=== PATIENT | male | born 1975 | race Caucasian/White ===

== ENCOUNTER → 2017-09-05 | Outpatient (CLI) | payer OTHER, SELFPAY | PROVIDERS: Family Provider Physician Assistant; Visit Provider Physician Assistant | DX: R04.2 Hemoptysis (principal) | CPT/HCPCS: 71020 ==

== ENCOUNTER → 2018-09-25 09:14 | Outpatient (CLI) | payer OTHER, SELFPAY ==
--- NOTE | 2018-09-25 09:24 | XR_ITS ---
EXAM: XR lumbar spine min 4V HISTORY: ITS.REASON: ACUTE LOW BACK PAIN WITH RT SCIATICA ORDERING PHYSICIAN: SHAYY Dai PATIENT AGE: 43 years COMPARISON: None FINDINGS: Normal alignment. No fracture or dislocation. No lytic or blastic change. There are small anterior osteophytes in the lower lumbar spine. The disc spaces are well-preserved. No fracture or dislocation. The SI joints have an unremarkable appearance. IMPRESSION: Mild degenerative changes, no acute finding
== END ==
PROVIDERS: PCP Family Medicine; Visit Provider Physician Assistant
DX: M54.41 Lumbago with sciatica, right side (principal)
CPT/HCPCS: 72110

== ENCOUNTER → 2020-07-29 09:56 | Outpatient (CLI) | payer OTHER, SELFPAY ==
--- NOTE | 2020-07-29 | CA_ITS ---
APPROVED REPORT Exam: Exercise Treadmill Technologist: Keisha Snyder, Ht: 6 ft 3 in Wt: 307 lbs BSA: 2.63 m2 HR: 62 bpm BP: 127/81 mmHg Rhythm: NSR,LEFTWARD AXIS Indications: Chest pain Medical History Allergies: No known drug allergies Cardiac Risk Factors: FHX of CAD Stress Test Details Test: Master HR Resting HR: 65 bpm Max Heart Rate (APMHR): 174 bpm Max HR Achieved: 165 bpm Target HR (85% APMHR): 147 bpm % of APMHR: 94 Recovery HR: 133 bpm BP Resting BP: 127.0/81.0 mmHg Max BP: 210.0/86.0 mmHg Recovery BP: 197.0/88.0 mmHg ECG Resting ECG: NSR,LEFTWARD AXIS Clinical Exercise duration: 08:00 min Highest Stage Achieved: Exercise capacity: 10.1 METs Stress ECG Conclusion MYOVIEW INJECTED AT 7:00. STOPPED AT 8:00 ON MASTER PROTOCOL. MAX HEART RATE 165 BPM WHICH IS 95% OF PM FOR AGE. MAX BP 210/86. METS = 10.1. TEST STOPPED DUE TO FATIGUE AND SOA. NO CHEST PAIN. OCCASIONAL PVC. RARE PAC. NS T WAVE CHANGES IN aVL. NORMAL GXT. MYOVIEW IMAGES REPORTED SEPARATELY. Test Summary RECOVERY 05:19 0.0 0.0 89 . 155/ 79 . . REST 05:57 0.0 0.0 65 . 127/ 81 . . Stage 1 01:00 10.0 1.7 96 . . . . Stage 1 02:00 10.0 1.7 109 . . . . Stage 1 03:00 10.0 1.7 114 . 150/ 88 . . Stage 2 01:00 12.0 2.5 125 . . . . Stage 2 02:00 12.0 2.5 132 . . . . Stage 2 03:00 12.0 2.5 138 . 210/ 86 . . Stage 3 . . . . . . . Myoview Injected Stage 3 01:00 14.0 3.4 152 . . . . Stage 3 02:00 14.0 3.4 163 . . . Stop exercise at 08:00 RECOVERY 01:00 0.0 0.0 133 . . . . RECOVERY 02:00 0.0 0.0 104 . . . . RECOVERY 03:00 0.0 0.0 85 . . . . RECOVERY 04:00 0.0 0.0 91 . 178/ 80 . . RECOVERY 05:00 0.0 0.0 79 . 178/ 80 . . RECOVERY 05:19 0.0 0.0 89 . 155/ 79 . . Electronically signed by : Burak Boyce, 07/30/2020 11:08:34
--- NOTE | 2020-07-29 09:58 | CA_ITS ---
APPROVED REPORT EXAM: Comprehensive 2D, Doppler, and color-flow Echocardiogram Assistant Therapy Aide: Yasmeen Messer RVT Ht: 6 ft 3 in Wt: 301lbs BSA: 2.61 BP: 136/89 mmHg Indications: ABN EKG,CDL CLEARANCE,CAD,DOMINIQUE,EX SMOKER,STENT,HTN TDS 2D Dimensions LVOT 2.35 cm (M/F) 1.5-2.5 M-Mode Dimensions RVDd 2.40 cm (0.9-2.6) LA Diam 4.30 cm (1.9-4.0) LVDd 5.01 cm (3.5-5.7) Ao Diam 3.28 cm (2.0-3.7) LVDs 4.18 cm (3.5-5.7) IVSd 1.07 cm (0.6-1.1) PWd 1.18 cm (0.6-1.1) EF (Teich) 57.00% FS 30.40% EDV (Teich) 180.70 mL ESV (Teich) 77.70 mL LV Diastology E Decel Time 210.00 (160-240 msec) E/A Ratio 1.3 MED E' 7.70 (< 7 cm/sec) E'/MED E' Ratio 9.25 (>14) LAT E' 10.20 (<10 cm/sec) E/LAT E' Ratio 6.98 (>14) Mitral Valve MV E Max Geronimo. 71.00 (40-130 cm/s) MV A Velocity 53.00 (40-130 cm/s) E/A Ratio 1.35 MV Decel. Time 210.00 (160-240 ms) MV PHT 62.00 ms Pulmonary Valve PV Peak Velocity 72.00 (50-150 cm/s) Tricuspid Valve TR P. Velocity 214.00 cm/s Left Ventricle Left atrium is normal size, left ventricle is normal size, there is no concentric left ventricular hypertrophy, visually estimated ejection fraction 55% with no regional wall motion abnormality, endocardial surfaces are poorly visualized. Diastolic parameters are normal. Right Ventricle Right atrium and right ventricle are normal size and contractility. Aortic Valve Aortic valve is minimally thickened and fibrosed, there is no aortic stenosis or aortic insufficiency. Mitral Valve Mitral valve is grossly normal. There is trace mitral regurgitation. Tricuspid Valve Tricuspid valve is grossly normal, there is trace tricuspid regurgitation. Pulmonic Valve Pulmonic valve is poorly visualized. Great Vessels Aortic root is normal size. Pericardium No significant pericardial effusion noted. Conclusion 1. Normal left ventricular size, preserved left ventricular systolic function, visually estimated ejection fraction 55% with no regional wall motion abnormality, endocardial surfaces are poorly visualized, diastolic parameters are within normal range. 2. Trace mitral and tricuspid regurgitation. 3. No significant pericardial effusion noted. Electronically signed by : Burak Boyce, 07/29/2020 14:48:06
--- NOTE | 2020-07-29 10:25 | NM_ITS ---
APPROVED REPORT Exam: Nuclear Stress Test Indication: Fatigue, CAD, Hx of [place], HTN, Family history Patient Location: Outpatient Stress Tech: Faridameli Faye [place] Tech:Kaycee TrejoANOOP RT(R)(N) Ht: 6 ft 3 in Wt: 307 lbs HR: 62 bpm BP: 127/81 mmHg BSA: 2.63 m2 BMI: 38.3 History: Fatigue, CAD, Hx of [place], HTN, Family history Procedure: Patient exercised on Liam protocol 8:00 minutes and sec, resting heart rate 62 bpm, resting blood pressure 127/81 mmHg, with exercise maximum heart rate achived was 165 bpm which is 95 % of the maximum predicted heart rate and blood pressure was 210/86 mmHg. Test was stopped due to SOA and fatigue. Patient denied any complaint of chest pain. Patient has GERD exercise capacity, achieved 10.1 METs of workload on treadmill, the blood pressure response to exercise was Hypertensive. Electrocardiogram Resting electrocardiogram showed sinus rhythm, with exercise there is less than 1.[address] segment depression noted from the baseline EKG. The EKG portion of the exercise Myoview is negative for ischemia. Cardiac Stress and Resting SPECT Images: Cardiac Stress and Resting SPECT images were obtained using technetium 99m Myoview 31.3 mCi stress and 10.76 mCi at rest. Gated SPECT for analysis of segmental wall motion and calculation of the ejection fraction also done. Cardiac stress and resting SPECT images show uniform myocardial activity without segmental perfusion abnormality, computer derived ejection fraction is 56% with no regional wall motion abnormality, right ventricle is mildly enlarged with normal contractility. Conclusion: 1. The EKG portion of the exercise Myoview is negative for ischemia, patient has good exercise capacity achieved 10.1 mets of workload on treadmill, the blood pressure response to exercise was hypertensive, there was no exercise-induced chest discomfort. Test was stopped due to shortness of breath. 2. No scintigraphic evidence of reversible ischemia seen, computer derived ejection fraction 56% with no regional wall motion abnormality, right ventricle is mildly enlarged with normal contractility. Electronically signed by : Burak Boyce, 07/30/2020 11:12:21
--- NOTE | 2020-07-29 13:53 | HMH.ITSHM ---
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 [] asa bupropion lasix gabapentin
== END ==
PROVIDERS: PCP Family Medicine; Visit Provider Internal Medicine Cardiovascular Disease
DX: R94.31 Abnormal electrocardiogram [ECG] [EKG] (principal); I25.10 Atherosclerotic heart disease of native coronary artery without angina pectoris; I10 Essential (primary) hypertension; K21.9 Gastro-esophageal reflux disease without esophagitis; R06.83 Snoring; Z02.4 Encounter for examination for driving license; Z87.891 Personal history of nicotine dependence
CPT/HCPCS: 78452; 93017; 93306; 95806; A9502

== ENCOUNTER → 2020-09-13 08:23 | Outpatient (CLI) | payer OTHER, SELFPAY ==
--- NOTE | 2020-09-13 08:27 | CA_ITS ---
APPROVED REPORT Automobile Body Repair Chief: Yasmeen Messer RVT Laterality: Bilateral Study Quality: Good Indications: Carotid stenosis,CAD WITH STENT Risk Factors Hypertension: Smoking Doppler Spectral Velocity Analysis ECA (R) 114.40/24.60 cm/s ECA (L) 118.50/28.90 cm/s dICA (R) 71.60/32.10 cm/s dICA (L) 89.60/35.60 cm/s Moni (R) 68.40/29.90 cm/s Moni (L) 59.70/27.00 cm/s pICA (R) 74.90/23.50 cm/s pICA (L) 49.10/20.20 cm/s dCCA (R) 59.90/22.50 cm/s dCCA (L) 79.00/24.10 cm/s pCCA (R) 95.20/24.60 cm/s pCCA (L) 132.90/31.80 cm/s Vert (R) 32.20/12.70 cm/s Vert (L) 28.30/10.90 cm/s ICA/CCA 1.25 ICA/CCA 1.13 Findings Study suggests no evidence of stenosis of the right internal cartoid artery. Study suggests no evidence of stenosis of the left internal cartoid artery. Antegrade flow seen bilateral vertebral arteries. Conclusion Study suggests no evidence of stenosis of the right internal cartoid artery. Study suggests no evidence of stenosis of the left internal cartoid artery. Antegrade flow seen bilateral vertebral arteries. Electronically signed by : Haile Connolly MD 09/14/2020 20:00:27
--- NOTE | 2020-09-13 09:00 | US_ITS ---
PROCEDURE: US THYROID Referring Doctor: Ysabel Davis Patient Age:45Y CLINICAL INDICATION: HYPOTHYROIDISM COMPARISON: US THY US THYROID from 12/14/2014 FINDINGS: Bilateral thyroid enlargement inhomogeneous architecture and nodular pattern bilaterally. Similar coarse inhomogeneous pattern to previous 2015 exam. No dominant or unique nodule identified but rather this stable diffuse coarse stippled nodular architecture. Color Doppler survey images shows no increased flow to either lobe Right lobe: 5 cm length x 2.2 cm wide x 1.5 cm AP Left lobe: 5.2 cm length x 2.3 cm wide x 2 cm AP Isthmus: Relatively thickened 8.65 mm AP it was thickened (The on the previous 2015 exam thickened isthmus measured over 9.5 mm on that prior study) . IMPRESSION: Bilateral thyroid enlargement again encountered. . Coarse inhomogeneous somewhat nodular architecture as was seen on 2015 thyroid ultrasound. However no discrete unique dominant mass either lobe, rather a diffuse coarse architecture again seen Dictated by: Haile Connolly MD 09/14/2020 14:59 Haile Connolly MD in [place] 09/14/2020 14:59
== END ==
PROVIDERS: PCP Family Medicine; Visit Provider Family Medicine
DX: E03.9 Hypothyroidism, unspecified (principal); I25.10 Atherosclerotic heart disease of native coronary artery without angina pectoris; Z95.9 Presence of cardiac and vascular implant and graft, unspecified
CPT/HCPCS: 76536; 93880

== ENCOUNTER → 2020-11-08 15:53 | Outpatient (CLI) | payer OTHER, SELFPAY ==
--- NOTE | 2020-11-08 15:57 | XR_ITS ---
PROCEDURE: XR HAND RT MIN 3V CLINICAL INDICATION: CONTUSION OF RT HAND,INITIAL ENCOUNTER COMPARISON: No exams were available for comparison FINDINGS: No obvious fracture or dislocation. There are mild osteoarthritic changes at the 1st metacarpophalangeal joint and the 1st interphalangeal joint. Scattered small soft tissue densities are present including regions at the 1st interphalangeal joint, 2nd PIP joint, and long the proximal aspect and palmar aspect of the middle phalanx of the 3rd digit. These areas are nonspecific and may be due to soft tissue calcifications and or foreign bodies. IMPRESSION: No acute fracture. Soft tissue calcifications versus foreign bodies at the 1st 2nd and 3rd fingers Dictated by: Giorgi Tee MD 11/08/2020 16:18 Giorgi Tee MD in [place] 11/08/2020 16:18
== END ==
PROVIDERS: PCP Family Medicine; Visit Provider Family Medicine
DX: S60.221A Contusion of right hand, initial encounter (principal)
CPT/HCPCS: 73130

== ENCOUNTER 2023-04-18 08:23 | Emergency (ER) | payer OTHER, SELFPAY ==
[2023-04-18] VITALS (9 sets, daily range): BP systolic 125–165; BP diastolic 96–110; PULSE 52–77; RESP 13–20; TEMP 36.7–36.8; O2SAT 95–98; BMI 40.6; BMI 41.0
--- NOTE | 2023-04-18 08:23 | ECG_ITS ---
APPROVED REPORT Exam: Resting ECG HR:67 bpm ECG Measurements Heart Rate 67 AXES NC 178 P 47 QRSd 120 QRS -70 QT 407 T 43 QTc 423 Conclusion SINUS RHYTHM LEFT ANTERIOR FASCICULAR BLOCK [QRS AXIS <= -45, QR IN I, RS IN II] O.w NORMAL ECG UNCONFIRMED REPORT Electronically signed by : Saul Morales MD 04/18/2023 20:16:55
--- NOTE | 2023-04-18 08:25 | XR_ITS ---
FINAL REPORT CLINICAL HISTORY: chest pain, left side, hx of stents COMPARISON: 09/05/2017 FINDINGS: SINGLE VIEW CHEST The heart size is normal. The mediastinum is normal. The lungs are clear. There is no pneumothorax. IMPRESSION: No acute cardiopulmonary process. Reviewed, Interpreted and Dictated by Nelson Brown III, MD Transcribed by Kennedi Euceda Authenticated and . [facility]
[2023-04-18 08:34] LABS: Basophils # 0.1 K/mm3 (0-0.2); Basophils % 1.2 % (0.1-2.0); Eosinophils # 0.3 K/mm3 (0.0-0.4); Eosinophils % 4.7 % (0.1-12.0); Hematocrit 46.7 % (42.0-52.0); Lymphocytes # 2.7 K/mm3 (0.7-4.5); Lymphocytes % 38.7 % (10-50); Mean Corpuscular HGB Conc 32.2 g/dL (31.8-35.4); Mean Corpuscular Hemoglobin 29.8 pg (27.0-31.2); Mean Corpuscular Volume 92.7 fl (80-94); Mean Platelet Volume 7.6 fl (7.4-10.4); Monocytes # 0.2 K/mm3 (0.1-1.0); Monocytes % 2.7 % (1.7-9.3); Neutrophils # 3.6 K/mm3 (1.8-7.8); Neutrophils % 52.7 % (37.0-80.0); Platelet Count 323 K/mm3 (142-424); Red Blood Count 5.04 M/mm3 (4.60-6.20); Red Cell Distribution Width 14.5 % (11.5-17.5); White Blood Count 6.9 K/mm3 (4.8-10.8)
--- NOTE | 2023-04-18 08:39 | HMH.EDGENADL ---
Discharge Plan Disposition Patient Disposition: Home, Self-Care Chief Complaint: Chest Pain Prescriptions Prescriptions: No Action aspirin [Adult Low Dose Aspirin] 81 mg tablet,delayed release (DR/EC) 81 mg PO DAILY cetirizine 10 mg tablet 10 mg PO DAILY furosemide 20 mg tablet 20 mg PO DAILY levothyroxine 175 mcg tablet 175 mcg PO DAILY omeprazole 40 mg capsule,delayed release(DR/EC) 40 mg PO DAILY lisinopril 20 mg tablet 40 mg PO DAILY metoprolol succinate 25 mg tablet extended release 24 hr See Rx Instructions .ROUTE .COMPLEX Qty: 90 1RF Dose Instruction: TAKE ONE TABLET BY MOUTH EVERY DAY Rx Instructions: TAKE ONE TABLET BY MOUTH EVERY DAY rosuvastatin 20 mg tablet See Rx Instructions .ROUTE .COMPLEX Qty: 30 5RF Dose Instruction: TAKE ONE TABLET BY MOUTH EVERY DAY Rx Instructions: TAKE ONE TABLET BY MOUTH EVERY DAY Referrals Follow up/Referrals: Provider,Referral, MD [Referring] - See instructions Activity Restrictions/Add. Instructions Additional Instructions/Restrictions: Stop taking Lasix (furosemide). Call Dr. Davis/Shani's office tomorrow, 04/19 for recheck labs. If you have any other concerning signs or symptoms, return to the ER for further evaluation. Clinical Impressions Clinical Impression: Chest pain, CHASE (acute kidney injury) Discharge ED Provider: Roger Gardner General Adult HPI General Chief complaint: Chest Pain Stated complaint: chest pain Time Seen by Provider: 04/18/23 08:27 Mode of Arrival: Ambulatory Source of Information: Patient Limitations: No Limitations Description of Symptoms (Recalled from ER Triage Doc. by RN): pt to ed c/o left sided chest pain that radiates into his arm. pt reports a previous NM 8 years ago. pt denies n/v. 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 pt states the pain is sharp in nature. History of Present Illness HPI narrative: Is a 47-year-old male with history of CAD status post NM and stenting not currently taking any of his medications, hyperlipidemia, hypertension presenting with chest pain. Patient states that this morning, around 6 AM on 04/18, patient started having left upper extremity shooting/stabbing pain starting in his lateral left arm and going down to his mid forearm. No associated weakness, did not travel all the way to his thumb. Did not travel to his neck. Intermittent. Not currently present. Moderate in intensity. About an hour after that started, about 7 AM today, 04/18, patient started having left-sided chest pain. Chest pain is mild in intensity, left-sided, stabbing, radiates to his left shoulder. Associate with shortness of breath, diaphoresis, nausea without vomiting. Denies abdominal pain, fevers or chills, cough, trauma, any neurologic deficits, or any other concerns. Notably, patient not taking any of his medications because they make my feet go numb and burn. He has been off his medications for weeks including aspirin, beta-jenifer, statin, ELODIA inhibitor, Lasix. Related Data Home Medications Medication Instructions Recorded Confirmed aspirin 81 mg tablet,delayed 81 mg PO DAILY 07/12/20 11/29/22 release (Adult Low Dose Aspirin) cetirizine 10 mg tablet 10 mg PO DAILY 07/15/20 11/29/22 furosemide 20 mg tablet 20 mg PO DAILY 07/15/20 11/29/22 levothyroxine 175 mcg tablet 175 mcg PO DAILY 07/15/20 11/29/22 omeprazole 40 mg capsule,delayed 40 mg PO DAILY 07/15/20 11/29/22 release lisinopril 20 mg tablet 40 mg PO DAILY 02/07/22 11/29/22 Previous Rx's Medication Instructions Recorded metoprolol succinate 25 mg See Rx Instructions .Route 09/12/22 tablet,extended release 24 hr .COMPLEX #90 tabs rosuvastatin 20 mg tablet See Rx Instructions .Route 10/31/22 .COMPLEX #30 tabs Allergies Allergy/AdvReac Type Severity Reaction Status Date / Time No Known Allergies Allergy Verified 05/10/22 14:23 [facility] Disclaimer: The information
[2023-04-18 08:41] LABS: Chloride 97 mmol/L (98-107); Potassium 3.9 mmoL/L (3.5-5.1); Sodium 139 mmol/L (136-145)
[2023-04-18 08:44] LABS: Anion Gap 12.9 mEq/L (5-15); Blood Urea Nitrogen 16 mg/dl (9-20); Carbon Dioxide 33 mmol/L (22.0-30.0); Creatinine Clearance Estimated 104 mL/min (50-200); Estimated Glomerular Filt Rate 40 ml/min (>60); GFR (African American) 49 ML/MIN (>60)
[2023-04-18 08:45] LABS: Calcium 10.2 mg/dl (8.4-10.2); Glucose 119 mg/dl (74-100)
[2023-04-18 08:57] LABS: Troponin I < 0.01 ng/ml (0.00-0.034)
[2023-04-18 09:49] LABS: Direct LDL Cholesterol 191.68 mg/dL (100-129)
[2023-04-18 09:55] LABS: Cholesterol 384 mg/dl (140-200); Triglycerides 424 mg/dl (30-150)
--- NOTE | 2023-04-18 10:07 | PC.NURSE ---
DR JORGENSEN SPEAKING AT MD AT [facility] FOR TRANSFER
--- NOTE | 2023-04-18 10:12 | PC.NURSE ---
Rounded on patient; SO at BS. Call he within reach. Pts SO asked about if patient was getting fluids, notified ER MD.
[2023-04-18 10:45] LABS: Hemoglobin A1C 6.5 % (4.0-6.0)
[2023-04-18 11:49] LABS: Troponin I < 0.01 ng/ml (0.00-0.034)
[2023-04-18 11:55] LABS: HDL Cholesterol 32 mg/dl (40-60)
[2023-04-18 14:15] LABS: Chloride 99 mmol/L (98-107); Potassium 3.6 mmoL/L (3.5-5.1); Sodium 138 mmol/L (136-145)
[2023-04-18 14:18] LABS: Anion Gap 10.6 mEq/L (5-15); Blood Urea Nitrogen 15 mg/dl (9-20); Calcium 9.1 mg/dl (8.4-10.2); Carbon Dioxide 32 mmol/L (22.0-30.0); Creatinine Clearance Estimated 111 mL/min (50-200); Estimated Glomerular Filt Rate 43 ml/min (>60); GFR (African American) 52 ML/MIN (>60); Glucose 124 mg/dl (74-100)
[2023-04-18 14:44] LABS: Troponin I < 0.01 ng/ml (0.00-0.034)
== END 2023-04-18 14:57 | disposition home or self-care (01) ==
PROVIDERS: Emergency Provider Emergency Medicine; PCP Family Medicine
DX: R07.9 Chest pain, unspecified (principal); M79.602 Pain in left arm; N17.9 Acute kidney failure, unspecified; I25.10 Atherosclerotic heart disease of native coronary artery without angina pectoris; I10 Essential (primary) hypertension; E78.5 Hyperlipidemia, unspecified; K21.9 Gastro-esophageal reflux disease without esophagitis
CPT/HCPCS: 71045; 80048; 80061; 83036; 84484; 85025; 93005; 96360; 96361; 99285

== ENCOUNTER → 2023-05-01 14:02 | Outpatient (CLI) | payer OTHER, SELFPAY ==
[2023-05-01 15:11] LABS: Anion Gap 13.5 mEq/L (5-15); Blood Urea Nitrogen 14 mg/dl (9-20); Carbon Dioxide 33 mmol/L (22.0-30.0); Chloride 97 mmol/L (98-107); Potassium 3.5 mmoL/L (3.5-5.1); Sodium 140 mmol/L (136-145)
[2023-05-01 15:12] LABS: Calcium 9.1 mg/dl (8.4-10.2); Estimated Glomerular Filt Rate 40 ml/min (>60); GFR (African American) 49 ML/MIN (>60); Glucose 108 mg/dl (74-100)
[2023-05-01 15:30] LABS: Free Thyroxine Index 0.1 ug/dL (5.93-13.13); T4 (Thyroxine) 0.6 ug/dl (5.53-11.0); Triiodothryronine (T3) Uptake 23 % (23.5-40.5)
[2023-05-01 16:25] LABS: Hemoglobin A1C 6.4 % (4.0-6.0)
== END ==
PROVIDERS: PCP Family Medicine; Visit Provider Nurse Practitioner
DX: R06.00 Dyspnea, unspecified (principal); R07.9 Chest pain, unspecified; I25.10 Atherosclerotic heart disease of native coronary artery without angina pectoris; I10 Essential (primary) hypertension; R94.31 Abnormal electrocardiogram [ECG] [EKG]; E78.5 Hyperlipidemia, unspecified; K21.9 Gastro-esophageal reflux disease without esophagitis; E66.9 Obesity, unspecified; Z87.891 Personal history of nicotine dependence; Z68.41 Body mass index [BMI] 40.0-44.9, adult
CPT/HCPCS: 36415; 80048; 83036; 84436; 84443; 84479

== ENCOUNTER → 2023-05-07 07:49 | Outpatient (CLI) | payer OTHER, SELFPAY ==
--- NOTE | 2023-05-07 07:57 | NM_ITS ---
APPROVED REPORT Exam: Nuclear Stress Test Indication: chest pain..soa..palpitations.fatigue...high cholesterol..family hx..hx of [place] Patient Location: Outpatient Stress Tech: Erma Raymundo [place] Tech:Kaycee Trejo ANOOP RT(R)(N) Ht: 6 ft 3 in Wt: 331 lbs HR: 51 bpm BP: 160/93 mmHg BSA: 2.72 m2 Rhythm: NSR TID: 1.25 BMI: 41.3 History: chest pain..soa..palpitations.fatigue...high cholesterol..family hx..hx of [place] Procedure: Patient received 0.4 mg of intravenous Lexiscan, resting heart rate 51 bpm, resting blood pressure 160/93 mmHg, with Lexiscan maximum heart rate achieved was 77 bpm which is 85 % of the maximum predicted heart rate and blood pressure was 163/95 mmHg. With Lexiscan, patient denied any complaint of chest pain. Cardiac Stress and Resting SPECT Images: Cardiac Stress and Resting SPECT images were obtained using technetium 99m Myoview 32.4 mCi stress and 9.73 mCi at rest. Resting and stress imaging in both supine and prone positions demonstrate a large sized, moderate, fixed perfusion defect in the inferior wall from the base and extending distally towards the inferoapical region. There is also a medium sized, moderate, partially reversible perfusion defect in the basal to mid anterior LV wall. There is increased transient ischemic dilatation ratio (TID 1.25), suggestive of possible multivessel disease or balanced ischemia. Gated imaging demonstrates mild reduction in global LV systolic function. There is moderate hypokinesis in the basal inferior LV wall. LVEF is calculated at 48%. Conclusion: Large sized, moderate, fixed perfusion defect in the inferior wall from the base and extending distally towards the inferoapical region. There is also a medium sized, moderate, partially reversible perfusion defect in the basal to mid anterior LV wall. This finding is suggestive of partial reversible ischemia. There is increased transient ischemic dilatation ratio (TID 1.25), suggestive of possible multivessel disease or balanced ischemia. Gated imaging demonstrates mild reduction in global LV systolic function. There is moderate hypokinesis in the basal inferior LV wall. LVEF is calculated at 48%. Electronically signed by : Adelaide Glasgow 05/08/2023 20:14:01
--- NOTE | 2023-05-07 10:12 | CA_ITS ---
APPROVED REPORT Exam: Pharmacologic Technologist: Erma Raymundo Ht: 6 ft 3 in Wt: 331 lbs BSA: 2.72 m2 HR: 51 bpm BP: 160/93 mmHg Rhythm: NSR Indications: Chest pain Medical History Medications: Lisinopril,,,,, Omeprazole,,,,, Levothyroxine,,,,, CetIRIZINE,,,,, Furosemide,,,,, Stress Test Details Test: LEXISCAN HR Resting HR: 51 bpm Max Heart Rate (APMHR): 171 bpm Max HR Achieved: 77 bpm Target HR (85% APMHR): 145 bpm % of APMHR: 45 Recovery HR: 58 bpm BP Resting BP: 160.0/93.0 mmHg Max BP: 163.0/95.0 mmHg Recovery BP: 163.0/95.0 mmHg ECG Resting ECG: Sinus bradycardia, delayed R/S transition Stress ECG: No change Arrhythmia: None Clinical Exercise duration: 04:00 min Highest Stage Achieved: Stress ECG Conclusion Symptoms: Dizziness, palpitations Arrhythmias/Ectopy: None ST-T Changes: No ST changes Conclusion: Unremarkable Lexiscan stress test. Myoview images are reported separately. Test Summary REST . . . . . . . Resting REST 04:29 . . 51 . 160/ 93 . . Stage 1 . . . . . . . Myoview Injected Stage 1 01:00 . . 61 . . . . Stage 2 01:00 . . 71 . . . . Stage 3 01:00 . . 59 . 142/ 95 . . Stage 4 01:00 . . 65 . 126/ 96 . Stop exercise at 04:00 RECOVERY 01:00 . . 62 . . . . RECOVERY 02:00 . . 61 . 145/100 . . RECOVERY 03:00 . . 60 . 145/100 . . RECOVERY 04:00 . . 63 . 157/100 . . RECOVERY 05:00 . . 56 . 157/100 . . RECOVERY 05:20 . . 59 . 163/ 95 . . Electronically signed by : Adelaide Glasgow, 05/08/2023 20:07:59
== END ==
PROVIDERS: PCP Family Medicine; Visit Provider Nurse Practitioner
DX: R06.00 Dyspnea, unspecified (principal); R07.9 Chest pain, unspecified; R94.31 Abnormal electrocardiogram [ECG] [EKG]; I25.10 Atherosclerotic heart disease of native coronary artery without angina pectoris; I10 Essential (primary) hypertension; E78.5 Hyperlipidemia, unspecified; K21.9 Gastro-esophageal reflux disease without esophagitis; E66.9 Obesity, unspecified; Z68.39 Body mass index [BMI] 39.0-39.9, adult; Z87.891 Personal history of nicotine dependence
CPT/HCPCS: 78452; 93017; A9502; J2785

== ENCOUNTER 2023-05-13 05:39 | Observation (INO) | payer OTHER, SELFPAY ==
[2023-05-13] VITALS (13 sets, daily range): BP systolic 136–183; BP diastolic 79–130; PULSE 49–70; RESP 12–18; TEMP 36.4–36.7; O2SAT 95–97; BMI 41.2; BMI 41.4
--- NOTE | 2023-05-13 05:45 | ECG_ITS ---
APPROVED REPORT Exam: Resting ECG HR:53 bpm ECG Measurements Heart Rate 53 AXES QRSd 118 QRS -52 QT 397 T 60 QTc 381 Conclusion ATRIAL FIBRILLATION WITH SLOW VENTRICULAR RESPONSE PATTERN CONSISTENT WITH PULMONARY DISEASE LEFT ANTERIOR FASCICULAR BLOCK [QRS AXIS <= -45, QR IN I, RS IN II] ABNORMAL ECG UNCONFIRMED REPORT Electronically signed by : Saul Morales MD 05/15/2023 17:25:19
--- NOTE | 2023-05-13 05:55 | PC.NURSE ---
Dr. Szymanski at
--- NOTE | 2023-05-13 06:06 | XR_ITS ---
PROCEDURE INFORMATION: Exam: XR Chest Exam date and time: 05/13/2023 6:11 AM Age: 47 years old Clinical indication: Shortness of breath; Additional info: SOA TECHNIQUE: Imaging protocol: Radiologic exam of the chest. Views: 1 view. COMPARISON: CR XR CHEST PORTABLE 04/18/2023 8:45 AM FINDINGS: Lungs: No focal airspace disease. Pleural spaces: Unremarkable. No pleural effusion. No pneumothorax. Heart/Mediastinum: Cardiomediastinal silhouette is within normal limits. Bones/joints: Unremarkable. IMPRESSION: No acute cardiopulmonary abnormality.
--- NOTE | 2023-05-13 06:14 | PC.NURSE ---
RAD at for CXR
[2023-05-13 06:50] LABS: Basophils # 0.1 K/mm3 (0-0.2); Basophils % 1.2 % (0.1-2.0); Eosinophils # 0.3 K/mm3 (0.0-0.4); Eosinophils % 4.1 % (0.1-12.0); Hematocrit 41.8 % (42.0-52.0); Hemoglobin 13.5 g/dL (14.1-18.0); Lymphocytes # 1.8 K/mm3 (0.7-4.5); Lymphocytes % 28.7 % (10-50); Mean Corpuscular HGB Conc 32.3 g/dL (31.8-35.4); Mean Corpuscular Hemoglobin 30.9 pg (27.0-31.2); Mean Corpuscular Volume 95.8 fl (80-94); Monocytes # 0.3 K/mm3 (0.1-1.0); Neutrophils # 3.8 K/mm3 (1.8-7.8); Platelet Count 287 K/mm3 (142-424); Red Blood Count 4.37 M/mm3 (4.60-6.20); Red Cell Distribution Width 15.1 % (11.5-17.5); White Blood Count 6.2 K/mm3 (4.8-10.8)
[2023-05-13 06:52] LABS: Chloride 101 mmol/L (98-107); Potassium 4.1 mmoL/L (3.5-5.1); Sodium 142 mmol/L (136-145)
[2023-05-13 06:54] LABS: Alanine Aminotransferase 81 U/L (12-78); Aspartate Amino Transferase 95 U/L (17-59); Blood Urea Nitrogen 16 mg/dl (9-20); Creatinine Clearance Estimated 146 mL/min (50-200); Estimated Glomerular Filt Rate 59 ml/min (>60); GFR (African American) 71 ML/MIN (>60)
[2023-05-13 06:55] LABS: Albumin Level 4.5 g/dl (3.5-5.0); Albumin/Globulin Ratio 1.1 (1.1-1.8); Alkaline Phosphatase 67 U/L (38-126); Anion Gap 15.1 mEq/L (5-15); Bilirubin,Total 0.6 mg/dl (0.2-1.3); Calcium 10.1 mg/dl (8.4-10.2); Carbon Dioxide 30 mmol/L (22.0-30.0); Glucose 121 mg/dl (74-100); Magnesium 1.9 mg/dl (1.6-2.3); Total Protein,Serum 8.5 g/dl (6.3-8.2)
--- NOTE | 2023-05-13 07:02 | PC.NURSE ---
Dr. Szymanski at BS to update pt
[2023-05-13 07:04] LABS: NT Pro Brain Natriuretic Pep. 133 pg/mL (0-125)
--- NOTE | 2023-05-13 07:07 | ECG_ITS ---
APPROVED REPORT Exam: Resting ECG HR:58 bpm ECG Measurements Heart Rate 58 AXES HI 178 P 4 QRSd 116 QRS -49 QT 410 T 27 QTc 406 Conclusion SINUS BRADYCARDIA WITH SINUS ARRHYTHMIA PATTERN CONSISTENT WITH PULMONARY DISEASE LEFT ANTERIOR FASCICULAR BLOCK [QRS AXIS <= -45, QR IN I, RS IN II] ABNORMAL ECG UNCONFIRMED REPORT Electronically signed by : Saul Morales MD 05/15/2023 17:25:06
[2023-05-13 07:08] LABS: Troponin I < 0.01 ng/ml (0.00-0.034)
--- NOTE | 2023-05-13 07:09 | PC.NURSE ---
Repeat EKG completed at 0707
[2023-05-13 07:10] LABS: D-Dimer 0.54 ug/mL (0.0-0.5)
--- NOTE | 2023-05-13 07:11 | HMH.EDGENADL ---
Discharge Plan Disposition Patient Disposition: Admitted Condition: Fair Clinical Impressions Clinical Impression: Angina pectoris, unstable, Bilateral edema of lower extremity Discharge ED Provider: Vitaliy Szymanski General Adult HPI <Vitaliy Szymanski MD - Last Filed: 05/13/23 23:30> General Chief complaint: Shortness of Breath/Dyspnea Stated complaint: SOA,B/P high 190/117 Time Seen by Provider: 05/13/23 05:44 Mode of Arrival: Ambulatory Source of Information: Patient Limitations: No Limitations Description of Symptoms (Recalled from ER Triage Doc. by RN): Pt complains SOA, chest pressure, and HTN (190/117) at home this morning, currently 183/117. Pt has hx of HTN, and recently has experienced overall body swelling and scheduled to have heart cath here on Sunday. Pt denies any chest pain, nausea or vomiting at this time. History of Present Illness HPI narrative: 47-year-old male history of coronary artery disease status post prior stent, hypothyroidism, currently being closely followed by cardiology with plan for cath on Sunday for abnormal stress test presents with shortness of breath. He reports that he woke up multiple times last night with shortness of breath while laying down, improved with sitting up. Patient was also hypertensive with systolic 190. Patient reports he is not currently having chest pain. Reports that he is not currently having shortness of breath. Patient reports worsening lower extremity edema recently. Related Data Home Medications Medication Instructions Recorded Confirmed cetirizine 10 mg tablet 10 mg PO DAILY Allergy Symptoms 07/15/20 05/13/23 levothyroxine 175 mcg tablet 175 mcg PO DAILYDM hypothyroid 07/15/20 05/13/23 omeprazole 40 mg capsule,delayed 40 mg PO DAILY Acid Reflux 07/15/20 05/13/23 release potassium chloride 20 mEq 20 meq PO DAILY Supplement 05/10/23 05/13/23 tablet,extended release(part/cryst) atorvastatin 40 mg tablet 40 mg PO Q2D Cholesterol 05/13/23 05/13/23 fluticasone propionate 50 1 spray intranasal DAILY Allergy 05/13/23 05/13/23 mcg/actuation nasal Symptoms spray,suspension furosemide 40 mg tablet 40 mg PO DAILY Fluid 05/13/23 05/13/23 lisinopril 40 mg tablet 40 mg PO DAILY High Blood Pressure 05/13/23 05/13/23 tadalafil 5 mg tablet 2.5 mg PO DAILY ERECTILE 05/13/23 05/13/23 DYSFUNCTION triamterene 37.5 1 tab PO DAILY Fluid 05/13/23 05/13/23 mg-hydrochlorothiazide 25 mg tablet Allergies Allergy/AdvReac Type Severity Reaction Status Date / Time No Known Allergies Allergy Verified 05/13/23 09:10 [facility] <Vitaliy Szymanski MD - Last Filed: 05/13/23 23:30> [facility] Disclaimer: The information contained in this section may have been updated after the patient was seen, as this information can be updated by other users. Medical History Abnormal EKG Abnormal nuclear stress test Allergic rhinitis BPH (benign prostatic hyperplasia) CAD (coronary artery disease) Elevated LFTs Erectile dysfunction Ex-smoker Gastroesophageal reflux disease HLD (hyperlipidemia) HTN (hypertension) Hypokalemia Hypothyroidism Morbid obesity Myocardial infarction RLS (restless legs syndrome) Snoring Stopped smoking with greater than 30 pack year history Surgical History (Updated 05/13/23 @ 13:13 by Portillo Mcleod MD) History of heart artery stent Family History Liver cancer Colon cancer Social History (Updated 05/13/23 @ 13:16 by Portillo Mcleod MD) Smoking Status: Former smoker quit date: 05/13/19 pack-years: 30 alcohol intake: never substance use type: denies use current occupational status: employed Travel in the last 8 weeks: Inside the [place] <Vitaliy Szymanski MD - Last Filed: 05/13/23 23:30> ROS Obtained: Yes All systems reviewed & no additional complaints except as documented Physical Exam <Vitaliy Szymanski MD - Last Filed: 05/13/23 23:30> General General appearance: alert and i
--- NOTE | 2023-05-13 07:52 | PC.NURSE ---
DR PENA SPEAKING WITH DR KISER FOR ADMISSION. DR KISER GROUP COUNSELOR FOR DR ARELLANO
--- NOTE | 2023-05-13 07:54 | PC.NURSE ---
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
--- NOTE | 2023-05-13 08:41 | PC.NURSE ---
pt sat up in bed, trying to stick his finger down his throat to induce vomiting, asked pt not to do that
--- NOTE | 2023-05-13 08:43 | PC.NURSE ---
Dr. Mcleod at
--- NOTE | 2023-05-13 08:49 | PC.NURSE ---
report called to josé miguel calderon rn on second floor at this time. states will send staff down to transport pt
--- NOTE | 2023-05-13 08:58 | PC.NURSE ---
arrived to floor by w/c from ED
[2023-05-13 09:56] LABS: Troponin I < 0.01 ng/ml (0.00-0.034)
--- NOTE | 2023-05-13 10:13 | HMH.PHAINT1 ---
Pharmacy Intervention Comments: MEDICATION RECONCILIATION COMPLETE USING LIST FROM MOST RECENT CARDIOLOGY OFFICE VISIT AND EXTERNAL PHARMACY FILL HISTORY.
--- NOTE | 2023-05-13 12:54 | EXP.HP ---
History of Present Illness *Admission Date: 05/13/23 *Reason for visit:: Chest pressure and shortness of breath *History of present illness: Mr. Barrera is a 47 year old patient of [facility] who sees Dr. Davis for his primary care. He presented to [facility] ER this morning with complaints of chest pressure, shortness of breath and elevated blood pressure. Patient states he awoke last night and had funny feelings in his chest associated with trouble breathing. Symptoms improved after sitting up but then returned after lying down. He checked his blood pressure and it was 190 systolic. So he came to the ER for an evaluation. He states he has a history of CAD and TX in 2016. Patient reports he has been having similar symptoms to the ones that brought him to the ER for about 1 month. He has also had lower extremity edema, and had diuretic dosing change. He had inadvertently stopped taking Levothyroxine sometime in the past few months but resumed it a few weeks ago. He states he has been to the office of [facility] 4 times in the past month for office visits and has had one other trip to the ER at [facility]. Total cholesterol was 340 when checked earlier this month. He had a cardiac stress test that was abnormal and has a left heart cath scheduled for later this week. [facility] Disclaimer: The information contained in this section may have been updated after the patient was seen, as this information can be updated by other users. Medical History Abnormal EKG Abnormal nuclear stress test Allergic rhinitis BPH (benign prostatic hyperplasia) CAD (coronary artery disease) Elevated LFTs Erectile dysfunction Ex-smoker Gastroesophageal reflux disease HLD (hyperlipidemia) HTN (hypertension) Hypokalemia Hypothyroidism Morbid obesity Myocardial infarction RLS (restless legs syndrome) Snoring Stopped smoking with greater than 30 pack year history Surgical History (Updated 05/13/23 @ 13:13 by Portillo Mcleod MD) History of heart artery stent Family History Liver cancer Colon cancer Social History (Updated 05/13/23 @ 13:16 by Portillo Mcleod MD) Smoking Status: Former smoker quit date: 05/13/19 pack-years: 30 alcohol intake: never substance use type: denies use current occupational status: employed Travel in the last 8 weeks: Inside the [place] Review of Systems Constitutional Constitutional: Denies chills and Denies fever(s) Eyes Eyes: Denies blurry vision ENT Ears, Nose, Mouth, and Throat: Denies bleeding gums and Denies dizziness *Cardiovascular Cardiovascular: Reports as per HPI *Respiratory Respiratory: Denies cough *Gastrointestinal Gastrointestinal: Denies abdominal pain *Genitourinary Genitourinary: Denies difficulty urinating *Musculoskeletal Musculoskeletal: Denies arthralgias Integumentary/Breasts Skin/Breast: Denies rash *Neurologic Neurologic: Denies dizziness Meds Home Medications and Allergies Home Medications Medication Instructions Recorded Confirmed Type cetirizine 10 mg tablet 10 mg PO DAILY Allergy Symptoms 07/15/20 05/13/23 History levothyroxine 175 mcg tablet 175 mcg PO DAILYDM hypothyroid 07/15/20 05/13/23 History omeprazole 40 mg capsule,delayed 40 mg PO DAILY Acid Reflux 07/15/20 05/13/23 History release potassium chloride 20 mEq 20 meq PO DAILY Supplement 05/10/23 05/13/23 History tablet,extended release(part/cryst) atorvastatin 40 mg tablet 40 mg PO Q2D Cholesterol 05/13/23 05/13/23 History fluticasone propionate 50 1 spray intranasal DAILY Allergy 05/13/23 05/13/23 History mcg/actuation nasal Symptoms spray,suspension furosemide 40 mg tablet 40 mg PO DAILY Fluid 05/13/23 05/13/23 History lisinopril 40 mg tablet 40 mg PO DAILY High Blood Pressure 05/13/23 05/13/23 History tadalafil 5 mg tablet 2.5 mg PO DAILY ERECTILE 05/13/23 05/13/23 History DYSFUNCTION triamterene 37.5 1 tab PO DAILY Fluid 05/13/23
--- NOTE | 2023-05-13 18:14 | PC.NURSE ---
NEW ADMIT THIS SHIFT. ONLY COMPLAINT WAS HEADACHE. MEDICATED PER MAR WITH GOOD EFFECTIVENESS. AMBULATES IN ROOM INDEPENDENTLY. DENIES CHEST PAIN. NSR ON TELE.
[2023-05-14] VITALS (21 sets, daily range): BP systolic 110–182; BP diastolic 65–108; PULSE 40–92; RESP 15–20; TEMP 36.4–37; O2SAT 95–98; BMI 40.6
[2023-05-14 07:19] LABS: Basophils # 0.1 K/mm3 (0-0.2); Basophils % 1.3 % (0.1-2.0); Eosinophils # 0.2 K/mm3 (0.0-0.4); Hematocrit 39.8 % (42.0-52.0); Hemoglobin 13.2 g/dL (14.1-18.0); Lymphocytes # 1.7 K/mm3 (0.7-4.5); Lymphocytes % 28.5 % (10-50); Mean Corpuscular HGB Conc 33.2 g/dL (31.8-35.4); Mean Corpuscular Hemoglobin 31.8 pg (27.0-31.2); Mean Corpuscular Volume 95.8 fl (80-94); Mean Platelet Volume 7.8 fl (7.4-10.4); Monocytes # 0.3 K/mm3 (0.1-1.0); Monocytes % 5.4 % (1.7-9.3); Neutrophils # 3.6 K/mm3 (1.8-7.8); Neutrophils % 60.8 % (37.0-80.0); Platelet Count 273 K/mm3 (142-424); Red Blood Count 4.16 M/mm3 (4.60-6.20); Red Cell Distribution Width 15.2 % (11.5-17.5); White Blood Count 5.9 K/mm3 (4.8-10.8)
[2023-05-14 07:23] LABS: Chloride 99 mmol/L (98-107); Potassium 3.6 mmoL/L (3.5-5.1); Sodium 140 mmol/L (136-145)
[2023-05-14 07:26] LABS: Alanine Aminotransferase 73 U/L (12-78); Albumin Level 4.3 g/dl (3.5-5.0); Albumin/Globulin Ratio 1.1 (1.1-1.8); Alkaline Phosphatase 81 U/L (38-126); Anion Gap 13.6 mEq/L (5-15); Aspartate Amino Transferase 83 U/L (17-59); Bilirubin,Total 0.6 mg/dl (0.2-1.3); Blood Urea Nitrogen 18 mg/dl (9-20); Calcium 9.5 mg/dl (8.4-10.2); Carbon Dioxide 31 mmol/L (22.0-30.0); Creatinine Clearance Estimated 125 mL/min (50-200); Estimated Glomerular Filt Rate 50 ml/min (>60); GFR (African American) 60 ML/MIN (>60); Globulin 3.9 g/dL (1.3-3.2); Glucose 110 mg/dl (74-100); Total Protein,Serum 8.2 g/dl (6.3-8.2)
--- NOTE | 2023-05-14 08:09 | EXP.ACUTE.PN ---
Subjective *Date: 05/14/23 *Time: 09:33 Interval history: He was unable to sleep much during the night. Blood pressure has greatly improved which patient states has made him feel better. He denies any chest discomfort. He has not been short of breath. He has ambulated to the bathroom without difficulty. He has been eating well. Renal function today with a BUN of 18 and creatinine 1.5. Liver function studies have improved with an AST still elevated at 83 and a normal ALT at 73. Medical Exam Vital signs and Labs for Last 24 Hours: Vital Signs Temp Pulse Pulse Resp BP BP Pulse Ox 05/14/23 05:51 50 L 05/14/23 04:00 97.7 F 49 L 18 110/65 96 05/14/23 00:00 40 L 05/13/23 20:00 50 L 05/14/23 06:21 05/14/23 04:32 05/14/23 02:50 05/14/23 01:00 05/14/23 00:00 97.9 F 47 L 18 137/96 H 95 05/13/23 22:52 05/13/23 21:00 05/13/23 20:00 97.7 F 54 L 18 136/79 96 05/13/23 20:00 05/13/23 18:17 05/13/23 16:00 60 05/13/23 16:21 05/13/23 15:00 05/13/23 14:58 97.7 F 65 16 156/99 H 97 05/13/23 12:00 70 05/13/23 12:48 05/13/23 11:00 05/13/23 11:19 97.8 F 57 L 18 163/100 H 96 05/13/23 09:00 05/13/23 09:07 51 L 05/13/23 09:01 97.6 F 52 L 16 171/108 H 97 05/13/23 08:54 54 L 16 171/108 H 97 05/13/23 08:50 53 L 16 158/105 H 97 05/13/23 09:01 97.6 F 54 L 16 171/108 H O2 Del Method 05/14/23 05:51 05/14/23 04:00 05/14/23 00:00 05/13/23 20:00 05/14/23 06:21 Room Air 05/14/23 04:32 Room Air 05/14/23 02:50 Room Air 05/14/23 01:00 Room Air 05/14/23 00:00 Room Air 05/13/23 22:52 Room Air 05/13/23 21:00 Room Air 05/13/23 20:00 Room Air 05/13/23 20:00 Room Air 05/13/23 18:17 Room Air 05/13/23 16:00 05/13/23 16:21 Room Air 05/13/23 15:00 Room Air 05/13/23 14:58 Room Air 05/13/23 12:00 05/13/23 12:48 Room Air 05/13/23 11:00 Room Air 05/13/23 11:19 Room Air 05/13/23 09:00 Room Air 05/13/23 09:07 05/13/23 09:01 Room Air 05/13/23 08:54 Room Air 05/13/23 08:50 Room Air 05/13/23 09:01 Room Air Intake and Output 05/13/23 05/14/23 05/14/23 19:59 03:59 11:59 Intake Total 930 / 930 Output Total 0 / 0 0 / 0 Balance 930 / 930 0 / 930 Intake: Intake, Oral Amount 930 / 930 Output: Output, Urine Amount 0 / 0 0 / 0 Other: Number of Unmeasured Voids 1 1 Weight 327 lb 4 oz Patient Weight 05/14/23 11:59 Weight 327 lb 4 oz Laboratory Results - last 24 hr 05/13/23 09:29: Troponin I < 0.01 05/14/23 06:11: WBC 5.9, RBC 4.16 L, Hgb 13.2 L, Hct 39.8 L, MCV 95.8 H, MCH 31.8 H, MCHC 33.2, RDW 15.2, Plt Count 273, MPV 7.8, Neut % (Auto) 60.8, Lymph % (Auto) 28.5, [place] % (Auto) 5.4, Eos % (Auto) 4.0, Baso % (Auto) 1.3, Neut # (Auto) 3.6, Lymph # (Auto) 1.7, [place] # (Auto) 0.3, Eos # (Auto) 0.2, Baso # (Auto) 0.1, Sodium 140, Potassium 3.6, Chloride 99, Carbon Dioxide 31 H, Anion Gap 13.6, BUN 18, Creatinine 1.50 H, Estimated Creat Clear 125, Estimated GFR 50 L, Est GFR ( Amer) 60, Glucose 110 H, Calcium 9.5, Total Bilirubin 0.6, AST 83 H, ALT 73, Alkaline Phosphatase 81, Total Protein 8.2, Albumin 4.3, Globulin 3.9 H, Albumin/Globulin Ratio 1.1 I & O for Labs for Last 24 Hours: Intake & Output 05/11/23 05/12/23 05/13/23 05/14/23 11:59 11:59 11:59 11:59 Intake Total 930 / 930 Output Total 0 / 0 0 / 0 Balance 0 / 0 930 / 930 Weight 331 lb 7 oz 327 lb 4 oz Constitutional: Present no acute distress Respiratory: Present CTA bilaterally (Anteriorly and posteriorly) Cardiac: Present Regular Rate (Monitor showing sinus rhythm) Extremities: Present full ROM and edema (Left lower extremity); Absent tenderness or calf tenderness Neuro: Present alert and oriented x 3 Assessment and Plan *Assessment and plan (1) Chest pain: Status: Acute Quali
--- NOTE | 2023-05-14 08:15 | EXP.CARD.CON ---
History of Present Illness History of Present Illness Consult date: 05/14/23 Requesting physician: Portillo Mcleod Consult reason: chest pain Chief complaint: chest pain Additional Medical History:: 1. CAD A. OR with JULIÁN, 2015 B. Lexiscan myoview, 05/07/2023, reversible ischemia basal to mid anterior wall with TID (1.25) with EF 48% 2. HTN A. Echo, 2019, EF 55% with trace MR/TR 3. HLD A. Reportedly on Statin therapy B. LDL 191, 04/2023, with TG 424 4. Remote tobacco use A. 20 pack year history, stopped about 2016 5. Obesity 6. FH of CAD in brothers, mother 7. CKD, stage 3a A. Cr 1.5 with GFR 50, 05/14/2023 8. Hypothyroidism with bilateral thyroid enlargement on ultrasound, 08/2020 A. On replacement but recently non-compliant, 04/2023 B. TSH 157 on 05/01/2023 then 64.3 on 05/13/2023 9. GERD A. ON PPI therapy 10. DM, type II A. Hgb A1c 6.4 on 05/01/2023 History of present illness: Mr. Barrera is a 47 year old patient of [facility] who sees Dr. Davis for his primary care. He presented to [facility] ER this morning with complaints of chest pressure, shortness of breath and elevated blood pressure. Patient states he awoke last night and had funny feelings in his chest associated with trouble breathing. Symptoms improved after sitting up but then returned after lying down. He checked his blood pressure and it was 190 systolic. So he came to the ER for an evaluation. He states he has a history of CAD and OR in 2015. Patient reports he has been having similar symptoms to the ones that brought him to the ER for about 1 month. He has also had lower extremity edema, and had diuretic dosing change. He had inadvertently stopped taking Levothyroxine sometime in the past few months but resumed it a few weeks ago. He states he has been to the office of [facility] 4 times in the past month for office visits and has had one other trip to the ER at [facility]. Total cholesterol was 340 when checked earlier this month. He had a cardiac stress test that was abnormal and has a left heart cath scheduled for later this week. The above per Dr. Mcleod Pt was recently seen in the office for test follow up (abnormal stress) and scheduled for [facility] this week. Symptoms of chest pain prompted ER visit over the weekend and subsequent admission. Currently pain free. Troponins normal. EKG's reviewed due to concern for A. fib. They show sinus rhythm and at times bradycardia with marked first degree AV block. I do not see evidence of a. fib on the EKG's or the telemetry strips. Discussed plans for C risks, benefits and procedure. He agrees to proceed. [facility] Disclaimer: The information contained in this section may have been updated after the patient was seen, as this information can be updated by other users. Medical History Abnormal EKG Abnormal nuclear stress test Allergic rhinitis BPH (benign prostatic hyperplasia) CAD (coronary artery disease) Elevated LFTs Erectile dysfunction Ex-smoker Gastroesophageal reflux disease HLD (hyperlipidemia) HTN (hypertension) Hypokalemia Hypothyroidism Morbid obesity Myocardial infarction RLS (restless legs syndrome) Snoring Stopped smoking with greater than 30 pack year history Surgical History (Updated 05/13/23 @ 13:13 by Portillo Mcleod MD) History of heart artery stent Family History Liver cancer Colon cancer Social History (Updated 05/13/23 @ 13:16 by Portillo Mcleod MD) Smoking Status: Former smoker quit date: 05/13/19 pack-years: 30 alcohol intake: never substance use type: denies use current occupational status: employed Travel in the last 8 weeks: Inside the [place] Review of Systems ENT Ears, Nose, Mouth, and Throat: Denies dizziness *Cardiovascular Cardiovascular: Reports chest pain and Denies dyspnea *Respiratory Respiratory: Denies cough and Denies dyspnea *Gastrointestinal Gastr
--- NOTE | 2023-05-14 08:16 | PC.NURSE ---
Home Medications Bruce Pavon Medication Instructions Recorded Confirmed cetirizine 10 mg tablet 10 mg PO DAILY Allergy Symptoms 07/15/20 05/13/23 levothyroxine 175 mcg tablet 175 mcg PO DAILYDM hypothyroid 07/15/20 05/13/23 omeprazole 40 mg capsule,delayed 40 mg PO DAILY Acid Reflux 07/15/20 05/13/23 release potassium chloride 20 mEq 20 meq PO DAILY Supplement 05/10/23 05/13/23 tablet,extended release(part/cryst) atorvastatin 40 mg tablet 40 mg PO Q2D Cholesterol 05/13/23 05/13/23 fluticasone propionate 50 1 spray intranasal DAILY Allergy 05/13/23 05/13/23 mcg/actuation nasal Symptoms spray,suspension furosemide 40 mg tablet 40 mg PO DAILY Fluid 05/13/23 05/13/23 lisinopril 40 mg tablet 40 mg PO DAILY High Blood Pressure 05/13/23 05/13/23 tadalafil 5 mg tablet 2.5 mg PO DAILY ERECTILE 05/13/23 05/13/23 DYSFUNCTION triamterene 37.5 1 tab PO DAILY Fluid 05/13/23 05/13/23 mg-hydrochlorothiazide 25 mg tablet
--- NOTE | 2023-05-14 08:33 | CA_ITS ---
APPROVED REPORT EXAM: Comprehensive 2D, Doppler, and color-flow Echocardiogram Finance Intern: Cici Araya RDCS Ht: 6 ft 3 in Wt: 331lbs BSA: 2.72 BP: 110/65 mmHg Indications: CP CAD HTN HLP SOA MORBID OBESITY TDS SECONDARY TO BODY HABITUS 2D Dimensions LVOT 2.42 cm (M/F) 1.5-2.5 M-Mode Dimensions RVDd 3.18 cm (0.9-2.6) LA Diam 3.71 cm (1.9-4.0) LVDd 5.27 cm (3.5-5.7) Ao Diam 3.66 cm (2.0-3.7) LVDs 3.57 cm (3.5-5.7) IVSd 1.02 cm (0.6-1.1) PWd 0.93 cm (0.6-1.1) EF (Teich) 60.10% FS 32.30% EDV (Teich) 133.60 mL ESV (Teich) 53.30 mL LV Diastology E Decel Time 233.00 (160-240 msec) E/A Ratio 1.3 MED E' 7.60 (< 7 cm/sec) E'/MED E' Ratio 7.62 (>14) LAT E' 5.20 (<10 cm/sec) E/LAT E' Ratio 11.13 (>14) Mitral Valve MV E Max Geronimo. 58.00 (40-130 cm/s) MV A Velocity 43.00 (40-130 cm/s) E/A Ratio 1.35 MV Decel. Time 233.00 (160-240 ms) MV PHT 68.00 ms Left Ventricle The left ventricle is normal size. The left ventricular systolic function is normal. The left ventricular ejection fraction is within the normal range. There is increased LV wall thickness. There is normal LV segmental wall motion. The left ventricular diastolic function is normal. LVEF is 60%. Right Ventricle The right ventricle is mildly dilated. The right ventricular systolic function is normal. Atria The left atrium size is normal. Aortic Valve The aortic valve opens well. There is no aortic valvular stenosis. No aortic regurgitation is present. Mitral Valve The mitral valve is normal in structure. No evidence of mitral valve stenosis. No Mitral Regurgitation. Tricuspid Valve The tricuspid valve leaflets are thin and pliable. Trace tricuspid regurgitation. There is insufficient TR jet to estimate RVSP. Pulmonic Valve The pulmonary valve is normal in structure. Trace pulmonic regurgitation. Great Vessels The aortic root is normal in size. The ascending aorta is normal in size. The IVC is not visualized. Pericardium There is no pericardial effusion. Other Information Study Quality: Technically Difficult Conclusion This was a technically difficult study due to poor accoustic windows. Subcostal views could not be performed. Normal biventricular systolic function. Mild RV dilation. No significant valvular disease. Electronically signed by : Adelaide Glasgow, 05/14/2023 22:04:25
--- NOTE | 2023-05-14 09:01 | IR_ITS ---
APPROVED REPORT Patient Location: Inpatient PROCEDURES Left heart catheterization Left ventriculogram Selective coronary angiogram Drug-eluting stent deployment to the mid circumflex artery Drug-eluting stent deployment to the first diagonal artery Drug-eluting stent deployment to the mid dominant right coronary INDICATION Coronary artery disease, Unstable angina Informed consent was obtained prior to the procedure. COMPLICATIONS None Estimated Blood Loss: Less than 10 mls TECHNIQUE One percent lidocaine used to anesthetize the right anterior aspect of the wrist. The right radial artery was accessed via the Seldinger technique. A 6 Setswana sheath was placed in the right radial artery. 2.5 mg of Verapamil, 800 mcg of nitroglycerin, 1mg Lidocaine and 5000 U Heparin were given through the arterial sheath. The papa catheter was also used to perform left heart catheterization, left ventriculogram and selective coronary angiogram. At the end the diagnostic angiogram therapeutic heparin was administered given therapeutic ACT and the guide catheter was placed in left main artery followed by Choice PT extra-support wire being placed on the circumflex artery. 3.5 x 12 mm Mel[place] frontier stent was deployed at 20 kellie reducing the severe stenosis to 0%. LULY-3 flow was present before and after the procedure. An additional wire was then placed in the first diagonal artery and a 3 mm x 15 mm Melo frontier stent was deployed at 20 kellie reducing the severe stenosis to 0%. LULY-3 flow was present before and after the procedure. The guide catheter was pulled on the left main artery and placed in the right coronary where the Choice PT to support wire was placed distally and a 3.5 x 12 mm [place] frontier stent was deployed at 20 kellie in the mid right coronary artery reducing the severe stenosis to 0%. LULY-3 flow was present before and after procedure. At the end the procedure the apparatus was removed the sheath was removed and hemostasis was achieved using TR banding patient was transferred to the postop putting in stable condition ANGIOGRAPHIC RESULTS The left main artery Has mild vascular ectasia The left anterior descending artery Has proximal mild vascular ectasia with mid vessel mild vascular ectasia. There are no focal stenoses proximally with 20 and 30% mid vessel stenosis. A large first diagonal artery has a proximal 70% stenosis The circumflex artery Nondominant yet still large caliber with moderate diffuse vascular ectasia accompanied by a focal 70% concentric stenosis extending into the first obtuse marginal artery. The right coronary artery Large dominant with severe proximal vascular ectasia with focal proximal 30 and 40% stenoses followed by mid vessel concentric 70% stenosis. The SILVA ventriculogram reveals Preserved at 55% The left ventricular end-diastolic pressure 20 mmHg IMPRESSION Severe disease as described above with successful multivessel percutaneous revascularization Preserved ejection fraction Mildly elevated LVEDP Mild to severe diffuse vascular ectasia as described above PLAN 1. Dual antiplatelet therapy 2. LDL less than 55 to be achieved with high intensity statin 3. Avoidance of tobacco products 4. Risk factor modification 5. Cardiac rehabilitation Electronically signed by : Uzair Hinojosa MD 05/14/2023 14:24:17
[2023-05-14 14:47] LABS: CATHL Activated Clotting Time 336 SEC (74-125)
--- NOTE | 2023-05-14 19:21 | PC.NURSE ---
Patient had heart cath and had 3 stents placed. Vital signs stable. Radial band removed and pressure dressing placed
[2023-05-15] VITALS: BP 135/77; PULSE 50; PULSE 54; RESP 18; TEMP 36.5; O2SAT 96
[2023-05-15 04:00] VITALS: BP 142/83; PULSE 58; PULSE 60; RESP 18; TEMP 36.9; O2SAT 96; BMI 39.8
[2023-05-15 06:46] LABS: Chloride 101 mmol/L (98-107); Potassium 3.6 mmoL/L (3.5-5.1); Sodium 141 mmol/L (136-145)
[2023-05-15 06:49] LABS: Alanine Aminotransferase 72 U/L (12-78); Albumin Level 4.5 g/dl (3.5-5.0); Albumin/Globulin Ratio 1.2 (1.1-1.8); Alkaline Phosphatase 82 U/L (38-126); Anion Gap 14.6 mEq/L (5-15); Aspartate Amino Transferase 81 U/L (17-59); Bilirubin,Total 0.7 mg/dl (0.2-1.3); Blood Urea Nitrogen 18 mg/dl (9-20); Calcium 9.5 mg/dl (8.4-10.2); Carbon Dioxide 29 mmol/L (22.0-30.0); Creatinine Clearance Estimated 141 mL/min (50-200); Estimated Glomerular Filt Rate 59 ml/min (>60); GFR (African American) 71 ML/MIN (>60); Globulin 3.9 g/dL (1.3-3.2); Glucose 114 mg/dl (74-100); Total Protein,Serum 8.4 g/dl (6.3-8.2)
[2023-05-15 06:58] LABS: Hemoglobin A1C 6.3 % (4.0-6.0)
[2023-05-15 07:51] VITALS: PULSE 80
--- NOTE | 2023-05-15 07:55 | EXP.ACUTE.PN ---
Subjective *Date: 05/15/23 *Time: 08:49 Interval history: Patient did not sleep well. He was not hungry for breakfast this a.m. but denies nausea/abdominal pain. He has had no chest pain. He feels his breathing is better. He ambulates in the room without difficulty. After cardiac cath yesterday he felt like his heart was palpating at times. No problems during the night and no palpitations this morning. He feels his edema is better as well. He has had a 7 pound weight loss. Blood pressure is much improved. Renal function shows a BUN of 18 and creatinine 1.3. A1c was 6.3. Lipid profile completed 04/30/2023 reveals total cholesterol of 340 with an HDL of 30, triglycerides of 334, and LDL of 243. Patient had a cardiac cath yesterday with the following: Left heart catheterization Left ventriculogram Selective coronary angiogram Drug-eluting stent deployment to the mid circumflex artery Drug-eluting stent deployment to the first diagonal artery Drug-eluting stent deployment to the mid dominant right coronary Medical Exam Vital signs and Labs for Last 24 Hours: Vital Signs Temp Pulse Pulse Resp BP Pulse Ox O2 Del Method 05/15/23 04:00 60 05/15/23 04:00 98.4 F 58 L 18 142/83 H 96 Room Air 05/15/23 06:20 Room Air 05/15/23 05:00 Room Air 05/15/23 02:17 Room Air 05/15/23 01:00 Room Air 05/14/23 23:00 Room Air 05/15/23 00:00 50 L 05/15/23 00:00 97.7 F 54 L 18 135/77 96 Room Air 05/14/23 20:00 50 L 05/14/23 20:00 50 L 05/14/23 21:00 Room Air 05/14/23 21:45 56 L 16 138/88 95 Room Air 05/14/23 20:45 58 L 16 155/91 H 97 Room Air 05/14/23 19:45 57 L 18 134/91 H 98 Room Air 05/14/23 20:00 57 L Room Air 05/14/23 18:45 58 L 16 138/83 98 Room Air 05/14/23 17:45 53 L 18 146/68 H 95 Room Air 05/14/23 17:15 59 L 16 141/78 H 97 08/28/23 16:45 60 17 144/86 H 97 Room Air 05/14/23 16:15 57 L 16 153/81 H 96 05/14/23 15:45 62 15 142/90 H 97 05/14/23 15:30 55 L 16 182/108 H 98 05/14/23 15:15 59 L 16 161/108 H 96 Room Air 05/14/23 16:00 55 L 05/14/23 14:39 18 166/89 H 95 Room Air 05/14/23 14:35 52 L 18 163/93 H 95 Room Air 05/14/23 14:30 54 L 56 L 16 155/89 H 95 Room Air 05/14/23 12:00 92 H 05/14/23 12:00 98.6 F 51 L 19 136/94 H 96 Room Air 05/14/23 08:00 80 05/14/23 08:00 97.6 F 53 L 20 142/95 H 98 Room Air Intake and Output 05/14/23 05/15/23 05/15/23 19:59 03:59 11:59 Intake Total 600 / 600 20 / 620 Output Total 0 / 0 0 / 0 Balance 600 / 600 20 / 620 Intake: Intake, Oral Amount 600 / 600 Intake, Other Amount 20 / 20 Output: Output, Urine Amount 0 / 0 0 / 0 Other: Intake, Other Source Saline Solution Number of Voids 0 Number of Unmeasured Voids 1 Weight 320 lb 7 oz Patient Weight 05/15/23 11:59 Weight 320 lb 7 oz Laboratory Results - last 24 hr 05/14/23 14:06: Activated Clotting Time 336 H* 05/15/23 06:10: Sodium 141, Potassium 3.6, Chloride 101, Carbon Dioxide 29, Anion Gap 14.6, BUN 18, Creatinine 1.30 H, Estimated Creat Clear 141, Estimated GFR 59, Est GFR ( Amer) 71, Glucose 114 H, Hemoglobin A1c 6.3 H, Calcium 9.5, Total Bilirubin 0.7, AST 81 H, ALT 72, Alkaline Phosphatase 82, Total Protein 8.4 H, Albumin 4.5, Globulin 3.9 H, Albumin/Globulin Ratio 1.2 I & O for Labs for Last 24 Hours: Intake & Output 05/12/23 05/13/23 05/14/23 05/15/23 11:59 11:59 11:59 11:59 Intake Total 930 / 930 620 / 620 Output Total 0 / 0 0 / 0 0 / 0 Balance 0 / 0 930 / 930 620 / 620 Weight 331 lb 7 oz 327 lb 4 oz 320 lb 7 oz Constitutional: Present no acute distress Comment:: Sitting in comfort chair by the window. Appears comfortable. Respiratory: Present CTA bilaterally (Anteriorly and posteriorly) Cardiac: Present Regular Rate (Monitor showing sinus rhy
[2023-05-15 08:00] VITALS: BP 143/100; PULSE 64; RESP 20; TEMP 36.9; O2SAT 95
--- NOTE | 2023-05-15 08:10 | EXP.CARD.PN ---
Subjective Subjective Date: 05/15/23 Time: 08:10 Principal diagnosis: angina pectoris Interval history: 47-year-old white male sitting in chair in the room in no acute distress. Denies any chest pain, pressure or tightness. Patient received 3 drug-eluting stents to the diagonal, circumflex/OM and RCA yesterday. Patient is on aspirin and Effient. Previously intolerant of taking statin daily but currently able to tolerate it every other day. Recent LDL 191 Exam Data for Last 24 hours Vital signs and Labs for Last 24 Hours: Temp Pulse Resp BP Pulse Ox O2 Del Method 98.4 F 58 L 18 142/83 H 96 Room Air 05/15/23 04:00 05/15/23 04:00 05/15/23 04:00 05/15/23 04:00 05/15/23 04:00 05/15/23 06:20 Laboratory Results - last 24 hr 05/14/23 14:06: Activated Clotting Time 336 H* 05/15/23 06:10: Sodium 141, Potassium 3.6, Chloride 101, Carbon Dioxide 29, Anion Gap 14.6, BUN 18, Creatinine 1.30 H, Estimated Creat Clear 141, Estimated GFR 59, Est GFR ( Amer) 71, Glucose 114 H, Hemoglobin A1c 6.3 H, Calcium 9.5, Total Bilirubin 0.7, AST 81 H, ALT 72, Alkaline Phosphatase 82, Total Protein 8.4 H, Albumin 4.5, Globulin 3.9 H, Albumin/Globulin Ratio 1.2 I & O for Last 24 hours: Intake & Output 05/12/23 05/13/23 05/14/23 05/15/23 11:59 11:59 11:59 11:59 Intake Total 930 / 930 860 / 860 Output Total 0 / 0 0 / 0 0 / 0 Balance 0 / 0 930 / 930 860 / 860 Weight 331 lb 7 oz 327 lb 4 oz 320 lb 7 oz Constitutional Constitutional: no acute distress *Routine Respiratory Exam Respiratory: Present CTA bilaterally *Routine Cardiovascular Exam Cardiovascular: Present RRR *Routine Extremities Exam Extremities: Absent edema *Routine Neurological Exam Neurological: Present alert, oriented X3 and CN II-XII intact Progress Note: A&P Assessment and plan (1) Angina pectoris, unstable: Status: Acute (2) CAD (coronary artery disease): Status: Chronic (3) Gastroesophageal reflux disease: Status: Chronic (4) HTN (hypertension): Status: Chronic (5) Hypothyroidism: Status: Acute (6) HLD (hyperlipidemia): Status: Chronic (7) Abnormal nuclear stress test: Status: Acute (8) Morbid obesity with BMI of 40.0-44.9, adult: Status: Acute (9) Ex-smoker: Status: Chronic (10) Diabetes: Status: Acute Assessment and Plan Assessment and Plan for All Diagnoses:: 1. CAD -3 vessel stenting (RCA, Diagonal and Cx/OM) -DAPT with ASA and effient 2. Suspected newly diagnosed DM -elevated Hgb A1c and hypertriglyceridemia -defer to PCP 3. HTN -echo this admit shows normal EF with mild RV dilatation and no significant valve disease 4. Hypothyroidism -some medication non-compliance recently -Continue levothyroxine therapy 5. Ex smoker -Discontinued greater than 5 years ago 6. Morbid obesity -BMI greater than 40 7. Hyperlipidemia -statin therapy 8. Sinus bradycardia -EKGs and telemetry reviewed with no evidence for A-fib. We will discontinue Lovenox Clinically stable from a cardiac standpoint for discharge home. Follow-up in our office in 1 week Home medication recommendations: Aspirin 81 mg daily Effient 10 mg daily Atorvastatin 40 mg every other day Lisinopril 40 mg daily Maxide 37.5/25 daily Pantoprazole 40 mg daily Levothyroxine 175 mcg daily Patient is willing to consider Ozempic and Repatha if needed.
--- NOTE | 2023-05-15 09:49 | HMH.PHACL ---
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
--- NOTE | 2023-05-15 23:17 | EXP.DC.SUM ---
General Admission date:: 05/13/23 Discharge date: 05/15/23 HPI HPI HPI: Mr. Barrera is a 47 year old patient of [facility] who sees Dr. Davis for his primary care. He presented to [facility] ER this morning with complaints of chest pressure, shortness of breath and elevated blood pressure. Patient states he awoke last night and had funny feelings in his chest associated with trouble breathing. Symptoms improved after sitting up but then returned after lying down. He checked his blood pressure and it was 190 systolic. So he came to the ER for an evaluation. He states he has a history of CAD and OK in 2016. Patient reports he has been having similar symptoms to the ones that brought him to the ER for about 1 month. He has also had lower extremity edema, and had diuretic dosing change. He had inadvertently stopped taking Levothyroxine sometime in the past few months but resumed it a few weeks ago. He states he has been to the office of [facility] 4 times in the past month for office visits and has had one other trip to the ER at [facility]. Total cholesterol was 340 when checked earlier this month. He had a cardiac stress test that was abnormal and has a left heart cath scheduled for later this week. Hospital Course Hospital Course Hospital Course: The patient's initial EKG showed A-fib with a rate of 53. A repeat EKG showed sinus bradycardia with a rate of 58. The patient's most recent cardiac stress test showed reversible ischemia with an EF of 48%. Cardiology was consulted and a heart cath was scheduled. His blood pressure medication was increased and he was started on nitroglycerin paste. His blood pressure improved with medication. Cardiology saw the patient and he had a heart cath. He had stents placed in the mid circumflex, first diagonal, and mid dominant RCA. He continued to have prominent leg edema and was given a one-time dose of 20 mg of Lasix. He had no further chest pain and felt his shortness of breath had improved. His edema improved as well and he had 7 pound weight loss. His blood pressure was much better. Cardiology wanted him on dual antiplatelet therapy and a high intensity statin. They also recommended avoidance of tobacco products and cardiac rehab. His echo showed an EF with mild right ventricular dilatation and no significant valve disease. Cardiology reviewed his EKGs and telemetry and they found no evidence for A-fib, therefore his Lovenox was discontinued. They felt he could be discharged home and will need to follow-up with cardiology. Exam Data for Last 24 hours Vital signs and Labs for Last 24 Hours: Temp Pulse Resp BP Pulse Ox O2 Del Method 98.5 F 64 20 143/100 H 95 Room Air 05/15/23 08:00 05/15/23 08:00 05/15/23 08:00 05/15/23 08:00 05/15/23 08:00 05/15/23 08:00 Laboratory Results - last 24 hr 05/15/23 06:10: Sodium 141, Potassium 3.6, Chloride 101, Carbon Dioxide 29, Anion Gap 14.6, BUN 18, Creatinine 1.30 H, Estimated Creat Clear 141, Estimated GFR 59, Est GFR ( Amer) 71, Glucose 114 H, Hemoglobin A1c 6.3 H, Calcium 9.5, Total Bilirubin 0.7, AST 81 H, ALT 72, Alkaline Phosphatase 82, Total Protein 8.4 H, Albumin 4.5, Globulin 3.9 H, Albumin/Globulin Ratio 1.2 I & O for Last 24 hours: Intake & Output 05/13/23 05/14/23 05/15/23 05/16/23 11:59 11:59 11:59 11:59 Intake Total 930 / 930 860 / 860 Output Total 0 / 0 0 / 0 0 / 0 Balance 0 / 0 930 / 930 860 / 860 Weight 331 lb 7 oz 327 lb 4 oz 320 lb 7 oz Narrative: Constitutional Constitutional: no acute distress *Routine HEENT Exam Head: Present normocephalic Eye: Present EOMI and PERRL ENT: Present mucous membranes moist *Routine Neck Exam Neck: Present supple; Absent lymphadenopathy *Routine Respiratory Exam Respiratory: Present CTA bilaterally *Routine Cardiovascular Exam Cardiovascular: Present RRR and bradycardia *Routine Abdominal Exam Abdominal: Present soft and normoactive bowel sounds; Absent ten
--- NOTE | 2023-05-16 15:22 | CARE MANAGER ---
Spoke with patient for post-discharge phone interview, no issues noted.
== END 2023-05-15 11:15 | disposition home or self-care (01) ==
LOC: ER 07:21 → 2ND 08:55
PROVIDERS: Family Medicine; Internal Medicine; Nurse Practitioner Family; Admitting Provider Internal Medicine Adolescent Medicine; Emergency Provider Emergency Medicine; PCP Family Medicine; Visit Provider Family Medicine
DX: I25.118 Atherosclerotic heart disease of native coronary artery with other forms of angina pectoris (principal); E03.9 Hypothyroidism, unspecified; E78.5 Hyperlipidemia, unspecified; K21.9 Gastro-esophageal reflux disease without esophagitis; E66.01 Morbid (severe) obesity due to excess calories; Z68.41 Body mass index [BMI] 40.0-44.9, adult; I50.9 Heart failure, unspecified; I48.91 Unspecified atrial fibrillation; N18.31 Chronic kidney disease, stage 3a; I13.0 Hypertensive heart and chronic kidney disease with heart failure and stage 1 through stage 4 chronic kidney disease, or unspecified chronic kidney disease
CPT/HCPCS: 36415; 71045; 80053; 83036; 83735; 83880; 84443; 84484; 85025; 85347; 85378; 92928; 92929; 93005; 93306; 93458; 99152; 99153; 99291; C1725; C1760; C1769; C1876; C9600; C9601; G0378; J1644; Q9967

== ENCOUNTER → 2023-05-18 13:19 | Outpatient (CLI) | payer OTHER, SELFPAY ==
[2023-05-18 13:44] LABS: Hematocrit 44.2 % (42.0-52.0); Hemoglobin 14.2 g/dL (14.1-18.0)
[2023-05-18 13:57] LABS: Blood Urea Nitrogen 22 mg/dl (9-20); Estimated Glomerular Filt Rate 50 ml/min (>60); GFR (African American) 60 ML/MIN (>60)
[2023-05-18 14:14] LABS: Anion Gap 18.8 mEq/L (5-15); Blood Urea Nitrogen 22 mg/dl (9-20); Calcium 9.4 mg/dl (8.4-10.2); Carbon Dioxide 28 mmol/L (22.0-30.0); Chloride 98 mmol/L (98-107); Estimated Glomerular Filt Rate 50 ml/min (>60); GFR (African American) 60 ML/MIN (>60); Glucose 114 mg/dl (74-100); Potassium 3.8 mmoL/L (3.5-5.1); Sodium 141 mmol/L (136-145)
== END ==
PROVIDERS: Internal Medicine; Nurse Practitioner; PCP Family Medicine; Visit Provider Family Medicine
DX: I25.118 Atherosclerotic heart disease of native coronary artery with other forms of angina pectoris (principal); I10 Essential (primary) hypertension; K21.9 Gastro-esophageal reflux disease without esophagitis; R06.09 Other forms of dyspnea; R60.9 Edema, unspecified; R94.31 Abnormal electrocardiogram [ECG] [EKG]; Z87.891 Personal history of nicotine dependence; Z68.39 Body mass index [BMI] 39.0-39.9, adult
CPT/HCPCS: 80048; 82565; 84520; 85014; 85018

== ENCOUNTER 2023-05-24 12:45 | Outpatient (RCR) | payer OTHER, SELFPAY | END 2023-06-12 09:30 | disposition home or self-care (01) | LOC: PT 12:45 | PROVIDERS: Visit Provider Nurse Practitioner | DX: I25.10 Atherosclerotic heart disease of native coronary artery without angina pectoris (principal); Z95.5 Presence of coronary angioplasty implant and graft | CPT/HCPCS: 93798 ==

== ENCOUNTER → 2023-06-13 11:34 | Outpatient (CLI) | payer OTHER, SELFPAY | PROVIDERS: PCP Family Medicine; Visit Provider Family Medicine | DX: G47.30 Sleep apnea, unspecified (principal); G47.9 Sleep disorder, unspecified; R53.83 Other fatigue | CPT/HCPCS: 95806 ==

== ENCOUNTER 2023-10-19 09:02 | Outpatient (CLI) | payer BC, SELFPAY ==
[2023-10-19 10:15] LABS: Alanine Aminotransferase 57 U/L (12-78); Alkaline Phosphatase 75 U/L (38-126); Aspartate Amino Transferase 41 U/L (17-59); Bilirubin,Direct 0.2 mg/dl (0.0-0.4); Bilirubin,Indirect 0.4 mg/dL (0.0-0.9); Bilirubin,Total 0.6 mg/dl (0.2-1.3); Bilirubin,Unconjugated 0.4 mg/dL (0.0-1.1); Cholesterol 173 mg/dl (140-200); HDL Cholesterol 29 mg/dl (40-60); Triglycerides 294 mg/dl (30-150); VLDL Cholesterol 59 mg/dL (0-40)
[2023-10-19 10:16] LABS: Albumin Level 4.6 g/dl (3.5-5.0); Total Protein,Serum 7.9 g/dl (6.3-8.2)
[2023-10-19 10:27] LABS: Direct LDL Cholesterol 89.59 mg/dL (100-129)
== END 2023-10-19 23:59 ==
LOC: LAB 09:03
PROVIDERS: PCP Psychiatry & Neurology Sleep Medicine; Visit Provider Physician Assistant
DX: E11.9 Type 2 diabetes mellitus without complications (principal); I11.9 Hypertensive heart disease without heart failure; I25.10 Atherosclerotic heart disease of native coronary artery without angina pectoris; R79.89 Other specified abnormal findings of blood chemistry; E66.01 Morbid (severe) obesity due to excess calories; Z68.41 Body mass index [BMI] 40.0-44.9, adult; Z79.85 Long-term (current) use of injectable non-insulin antidiabetic drugs; Z87.891 Personal history of nicotine dependence
CPT/HCPCS: 36415; 80061; 80076

== ENCOUNTER 2024-06-06 07:41 | Outpatient (RCR) | payer SELFPAY ==
--- NOTE | 2024-06-06 09:56 | HMH.PTOPEV ---
PT Outpatient Evaluation Rehab PT Outpatient Evaluation Start: 06/06/24 07:59 Freq: Status: Active Protocol: Document 06/06/24 07:59 KEEGAN (Rec: 06/06/24 09:39 KEEGAN [id number]) E-signed By Brigida Aguilar, PT Outpatient Therapy Subjective History Subjective History This is an initial evaluation for 48 y/o male, Tommy Barrera , who presents with the diagnosis of Left Achilles strain. Pt reports he was diagnosed with a L Achilles partial tear after he heard a pop and had some swelling. Pt was stretching out in bed when he noticed a sharp pain in his posterior heel. Pt reports some bruising and still is slightly swollen. Pt reports he was not put on any WBing precautions/restrictions but was given a CAM boot by his neighbor. Pt reports he has difficulty WBing when not in the boot so he uses the boot for all ambulation tasks. Pt reports he has had this happen before ~ 1 year ago. 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 Pt is unsure of when he is able to return to work. New diagnosis of cancer in past 12 No months? Chief Complaint Pain Symptom Type Ache Symptoms Relieved By Ice Symptoms Aggravated By Physical Activity,Walking Prior Functional Limitations None Current Functional Limitations Lifting,Housework,Standing, Squatting,Recreation Activity, Walking,Balance,Bending/ Stooping Symptom Description Intermittent Level of pain today (0-10) 0 Pain scale - at its best (0-10) 0 Pain scale - at its worst (0-10) 8 Ankle/Foot Eval Gait Observation General Gait Pattern Observation Antalgic Gait Assistive Device Ambulation Assistive Device None Palpation Tenderness left Ankle/Foot Palpation Findings Tenderness Ankle/Foot Palpation Overall Comment L Distal Achilles 2/4 TTP, bruising noted ROM Ankle/Foot Dorsiflexion w/Knee Flexed 0/neutral, painful Active Range of Motion (degrees) Ankle/Foot Plantar Flexion Active Range 38 deg, non-painful of Motion (degrees) Ankle/Foot Eversion Active Range of 15 deg, non-painful Motion (degrees) Ankle/Foot Inversion Passive Range of 20, non-painful Motion (degrees) Ankle/Foot ROM Limitations Pain MMT Ankle Dorsiflexion Strength Grade 4- Good- Ankle Plantarflexion Strength Grade 4- Good- Foot Eversion Strength Grade 4- Good- Foot Inversion Strength Grade 4- Good- Lower Extremity Functional Index Activities Today, do you or would you have any difficulty at all with: a.Any of your usual work, housework or Moderate difficulty school activities b. Your usual hobbies, recreational or Quite a bit of difficulty sporting activities c. Getting into or out of the bath A little bit of difficulty d. Walking between rooms A little bit of difficulty e. Putting on your shoes or socks A little bit of difficulty f. Squatting No difficulty g. Lifting an object, like a bag of A little bit of difficulty groceries from the floor h. Performing light activities around No difficulty your home i. Performing heavy activities around Moderate difficulty your home j. Getting into or out of a car No difficulty k. Walking 2 blocks No difficulty l. Walking a mile Moderate difficulty m. Going up or down 10 stairs (about 1 Quite a bit of difficulty flight of stairs) n. Standing for 1 hour Moderate difficulty o. Sitting for 1 hour No difficulty p. Running on even ground Extreme difficulty or unable to perform activity q. Running on uneven ground Extreme difficulty or unable to perform activity r. Making sharp turns while running fast Extreme difficulty or unable to perform activity s. Hopping No difficulty t. Rolling over in bed No difficulty LEFI Score Lower Extremity Functional Index Score 50 Miscellaneous Dx PT Eval Objective Objective Ankle figure-8: L = 62 cm (R = 58 cm) Hoff Test for complete Achilles Rupture: Adequate L ankle PF noted (negative) Outpatient Therapy Assessment Impairments Problems/Impairmments Palpation Tenderness,Impaired Range of Motion,Impaired Strength,Impaired Transfers, Impaired Gait Pattern,Impaired Walking,Impaired Standing, Impaired Driving,Impaired Lifting,Impaired Household Care,Impaired Stair Climbing, Impaired Incline Stepping, Impaired Stepping on Uneven Surface,Impaired Squatting, Impaired Recreational Activities,Impaired Jumping, Impaired Work Activities, Subjective C/O Pain Prognosis Rehab Potential Good Clinical Impression Consistent with Diagnosis Yes Consistent with Partial Achilles rupture Short Term Goals Number of Weeks 4 Increase Range of Motion Yes: Improve ankle AROM by 4 degrees in all planes. Increase Strength Yes: Improve ankle strength to 4/5 in all planes Improve LEFI Score Yes: Improve by 5 points. Decrease Subjective C/O Pain Yes: Verbalize minimal pain (0 -3/10) with daily functional mobility tasks. Patient to be Ind w/ HEP Yes [facility] Goals Number of Weeks 6 Decreased Palpation Tenderness Yes: 0/4 TTP Distal L Achilles tendon. Increase Range of Motion Yes: AROM WNL to maximize function Increase Strength Yes: Ankle MMT 5/5 to improve strength Improve LEFI Score Yes: Improve by 10 points since IE Decrease Edema Yes: No measurable swelling/ edema in L ankle/foot. Decrease Subjective C/O Pain Yes: 48 hour pain average of 0 -09/26 Patient to be Ind w/ Advanced HEP Yes Outpatient Therapy Plan of Care Treatment Plan May Include Therapeutic Exercise Including Home Yes Exercise Program Manual Therapy Techniques Yes Neuromuscular Re-education Yes Therapeutic Activities to Return to Yes Previous Functional/Work Level Gait Training Yes ADL/Self Care Education Yes Thermal Modalities Yes Electrical Stimulation Yes Ultrasound/Phonophoresis Yes Iontophoresis Yes Parrafin Yes Orthotics/Bracing/Splinting Yes Vasopneumatic Compression Pump Yes Massage Yes Group Therapy for Medicare Yes Eval/Re-Eval Yes Frequency Times per week 2x weekly Duration Number of Weeks 5-6 weeks Addendums This patient is a candidate for social No or vocational rehab? Patient/Guardian verbally acknowledges Yes understanding of treatment program and consents to further treatment? Patient/Guardian verbally acknowledges Yes understanding of diagnosis, prognosis and goals for treatment? Eval Complexity PT Charges 69278 - Moderate Complexity Shoulder/Elbow Eval Shoulder Objective Measurements Elbow Objective Measurements PHYSICIAN CERTIFICATION: I certify the specified therapy services for Tommy Barrera are required, authorized, and reviewed every 30 days.
== END 2024-06-06 23:59 | disposition home or self-care (01) ==
LOC: PT 07:41
PROVIDERS: Visit Provider Family Medicine
DX: S86.012A Strain of left Achilles tendon, initial encounter (principal)
CPT/HCPCS: 97163

== ENCOUNTER 2024-07-26 07:09 | Outpatient (CLI) | payer BC, SELFPAY ==
[2024-07-26 09:59] LABS: Chol/HDL Ratio 5.3 (1-3.5); Cholesterol 195 mg/dl (140-200); HDL Cholesterol 37 mg/dl (40-60); Triglycerides 305 mg/dl (30-150); VLDL Cholesterol 61 mg/dL (0-40)
[2024-07-26 10:09] LABS: Direct LDL Cholesterol 114.06 mg/dL (100-129)
== END 2024-07-26 23:59 | disposition home or self-care (01) ==
LOC: LAB 07:10
PROVIDERS: PCP Family Medicine; Visit Provider Physician Assistant
DX: E78.2 Mixed hyperlipidemia (principal)
CPT/HCPCS: 36415; 80061

== ENCOUNTER 2024-11-04 14:57 | Outpatient (CLI) | payer BC, SELFPAY ==
--- NOTE | 2024-11-04 15:01 | CT_ITS ---
FINAL REPORT TECHNIQUE: Thin section axial images were obtained through the lungs using a low-dose technique per lung cancer screening protocol. Reconstruction images were obtained using the axial data. This study was performed with techniques to keep radiation doses as low as reasonably achievable, (ALARA). Individualized dose reduction techniques using automated exposure control or adjustment of mA and/or kV according to the patient's size were employed. CLINICAL HISTORY: LUNG SCREENING. PT IS A FORMER SMOKER. PT QUIT SMOKING 7-8 YEARS AGO. PT SMOKED AT LEAST 1 PPD WHEN HE SMOKED. PT SMOKED FOR 30 YEARS. COMPARISON: None FINDINGS: CTDLvol: 2.9 DLP: 105.51 Lungs: There is evidence of prior granulomatous disease. The lungs are otherwise clear. No suspicious nodules. No consolidation. Lymph nodes: No thoracic lymphadenopathy. Mediastinum: Heart size is normal. There are prominent coronary artery calcifications. Pleura/pericardium: No pleural or pericardial effusion. Other: Limited evaluation of the upper abdomen reveals a hypodense lesion in the spleen measuring 5.6 cm, which cannot be further characterized. IMPRESSION: Lung RADS: 1S No suspicious pulmonary nodule or mass. Prominent coronary artery calcifications. Modifier S: Splenic lesion. Recommend CT abdomen and pelvis with contrast. Reviewed, Interpreted and Dictated by Chelle Farley MD Transcribed by Marie Poe Authenticated and . [facility]
== END 2024-11-04 23:59 | disposition home or self-care (01) ==
LOC: RAD 14:58
PROVIDERS: PCP Family Medicine; Visit Provider Family Medicine
DX: Z87.891 Personal history of nicotine dependence (principal)
CPT/HCPCS: 71271

== ENCOUNTER 2024-11-06 10:54 | Outpatient (CLI) | payer BC, SELFPAY ==
[2024-11-06 10:59] LABS: Coronavirus 19, PCR Not Detected (NotDetected); Influenza B, PCR Not Detected (NotDetected)
[2024-11-06 12:17] LABS: Influenza A, PCR Detected (NotDetected)
== END 2024-11-06 23:59 | disposition home or self-care (01) ==
LOC: LAB 10:55
PROVIDERS: PCP Family Medicine; Referring Provider Physician Assistant; Visit Provider Physician Assistant
DX: J09.X9 Influenza due to identified novel influenza A virus with other manifestations (principal); Z87.891 Personal history of nicotine dependence
CPT/HCPCS: 87636

== ENCOUNTER 2024-12-11 12:28 | Outpatient (CLI) | payer SELFPAY ==
--- NOTE | 2024-12-11 | CT_ITS ---
FINAL REPORT TECHNIQUE: Thin section axial images are obtained through the abdomen and pelvis after intravenous contrast. Reconstruction images were obtained from the axial data. Exam was performed using dose reduction techniques. CLINICAL HISTORY: SPLENIC LESION SEEN ON PRIOR CT LUNG SCREENING, CT RECOMENDED PER REPORT COMPARISON: Low-dose chest CT dated 11/04/2024 FINDINGS: LUNG BASES: There is a granuloma in the right lower lobe. The lung bases are otherwise clear. Heart size is normal. LIVER: Diffuse fatty infiltration. No focal lesion. GALLBLADDER/BILIARY SYSTEM: Gallbladder is present. No gallstones. No biliary dilatation. SPLEEN: Hypodense lesion in the upper pole of the spleen measures 51 mm and measures fluid density. No other splenic abnormality is seen. PANCREAS: Unremarkable. ADRENALS: Unremarkable. KIDNEYS/URETERS/BLADDER: No hydronephrosis, renal mass, or renal stone. Unremarkable urinary bladder. GI TRACT: No small bowel obstruction or dilatation. Normal appendix. No acute colon abnormality. PELVIC ORGANS: Prostate is normal in size. LYMPH NODES/RETROPERITONEUM/MESENTERY: No lymphadenopathy. No abdominal aortic aneurysm. ABDOMINAL WALL: The abdominal wall is intact. FREE FLUID: No ascites. BONES: No acute osseous abnormality. IMPRESSION: No acute abnormality in the abdomen or pelvis. Cystic lesion in the spleen is favored to represent a benign splenic cyst. Reviewed, Interpreted and Dictated by Chelle Farley MD Transcribed by Sheeba Vera Authenticated and [facility]
[2024-12-11 12:55] LABS: Blood Urea Nitrogen 30 mg/dl (9-20); Estimated Glomerular Filt Rate 53 ml/min (>60); GFR (African American) 65 ML/MIN (>60)
[2024-12-11] MEDS: IOPAMIDOL-370 (76%);100ML BOTTLE 75 ML IV (13:11)
[2024-12-11] MEDS: SODIUM CHLORIDE 0.9% 10ML SYR (RAD ONLY) 10 ML IV (13:11)
== END 2024-12-11 23:59 | disposition home or self-care (01) ==
PROVIDERS: PCP Family Medicine; Visit Provider Family Medicine
DX: R91.8 Other nonspecific abnormal finding of lung field (principal)
CPT/HCPCS: 36415; 74177; 82565; 84520; Q9967

== ENCOUNTER 2025-01-01 09:15 | Outpatient (CLI) | payer BC, SELFPAY ==
--- OUTSIDE RECORDS SUMMARY | 2025-01-01 09:19 | XMS_ITS | Data Portability ---
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 He suffered a myocardial infarction at work July 17 and had a stent placed emergently at [facility]. He is followed by his PCP and cardiologists for this and is on anti coagulant therapy with Effient. He shows no evidence of excessive bruising. Blood pressure has been adequately controlled. He is working on stopping smoking and we encourage that. Vision is normal uncorrected and he passes the hearing screen bilaterally. He is noted to have a significant obstructive pattern on spirometry, but no abnormal pulmonary findings on exam auscultation. His routine medications are reviewed and pose no problems in the work place, as his medical problems are all presently under control. Labs are excellent with normal chemistries and blood count. Lipids are well controlled with cholesterol of 136 and LDL 73. Urinalysis is normal. 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 He is highly recommended to stop smoking as soon as possible and continue his regular cardiology appointments. frances Not available 08/30/2016 23:40:56 Plan of Treatment Reminders Order Date Submit Date Provider Last Modified By Organization Details Last Modified Time Details Appointments None record ed. Lab None record ed. Referral None record ed. Procedures None record ed. Surgeries None record ed. Imaging None record ed. Medication Orders None record ed. Patient TargetsNo targets recorded. Patient InstructionsNo instructions recorded. Reason for Referral None Reported. Results Created Date Observation Date Name Description Value Unit Range Abnormal Flag Note LastModifiedBy Organization Detail LastModifiedTime 08/29/20 16 08/30/2016 lipid panel , serum cholesterol, total 136 mg/dL 125-20 0 normal Not Available [facility] [address] [facility] [place], [address], 08/30/2016 07:50:50 08/29/20 16 08/30/2016 lipid panel , serum HDL cholesterol 35 mg/dL > or = 40 low Not Available [facility] [address] [facility], [place], [address], 08/30/2016 07:50:50 08/29/20 16 08/30/2016 lipid panel , serum triglyceride s 139 mg/dL <150 normal Not Available [facility] [address] [facility], [place], [address], 08/30/2016 07:50:50 08/29/20 16 08/30/2016 lipid panel , serum LDL-choleste rol 73 mg/dL _(amanda c) <130 normal Roland able range <100 mg/dL for patie nts with CHD or diabe alvarado and <70 mg/dL for diabe tic patie nts with known heart disea se. Not Available [facility] [address] [facility], [place], [address], 08/30/2016 07:50:50 08/29/20 16 08/30/2016 lipid panel , serum chol/HDLC ratio 3.9 (calc ) < or = 5.0 normal Not Available [facility] [address] [facility] [place], [address], 08/30/2016 07:50:50 08/29/20 16 08/30/2016 lipid panel , serum non HDL cholesterol 101 mg/dL _(amanda c) normal Targe t for non-H DL marisela stero l is 30 mg/dL highe r than LDL marisela stero l targe t. Not Available [facility] [address] [facility] [place], [address], 08/30/2016 07:50:50 08/29/20 16 08/30/2016 CMP, serum or plasm a glucose 92 mg/dL 65-99 normal Fasti ng refer ence inter evelyn Not Available [facility] [address] [place] [address], [address], 08/30/2016 07:50:50 08/29/20 16 08/30/2016 CMP, serum or plasm a urea nitrogen (BUN) 13 mg/dL 7-25 normal Not Available [facility] [address] [place] [address], [address], 08/30/2016 07:50:50 08/29/20 16 08/30/2016 CMP, serum or plasm a creatinine 1.04 mg/dL 0.60-1 .35 normal Not Available [facility] [address] [place], [place] [address], [address], 08/30/2016 07:50:50 08/29/20 16 08/30/2016 CMP, serum or plasm a eGFR non-afr. guyanese 88 mL/mi n/1.7 3m2 > or = 60 normal Not Available [facility] [address] [place], [place] [address], [address], 08/30/2016 07:50:50 08/29/20 16 08/30/2016 CMP, serum or plasm a eGFR 101 mL/mi n/1.7 3m2 > or = 60 normal Not Available [facility] [address] [place] [address], [address], 08/30/2016 07:50:50 08/29/20 16 08/30/2016 CMP, serum or plasm a BUN/creatini ne ratio NOT APPLIC ABLE (calc ) 6-22 Not Available [facility] [place], [address], 08/30/2016 07:50:50 08/29/20 16 08/30/2016 CMP, serum or plasm a sodium 137 mmol/ L 135-14 6 normal Not Available [facility] [address] [facility] [place], [address], 08/30/2016 07:50:50 08/29/20 16 08/30/2016 CMP, serum or plasm a potassium 4.5 mmol/ L 3.5-5. 3 normal Not Available [facility] [address] [place], [place] [address], [address], 08/30/2016 07:50:50 08/29/20 16 08/30/2016 CMP, serum or plasm a chloride 102 mmol/ L 98-110 normal Not Available [facility] [address] [place], [place] [address], [address], 08/30/2016 07:50:50 08/29/20 16 08/30/2016 CMP, serum or plasm a carbon dioxide 30 mmol/ L 20-31 normal Not Available [facility] [address] [place], [place] [address], [address], 08/30/2016 07:50:50 08/29/20 16 08/30/2016 CMP, serum or plasm a calcium 9.7 mg/dL 8.6-10 .3 normal Not Available [facility] [address] [place], [place] [address], [address], 08/30/2016 07:50:50 08/29/20 16 08/30/2016 CMP, serum or plasm a protein, total 7.8 g/dL 6.1-8. 1 normal Not Available [facility] [address] [place], [place] [address], [address], 08/30/2016 07:50:50 08/29/20 16 08/30/2016 CMP, serum or plasm a albumin 4.6 g/dL 3.6-5. 1 normal Not Available [facility] [address] [facility] [place], [address], 08/30/2016 07:50:50 08/29/20 16 08/30/2016 CMP, serum or plasm a globulin 3.2 g/dL_ (calc ) 1.9-3. 7 normal Not Available [facility] [address] [facility] [place], [address], 08/30/2016 07:50:50 08/29/20 16 08/30/2016 CMP, serum or plasm a albumin/glob ulin ratio 1.4 (calc ) 1.0-2. 5 normal Not Available [facility] [address] [place], [place] [address], [address], 08/30/2016 07:50:50 08/29/20 16 08/30/2016 CMP, serum or plasm a bilirubin, total 0.5 mg/dL 0.2-1. 2 normal Not Available [facility] [address] [place], [place] [address], [address], 08/30/2016 07:50:50 08/29/20 16 08/30/2016 CMP, serum or plasm a alkaline phosphatase 85 U/L 40-115 normal Not Available [facility] [address] [facility] [place], [address], 08/30/2016 07:50:50 08/29/20 16 08/30/2016 CMP, serum or plasm a AST 24 U/L 10-40 normal Not Available [facility] [address] [place], [place] [address], [address], 08/30/2016 07:50:50 08/29/20 16 08/30/2016 CMP, serum or plasm a ALT 39 U/L 9-46 normal Not Available [facility] [facility] [place], [address], 08/30/2016 07:50:50 08/29/20 16 08/30/2016 CBC w/ auto diff white blood cell count 8.0 thous and/u L 3.8-10 .8 normal Not Available [facility] [address] [facility] [place], [address], 08/30/2016 07:50:51 08/29/20 16 08/30/2016 CBC w/ auto diff red blood cell count 4.51 ivory on/uL 4.20-5 .80 normal Not Available [facility] [address] [place], [address], 08/30/2016 07:50:51 08/29/20 16 08/30/2016 CBC w/ auto diff hemoglobin 14.3 g/dL 13.2-1 7.1 normal Not Available [facility] [address] [place], [address], 08/30/2016 07:50:51 08/29/20 16 08/30/2016 CBC w/ auto diff hematocrit 42.3 % 38.5-5 0.0 normal Not Available [facility] [address] [place], [place] [address], [address], 08/30/2016 07:50:51 08/29/20 16 08/30/2016 CBC w/ auto diff MCV 93.9 fL 80.0-1 00.0 normal Not Available [facility] [address] [place], [place] [address], [address], 08/30/2016 07:50:51 08/29/20 16 08/30/2016 CBC w/ auto diff MCH 31.6 pg 27.0-3 3.0 normal Not Available [facility] [address] [place] [address], [address], 08/30/2016 07:50:51 08/29/20 16 08/30/2016 CBC w/ auto diff MCHC 33.7 g/dL 32.0-3 6.0 normal Not Available [facility] [address] [place], [address], 08/30/2016 07:50:51 08/29/20 16 08/30/2016 CBC w/ auto diff RDW 13.9 % 11.0-1 5.0 normal Not Available [facility] [address] [place], [address], 08/30/2016 07:50:51 08/29/20 16 08/30/2016 CBC w/ auto diff platelet count 324 thous and/u L 140-40 0 normal Not Available [facility] [address] [place], [address], 08/30/2016 07:50:51 08/29/20 16 08/30/2016 CBC w/ auto diff MPV 7.3 fL 7.5-11 .5 low Not Available [facility] [address] [place], [address], 08/30/2016 07:50:51 08/29/20 16 08/30/2016 CBC w/ auto diff absolute neutrophils 4600 cells /uL 1500-7 800 normal Not Available [facility] [address] [place], [address], 08/30/2016 07:50:51 08/29/20 16 08/30/2016 CBC w/ auto diff absolute lymphocytes 2728 cells /uL 850-39 00 normal Not Available [facility] [address] [place], [address], 08/30/2016 07:50:51 08/29/20 16 08/30/2016 CBC w/ auto diff absolute monocytes 384 cells /uL 200-95 0 normal Not Available [facility] [address] [place], [address], 08/30/2016 07:50:51 08/29/20 16 08/30/2016 CBC w/ auto diff absolute eosinophils 264 cells /uL 15-500 normal Not Available [facility] [address] [facility] [place], [address], 08/30/2016 07:50:51 08/29/20 16 08/30/2016 CBC w/ auto diff absolute basophils 24 cells /uL 0-200 normal Not Available [facility] [address] [facility] [place], [address], 08/30/2016 07:50:51 08/29/20 16 08/30/2016 CBC w/ auto diff neutrophils 57.5 % normal Not Available [facility] [address] [facility] [place], [address], 08/30/2016 07:50:51 08/29/20 16 08/30/2016 CBC w/ auto diff lymphocytes 34.1 % normal Not Available [facility] [address] [facility] [place], [address], 08/30/2016 07:50:51 08/29/20 16 08/30/2016 CBC w/ auto diff monocytes 4.8 % normal Not Available [facility] [address] [facility] [place], [address], 08/30/2016 07:50:51 08/29/20 16 08/30/2016 CBC w/ auto diff eosinophils 3.3 % normal Not Available [facility] [address] [facility] [place], [address], 08/30/2016 07:50:51 08/29/20 16 08/30/2016 CBC w/ auto diff basophils 0.3 % normal Not Available [facility] [address] [facility] [place], [address], 08/30/2016 07:50:51 08/29/20 16 08/30/2016 urina lysis , compl ete color YELLOW yellow normal Not Available [facility] [address] [facility], [place], [address], 08/30/2016 07:50:51 08/29/20 16 08/30/2016 urina lysis , compl ete appearance CLEAR clear normal Not Available [facility] [address], [place], [address], 08/30/2016 07:50:51 08/29/20 16 08/30/2016 urina lysis , compl ete specific gravity 1.018 1.001- 1.035 normal Not Available [facility] [address], [place], [address], 08/30/2016 07:50:51 08/29/20 16 08/30/2016 urina lysis , compl ete pH 5.5 5.0-8. 0 normal Not Available [facility] [address] [facility] [place], [address], 08/30/2016 07:50:51 08/29/20 16 08/30/2016 urina lysis , compl ete glucose NEGATI VE negati ve normal Not Available [facility] [address] [facility] [place], [address], 08/30/2016 07:50:51 08/29/20 16 08/30/2016 urina lysis , compl ete bilirubin NEGATI VE negati ve normal Not Available [facility] [address] [place], [address], 08/30/2016 07:50:51 08/29/20 16 08/30/2016 urina lysis , compl ete ketones NEGATI VE negati ve normal Not Available [facility] [address] [place], [address], 08/30/2016 07:50:51 08/29/20 16 08/30/2016 urina lysis , compl ete occult blood NEGATI VE negati ve normal Not Available [facility] [address] [place], [address], 08/30/2016 07:50:51 08/29/20 16 08/30/2016 urina lysis , compl ete protein NEGATI VE negati ve normal Not Available [facility] [address], [place], [address], 08/30/2016 07:50:51 08/29/20 16 08/30/2016 urina lysis , compl ete nitrite NEGATI VE negati ve normal Not Available [facility] [address], [place], [address], 08/30/2016 07:50:51 08/29/20 16 08/30/2016 urina lysis , compl ete leukocyte esterase NEGATI VE negati ve normal Not Available [facility] [address], [place], [address], 08/30/2016 07:50:51 08/29/20 16 08/30/2016 urina lysis , compl ete WBC NONE SEEN /hpf < or = 5 normal Not Available [facility] [address], [place], [address], 08/30/2016 07:50:51 08/29/20 16 08/30/2016 urina lysis , compl ete RBC NONE SEEN /hpf < or = 2 normal Not Available [facility] [address], [place], [address], 08/30/2016 07:50:51 08/29/20 16 08/30/2016 urina lysis , compl ete squamous epithelial cells NONE SEEN /hpf < or = 5 normal Not Available [facility] [address], [place], [address], 08/30/2016 07:50:51 08/29/20 16 08/30/2016 urina lysis , compl ete bacteria NONE SEEN /hpf none seen normal Not Available [facility] [address], [place], [address], 08/30/2016 07:50:51 08/29/20 16 08/30/2016 urina lysis , compl ete hyaline cast NONE SEEN /lpf none seen normal Not Available [facility] [address] [facility], [place], [address], 08/30/2016 07:50:51 Result Notes None recorded. Medical Equipment None Reported. Allergies No known drug allergies Medications Name Sig Start Date Stop Date Status Note LastModified by Organization Details LastModified Time cyclobenzaprin e 10 mg tablet 08/29 completed Not Available Not Available Not Available atorvastatin 40 mg tablet 1 PO HS active Not Available Not Available No t Available omeprazole 40 mg capsule,delaye d release 1 PO daily active Not Available Not Available No t Available levothyroxine 75 mcg tablet 1 PO daily 08/29 completed Not Available Not Available Not Available triamterene 37.5 mg-hydrochloro thiazide 25 mg tablet 1 PO daily active Not Available Not Available No t Available lisinopril 5 mg tablet 1 PO daily active Not Available Not Available No t Available naproxen 500 mg tablet 08/29 completed Not Available Not Available Not Available levothyroxine 112 mcg tablet 1 PO daily active Not Available Not Available No t Available Effient 10 mg tablet 1 PO daily active Not Available Not Available No t Available Vitals None Recorded Social History Question Answer Notes LastModified by Organizat ion Details LastModified Time Tobacco Smoking Status Current Every Day Smoker Not Available [facility] 07/13/2020 03:11:15 What Is Your Level Of Alcohol Consumption? Occasional [id number] Information not available 07/13/2020 What Is Your Level Of Caffeine Consumption? Moderate [id number] Information not available 07/13/2020 Diabetes No Information no t available 08/29/2016 What Type Of Diet Are You Following? 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 0.5 PPD [id number] Information not available 07/13/2020 How Many Years Have You Smoked Tobacco? 30 [id number] Information not available 07/13/2020 Sex: Unknown Functional Status Question Answer Note LastModified by Organization D etails LastModified Time What is your exercise level? None [id number] Information not available 07/13/2020 Mental Status None recorded. Family History Nothing Reported. Medical History Condition Response Coronary Artery Disease Y Ear or Hearing Problems GERD/Reflux Y High Cholesterol Y Heart Disease Y Hypertension Y Hypothyroidism Y Past Encounters Encounter ID Performer Location Encounter Start Date Encounter Closed Date Diagnosis/Indication Diagnosis SNOMED-CT Code Diagnosis ICD10 Code Diagnosis Note [id number] Sunni Robert MD [facility] [address] [place] [address], [facility] [address] [place] [address] 08/29/2016 09:17:32 09/01/2016 09:11:32 History and physical examination, pre-employment 051582175 Z02.1 Chronic ob structive pulmonary disease 04843911 J44.9 History of placement of stent for coronary artery disease 168159473 Z95.5 Essential hypertension 07135980 I10 Hyperlipidemia 03640422 E78.5 Hypothyroidism 21260504 E03.9 Gastroesop hageal reflux disease 815122459 K21.9 Health Concerns Section Related Observation LastModified by Organization Detai ls LastModified Time None Recorded Concern Status LastModified by Organization Details LastModified Time None Recorded Advance Directives Directive None Recorded Payers Encounter Date Sequence Insurance Name Policy Number Policy Ramírez Covered Member ID Ramírez Member ID Guarantor Name 08/29/2016 1 *SELF PAY* Ting Barrera
[2025-01-01 09:53] LABS: Basophils # 0.1 K/mm3 (0-0.2); Eosinophils # 0.2 K/mm3 (0.0-0.4); Eosinophils % 3.4 % (0.1-12.0); Hematocrit 39.8 % (42.0-52.0); Hemoglobin 13.1 g/dL (14.1-18.0); Lymphocytes % 33.8 % (10-50); Mean Corpuscular HGB Conc 32.9 g/dL (31.8-35.4); Mean Corpuscular Hemoglobin 30.7 pg (27.0-31.2); Mean Corpuscular Volume 93.2 fl (80-94); Mean Platelet Volume 9.1 fl (7.4-10.4); Monocytes # 0.4 K/mm3 (0.1-1.0); Neutrophils # 3.2 K/mm3 (1.8-7.8); Neutrophils % 54.5 % (37.0-80.0); Nucleated Red Blood Cells # 0 10^3/uL; Nucleated Red Blood Cells % 0 %; Platelet Count 308 K/mm3 (142-424); Red Blood Count 4.27 M/mm3 (4.60-6.20); Red Cell Distribution Width 13.1 % (11.5-17.5); Red Cell Distribution Width-SD 44.6 fL; White Blood Count 5.8 K/mm3 (4.8-10.8)
[2025-01-01 10:13] LABS: Alanine Aminotransferase 50 U/L (12-78); Albumin Level 4.8 g/dl (3.5-5.0); Alkaline Phosphatase 71 U/L (38-126); Anion Gap 17.6 mEq/L (5-15); Aspartate Amino Transferase 38 U/L (17-59); Bilirubin,Direct 0.3 mg/dl (0.0-0.4); Bilirubin,Indirect 0.4 mg/dL (0.0-0.9); Bilirubin,Total 0.7 mg/dl (0.2-1.3); Bilirubin,Unconjugated 0.4 mg/dL (0.0-1.1); Blood Urea Nitrogen 29 mg/dl (9-20); Calcium 9.3 mg/dl (8.4-10.2); Carbon Dioxide 27 mmol/L (22.0-30.0); Chloride 101 mmol/L (98-107); Chol/HDL Ratio 5.1 (1-3.5); Cholesterol 178 mg/dl (140-200); Estimated Glomerular Filt Rate 49 ml/min (>60); GFR (African American) 60 ML/MIN (>60); Glucose 118 mg/dl (74-100); HDL Cholesterol 35 mg/dl (40-60); Magnesium 1.8 mg/dl (1.6-2.3); Potassium 4.6 mmoL/L (3.5-5.1); Sodium 141 mmol/L (136-145); Total Protein,Serum 8.4 g/dl (6.3-8.2); Triglycerides 318 mg/dl (30-150); VLDL Cholesterol 64 mg/dL (0-40)
[2025-01-01 10:24] LABS: Hemoglobin A1C 6.4 % (4.0-6.0)
[2025-01-01 10:27] LABS: Direct LDL Cholesterol 88.65 mg/dL (100-129)
[2025-01-01 10:46] LABS: Thyroid Stimulating Hormone 0.33 uIU/mL (0.465-4.68)
== END 2025-01-01 23:59 | disposition home or self-care (01) ==
LOC: LAB 09:17
PROVIDERS: PCP Family Medicine; Visit Provider Nurse Practitioner
DX: I50.9 Heart failure, unspecified (principal); E11.59 Type 2 diabetes mellitus with other circulatory complications; E78.2 Mixed hyperlipidemia; E03.9 Hypothyroidism, unspecified; I10 Essential (primary) hypertension; I25.118 Atherosclerotic heart disease of native coronary artery with other forms of angina pectoris
CPT/HCPCS: 36415; 80048; 80061; 80076; 83036; 83735; 84439; 84443; 85025

== ENCOUNTER 2025-01-23 10:15 | Outpatient (CLI) | payer BC, SELFPAY ==
--- OUTSIDE RECORDS SUMMARY | 2025-01-23 10:18 | XMS_ITS | Data Portability ---
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 He suffered a myocardial infarction at work July 17 and had a stent placed emergently at [facility]. 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 He is highly recommended to stop smoking [...] 136 mg/dL 125-20 0 normal Not Available [facility] [address] [facility], [place], [address], 08/30/2016 07:50:50 08/29/20 16 08/30/2016 lipid panel , serum HDL cholesterol 35 mg/dL > or = 40 low Not Available [facility] [address] [facility], [place], [address], 08/30/2016 07:50:50 08/29/20 16 08/30/2016 lipid panel , serum triglyceride s 139 mg/dL <150 normal Not Available [facility] [address] [facility], [place], [address], 08/30/2016 07:50:50 08/29/20 16 08/30/2016 lipid panel , serum LDL-choleste rol 73 mg/dL _(amanda c) <130 normal Roland able range <100 mg/dL for patie nts with CHD or diabe alvarado and <70 mg/dL for diabe tic patie nts with known heart disea se. Not Available [facility] [address] [facility], [place], [address], 08/30/2016 07:50:50 08/29/20 16 08/30/2016 lipid panel , serum chol/HDLC ratio 3.9 (calc ) < or = 5.0 normal Not Available [facility] [address] [facility], [place], [address], 08/30/2016 07:50:50 08/29/20 16 08/30/2016 lipid panel , serum non HDL cholesterol 101 mg/dL _(amanda c) normal Targe t for non-H DL marisela stero l is 30 mg/dL highe r than LDL marisela stero l targe t. Not Available [facility] [address] [place], [address], 08/30/2016 07:50:50 08/29/20 16 08/30/2016 CMP, serum or plasm a glucose 92 mg/dL 65-99 normal Fasti ng refer ence inter evelyn Not Available [facility] [address] [place] [address], [address], 08/30/2016 07:50:50 08/29/20 16 08/30/2016 CMP, serum or plasm a urea nitrogen (BUN) 13 mg/dL 7-25 normal Not Available [facility] [address] [place] [address], [address], 08/30/2016 07:50:50 08/29/20 16 08/30/2016 CMP, serum or plasm a creatinine 1.04 mg/dL 0.60-1 .35 normal Not Available [facility] [address] [place], [place] [address], [place], [address], 08/30/2016 07:50:50 08/29/20 16 08/30/2016 CMP, serum or plasm a eGFR non-afr. bulgarian 88 mL/mi n/1.7 3m2 > or = 60 normal Not Available [facility] [address] [place], [place] [address], [place], [address], 08/30/2016 07:50:50 08/29/20 16 08/30/2016 CMP, serum or plasm a eGFR 101 mL/mi n/1.7 3m2 > or = 60 normal Not Available [facility] [address] [place] [address], [address], 08/30/2016 07:50:50 08/29/20 16 08/30/2016 CMP, serum or plasm a BUN/creatini ne ratio NOT APPLIC ABLE (calc ) 6-22 Not Available [facility] [place], [address], 08/30/2016 07:50:50 08/29/20 16 08/30/2016 CMP, serum or plasm a sodium 137 mmol/ L 135-14 6 normal Not Available [facility] [address] [place], [address], 08/30/2016 07:50:50 08/29/20 16 08/30/2016 CMP, serum or plasm a potassium 4.5 mmol/ L 3.5-5. 3 normal Not Available [facility] [address] [place], [place] [address], [address], 08/30/2016 07:50:50 08/29/20 16 08/30/2016 CMP, serum or plasm a chloride 102 mmol/ L 98-110 normal Not Available [facility] [address] [place], [place] [address], [address], 08/30/2016 07:50:50 08/29/20 16 08/30/2016 CMP, serum or plasm a carbon dioxide 30 mmol/ L 20-31 normal Not Available [facility] [address] [place], [place] [address], [address], 08/30/2016 07:50:50 08/29/20 16 08/30/2016 CMP, serum or plasm a calcium 9.7 mg/dL 8.6-10 .3 normal Not Available [facility] [address] [place], [place] [address], [address], 08/30/2016 07:50:50 08/29/20 16 08/30/2016 CMP, serum or plasm a protein, total 7.8 g/dL 6.1-8. 1 normal Not Available [facility] [address] [place], [place] [address], [address], 08/30/2016 07:50:50 08/29/20 16 08/30/2016 CMP, serum or plasm a albumin 4.6 g/dL 3.6-5. 1 normal Not Available [facility] [address] [place] [place], [address], 08/30/2016 07:50:50 08/29/20 16 08/30/2016 CMP, serum or plasm a globulin 3.2 g/dL_ (calc ) 1.9-3. 7 normal Not Available [facility] [address] [place], [address], 08/30/2016 07:50:50 08/29/20 16 08/30/2016 CMP, serum or plasm a albumin/glob ulin ratio 1.4 (calc ) 1.0-2. 5 normal Not Available [facility] [address] [place], [place] [address], [address], 08/30/2016 07:50:50 08/29/20 16 08/30/2016 CMP, serum or plasm a bilirubin, total 0.5 mg/dL 0.2-1. 2 normal Not Available [facility] [address] [place], [place] [address], [place], [address], 08/30/2016 07:50:50 08/29/20 16 08/30/2016 CMP, serum or plasm a alkaline phosphatase 85 U/L 40-115 normal Not Available [facility] [address] [place], [address], 08/30/2016 07:50:50 08/29/20 16 08/30/2016 CMP, serum or plasm a AST 24 U/L 10-40 normal Not Available [facility] [address] [place], [place] [address], [place], [address], 08/30/2016 07:50:50 08/29/20 16 08/30/2016 CMP, serum or plasm a ALT 39 U/L 9-46 normal Not Available [facility] [place], [address], 08/30/2016 07:50:50 08/29/20 16 08/30/2016 CBC w/ auto diff white blood cell count 8.0 thous and/u L 3.8-10 .8 normal Not Available [facility] [address] [place], [address], 08/30/2016 07:50:51 08/29/20 16 08/30/2016 CBC w/ auto diff red blood cell count 4.51 ivory on/uL 4.20-5 .80 normal Not Available [facility] [address] [place], [address], 08/30/2016 07:50:51 08/29/20 16 08/30/2016 CBC w/ auto diff hemoglobin 14.3 g/dL 13.2-1 7.1 normal Not Available [facility] [address] [place], [address], 08/30/2016 07:50:51 08/29/20 16 08/30/2016 CBC w/ auto diff hematocrit 42.3 % 38.5-5 0.0 normal Not Available [facility] [address] [place], [place] [address], [address], 08/30/2016 07:50:51 08/29/20 16 08/30/2016 CBC w/ auto diff MCV 93.9 fL 80.0-1 00.0 normal Not Available [facility] [address] [place], [place] [address], [address], 08/30/2016 07:50:51 08/29/20 16 08/30/2016 CBC w/ auto diff MCH 31.6 pg 27.0-3 3.0 normal Not Available [facility] [address] [place] [address], [address], 08/30/2016 07:50:51 08/29/20 16 08/30/2016 CBC w/ auto diff MCHC 33.7 g/dL 32.0-3 6.0 normal Not Available [facility] [address] [place], [address], 08/30/2016 07:50:51 08/29/20 16 08/30/2016 CBC w/ auto diff RDW 13.9 % 11.0-1 5.0 normal Not Available [facility] [address] [place], [address], 08/30/2016 07:50:51 08/29/20 16 08/30/2016 CBC w/ auto diff platelet count 324 thous and/u L 140-40 0 normal Not Available [facility] [address] [place], [address], 08/30/2016 07:50:51 08/29/20 16 08/30/2016 CBC w/ auto diff MPV 7.3 fL 7.5-11 .5 low Not Available [facility] [address] [place], [address], 08/30/2016 07:50:51 08/29/20 16 08/30/2016 CBC w/ auto diff absolute neutrophils 4600 cells /uL 1500-7 800 normal Not Available [facility] [address] [place], [address], 08/30/2016 07:50:51 08/29/20 16 08/30/2016 CBC w/ auto diff absolute lymphocytes 2728 cells /uL 850-39 00 normal Not Available [facility] [address] [place], [address], 08/30/2016 07:50:51 08/29/20 16 08/30/2016 CBC w/ auto diff absolute monocytes 384 cells /uL 200-95 0 normal Not Available [facility] [address] [place], [address], 08/30/2016 07:50:51 08/29/20 16 08/30/2016 CBC w/ auto diff absolute eosinophils 264 cells /uL 15-500 normal Not Available [facility] [address] [place], [address], 08/30/2016 07:50:51 08/29/20 16 08/30/2016 CBC w/ auto diff absolute basophils 24 cells /uL 0-200 normal Not Available [facility] [address] [place], [address], 08/30/2016 07:50:51 08/29/20 16 08/30/2016 CBC w/ auto diff neutrophils 57.5 % normal Not Available [facility] [address] [place], [address], 08/30/2016 07:50:51 08/29/20 16 08/30/2016 CBC w/ auto diff lymphocytes 34.1 % normal Not Available [facility] [address] [place], [address], 08/30/2016 07:50:51 08/29/20 16 08/30/2016 CBC w/ auto diff monocytes 4.8 % normal Not Available [facility] [address] [facility] [place], [address], 08/30/2016 07:50:51 08/29/20 16 08/30/2016 CBC w/ auto diff eosinophils 3.3 % normal Not Available [facility] [address] [place], [address], 08/30/2016 07:50:51 08/29/20 16 08/30/2016 CBC w/ auto diff basophils 0.3 % normal Not Available [facility] [address] [place], [address], 08/30/2016 07:50:51 08/29/20 16 08/30/2016 urina lysis , compl ete color YELLOW yellow normal Not Available [facility] [address] [facility], [place], [address], 08/30/2016 07:50:51 08/29/20 16 08/30/2016 urina lysis , compl ete appearance CLEAR clear normal Not Available [facility] [address], [place], [address], 08/30/2016 07:50:51 08/29/20 16 08/30/2016 urina lysis , compl ete specific gravity 1.018 1.001- 1.035 normal Not Available [facility] [address], [place], [address], 08/30/2016 07:50:51 08/29/20 16 08/30/2016 urina lysis , compl ete pH 5.5 5.0-8. 0 normal Not Available [facility] [address] [place], [address], 08/30/2016 07:50:51 08/29/20 16 08/30/2016 urina lysis , compl ete glucose NEGATI VE negati ve normal Not Available [facility] [address] [place], [address], 08/30/2016 07:50:51 08/29/20 16 08/30/2016 urina lysis , compl ete bilirubin NEGATI VE negati ve normal Not Available [facility] [address] [place], [address], 08/30/2016 07:50:51 08/29/20 16 08/30/2016 urina lysis , compl ete ketones NEGATI VE negati ve normal Not Available [facility] [address] [place], [address], 08/30/2016 07:50:51 08/29/20 16 08/30/2016 urina lysis , compl ete occult blood NEGATI VE negati ve normal Not Available [facility] [address] [place], [address], 08/30/2016 07:50:51 08/29/20 16 08/30/2016 urina lysis , compl ete protein NEGATI VE negati ve normal Not Available [facility] [address], [place], [address], 08/30/2016 07:50:51 08/29/20 16 08/30/2016 urina lysis , compl ete nitrite NEGATI VE negati ve normal Not Available [facility] [address], [place], [address], 08/30/2016 07:50:51 08/29/20 16 08/30/2016 urina lysis , compl ete leukocyte esterase NEGATI VE negati ve normal Not Available [facility] [address], [place], [address], 08/30/2016 07:50:51 08/29/20 16 08/30/2016 urina lysis , compl ete WBC NONE SEEN /hpf < or = 5 normal Not Available [facility] [address], [place], [address], 08/30/2016 07:50:51 08/29/20 16 08/30/2016 urina lysis , compl ete RBC NONE SEEN /hpf < or = 2 normal Not Available [facility] [address], [place], [address], 08/30/2016 07:50:51 08/29/20 16 08/30/2016 urina lysis , compl ete squamous epithelial cells NONE SEEN /hpf < or = 5 normal Not Available [facility] [address], [place], [address], 08/30/2016 07:50:51 08/29/20 16 08/30/2016 urina lysis , compl ete bacteria NONE SEEN /hpf none seen normal Not Available [facility] [address], [place], [address], 08/30/2016 07:50:51 08/29/20 16 08/30/2016 urina lysis , compl ete hyaline cast NONE SEEN /lpf none seen normal Not Available [facility] [address] [facility] [facility], [place], [address], 08/30/2016 07:50:51 Result Notes None recorded. Medical [...] Status Current Every Day Smoker Not Available [facility] 07/13/2020 03:11:15 What Is Your Level Of Alcohol Consumption? Occasional [id number] Information not available 07/13/2020 What Is Your Level Of Caffeine Consumption? Moderate [id number] Information not available 07/13/2020 Diabetes No Information no t available 08/29/2016 What Type Of Diet Are You Following? 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 0.5 PPD [id number] Information not available 07/13/2020 How Many Years Have You Smoked Tobacco? 30 [id number] Information not available 07/13/2020 Sex: Unknown Functional Status Question Answer Note LastModified by Organization D etails LastModified Time What is your exercise level? None [id number] Information not available 07/13/2020 Mental Status None recorded. Family History Nothing Reported. Medical History Condition Response Coronary Artery Disease Y Ear or Hearing Problems High Cholesterol Y GERD/Reflux Y Heart Disease Y Hypertension Y Hypothyroidism Y Past Encounters Encounter ID Performer Location Encounter Start Date Encounter Closed Date Diagnosis/Indication Diagnosis SNOMED-CT Code Diagnosis ICD10 Code Diagnosis Note [id number] Sunni Robert MD [facility] [address] [place] [address], [facility] [address] [place] [address] 08/29/2016 09:17:32 09/01/2016 09:11:32 History and physical examination, pre-employment 504644377 Z02.1 Chronic ob structive pulmonary disease 65891646 J44.9 History of placement of stent for coronary artery disease 217997592 Z95.5 Essential hypertension 96099263 I10 Hyperlipidemia 99494098 E78.5 Hypothyroidism 99890140 E03.9 Gastroesop hageal reflux disease 062421440 K21.9 Health Concerns Section Related Observation LastModified by Organization Detai ls LastModified Time None Recorded Concern Status LastModified by Organization Details LastModified Time None Recorded Advance Directives Directive None Recorded Payers Encounter Date Sequence Insurance Name Policy Number Policy Ramírez Covered Member ID Ramírez Member ID Guarantor Name 08/29/2016 1 *SELF PAY* Ting Barrera
--- OUTSIDE RECORDS SUMMARY | 2025-01-23 10:18 | XMS_ITS | Data Portability ---
Author Organization [facility] [place] Address [address] [place] [address] Care Team Providers Care Pupil Personnel Services Director Name Role Phone JESSICA ARELLANO Primary Care Provider Assessment No assessment recorded. Plan of Treatment Reminders Order Date Submit Date Provider Last Modified By Organization Details Last Modified Time Details Appointments None record ed. Lab None record ed. Referral None record ed. Procedures None record ed. Surgeries None record ed. Imaging None record ed. Medication Orders None record ed. Patient TargetsNo targets recorded. Patient InstructionsNo instructions recorded. Reason for Referral None Reported. Problems Name Problem SNOMED Code Status Onset Date Resolution Date Notes Provider Name and Address Organization Details Recorded Time Myocardial infarction 94820880 Active 2021 Juarez Seaman [facility] [place] 2 09:18:39 Hypertensive disorder 57216497 Active 2021 Juarez hirsch [facility] [place] 2 09:18:49 Thyroiditis 21089631 Active 2021 Juarez Seaman [facility] [place] 2 09:19:00 Problem Notes None recorded. Medical Equipment None Reported. Allergies No known drug allergies Medications Name Sig Start Date Stop Date Status Note LastModified by Organization Details LastModified Time levothyroxine 175 mcg tablet TAKE ONE TABLET BY MOUTH EVERY DAY active Not Available Not Available No t Available omeprazole 40 mg capsule,delayed release TAKE ONE CAPSULE BY MOUTH EVERY DAY active Not Available Not Available No t Available triamterene 37.5 mg-hydrochlorot hiazide 25 mg tablet TAKE ONE TABLET BY MOUTH EVERY DAY active Not Available Not Available No t Available rosuvastatin 20 mg tablet TAKE ONE TABLET BY MOUTH EVERY DAY active Not Available Not Available No t Available tadalafil 5 mg tablet TAKE 1/2 TABLET BY MOUTH DAILY active Not Available Not Available No t Available lisinopril active Not Available Not Av ailable Not Available cetirizine active Not Available Not Av ailable Not Available Hctz/Reserpine/ Hydralazine active Not Available Not Available Not Available metoprolol succinate ER 200 mg capsule sprinkle, ext. release 24 hr Take 1 capsule every day by oral route. active Not Available Not Available No t Available Vitals Date Recorded Body height Body mass index (BMI) Body weight Body temperature Provider Name and Address Organization Details Last Updated DateTime 07/13/2022 190.5 cm 38.7 kg/m2 849978.63 g 98.1 [degF] Juarez Seaman [facility] [place] 07/13/2022 09:15:32 Social History Question Answer Notes LastModified by Organizat ion Details LastModified Time Tobacco Smoking Status Former Smoker Juarez hirsch, [facility] [place] 07/13/2022 09:11:40 Do You Have An Advance Directive? No [email or web address] Information not available 07/13/2022 What Is Your Level Of Alcohol Consumption? None [email or web address] Information not available 07/13/2022 Are You Blind Or Do You Have Difficulty Seeing? No [email or web address] Information not available 07/13/2022 What Was The Date Of Your Most Recent Tobacco Screening? 07/10/2022 [email or web address] Information not available 07/13/2022 Are You Passively Exposed To Smoke? No [email or web address] Information no t available 07/13/2022 Do You Or Have You Ever Used Smokeless Tobacco? Never Used Smokeless Tobacco [email or web address] Information not available 07/13/2022 How Much Tobacco Do You Smoke? 1 PPD [email or web address] Information not available 07/13/2022 Do You Feel Stressed (tense, Restless, Nervous, Or Anxious, Or Unable To Sleep At Night)? [id number] [email or web address] Information not available 07/13/2022 Do You Use Any Illicit Or Recreational Drugs? No [email or web address] Information not available 07/13/2022 How Many Years Have You Smoked Tobacco? 30 [email or web address] Information not available 07/13/2022 Sex: Male Functional Status Question Answer Note LastModified by Organization D etails LastModified Time What is your exercise level? None [email or web address] Information not available 07/13/2022 Mental Status None recorded. Family History Relationship Description Onset Age of this Age Resolved Age Notes LastModified by Organization Details LastModified Time Mother Malignant neoplastic disease Not available 2021 09:19:14 Father Family history unknown [email or web address] Not available 2021 09:19:26 Brother Family history unknown [email or web address] Not available 2021 09:19:26 Sister Family history unknown [email or web address] Not available 2021 09:19:26 Medical History Condition Response Heart Attack ([place]) Y Past Encounters Encounter ID Performer Location Encounter Start Date Encounter Closed Date Diagnosis/Indication Diagnosis SNOMED-CT Code Diagnosis ICD10 Code Diagnosis Note [id number] Garett Crump Jr, MD [facility] [address] [place] [phone] 07/13/2022 08:54:36 07/13/2022 09:59:42 Vasectomy requested 952396483 Z30.2 patient and his present for vasectomie s consultati on today. The retroverte d cecectomy materials and we discussed the operative procedure, complicati ons including scrotal hematoma, epididymit is and chronic testicular pain. Patient wishes to proceed under local anesthetic and we will set this up at his earliest convenienc e Health Concerns Section Related Observation LastModified by Organization Detai ls LastModified Time None Recorded Concern Status LastModified by Organization Details LastModified Time None Recorded Advance Directives Directive N: Payers Insurance Date Sequence Insurance Name Policy Number Policy Ramírez Covered Member ID Ramírez Member ID Guarantor Name 07/13/2022 1 [employer] - OPEN ACCESS - NATIONAL (POS) [id number] Tommy Barrera [id number] Tommy Barrera Notes Date Note Type Note Provider Name and Address Organization Details Recorded Time 07/13/2022 text/html patient is a 46-year-old white male self-referred for vasectomy consultation today. Patient read over the vasectomy materials and we discussed the operative procedure including complications and postop course. Patient is and his is with him today. They agree that vasectomies their preferred method sterilization. He denies any scrotal trauma or testicular abnormalities. Garett Crump Jr, MD [address] [place] [address], [address], [place], [address], [facility] [place] & [place] 07/14/2022 12:47:49
--- NOTE | 2025-01-23 10:27 | XR_ITS ---
FINAL REPORT CLINICAL HISTORY: JUANA INFECTION FINDINGS: AP, oblique and lateral views of the left foot were obtained. There is no prior exam for comparison. There is no acute fracture or dislocation. No evidence of bony destruction. There is mild degenerative joint disease. Soft tissues are unremarkable. IMPRESSION: Mild degenerative change without acute osseous abnormality of the left foot. Reviewed, Interpreted and Dictated by Chelle Farley MD Transcribed by Nati Varner Authenticated and [facility]
== END 2025-01-23 23:59 | disposition home or self-care (01) ==
LOC: RAD 10:16
PROVIDERS: PCP Family Medicine; Visit Provider Physician Assistant
DX: M19.072 Primary osteoarthritis, left ankle and foot (principal)
CPT/HCPCS: 73630

== ENCOUNTER 2025-03-03 14:10 | Outpatient (RCR) | payer BC, SELFPAY ==
--- NOTE | 2025-03-03 15:37 | HMH.PTOPWND ---
Rehab Outpt Wound Evaluation Rehab OP Wound Evaluation Start: 03/03/25 15:17 Freq: Status: Active Protocol: Document 03/03/25 15:17 ADDY (Rec: 03/03/25 15:36 PHORNE [id number]) E-signed By Ahsan Garza, PT Subjective/History History History This is the initial PT wound care eval for Tommy Barrera, 49 yowm who presents with ~ 1 mo hx of L medial great toe wound with insidious onset of symptoms . He reports worsening callus in the area that appeared suddenly, then opened and became a sore. He has been dressing with prescribed topical abx and appropriate bandage since the wound opened. He feels his wound has healed considerably and he is doing much better. He has PMH of HTN, hypothyroid, CAD, DC. Subjective Subjective Currently he has no c/o pain, 0/10 , in the L great toe . No tenderness to palpation noted at this time, 0/4. Wound bed appears healthy with minimal drainage and no gabby-wound skin irritation. Sharp debridement required to remove hyperkeratotic rim this date. Wound Eval Wound Left Medial Great Toe Wound Type unknown etiology Is This a Chronic No Wound Wound Length (cm) 0.8 Wound Width (cm) 0.8 Wound Depth (cm) 0.1 Wound Bed Appearance Beefy Red Percentage 100 Granulated (%) Wound Margins Well Defined Description Surrounding Tissue [place] Appearance Drainage Description Serosanguineous Drainage Amount Scant Drainage Odor No Odor Wound Topical Saline Irrigant Solution/Irrigant Primary Dressing Bandaid Wound Debridement Sharps,Gauze,Mechanical Method Wound Debridement Minimal Amount of Tissue Removed Wound Debridement Healthy Tissue Revealed Result Dressing Change Tolerated Well Patient Tolerance [place] Wound Assessment Tool Assessment Wound size 1=Length x Width <4 sq cm Wound depth 2=Partial thickness skin loss involving epidermis &/or dermis Wound edges 2=Distinct, outline clearly visible, attached, even with wound base Wound undermining 1=None present Necrotic tissue type 1=Non visible Necrotic tissue 1=None visible amount Exudate type 3=Serosanguineous: thin, watery, pale red/pink Exudate amount 2=Scant, wound moist but no observable exudate Skin color 1=[place] or normal for ethnic group surrounding wound Peripheral tissue 1=No swelling or edema edema Peripheral tissue 1=None present induration Granulation tissue 2=Bright, beefy red;75% to 100% of wound filled &/or tissue overgrowth Epithelialization 3=50% to <75% wound covered &/or epithelial tissue extends to < 0.5cm Wound assessment 21 total score Wound Problems/Impairments Impairments Problems/ Wound Care Needs,Impaired Self Care/Self Management Impairmments Prognosis Rehab Potential Good Comment Skilled therapy is indicated to reduce overall wound surface area in order to return pt to PLOF. Clinical Impression Consistent with Yes Diagnosis Short Term Goals Number of Weeks 2 Decrease Wound Area Yes: by 25% Cow Puncher Goals Decrease Wound Area Yes: by 75% Outpatient Therapy Plan of Care Treatment Plan May Include Wound Care Yes Eval/Re-Eval Yes Frequency Times per week 1 Duration Number of Weeks 4 Addendums This patient is a No candidate for social or vocational rehab ? Patient/Guardian Yes verbally acknowledges understanding of treatment program and consents to further treatment? Patient/Guardian Yes verbally acknowledges understanding of diagnosis, prognosis and goals for treatment? Eval Complexity PT Charges 91609 - Moderate Complexity PHYSICIAN CERTIFICATION: I certify the specified therapy services for Tommy Barrera are required, authorized, and reviewed every 30 days.
== END 2025-03-03 23:59 | disposition home or self-care (01) ==
LOC: PT 14:10
PROVIDERS: PCP Family Medicine; Visit Provider Physician Assistant
DX: L08.9 Local infection of the skin and subcutaneous tissue, unspecified (principal); S91.109D Unspecified open wound of unspecified toe(s) without damage to nail, subsequent encounter
CPT/HCPCS: 97162

== ENCOUNTER 2025-03-05 10:06 | Inpatient (IN) | payer BC, SELFPAY ==
--- OUTSIDE RECORDS SUMMARY | 2025-01-23 06:15 | XMS_ITS ---
Author Organization [facility] Address 1210 [facility] [address] [place] [id number] Care Team Providers Care Inspector Finishing Name Role Phone Aaron Davis Primary Care Provider Carol Tabor Unavailable [phone] Allergies No Known Allergies Results Component Value Reference Range Notes P-Culture, Anaerobic and Aer obic w/Gram Stain Reviewed date:01/28/2025 02:41:01 PM Interpretation: Performing Lab: Notes/Report: Test performed by [facility], [address] , [address], [place] [address] Timothy Grady MD, Casino Host CLIA: [id number] Specimen Source - left first toe Culture, Anaerobic and Aerobic w/Gram Stain See Below Final Report : No Anaerobes isolated Sensitivity Panel See Below Organism Antibiotic Ceftaroline Clindamycin Daptomycin Erythromycin Gentamicin Levofloxacin Linezolid Moxifloxacin Oxacillin Penicillin Rifampin Tetracycline Trimeth/Sulfa Vancomycin S=SUSCEPTIBLE I=INTERMEDIATE R=RESISTANT P-Culture, Miscellaneous Aer obic w/Gram Stain Reviewed date:01/28/2025 02:41:01 PM Interpretation: Performing Lab: Notes/Report: Test performed by [facility], [address] , [address], [place] [address] Timothy Grady MD, Casino Host CLIA: [id number] Specimen Source - left first toe Gram [...] Provider Diagnosis [facility] [address] [place] [address] [place] [phone] 01/23/2025 Carol Tabor Toe infection L08.9 Assessments [...] [address], [place], [phone], Progress Notes * Tommy RODRIGUEZ RDOB:[birth year] (49 yo M)Acc No.[id number]:01/23/2025 Progress Notes Patient: Tommy EUCEDA Provider: SHAYY Agrawal :1975 A ge:49 Y S ex:Male Date:01/23/2025 Address:[address] [id number] Pcp:Araon Davis Subjective: * Chief Complaints: * 1 [...] frequency: coffee, tea. Marital Status: Single. Occupation: [employer]. Past smoking status: yes, Smoking status: Patient [...] aureus Heavy Growth Staphylococcus aureus - * [facility], IT support 01/27/2025 08:25:04 : This order was created by the Interface. * Follow Up: v ia phone to report test results * Billing Information: * Visit Code: 04339 Office Visit, Est Pt., Level 3. * Procedure Codes: * Electronic signature of SHAYY Kelesy on 03/05/2025 at 10:27 AM EDT Sign off status: Pending * Provider: SHAYY Agrawal Date: 0 01/23/2025 Generated for Roni beckford/Carey/eTransmitting on: 0 03/05/2025 10:27 AM EDT History and Physical Notes * [...]
--- OUTSIDE RECORDS SUMMARY | 2025-01-28 05:45 | XMS_ITS ---
Author Organization [facility] Address [address] [place] [phone] Care Team Providers Care Area Field Manager Name Role Phone Aaron Davis Primary Care Provider Carol Tabor Unavailable [phone] Allergies No Known Allergies REASON FOR VISIT 1 week f/u Medications Medication SIG (Take, Route, Frequency, Duration) Notes Start Date End Date Status Cetirizine HCl 10 MG 1 tab(s) orally onc e a day for 90 days Active Mupirocin 2 % 1 application Hands Hanger ally Twice a day 01/28/2025 Active Omeprazole [...] Encounter Location Date Provider Diagnosis [facility] [address] [place] [phone] 01/28/2025 Carol Tabor Toe infection L08.9 Assessments [...] Date Notes Mupirocin 2 % 1 application Hands Hanger ally Twice a day 01/28/2025 Bactrim DS [...] Name:Aaron Rivers er, 03/12/2025 01:30:00 PM, [facility] [address], [address], [place], [phone], Progress Notes * Tommy RODRIGUEZ RDOB:[birth year] (49 yo M)Acc No.[id number]:01/28/2025 Patient: Tommy EUCEDA Provider: SHAYY Agrawal :1975 A ge:49 Y S ex:Male Date:01/28/2025 Address:[address] [place], [id number] Pcp:Aaron Davis Subjective: * Chief Complaints: * [...] frequency: coffee, tea. Marital Status: Single. Occupation: [employer]. Past smoking status: yes, Smoking status: Patient [...] Weeks * Billing Information: * Visit Code: 75862 Office Visit, Est Pt., Level 3. * Procedure Codes: * Electronic signature of SHAYY Kelsey on 03/05/2025 at 10:27 AM EDT Sign off status: Pending * Provider: SHAYY Agrawal Date: 0 01/28/2025 Generated for Roni beckford/Carey/Sebastianitting on: 03/05/2025 10:27 AM EDT History and Physical Notes * Examination Category Sub-Category Detail Notes Category Not es General Examination Heart: RSR Lungs: clear to auscultatio n General Appearance: NAD Skin: left great toe with less erythema and edema, there is still some purulent drainage as well Chest: normal shape and exp ansion
--- OUTSIDE RECORDS SUMMARY | 2025-02-11 06:00 | XMS_ITS ---
[facility] Address [address] [facility] [address] [id number] Care Team Providers Care Oracle Engineer Name Role Phone Aaron Davis Primary Care Provider [phone] Carol Tabor Unavailable [phone] Allergies No Known Allergies Reason For Referral Diagnosis 1 Toe infection (L08.9 ) [facility] Referring Provider First Name Carol Referring Provider Last Name Sharona Referring Provider Speciality Physician Tank Car Reconditioner Referred Provider Specialty Physical The rapist General Notes Carol Tabor 10:01:57 AM >Pt needs a referral to wound care., Elvi Keith 02/11/2025 10:32:40 AM > faxed to [facility] PT Referral Priority Routine REASON FOR VISIT 2 week f/u Medications Medication SIG (Take, Route, Frequency, Duration) Notes Start Date End Date Status Aspirin 81 MG CHEW AND SWALLOW 1 T ABLET DAILY for 90 Active Tadalafil 5 mg TAKE 1/2 TABLET BY M OUT DAILY for 30 Active Potassium Chloride ER 20 MEQ 1 tablet with food Orally Once a day for 90 days Active Furosemide 40 MG 1 tablet Orally Once a day prn for 90 days Active Fluticasone Propionate 50 MCG/ACT 1 spray in each nostril once a day for 90 days Active Mupirocin 2 % 1 application Training Program Developer ally Twice a day Active Cetirizine HCl 10 MG 1 tab(s) orally onc e a day for 90 days Active Atorvastatin Calcium 40 MG 1 tablet Oral ly Once a day for 90 days Active Clindamycin HCl 300 MG 1 capsule Orally Three times a day for 10 days Active Omeprazole 40 MG 1 [...] 02/11/2025 Encounters Encounter Location Date Provider Diagnosis [facility] [address] [facility] 36 [facility] [address] [place] [phone] 02/11/2025 Carol Tabor Toe infection L08.9 and [...] wound care, Reason: Provider Name:Aaron Rivers er, 03/12/2025 01:30:00 PM, [address] [facility] [address] [facility], [address], [place], [id number], Progress Notes * Tommy RODRIGUEZ RDOB:[birth year] (49 yo M)Acc No.[id number]:02/11/2025 Patient: Tommy EUCEDA Provider: SHAYY Agrawal :1975 A ge:49 Y S ex:Male Date:02/11/2025 Address:[address] [place], [id number] Pcp:Aaron Davis Subjective: * Chief Complaints: * 1 . 2 week f/u. * HPI: H PI: 49 year old male presents with c/o Here for follow up on: P naseem is here today for a 2 week [...] Temp: 97.9, BP: 120/72, HR: 58, Nurse: [facility], Ht: 75, BMI:38.02. * Examination: G eneral [...] Plan: * Treatment: * Follow Up: w [facility] wound care * Billing Information: * Visit Code: [id number] Office Visit, Est Pt., Level 3. * Procedure Codes: * Electronic signature of SHAYY Kelsey on 03/05/2025 at 10:27 AM EDT Sign off status: Pending * Provider: SHAYY Agrawal Date: 0 02/11/2025 Generated for Roni beckford/Carey/eTransmitting on: 0 03/05/2025 [...]
[2025-03-05] VITALS (23 sets, daily range): BP systolic 89–134; BP diastolic 55–76; PULSE 55–79; RESP 16–20; TEMP 36.6–36.8; O2SAT 94–99; BMI 38.5
--- NOTE | 2025-03-05 10:06 | ECG_ITS ---
APPROVED REPORT Exam: Resting ECG HR:76 bpm ECG Measurements Heart Rate 76 AXES MN 158 P 42 QRSd 102 QRS 11 QT 340 T 24 QTc 370 Conclusion SINUS RHYTHM LOW QRS VOLTAGE IN PRECORDIAL LEADS [QRS DEFLECTION < 1.0 mV IN CHEST LEADS] INFERIOR MYOCARDIAL INFARCTION , POSSIBLY ACUTE [40+ ms Q WAVE AND/OR ST/T ABNORMALITY IN II/aVF] ACUTE MS UNCONFIRMED REPORT Electronically signed by : Xavier Ch, 03/05/2025 15:40:14
--- NOTE | 2025-03-05 10:15 | XR_ITS ---
FINAL REPORT CLINICAL HISTORY: dyspnea, stemi alertt COMPARISON: 05/13/2023 FINDINGS: A portable view of the chest was obtained. Cardiac and mediastinal silhouettes are within normal limits. There is evidence of prior granulomatous disease. The lungs are otherwise clear. There is no pleural effusion or pneumothorax. IMPRESSION: No acute process on this portable exam. Authenticated and ERN
--- NOTE | 2025-03-05 10:15 | PC.NURSE ---
EKGs sent to Dr. Chapa paged at this time
--- NOTE | 2025-03-05 10:18 | PC.NURSE ---
on phone with demarcus
--- NOTE | 2025-03-05 10:19 | PC.NURSE ---
Victor Hugo Adame in pharmacy for heparin dose of 100 units/kg per Dr. Hinojosa
[2025-03-05 10:20] LABS: Basophils # 0.1 K/mm3 (0-0.2); Basophils % 0.6 % (0.1-2.0); Eosinophils # 0.1 Kmm3 (0.0-0.4); Eosinophils % 1.1 % (0.1-12.0); Hematocrit 37.6 % (42.0-52.0); Hemoglobin 12.7 g/dL (14.1-18.0); Immature Granulocytes # 0.04 10^3uL; Immature Granulocytes % 0.3 %; Lymphocytes # 1.7 K/mm3 (0.7-4.5); Mean Corpuscular HGB Conc 33.8 g/dL (31.8-35.4); Mean Corpuscular Hemoglobin 30.9 pg (27.0-31.2); Mean Corpuscular Volume 91.5 fl (80-94); Mean Platelet Volume 8.7 fl (7.4-10.4); Monocytes # 0.8 K/mm3 (0.1-1.0); Monocytes % 5.9 % (1.7-9.3); Neutrophils # 10.4 K/mm3 (1.8-7.8); Neutrophils % 79.1 % (37.0-80.0); Nucleated Red Blood Cells # 0 10^3/uL; Nucleated Red Blood Cells % 0 %; Platelet Count 356 K/mm3 (142-424); Red Blood Count 4.11 M/mm3 (4.60-6.20); Red Cell Distribution Width 13.2 % (11.5-17.5); Red Cell Distribution Width-SD 43.8 fL; White Blood Count 13.1 K/mm3 (4.8-10.8)
--- NOTE | 2025-03-05 10:20 | PC.NURSE ---
STEMI alert called overhead
--- NOTE | 2025-03-05 10:22 | PC.NURSE ---
laborer aquatic life team at bedside
--- NOTE | 2025-03-05 10:22 | IR_ITS ---
APPROVED REPORT Patient Location: [facility]: Clark Baker, RT (R) PROCEDURES Left heart catheterization Left ventriculogram Selective coronary angiogram Mechanical thrombectomy to the circumflex artery Drug-eluting stent deployment to the proximal circumflex artery INDICATION Acute inferolateral ST elevation myocardial infarction, Coronary artery disease Informed consent was obtained prior to the procedure. COMPLICATIONS NONE Estimated Blood Loss: LESS THAN 10 ML TECHNIQUE One percent lidocaine used to anesthetize the right anterior aspect of the wrist. The right radial artery was accessed via the Seldinger technique. A 6 Yakut sheath was placed in the right radial artery. 2.5 mg of Verapamil, 800 mcg of nitroglycerin, 1mg Lidocaine were given through the arterial sheath. The Papa guide catheter was used to perform right coronary artery angiography. Following this a JL 3 guide catheter was placed in left main artery followed by Choice PT extra-support wire placed into the circumflex artery. Therapeutic heparin had already been administered in the emergency department. A mechanical penumbra thrombectomy catheter was advanced and a large thrombus was aspirated restoring LULY I flow to LULY-3 flow. Following this a 4.5 x 22 mm Melo frontier stent was placed in the proximal circumflex artery extending into a previously placed stent and then deployed at 18 kellie. The balloon was advanced and deployed at 14 kellie and the 3.5 mm stent which was placed from a previous heart cath. At the end the procedure the apparatus was removed the sheath was removed hemostasis was achieved using TR banding patient was transferred to the postop putting in stable condition ANGIOGRAPHIC RESULTS The left main artery Normal The left anterior descending artery Has proximal tendon 30% stenoses with mid vessel diffuse 30% stenoses. There is a large first diagonal artery which has a stent in the proximal segment which is widely patent free of in-stent restenosis excellent proximal distal transitioning The circumflex artery Is large and dominant and has a large thrombus in the midportion which is preceded by 30 and 40% stenoses. The distal vessel is widely patent The right coronary artery Nondominant yet still large with diffuse moderate vascular ectasia. There are diffuse 30% stenoses throughout The SILVA ventriculogram reveals Hyperdynamic 65 to 70% The left ventricular end-diastolic pressure [address] elevation myocardial infarction evolving a large circumflex artery with nearly occlusive thrombus Successful mechanical thrombectomy followed by drug-eluting stent deployment to the proximal circumflex artery Moderate disease in the proximal LAD and right coronary artery with diffuse moderate vascular ectasia throughout the right coronary Hyperdynamic ventricle Normal LVEDP PLAN 1. Effient and aspirin 2. LDL less than 55 to achieve that high intensity statin 3. Avoidance of tobacco products 4. Risk factor modification 5. Patient needs to be monitored for at least 48 hours on telemetry 6. Cardiac rehabilitation Electronically signed by : Uzair Hinojosa MD 03/05/2025 12:06:13
[2025-03-05] MEDS: 0.9 % SODIUM CHLORIDE 1000ML 1,000 ML 999 ML IV (10:23)
--- NOTE | 2025-03-05 10:24 | ED_ITS ---
Discharge Plan Disposition Patient Disposition: Admitted Prescriptions Prescriptions: No Action levothyroxine 175 mcg tablet 175 mcg PO DAILYDM omeprazole 40 mg capsule,delayed release(DR/EC) 40 mg PO DAILY potassium chloride 20 mEq tablet,ER particles/crystals 20 meq PO DAILY Patient Comments: TAKE ONE TABLET BY MOUTH EVERY DAY Repatha Syringe 140 mg/mL syringe 140 mg SQ Q2W Qty: 3 2RF cetirizine 10 mg tablet 10 mg PO DAILY Patient Comments: TAKE ONE TABLET BY MOUTH EVERY DAY metoprolol succinate 25 mg tablet extended release 24 hr See Rx Instructions .ROUTE .COMPLEX Qty: 90 1RF Dose Instruction: TAKE ONE TABLET BY MOUTH EVERY DAY Rx Instructions: TAKE ONE TABLET BY MOUTH EVERY DAY furosemide 40 mg tablet 40 mg PO DAILY Patient Comments: TAKE ONE TABLET BY MOUTH ONCE DAILY triamterene-hydrochlorothiazid 37.5-25 mg tablet 1 tab PO DAILY Patient Comments: TAKE ONE TABLET BY MOUTH EVERY DAY lisinopril 40 mg tablet 40 mg PO DAILY Patient Comments: TAKE ONE TABLET BY MOUTH EVERY DAY fluticasone propionate 50 mcg/actuation spray,suspension 1 spray INTRANASAL DAILY Patient Comments: INSTILL 1 SPRAY IN EACH NOSTRIL ONCE DAILY aspirin 81 mg Tablet,Chewable 81 mg PO DAILY Qty: 100 0RF tadalafil 5 mg tablet 2.5 mg PO DAILY PRN (Reason: ERECTILE DYSFUNCTION) Patient Comments: TAKE 1/2 TABLET BY MOUTH DAILY Referrals Follow up/Referrals: Ysabel Davis MD [Primary Care Provider, Medical] - See instructions Clinical Impressions Clinical Impression: ST elevation (STEMI) myocardial infarction Print Language Print Language: [place] Discharge ED Provider: Aaron Ch HPI General Chief Complaint: Chest Pain Stated Complaint: Chest Pain Time Seen by Provider: 03/05/25 10:07 Mode of Arrival: EMS Source of Information: Patient and EMS Description of Symptoms (Recalled from ER Triage Doc. by RN): Patient presents to ED via EMS with c/o midsternal chest pain, notes cardiac hx with last stent placement 2 years prior. Patient reports he was at work when the pain started, also reports dizziness and n/v. 324 ASA administered per EMS [employer]. History of Present Illness HPI narrative: 49-year-old male with a history of coronary disease most recent heart cath and stent was 2 years ago presenting today with similar symptoms. States he was at work and at 9 AM suddenly developed substernal chest discomfort and severe pressure in bilateral shoulders also with associated dyspnea and diaphoresis. States this feels very similar to the heart attack she has had in the past. Prehospital EKG was unremarkable. Patient denies any other symptoms has had aspirin prior to evaluation by me. No other medications were given en route. Related Data Home Medications ?Medication ?Instructions ?Recorded ?Confirmed levothyroxine 175 mcg tablet 175 mcg PO DAILYDM hypoth yroid 07/15/20 01/29/25 omeprazole 40 mg capsule,delayed 40 mg PO DAILY Acid R eflux 07/15/20 01/29/25 release potassium chloride 20 mEq 20 meq PO DAILY Supplement 0 05/10/23 01/29/25 tablet,extended release(part/cryst) fluticasone propionate 50 1 spray intranasal DAILY All ergy 05/13/23 01/29/25 mcg/actuation nasal Symptoms spray,suspension furosemide 40 mg tablet 40 mg PO DAILY Fluid 3 01/29/25 lisinopril 40 mg tablet 40 mg PO DAILY High Blood Pr essure 05/13/23 01/29/25 triamterene 37.5 1 tab PO DAILY Fluid 3 01/29/25 mg-hydrochlorothiazide 25 mg tablet cetirizine 10 mg tablet 10 mg PO DAILY 10/04/2301/15 tadalafil 5 mg tablet 2.5 mg PO DAILY PRN ERECTILE 01/01/25 01/29/25 DYSFUNCTION Previous Rx's ?Medication ?Instructions ?Recorded aspirin 81 mg chewable tablet 81 mg PO DAILY #100 tabs 05/15/23 metoprolol succinate 25 mg See Rx Instructions .Route 07/31/24 tablet,extended release 24 hr .COMPLEX #90 tabs evolocumab 140 mg/mL subcutaneous 140 mg SQ Q2W #3 mL 01/01/25 syringe (Repatha Syringe) Allergies Allergy/AdvReac Type Severity Reaction Status Date / Time No Known Allergies Allergy Verified 01/29/25 08:27 [facility] Disclaimer: The information contained in this section may have been updated after the patient was seen, as this information can be updated by other users. Medical History Elevated LFTs Hypokalemia Abnormal nuclear stress test Stopped smoking with greater than 30 pack year history Erectile dysfunction RLS (restless legs syndrome) Allergic rhinitis BPH (benign prostatic hyperplasia) Myocardial infarction Hypothyroidism Morbid obesity HLD (hyperlipidemia) Snoring Ex-smoker Gastroesophageal reflux disease HTN (hypertension) Abnormal EKG CAD (coronary artery disease) Surgical History History of heart artery stent Family History Other Colon cancer Liver cancer Social History Smoking Status: Never smoker alcohol intake: never substance use type: denies use current occupational status: employed Travel in the last 8 weeks?: Inside the [place] Have you lived/traveled outside US in past 30 days?: No Contact w/someone who lives/traveled outside US past 30 days?: No Exposure to someone with infectious disease in past 14 days?: No Do you have a fever (greater than 100.4 F or 38 C)?: No Have you tested positive for COVID-19?: No Exposed to someone with COVID-19 in past 14 days?: No Do you have a sore throat?: No Do you have a cough?: No Do you have any weakness?: No Do you have any diarrhea?: No Are you experiencing any unusual bleeding?: No Do you have any muscle aches/pain?: No Do you have any abdominal pain?: No Are you experiencing loss of taste or smell?: No Other Medical History Have you received the Flu Vaccine for this season: No Have you received the Pneumonia Vaccine: No ROS Obtained: Yes All systems reviewed & no additional complaints except as documented Physical Exam General General appearance: in distress (Diaphoretic) Respiratory Respiratory exam: Present normal lung sounds bilaterally; Absent respiratory distress Cardiovascular Cardiovascular exam: Present regular rate and normal rhythm Neurological Exam Neurological exam: Present alert HEART Score HEART Score HEART Score assessment performed?: Yes History (anamnesis): Highly suspicious ECG: Significant ST-deviation Age: 45-65 years Risk factors: Atherosclerosis history Troponin: </= normal limit (Patient had a STEMI troponin pending at the time of the heart score) HEART Score: 7 Critical Care Critical Care Time Critical Care Time: Yes Attestation: On 03/05/25, the high probability of a clinically significant, sudden or life threatening deterioration of the following system(s) required my full and direct attention, intervention and personal management. The time I documented below is in addition to time spent performing reported procedures but includes the following listed in this critical care notation. Total Time Total Critical Care Time: 35 Medical Decision Making Jacob Inquiry Pt receiving controlled substance: No Vital Signs Vital Signs: 03/05/25 10:08 03/05/25 10:13 03/05/25 10:15 Temperature 98.3 F Temperature Source Oral Pulse Rate 78 79 Pulse Rate [Right Brachial] 79 Respiratory Rate 20 16 Blood Pressure 108/70 L Blood Pressure [Right Arm] 99/58 L Blood Pressure Mean 76 Blood Pressure Mean [Right Arm] 71 Blood Pressure Source [Right Arm] Automatic Cuff 02 Sat by Pulse Oximetry 97 98 Oxygen Delivery Method Room Air Room Air Lab Data Lab results reviewed: Yes I reviewed the patient's lab results. Labs: Lab Results 03/05/25 10:11: WBC 13.1 H, RBC 4.11 L, Hgb 12.7 L, Hct 37.6 L, MCV 91.5, MCH 30.9, MCHC 33.8, RDW 13.2, Plt Count 356, MPV 8.7, Neut % (Auto) 79.1, Lymph % (Auto) 13.0, [place] % (Auto) 5.9, Eos % (Auto) 1.1, Baso % (Auto) 0.6, Neut # (Auto) 10.4 H, Lymph # (Auto) 1.7, [place] # (Auto) 0.8, Eos # (Auto) 0.1, Baso # (Auto) 0.1 03/05/25 10:11 Response Orders (Tests/Meds): ED MEDICATIONS Generic Name Dose Route Start Last Admin Trade Name Freq PRN Reason Stop Dose Admin Sodium Chloride 1,000 mls @ 999 mls/hr 03/05/25 10:18 03/05/25 10:23 Sod Chlor 0.9% 1000ml Bag IV 03/05/25 11:18 999 mls/hr .Q1H1M ONE Administration ORDERS Category Date Time Status CXR --portable [XR chest portable] Stat Exams 03/05/25 10:15 Taken POCUS Point of Care (ER Only) Stat Exams 03/05/25 10:18 Ordered Basic Metabolic Panel Stat Lab 03/05/25 10:22 Ordered CBC w/Auto Diff [Complete Blood Count Auto Diff] Stat Lab 03/05/25 10:11 Completed CMP [Comprehensive Metabolic Panel] Stat Lab 03/05/25 10:11 Received D-Dimer Stat Lab 03/05/25 10:11 Received PT/PTT Stat Lab 03/05/25 10:11 Received Trop I [Troponin I] Stat Lab 03/05/25 10:11 Received Troponin I Q3H Lab 03/05/25 13:15 Ordered Troponin I Q3H Lab 03/05/25 16:15 Ordered MDM Narrative Medical Decision Narrative: 49-year-old male with above history and physical highly concerning for acute coronary syndrome. EKG was performed which I personally interpreted which shows what appears to be evolving ST elevations in the inferior leads in comparison with both prehospital twelve-lead and most recent twelve-lead in our system from April 2023. No definitive reciprocal changes. However given the patient's history and these evolving ST elevations working diagnosis is a STEMI. I reviewed the images and the case with Dr. Hinojosa who agrees. Heparin was loaded in the emergency department further antiplatelet agents will be given in the [facility]. Patient has already received aspirin. Patient was taken emergently to the [facility] for intervention. He remained stable with no significant arrhythmias was mildly hypotensive and fluids were hung.
[2025-03-05 10:25] LABS: Chloride 104 mmol/L (98-107)
[2025-03-05] MEDS: HEPARIN SODIUM 5,000 UNIT/ML VIAL 13600 UNIT IV (10:25)
--- NOTE | 2025-03-05 10:25 | PC.NURSE ---
having dr swann paged for possible admission
[2025-03-05 10:26] LABS: Potassium 4.4 mmoL/L (3.5-5.1); Sodium 139 mmol/L (136-145)
--- OUTSIDE RECORDS SUMMARY | 2025-03-05 10:27 | XMS_ITS | Patient Health Record ---
[facility] [address] [place] [id number] Care Team Providers Care Cage Supervisor Name Role Phone Aaron Davis Primary Care Provider [phone] Shani Portillo Unavailable [phone] SharonaCarol Unavailable [phone] Allergies No Known Allergies Results Component Value Reference Range Notes CT scan : Abdomen and pelvis with contrast (Not yet reviewed by provider) Interpretation:nothing acute, benign cyst Performing Lab: Notes/Report: nothing acute, benign cyst x ray : 1st digit, left foot Reviewed date:01/28/2025 02:41:01 PM Interpretation:mild degenerative change Performing Lab: Notes/Report: mild degenerative change P-Culture, Anaerobic and Aer obic w/Gram Stain Reviewed date:01/28/2025 02:41:01 PM Interpretation: Performing Lab: Notes/Report: Test performed by [id number] [address] [place] [address] , [address], [place] [address] Timothy Grady MD, Film Recordist CLIA: [id number] Specimen Source - left first toe Culture, Anaerobic and Aerobic w/Gram Stain See Below Final Report : No Anaerobes isolated Sensitivity Panel See Below _ Organism Antibiotic _ Ceftaroline Clindamycin Daptomycin Erythromycin Gentamicin Levofloxacin Linezolid Moxifloxacin Oxacillin Penicillin Rifampin Tetracycline Trimeth/Sulfa Vancomycin S=SUSCEPTIBLE I=INTERMEDIATE R=RESISTANT P-Microalbumin/Creatinine, R andom Urine Sample Reviewed date:06/18/2024 10:49:02 AM Interpretation:Normal Performing Lab: Notes/Report: Test performed by [facility] [address] [place] [address] , [address], [place] [address] Timothy Grady MD, Film Recordist CLIA: [id number] Albumin/Creatinine Ratio, Urine 2 0-30 ug/mg Microalbumin, Urine, Random 0.3 Creatinine, Urine 125.3 P-Basic Metabolic Panel (BMP ) Reviewed date:06/18/2024 10:49:02 AM Interpretation:gluc 109, bun 23 Performing Lab: Notes/Report: Test performed by [facility] [address] [place] [address] , [address], [place] [address] Timothy Grady MD, Film Recordist CLIA: [id number] Sodium 138 135-145 mmol/L Potassium 4.8 3.5-5.3 mmol/L Chloride 99 97-108 mmol/L CO2 28 22-32 mmol/L Glucose 109 65-99 mg/dL BUN 23 6-20 mg/dL Creatinine 1.29 0.70-1.30 mg/dL Calcium 9.4 8.6-10.4 mg/dL eGFR by Creatinine 67 >59 mL/min/1.73m2 Glycohemoglobin A1c (in hous e) Reviewed date:06/17/2024 10:21:48 AM Interpretation: Performing Lab: Notes/Report: glycohemoglobin 6.1% 5 - 6.5 % H-BUN/CREAT Reviewed date:12/12/2024 05:41:57 PM Interpretation: Performing Lab: Notes/Report: BUN 30 9-20 mg/dl CREATT 1.40 0.66-1.25 mg/dl GFRAA 65 >60 ML/MIN EGFR 53 >60 ml/min Rapid Strep- Inhouse Reviewed date:07/08/2024 11:01:42 AM Interpretation: Performing Lab: Notes/Report: strep test Pos Influenza Screen (in house) Reviewed date:11/06/2024 11:09:22 AM Interpretation: Performing Lab: Notes/Report: results Neg CBC Fingerstick (in house) Reviewed date:11/06/2024 11:09:14 AM Interpretation: Performing Lab: Notes/Report: wbc 5.7 3.5 - 10 lym 21.2% 15 - 50 mid 4.6% 2 - 15 gran 74.2% 35 - 80 rbc 4.63 3.5 - 5.5 hgb 13.9 11.5 - 16.5 hct 42.2 35 - 55 mcv 91.0 75 - 100 mch 29.9 25 - 35 mchc 32.9 31 - 38 plat 175 100 - 400 H-Covid, Flu A, Flu B PCR Reviewed date:11/06/2024 02:23:17 PM Interpretation: Performing Lab: Notes/Report: No Is this the 1st COVID test for the patient? Yes Does the patient have COVID symptoms? Yes Is the patient employed in healthcare? No Is patient an [employer] employee? N Is patient currently hospitalized? No Is patient currently in ICU? No Date of Symptom onset 11/06/24 Is patient a resident in a congregate care setting? No COVPCR Not Detected NotDetected Effective 05/10/21, Positive covid results will no longer be called to the ordering physician. Infection control and the physician?s office will continue to report positive covid results to the local Health Department as required. This assay is for in vitro diagnostic use under FDA Emergency Use Authorization only. Negative results do not preclude infection with SARS CoV 2 virus and should not be the sole basis of a patient treatment/management or public health decision. Follow up testing should be performed according to the current CDC recommendations. FLUAPCR Detected NotDetected FLUBPCR Not Detected NotDetected Covid test (in house) Reviewed date:11/06/2024 11:09:29 AM Interpretation: Performing Lab: Notes/Report: Result: Neg P-Culture, Miscellaneous Aer obic w/Gram Stain Reviewed date:01/28/2025 02:41:01 PM Interpretation: Performing Lab: Notes/Report: Test performed by [id number], [address] , [address], [place] [address] Timothy Grady MD, Film Recordist CLIA: [id number] Specimen Source - left first toe Gram Stain See Below Rare Polymorphonuclear leukocytes Many Gram Positive Cocci In pairs, chains, and clusters Culture, Miscellaneous Aerobic w/Gram Stain See Below Preliminary Report : Pending, reincubate Staphylococcus aureus Heavy Growth Staphylococcus aureus Only sensitive results for Bactrim (Trimethoprim/Sulfametho xazole) are reported Only sensitive results for Bactrim (Trimethoprim/Sulfametho xazole) are reported for Staphylococcus aureus. Resistance to Bactrim is not reported due to the upper breakpoint encompassing the sensitive/resistant range, which could lead to increased reporting of false resistance. Consider alternate antimicrobial treatment if clinically indicated. Sensitivity Panel See Below _ Organism S.aureu Antibiotic INTERP _ Ceftaroline S Clindamycin S Daptomycin S Erythromycin S Gentamicin S Levofloxacin S Linezolid S Moxifloxacin S Oxacillin S Penicillin R Rifampin S Tetracycline S Trimeth/Sulfa S Vancomycin S S=SUSCEPTIBLE I=INTERMEDIATE R=RESISTANT Glycohemoglobin A1c (in hous e) Reviewed date:10/17/2024 10:08:40 AM Interpretation:6.3 Performing Lab: Notes/Report: 6.3 glycohemoglobin 6.3% 5 - 6.5 % P-Comprehensive Metabolic Pa vishnu (CMP) Reviewed date:10/17/2024 10:08:40 AM Interpretation:bun 24, creat 1.44, gfr 59 Performing Lab: Notes/Report: Test performed by [facility] [address] [place] [address] , [address], [place] [id number] Timothy Grady MD, Film Recordist CLIA: [id number] Sodium 138 135-145 mmol/L Potassium 4.6 3.5-5.3 mmol/L Chloride 100 97-108 mmol/L CO2 29 22-32 mmol/L Glucose 99 65-99 mg/dL BUN 24 6-20 mg/dL Creatinine 1.44 0.70-1.30 mg/dL Calcium 9.5 8.6-10.4 mg/dL eGFR by Creatinine 59 >59 mL/min/1.73m2 Protein 7.7 6.0-8.3 g/dL Albumin 4.6 3.5-5.3 g/dL Alkaline Phosphatase 76 40-129 IU/L ALT (SGPT) 35 <5-55 IU/L AST (SGOT) 26 <5-46 IU/L Bilirubin, Total 0.3 <0.2-1.2 mg/dL A/G Ratio 1.5 1.1-2.5 P-PSA Reviewed date:10/17/2024 10:08:40 AM Interpretation:Normal Performing Lab: Notes/Report: Test performed by [facility] [address] [place] [address] , [address], [place] [address] Timothy Grady MD, Film Recordist CLIA: [id number] PSA 0.51 <4.00 ng/mL Please note this is an ultrasensitive PSA assay with a lower limit of detection of 0.014 ng/mL. This test is performed by the Reyna ECLIA methodology. Values obtained with different assay methods or kits cannot be directly compared. P-Microalbumin/Creatinine, R andom Urine Sample Reviewed date:10/17/2024 10:08:40 AM Interpretation:Normal Performing Lab: Notes/Report: Test performed by [facility] [address] [place] [address] , [address], [place] [address] Timothy Grady MD, Film Recordist CLIA: [id number] Albumin/Creatinine Ratio, Urine 8 0-30 ug/mg Microalbumin, Urine, Random 2.0 Creatinine, Urine 241.6 CT Scan : Chest, low dose Reviewed date:11/07/2024 10:30:01 AM Interpretation:no suspicious pulm mass, splenic lesion, recomment CT abdomen and pelvis with contrast Performing Lab: Notes/Report: no suspicious pulm mass, splenic lesion, recomment CT abdomen and pelvis with contrast Medications Medication SIG (Take, Route, Frequency, Duration) Notes Start Date End Date Status Mupirocin 2 % 1 application Cytometry Technologist ally Twice a day Active Cetirizine HCl 10 MG 1 tab(s) orally onc e a day for 90 days Active Atorvastatin Calcium 40 MG 1 tablet Oral ly Once a day for 90 days Active Clindamycin HCl 300 MG 1 capsule Orally Three times a day for 10 days Active Aspirin 81 MG CHEW AND SWALLOW 1 T ABLET DAILY for 90 Active Tadalafil 5 mg TAKE 1/2 TABLET BY M OUTH DAILY for 30 Active Levothyroxine Sodium 175 MCG 1 tab(s) orally once a day for 90 days Active Bactrim DS 800-160 MG 1 tablet Orally Tw o times a day Active Omeprazole 40 MG 1 cap(s) orally once a day for 90 days Active Lisinopril 40 MG 1 tab(s) orally once a day for 90 days Active Potassium [...] Once a day for 90 days Active Immunizations Vaccine Route Administration Date Status Comme nts Tetanus Tdap-Adacel (over 7yrs) IM Intramuscular 04/03/2022 Administered Shingrix IM Intramuscular 04/03/2022 Administered Hepatitis A (adult) IM Intramuscular 08/26/2018 Administer ed Hepatitis A (adult) IM Intramuscular 02/26/2019 Administer ed Social History Tobacco Use: Social History Observation Description Date Smoking Status WARNING: Information temporarily unavailable CURRENT TOBACCO USE: Question Answer Notes Are you a: STOPPED SMOKING 2019 Problems Problem Type SNOMED Code ICD Code Onset Dates Problem Status W/U Status Risk Notes Problem 38757397 Essential (prima ry) hypertension (I10) Active confirmed Problem 451082355 Tobacco abuse (Z72.0) Active confirmed Problem 40907871 Essential hypertension (I10) Active confirmed Problem 093345029 Angina pectoris (I20.9) Active confirmed Problem 053281327 Mixed hyperlipid emia (E78.2) Active confirmed Problem 86032436 Restless legs syndrome (G25.81) Active confirmed Problem 936848555 Acquired hypothyroidism (E03.9) Active confirmed Problem 96244239 Sleep disturbanc e (G47.9) Active confirmed Problem 13880051 Chronic fatigue (R53.82) Active confirmed Problem 103718761 Status post christo nary artery stent placement (Z95.5) Active confirmed Problem 153334321 Erectile dysfunction, unspecified erectile dysfunction type (N52.9) Active confirmed Problem 507997783 BMI 40.0-44.9, a dult (Z68.41) Active confirmed Problem 83274147 Hyperlipidemia, unspecified hyperlipidemia type (E78.5) Active confirmed Problem 329237169 Coronary artery disease involving grindstone coronary artery of grindstone heart, angina presence unspecified (I25.10) Active confirmed Problem 569932738 BMI 39.0-39.9,ad ult (Z68.39) Active confirmed Problem 028123229 Status post angioplasty with stent (Z95.9) Active confirmed Problem 845758204 Atherosclerosis of grindstone coronary artery without angina pectoris, unspecified whether grindstone or transplanted heart (I25.10) Active confirmed Problem 833048168 Benign prostatic hyperplasia without lower urinary tract symptoms (N40.0) Active confirmed Problem 893562337 Seasonal allergi c rhinitis, unspecified trigger (J30.2) Active confirmed Problem 045678276 Type 2 diabetes mellitus without complication, unspecified whether long-term insulin use (E11.9) Active confirmed Problem 645683393 Gastroesophageal reflux disease, unspecified whether esophagitis present (K21.9) Active confirmed Problem 632753420 Partial tear of left Achilles tendon, subsequent encounter (S86.012D) Active confirmed Vital Signs Heart Rate 58 /min 02/11/2025 Blood pressure diastolic 72 mm Hg 02/11/2025 Height 75 in 02/11/2025 Blood pressure systolic 120 mm Hg 02/11/2025 Weight 304.2 lbs 02/11/2025 BMI 38.02 kg/m2 02/11/2025 Encounters Encounter Location Date Provider Diagnosis [facility] [address] [place] [id number] 06/03/2024 [facility] [place] Strain of left Achil les tendon, initial encounter S86.012A Leigh [address] [place] [id number] 06/16/2024 Aaron Davis Type 2 diabetes mellitus without complication, unspecified whether long-term insulin use E11.9 ; BMI 39.0-39.9,adult Z68.39 and Partial tear of left Achilles tendon, subsequent encounter S86.012D [facility] [address] [place] [id number] 07/07/2024 [facility] [place] Strep sore throat J0 2.0 [facility] [address] [place] [id number] 10/16/2024 Aaron Davis Type 2 diabetes mellitus without complication, unspecified whether buttermaker continuous churn insulin use E11.9 ; BMI 39.0-39.9,adult Z68.39 ; Essential (primary) hypertension I10 ; Status post angioplasty with stent Z95.9 ; Benign prostatic hyperplasia without lower urinary tract symptoms N40.0 and History of tobacco use Z87.891 [facility] [address] [place] [id number] 11/06/2024 Carol Crowdy Acute URI J06.9 ; Chapin dy aches R52 ; Fever, unspecified R50.9 and Influenza A J10.1 [facility] [facility] [address] [place], [place] [id number] 01/23/2025 Carol Crowdy Toe infection L08.9 [facility] [facility] [address] [place], [place] [id number] 01/28/2025 Carol Crowdy Toe infection L08.9 [facility] [facility] [address] [place], [place] [id number] 02/11/2025 Carol Crowdy Toe infection L08.9 and Open wound of toe, subsequent encounter S91.109D [facility] [address] [place], [place] [id number] 03/05/2024 J Doyle Davis [facility] [address] [place], [place] [id number] 03/05/2024 J Doyle Davis [facility] [address] [place], [place] [id number] 06/18/2024 J Doyle Davis [facility] [address] [place], [place] [id number] 06/20/2024 J Doyle Davis [facility] [address] [place], [place] [id number] 07/31/2024 Aaron Davis [facility] [address] [place], [place] [id number] 08/05/2024 J Doyle Davis [facility] [address] [place], [place] [id number] 08/07/2024 J Doyle Davis [facility] [address] [place], [place] [id number] 08/08/2024 J Doyle Davis [facility] [address] [place], [place] [id number] 10/17/2024 J Doyle Davis [facility] [address] [place], [place] [id number] 11/07/[address] lung screening R91.8 [facility] [address] [place], [place] [id number] 11/10/2024 Carol Tabor Assessments Encounter Date Diagnosis (ICD Code) Assessment Notes Treatment Notes Treatment Clinical Notes Section Notes 06/03/2024 Strain of left Achilles tendon, initial encounter (ICD-10 - S86.012A) Rest, ice, compression and elevation 06/16/2024 BMI 39.0-39.9,adult (ICD-10 - Z68.39) 06/16/2024 Type 2 diabetes mellitus without complication, unspecified whether buttermaker continuous churn insulin use (ICD-10 - E11.9) 07/07/2024 Strep sore throat (ICD-10 - J02.0) 10/16/2024 BMI 39.0-39.9,adult (ICD-10 - Z68.39) 10/16/2024 Type 2 diabetes mellitus without complication, unspecified whether buttermaker continuous churn insulin use (ICD-10 - E11.9) continue current therapy 11/06/2024 Body aches (ICD-10 - R52) 11/06/2024 Acute URI (ICD-10 - J06.9) 11/07/[address] lung screening (ICD-10 - R91.8) 01/23/2025 Toe infection (ICD-10 - L08.9) 01/28/2025 Toe infection (ICD-10 - L08.9) Clindamycin has been upsetting his stomach. He only has a few days left and will finish them. His culture was positive for staph. Will start on Bactrim after finishing the clindamycin and f/u in 2 weeks. 02/11/2025 Toe infection (ICD-10 - L08.9) 02/11/2025 Open wound of toe, subsequent encounter (ICD-10 - S91.109D) 11/06/2024 Fever, unspecified (ICD-10 - R50.9) 10/16/2024 Essential (primary) hypertension (ICD-10 - I10) 06/16/2024 Partial tear of left Achilles tendon, subsequent encounter (ICD-10 - S86.012D) encouraged use of heel lift on the left 10/16/2024 Status post angioplasty with stent (ICD-10 - Z95.9) 11/06/2024 Influenza A (ICD-10 - J10.1) Rest, fluids, tylenol or motrin for fevers. Home until fever free for 24-48 hours without the use of medication. 10/16/2024 Benign prostatic hyperplasia without lower urinary tract symptoms (ICD-10 - N40.0) 10/16/2024 History of tobacco use (ICD-10 - Z87.891) Plan Of Treatment Pending Test Test Name Order Date CT scan : Abdomen and pelvis with contra st 11/07/2024 Next Appt Details Provider Name:Aaron Rivers er, 03/12/2025 01:30:00 PM, [address], [place], [id number], Insurance Providers Payer Name Payer Address Payer Phone Subscriber Number Group Number Insured Name Patient Relationship to Insured Coverage Start Date Coverage End Date [employer]IN[employer] [address] [place] [address] [id number] Tommy Barrera Self - patient is the insured Medications Administered Medication Instructions Date of Administration Dosage Notes Dexamethasone 06/22/2015 1 mL Medical (General) History Medical History History ICD Code Hypothyroidism Hyperlipidemia Hypertension Coronary Artery Disease Myocardial Infarction, stent x1, eye exam 09/2024 Surgical History Surgery Date(Month/Year) 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
[2025-03-05 10:28] LABS: Alanine Aminotransferase 40 U/L (12-78); Anion Gap 12.4 mEq/L (5-15); Aspartate Amino Transferase 37 U/L (17-59); Blood Urea Nitrogen 34 mg/dl (9-20); Carbon Dioxide 27 mmol/L (22.0-30.0); Creatinine Clearance Estimated 84 mL/min (50-200); Estimated Glomerular Filt Rate 35 ml/min (>60); GFR (African American) 43 ML/MIN (>60)
--- NOTE | 2025-03-05 10:28 | PC.NURSE ---
on phone with dr swann
--- NOTE | 2025-03-05 10:28 | PC.NURSE ---
pt to manager labor delivery
--- OUTSIDE RECORDS SUMMARY | 2025-03-05 10:28 | XMS_ITS | Data Portability ---
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 He suffered a myocardial infarction at work July 17 and had a stent placed emergently at [facility]. 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 He is highly recommended to stop smoking [...] 136 mg/dL 125-20 0 normal Not Available [facility] [address] [facility], [place], [address], 08/30/2016 07:50:50 08/29/20 16 08/30/2016 lipid panel , serum HDL cholesterol 35 mg/dL > or = 40 low Not Available [facility] [address] [facility], [place], [address], 08/30/2016 07:50:50 08/29/20 16 08/30/2016 lipid panel , serum triglyceride s 139 mg/dL <150 normal Not Available [facility] [address] [facility], [place], [address], 08/30/2016 07:50:50 08/29/20 16 08/30/2016 lipid panel , serum LDL-choleste rol 73 mg/dL _(amanda c) <130 normal Roland able range <100 mg/dL for patie nts with CHD or diabe alvarado and <70 mg/dL for diabe tic patie nts with known heart disea se. Not Available [facility] [address] [facility], [place], [address], 08/30/2016 07:50:50 08/29/20 16 08/30/2016 lipid panel , serum chol/HDLC ratio 3.9 (calc ) < or = 5.0 normal Not Available [facility] [address] [facility], [place], [address], 08/30/2016 07:50:50 08/29/20 16 08/30/2016 lipid panel , serum non HDL cholesterol 101 mg/dL _(amanda c) normal Targe t for non-H DL marisela stero l is 30 mg/dL highe r than LDL marisela stero l targe t. Not Available [facility] [address] [facility] [place], [address], 08/30/2016 07:50:50 08/29/20 16 08/30/2016 CMP, serum or plasm a glucose 92 mg/dL 65-99 normal Fasti ng refer ence inter evelyn Not Available [facility] [address] [place] [address], [address], 08/30/2016 07:50:50 08/29/20 16 08/30/2016 CMP, serum or plasm a urea nitrogen (BUN) 13 mg/dL 7-25 normal Not Available [facility] [address] [place] [address], [address], 08/30/2016 07:50:50 08/29/20 16 08/30/2016 CMP, serum or plasm a creatinine 1.04 mg/dL 0.60-1 .35 normal Not Available [facility] [address] [place], [place] [address], [place], [address], 08/30/2016 07:50:50 08/29/20 16 08/30/2016 CMP, serum or plasm a eGFR non-afr. cay[place] islander 88 mL/mi n/1.7 3m2 > or = 60 normal Not Available [facility] [address] [place], [place] [address], [place], [address], 08/30/2016 07:50:50 08/29/20 16 08/30/2016 CMP, serum or plasm a eGFR 101 mL/mi n/1.7 3m2 > or = 60 normal Not Available [facility] [address] [place] [address], [address], 08/30/2016 07:50:50 08/29/20 16 08/30/2016 CMP, serum or plasm a BUN/creatini ne ratio NOT APPLIC ABLE (calc ) 6-22 Not Available [facility] [place], [address], 08/30/2016 07:50:50 08/29/20 16 08/30/2016 CMP, serum or plasm a sodium 137 mmol/ L 135-14 6 normal Not Available [facility] [address] [facility] [place], [address], 08/30/2016 07:50:50 08/29/20 16 08/30/2016 CMP, serum or plasm a potassium 4.5 mmol/ L 3.5-5. 3 normal Not Available [facility] [address] [place], [place] [address], [place], [address], 08/30/2016 07:50:50 08/29/20 16 08/30/2016 CMP, serum or plasm a chloride 102 mmol/ L 98-110 normal Not Available [facility] [address] [place], [place] [address], [place], [address], 08/30/2016 07:50:50 08/29/20 16 08/30/2016 CMP, serum or plasm a carbon dioxide 30 mmol/ L 20-31 normal Not Available [facility] [address] [place], [place] [address], [place], [address], 08/30/2016 07:50:50 08/29/20 16 08/30/2016 CMP, serum or plasm a calcium 9.7 mg/dL 8.6-10 .3 normal Not Available [facility] [address] [place], [place] [address], [place], [address], 08/30/2016 07:50:50 08/29/20 16 08/30/2016 CMP, serum or plasm a protein, total 7.8 g/dL 6.1-8. 1 normal Not Available [facility] [address] [place], [place] [address], [place], [address], 08/30/2016 07:50:50 08/29/20 16 08/30/2016 CMP, serum or plasm a albumin 4.6 g/dL 3.6-5. 1 normal Not Available [facility] [address] [place], [address], 08/30/2016 07:50:50 08/29/20 16 08/30/2016 CMP, serum or plasm a globulin 3.2 g/dL_ (calc ) 1.9-3. 7 normal Not Available [facility] [address] [facility] [place], [address], 08/30/2016 07:50:50 08/29/20 16 08/30/2016 CMP, serum or plasm a albumin/glob ulin ratio 1.4 (calc ) 1.0-2. 5 normal Not Available [facility] [address] [place], [place] [address], [place], [address], 08/30/2016 07:50:50 08/29/20 16 08/30/2016 CMP, serum or plasm a bilirubin, total 0.5 mg/dL 0.2-1. 2 normal Not Available [facility] [address] [place], [place] [address], [place], [address], 08/30/2016 07:50:50 08/29/20 16 08/30/2016 CMP, serum or plasm a alkaline phosphatase 85 U/L 40-115 normal Not Available [facility] [address] [facility] [place], [address], 08/30/2016 07:50:50 08/29/20 16 08/30/2016 CMP, serum or plasm a AST 24 U/L 10-40 normal Not Available [facility] [address] [place], [place] [address], [place], [address], 08/30/2016 07:50:50 08/29/20 16 08/30/2016 CMP, serum or plasm a ALT 39 U/L 9-46 normal Not Available [facility] [facility] [place], [address], 08/30/2016 07:50:50 08/29/20 16 08/30/2016 CBC w/ auto diff white blood cell count 8.0 thous and/u L 3.8-10 .8 normal Not Available [facility] [address] [facility] [place], [address], 08/30/2016 07:50:51 08/29/20 16 08/30/2016 CBC w/ auto diff red blood cell count 4.51 ivory on/uL 4.20-5 .80 normal Not Available [facility] [address], [address], 08/30/2016 07:50:51 08/29/20 16 08/30/2016 CBC w/ auto diff hemoglobin 14.3 g/dL 13.2-1 7.1 normal Not Available [facility] [address], [address], 08/30/2016 07:50:51 08/29/20 16 08/30/2016 CBC w/ auto diff hematocrit 42.3 % 38.5-5 0.0 normal Not Available [facility] [address] [place], [place] [address], [place], [address], 08/30/2016 07:50:51 08/29/20 16 08/30/2016 CBC w/ auto diff MCV 93.9 fL 80.0-1 00.0 normal Not Available [facility] [address] [place], [place] [address], [place], [address], 08/30/2016 07:50:51 08/29/20 16 08/30/2016 CBC w/ auto diff MCH 31.6 pg 27.0-3 3.0 normal Not Available [facility] [address] [place] [address], [address], 08/30/2016 07:50:51 08/29/20 16 08/30/2016 CBC w/ auto diff MCHC 33.7 g/dL 32.0-3 6.0 normal Not Available [facility] [address] [facility] [place], [address], 08/30/2016 07:50:51 08/29/20 16 08/30/2016 CBC w/ auto diff RDW 13.9 % 11.0-1 5.0 normal Not Available [facility] [address] [place], [address], 08/30/2016 07:50:51 08/29/20 16 08/30/2016 CBC w/ auto diff platelet count 324 thous and/u L 140-40 0 normal Not Available [facility] [address] [place], [address], 08/30/2016 07:50:51 08/29/20 16 08/30/2016 CBC w/ auto diff MPV 7.3 fL 7.5-11 .5 low Not Available [facility] [address] [place], [address], 08/30/2016 07:50:51 08/29/20 16 08/30/2016 CBC w/ auto diff absolute neutrophils 4600 cells /uL 1500-7 800 normal Not Available [facility] [address] [place], [address], 08/30/2016 07:50:51 08/29/20 16 08/30/2016 CBC w/ auto diff absolute lymphocytes 2728 cells /uL 850-39 00 normal Not Available [facility] [address] [place], [address], 08/30/2016 07:50:51 08/29/20 16 08/30/2016 CBC w/ auto diff absolute monocytes 384 cells /uL 200-95 0 normal Not Available [facility] [address] [place], [address], 08/30/2016 07:50:51 08/29/20 16 08/30/2016 CBC w/ auto diff absolute eosinophils 264 cells /uL 15-500 normal Not Available [facility] [address] [facility] [place], [address], 08/30/2016 07:50:51 08/29/20 16 08/30/2016 CBC w/ auto diff absolute basophils 24 cells /uL 0-200 normal Not Available [facility] [address] [facility] [place], [address], 08/30/2016 07:50:51 08/29/20 16 08/30/2016 CBC w/ auto diff neutrophils 57.5 % normal Not Available [facility] [address] [facility] [place], [address], 08/30/2016 07:50:51 08/29/20 16 08/30/2016 CBC w/ auto diff lymphocytes 34.1 % normal Not Available [facility] [address] [facility] [place], [address], 08/30/2016 07:50:51 08/29/20 16 08/30/2016 CBC w/ auto diff monocytes 4.8 % normal Not Available [facility] [address] [facility] [facility] [place], [address], 08/30/2016 07:50:51 08/29/20 16 08/30/2016 CBC w/ auto diff eosinophils 3.3 % normal Not Available [facility] [address] [facility] [place], [address], 08/30/2016 07:50:51 08/29/20 16 08/30/2016 CBC w/ auto diff basophils 0.3 % normal Not Available [facility] [address] [facility] [place], [address], 08/30/2016 07:50:51 08/29/20 16 08/30/2016 urina lysis , compl ete color YELLOW yellow normal Not Available [facility] [address] [facility] [facility], [place], [address], 08/30/2016 07:50:51 08/29/20 16 08/30/2016 urina lysis , compl ete appearance CLEAR clear normal Not Available [facility] [address], [place], [address], 08/30/2016 07:50:51 08/29/20 16 08/30/2016 urina lysis , compl ete specific gravity 1.018 1.001- 1.035 normal Not Available [facility] [address], [place], [address], 08/30/2016 07:50:51 08/29/20 16 08/30/2016 urina lysis , compl ete pH 5.5 5.0-8. 0 normal Not Available [facility] [address] [place] [place], [address], 08/30/2016 07:50:51 08/29/20 16 08/30/2016 urina lysis , compl ete glucose NEGATI VE negati ve normal Not Available [facility] [address] [facility] [place], [address], 08/30/2016 07:50:51 08/29/20 16 08/30/2016 urina lysis , compl ete bilirubin NEGATI VE negati ve normal Not Available [facility] [address] [place], [address], 08/30/2016 07:50:51 08/29/20 16 08/30/2016 urina lysis , compl ete ketones NEGATI VE negati ve normal Not Available [facility] [address] [place], [address], 08/30/2016 07:50:51 08/29/20 16 08/30/2016 urina lysis , compl ete occult blood NEGATI VE negati ve normal Not Available [facility] [address] [place], [address], 08/30/2016 07:50:51 08/29/20 16 08/30/2016 urina lysis , compl ete protein NEGATI VE negati ve normal Not Available [facility] [address], [place], [address], 08/30/2016 07:50:51 08/29/20 16 08/30/2016 urina lysis , compl ete nitrite NEGATI VE negati ve normal Not Available [facility] [address], [place], [address], 08/30/2016 07:50:51 08/29/20 16 08/30/2016 urina lysis , compl ete leukocyte esterase NEGATI VE negati ve normal Not Available [facility] [address], [place], [address], 08/30/2016 07:50:51 08/29/20 16 08/30/2016 urina lysis , compl ete WBC NONE SEEN /hpf < or = 5 normal Not Available [facility] [address], [place], [address], 08/30/2016 07:50:51 08/29/20 16 08/30/2016 urina lysis , compl ete RBC NONE SEEN /hpf < or = 2 normal Not Available [facility] [address], [place], [address], 08/30/2016 07:50:51 08/29/20 16 08/30/2016 urina lysis , compl ete squamous epithelial cells NONE SEEN /hpf < or = 5 normal Not Available [facility] [address], [place], [address], 08/30/2016 07:50:51 08/29/20 16 08/30/2016 urina lysis , compl ete bacteria NONE SEEN /hpf none seen normal Not Available [facility] [address], [place], [address], 08/30/2016 07:50:51 08/29/20 16 08/30/2016 urina lysis , compl ete hyaline cast NONE SEEN /lpf none seen normal Not Available [facility] [address] [facility], [place], [address], 08/30/2016 07:50:51 Result Notes None recorded. Medical [...] Status Current Every Day [facility] Available [facility] 07/13/2020 03:11:15 What Is Your Level Of Caffeine Consumption? Moderate [id number] Information not available 07/13/2020 Diabetes No Information no t available 08/29/2016 What Type Of Diet Are You Following? REGULAR [id number] Information not available 07/13/2020 Education 12 Information no t available 08/29/2016 High Blood Pressure Yes Information not available 08/29/2016 High Cholesterol Yes [email or web address] Informat ion not available 08/29/2016 Marital Status Single Informatio n not available 08/29/2016 How Much Tobacco Do You Smoke? 0.5 PPD [id number] Information not available 07/13/2020 How Many Years Have You Smoked Tobacco? 30 [id number] Information not available 07/13/2020 Sex: Unknown Functional Status Question Answer Note LastModified by Organizat ion Details LastModified Time What is your level of alcohol consumption? 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 None [id number] Information not available 07/13/2020 Mental Status None recorded. Family History Nothing Reported. Medical History Condition Response Coronary Artery Disease Y Ear or Hearing Problems High Cholesterol Y GERD/Reflux Y Heart Disease Y Hypertension Y Hypothyroidism Y Past Encounters Encounter ID Performer Location Encounter Start Date Encounter Closed Date Diagnosis/Indication Diagnosis SNOMED-CT Code Diagnosis ICD10 Code Diagnosis Note [id number] Sunni Robert MD [facility] [address] [place] [address], [facility] [address] [place] [address] 08/29/2016 09:17:32 09/01/2016 09:11:32 History and physical examination, pre-employment 222936625 Z02.1 Chronic ob structive pulmonary disease 31334752 J44.9 History of placement of stent for coronary artery disease 678056679 Z95.5 Essential hypertension 59062153 I10 Hyperlipidemia 73010221 E78.5 Hypothyroidism 86324784 E03.9 Gastroesop hageal reflux disease 333166658 K21.9 Health Concerns Section Related Observation LastModified by Organization Detai ls LastModified Time None Recorded Concern Status LastModified by Organization Details LastModified Time None Recorded Advance Directives Directive None Recorded Payers Insurance Date Sequence Insurance Name Policy Number Policy Ramírez Covered Member ID Ramírez Member ID Guarantor Name 08/29/2016 1 *SELF PAY* Ting Barrera
[2025-03-05 10:29] LABS: Albumin/Globulin Ratio 1.3 (1.1-1.8); Alkaline Phosphatase 75 U/L (38-126); Bilirubin,Total 0.7 mg/dl (0.2-1.3); Glucose 122 mg/dl (74-100)
[2025-03-05 10:30] LABS: Activated Partial Thrombo Time 23.8 seconds (22.8-30.6); INR 1.03 (0.9-1.1); Prothrombin Time 11.4 seconds (10.1-12.5)
--- NOTE | 2025-03-05 10:32 | PC.NURSE ---
Patient placed in gown, placed on Zoll. Bilateral radial and femoral sites shaved. Check list complete, consent obtained. Patient belongings placed in patient belongings bag and given to at bedside.
[2025-03-05] MEDS: 0.9 % SODIUM CHLORIDE 500 ML 25 ML IV (10:41)
[2025-03-05 10:42] LABS: Troponin I < 0.01 ng/ml (0.00-0.034)
[2025-03-05] MEDS: HEPARIN 1,000 UNITS/500ML NS (CATH LAB) 3000 UNIT IV (10:42)
[2025-03-05] MEDS: NITROGLYCERIN 800MCG/8ML SYR (CATH LAB) 800 MCG IA (10:42)
[2025-03-05] MEDS: diphenhydrAMINE 50MG/ML VIAL 50 MG IV (10:42)
[2025-03-05] MEDS: LIDOCAINE 1% 10ML MDV 10 ML IJ (10:43)
[2025-03-05] MEDS: VERAPAMIL 2.5MG/ML 2ML VIAL 2.5 MG IV (10:43)
[2025-03-05 10:50] LABS: D-Dimer 0.71 ug/mL (0.0-0.5)
[2025-03-05] MEDS: MIDAZOLAM HCL 1MG/ML 5ML VIAL 1 MG IV (10:59)
[2025-03-05] MEDS: FENTANYL 100MCG/2ML VIAL 50 MCG IV (10:59)
[2025-03-05] MEDS: PRASUGREL 10MG TAB 60 MG PO (11:16)
--- NOTE | 2025-03-05 11:25 | EXP.CARD.CON ---
History of Present Illness History of Present Illness Consult date: 03/05/25 Requesting physician: Aaron Ch Consult reason: chest pain Chief complaint: chest pain History of present illness: This is a 49-year-old white gentleman who presented to the emergency department with complaints of chest pain. He has a past medical history of coronary artery disease, hypertension and hyperlipidemia. 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 He states then when he stopped cleaning he had sudden onset of a sharp pain in the center of his chest. He states then it was radiating down his arms. It was associated with shortness of breath and diaphoresis. The pain was around an 8 out of 10 in intensity. He states that this was the same pain he had with his previous heart attacks. Because of this similarity to his previous heart attacks the patient decided to come to the emergency department. He was found to have a STEMI in the inferior leads. The patient will be taken directly to the cardiac catheterization laboratory for further evaluation of his coronary artery disease.He denies any lower extremity edema. He denies any fever, chills, nausea, vomiting or diarrhea. [facility] Disclaimer: The information contained in this section may have been updated after the patient was seen, as this information can be updated by other users. Medical History (Updated 03/05/25 @ 11:31 by Janine Wayne APRN) CHASE (acute kidney injury) Angina pectoris Atrial fibrillation ST elevation myocardial infarction (STEMI) of inferior wall CHF (congestive heart failure) Elevated LFTs Hypokalemia Abnormal nuclear stress test Stopped smoking with greater than 30 pack year history Erectile dysfunction RLS (restless legs syndrome) Allergic rhinitis BPH (benign prostatic hyperplasia) Myocardial infarction Hypothyroidism Morbid obesity HLD (hyperlipidemia) Snoring Ex-smoker Gastroesophageal reflux disease HTN (hypertension) Abnormal EKG CAD (coronary artery disease) Surgical History (Updated 03/05/25 @ 13:33 by Ysabel Davis MD) Stented coronary artery History of heart artery stent Family History Other Colon cancer Liver cancer Social History (Updated 03/05/25 @ 11:20 by Betty Acosta RN) Smoking Status: Former smoker alcohol intake: never substance use type: denies use current occupational status: employed Travel in the last 8 weeks?: Inside the [place] Have you lived/traveled outside US in past 30 days?: No Contact w/someone who lives/traveled outside US past 30 days?: No Exposure to someone with infectious disease in past 14 days?: No Do you have a fever (greater than 100.4 F or 38 C)?: No Have you tested positive for COVID-19?: No Exposed to someone with COVID-19 in past 14 days?: No Do you have a sore throat?: No Do you have a cough?: No Do you have any weakness?: No Are you experiencing any nausea/vomitting?: No Do you have any diarrhea?: No Are you experiencing any unusual bleeding?: No Do you have any muscle aches/pain?: No Do you have any abdominal pain?: No Are you experiencing loss of taste or smell?: No Review of Systems Review of Systems Review of systems:: pertinent systems reviewed and negative unless documented below Constitutional Constitutional: Reports system reviewed and no additional complaints, except as documented Eyes Eyes: Reports system reviewed and no additional complaints, except as documented ENT Ears, Nose, Mouth, and Throat: Reports system reviewed and no additional complaints, except as documented *Cardiovascular Cardiovascular: Reports system reviewed and no additional complaints, except as documented, Reports chest pain, Reports chest pain with activity, Reports diaphoresis, Reports dyspnea, Reports dyspnea on exertion and Reports radiating jaw, neck or arm pain *Respiratory Respiratory: Reports system reviewed and no additional complaints, except as documented, Reports dyspnea and Reports dyspnea on exertion *Gastrointestinal Gastrointestinal: Reports system reviewed and no additional complaints, except as documented *Genitourinary Genitourinary: Reports system reviewed and no additional complaints, except as documented *Musculoskeletal Musculoskeletal: Reports system reviewed and no additional complaints, except as documented Integumentary/Breasts Skin/Breast: Reports system reviewed and no additional complaints, except as documented *Neurologic Neurologic: Reports system reviewed and no additional complaints, except as documented Psychiatric Psychiatric: Reports system reviewed and no additional complaints, except as documented Endocrine Endocrine: Reports system reviewed and no additional complaints, except as documented Hematologic/Lymphatic Hematologic/Lymphatic: Reports system reviewed and no additional complaints, except as documented Allergic/Immunologic Allergic/Immunologic: Reports system reviewed and no additional complaints, except as documented Exam Data for Last 24 hours Vital signs and Labs for Last 24 Hours: Temp Pulse Resp BP Pulse Ox O2 Del Method 98.2 F 71 18 101/58 L 94 L Room Air 03/05/25 11:05 03/05/25 11:20 03/05/25 11:20 03/05/25 11:20 03/05/25 11:20 03/05/25 11:20 Laboratory Results - last 24 hr 03/05/25 10:11: WBC 13.1 H, RBC 4.11 L, Hgb 12.7 L, Hct 37.6 L, MCV 91.5, MCH 30.9, MCHC 33.8, RDW 13.2, Plt Count 356, MPV 8.7, Neut % (Auto) 79.1, Lymph % (Auto) 13.0, Travis % (Auto) 5.9, Eos % (Auto) 1.1, Baso % (Auto) 0.6, Neut # (Auto) 10.4 H, Lymph # (Auto) 1.7, Travis # (Auto) 0.8, Eos # (Auto) 0.1, Baso # (Auto) 0.1, PT 11.4, INR 1.03, APTT 23.8, D-Dimer 0.71 H, Sodium 139, Potassium 4.4, Chloride 104, Carbon Dioxide 27, Anion Gap 12.4, BUN 34 H, Creatinine 2.00 H, Estimated Creat Clear 84, Estimated GFR 35 L, Est GFR ( Amer) 43 L, Glucose 122 H, Calcium 10.0, Total Bilirubin 0.7, AST 37, ALT 40, Alkaline Phosphatase 75, Troponin I < 0.01, Total Protein 9.0 H, Albumin 5.0, Globulin 4.0 H, Albumin/Globulin Ratio 1.3 I & O for Last 24 hours: Intake & Output 03/02/25 03/03/25 03/04/25 03/05/25 23:59 23:59 23:59 23:59 Weight 300 lb Constitutional Constitutional: no acute distress and obese *Routine HEENT Exam Head: Present normocephalic and atraumatic ENT: Present mucous membranes moist *Routine Neck Exam Neck: Present supple, full ROM and normal carotid upstroke; Absent JVD, carotid bruit or lymphadenopathy *Routine Respiratory Exam Respiratory: Present CTA bilaterally, normal respiratory effort, able to speak in complete sentences and symmetric chest movement *Routine Cardiovascular Exam Cardiovascular: Present RRR, Normal S1 and Normal S2; Absent murmur or gallop *Routine Abdominal Exam Abdominal: Present soft and normoactive bowel sounds; Absent tenderness, distended or organomegaly *Routine Extremities Exam Extremities: Present full ROM, pulses intact and normal capillary refill; Absent cyanosis, clubbing or edema *Routine Skin Exam Skin: Present intact and warm; Absent erythema Comments: Clammy *Routine Neurological Exam Neurological: Present alert, oriented X3 and CN II-XII intact; Absent sensory deficit or motor deficit Routine Psychiatric Exam Psychiatric: Present normal affect Meds Home Medications and Allergies Home Medications ?Medication ?Instructions ?Recorded ?Confirmed ?Type levothyroxine 175 mcg tablet 175 mcg PO DAILYDM 07/15/20 03/05/25 History omeprazole 40 mg capsule,delayed 40 mg PO DAILY 07/15/20 03/05/25 History release potassium chloride 20 mEq 20 meq PO DAILY 05/10/23 03/05/25 History tablet,extended release(part/cryst) fluticasone propionate 50 1 spray intranasal DAILY 05/13/23 03/05/25 History mcg/actuation nasal spray,suspension furosemide 40 mg tablet 40 mg PO DAILYP PRN Fluid 05/13/23 03/05/25 History lisinopril 40 mg tablet 40 mg PO DAILY 05/13/23 03/05/25 History triamterene 37.5 1 tab PO DAILY 05/13/23 03/05/25 History mg-hydrochlorothiazide 25 mg tablet aspirin 81 mg chewable tablet 81 mg PO DAILY #100 tabs 05/15/23 03/05/25 Rx cetirizine 10 mg tablet 10 mg PO DAILY 10/04/23 03/05/25 History evolocumab 140 mg/mL subcutaneous 140 mg SQ Q2W #3 mL 01/01/25 03/05/25 Rx syringe (Repatha Syringe) tadalafil 5 mg tablet 2.5 mg PO DAILY 01/01/25 03/05/25 History atorvastatin 40 mg tablet 40 mg PO Q48H 03/05/25 03/05/25 History metoprolol succinate 25 mg 25 mg PO DAILY 03/05/25 03/05/25 History tablet,extended release 24 hr prasugrel HCl 10 mg tablet 10 mg PO DAILY #30 tabs 03/05/25 Rx (Effient) New Prescriptions to Start Prescriptions: prasugrel HCl [Effient] AshishUzair Allergies Allergy/AdvReac Type Severity Reaction Status Date / Time No Known Allergies Allergy Verified 01/29/25 08:27 Assessment and Plan *Assessment and plan (1) ST elevation myocardial infarction (STEMI) of inferior wall: Status: Acute Category: Medical Code(s): I21.19 - ST elevation (STEMI) myocardial infarction involving other coronary artery of inferior wall (2) CAD (coronary artery disease): Status: Chronic Qualifiers: Associated angina: with stable angina Coronary Disease-Associated Artery/Lesion type: [place] artery [place] vs. transplanted heart: [place] heart Qualified Code(s): I25.118 - Atherosclerotic heart disease of [place] coronary artery with other forms of angina pectoris Category: Medical Code(s): I25.10 - Atherosclerotic heart disease of [place] coronary artery without angina pectoris (3) HTN (hypertension): Status: Chronic Qualifiers: Hypertension type: essential hypertension Qualified Code(s): I10 - Essential (primary) hypertension Category: Medical Code(s): I10 - Essential (primary) hypertension (4) HLD (hyperlipidemia): Status: Chronic Qualifiers: Hyperlipidemia type: mixed hyperlipidemia Qualified Code(s): E78.2 - Mixed hyperlipidemia Category: Medical Code(s): E78.5 - Hyperlipidemia, unspecified (5) Diabetes: Status: Acute Qualifiers: Diabetes mellitus complication detail: with other circulatory complications Diabetes mellitus complication status: with circulatory complication Diabetes mellitus long-term insulin use: without long-term use Diabetes mellitus type: type 2 Qualified Code(s): E11.59 - Type 2 diabetes mellitus with other circulatory complications Category: Medical Code(s): E11.9 - Type 2 diabetes mellitus without complications (6) Atrial fibrillation: Status: Acute Qualifiers: Atrial fibrillation type: unspecified Qualified Code(s): I48.91 - Unspecified atrial fibrillation Category: Medical Code(s): I48.91 - Unspecified atrial fibrillation (7) Angina pectoris: Status: Acute Category: Medical Code(s): I20.9 - Angina pectoris, unspecified (8) CAHSE (acute kidney injury): Status: Resolved Category: Medical Code(s): N17.9 - Acute kidney failure, unspecified Plan Plan: 1. The patient was having chest pain at work came to the emergency department found to have an inferior STEMI. Will take the patient directly to the cardiac catheterization laboratory to further evaluate his coronary artery disease. The patient has known CAD with a history of PR and 4 stents placed in the past. 2. The patient has been educated on the risks and benefits of proceeding with left cardiac catheterization. The patient verbalizes understanding and is agreeable in proceeding with the procedure. 3. The patient will be n.p.o. in preparation for left cardiac catheterization. 4. The patient will have an echocardiogram to evaluate his LV function due to his inferior STEMI. 5. Continue aspirin 81 mg daily 6. His blood pressure is on the lower side. Continue metoprolol and lisinopril. 7. The patient does have an CHASE. His creatinine is up to 2.0. The patient is taking both furosemide and Maxide. Will stop Maxide as he should not be on both of these medications and his blood pressure is on the lower side and his renal function is elevated. 8. His LDL goal is less than 55. He is on Repatha. Will get a lipid panel in the morning. 9. The patient is further recommendations were made pending the patient's response to treatment and the results of his left cardiac catheterization and echocardiogram today. Thank you for the opportunity to help participate in the care of this patient. All recommendations and orders are per Dr. Glasgow.
--- NOTE | 2025-03-05 11:29 | CA_ITS ---
APPROVED REPORT EXAM: Comprehensive 2D, Doppler, and color-flow Echocardiogram Budget Consultant: Jazmín Figueroa RT(R) Ht: 6 ft 2 in Wt: 300lbs BSA: 2.58 BP: 101/58 mmHg Indications: STEMI, CAD, AFIB Echo Enhancing Agent Indication: Endocardial border delineation Agent(s) / Amount(s) Used: Definity 2 cc 2D Dimensions LA Volume 30.80 mL LA Volume Index 11.94 mL/m2 (M/F) 16-34 EF AP4 53.20 % GL Strain -11.8 % M-Mode Dimensions RVDd 3.98 cm (0.9-2.6) LA Diam 4.23 cm (1.9-4.0) LVDd 5.46 cm (3.5-5.7) LVDs 3.87 cm (3.5-5.7) IVSd 0.91 cm (0.6-1.1) PWd 0.87 cm (0.6-1.1) EF (Teich) 55.40% FS 29.10% EDV (Teich) 145.00 mL ESV (Teich) 64.70 mL LV Diastology E Decel Time 183 (160-240 msec) E/A Ratio 1.4 Mitral Valve MV E Max G[place]. 85.0 (40-130 cm/s) MV A Velocity 62.0 (40-130 cm/s) E/A Ratio 1.36 MV PHT 54.0 ms Left Ventricle The left ventricle is normal size. The left ventricular systolic function is low normal. There is normal left ventricular wall thickness. There is moderate hypokinesis of the distal anterior lateral LV wall. The left ventricular diastolic function is normal. No left ventricle thrombus noted on this study. LVEF is 50%. Right Ventricle The right ventricle is normal size. The right ventricular systolic function is normal. Atria The left atrium size is normal. The right atrium size is normal. There is no Doppler evidence of interatrial shunt. Aortic Valve The aortic valve is mildly thickened. There is no aortic valvular stenosis. No aortic regurgitation is present. Mitral Valve The mitral valve is normal in structure. No evidence of mitral valve stenosis. Trace mitral regurgitation. Tricuspid Valve Tricuspid valve is grossly normal in structure and function. Trace tricuspid regurgitation. There is insufficient TR jet to estimate RVSP. Pulmonic Valve The pulmonary valve is normal in structure. Trace pulmonic regurgitation. Great Vessels The aortic root is normal in size. IVC is normal in size and collapses >50% with inspiration. Pericardium There is no pericardial effusion. Other Information Study Quality: Fair Conclusion Low normal LV systolic function (LVEF 50%). Moderate hypokinesis of the distal anterior lateral LV wall. No significant valvular stenosis or regurgitation. Electronically signed by : Adelaide Glasgow MD 03/05/2025 14:47:25
--- NOTE | 2025-03-05 13:22 | EXP.HP ---
History of Present Illness *History of present illness: 49-year-old white male with known coronary artery disease and hypertension patient of [facility] and of [place]. He previously has had 4 stents. He was a smoker in the past but not recently. He was at work when his symptoms started. He presented in the emergency room this morning after experiencing pain across the shoulders and then subsequently into the center of the chest. He felt this was similar to previous symptoms during a heart attack. He experienced nausea and vomited in the ambulance on the way to the emergency room. In the emergency room he had EKG changes consistent with a STEMI. He was taken directly to the cardiac catheterization lab. Cardiac catheterization revealed: Acute ST elevation myocardial infarction evolving a large circumflex artery with nearly occlusive thrombus Successful mechanical thrombectomy followed by drug-eluting stent deployment to the proximal circumflex artery Moderate disease in the proximal LAD and right coronary artery with diffuse moderate vascular ectasia throughout the right coronary Hyperdynamic ventricle Normal LVEDP PFSH PFSH Disclaimer: The information contained in this section may have been updated after the patient was seen, as this information can be updated by other users. Medical History (Updated 03/05/25 @ 11:31 by Janine Wayne APRN) CHASE (acute kidney injury) Angina pectoris Atrial fibrillation ST elevation myocardial infarction (STEMI) of inferior wall CHF (congestive heart failure) Elevated LFTs Hypokalemia Abnormal nuclear stress test Stopped smoking with greater than 30 pack year history Erectile dysfunction RLS (restless legs syndrome) Allergic rhinitis BPH (benign prostatic hyperplasia) Myocardial infarction Hypothyroidism Morbid obesity HLD (hyperlipidemia) Snoring Ex-smoker Gastroesophageal reflux disease HTN (hypertension) Abnormal EKG CAD (coronary artery disease) Surgical History (Updated 03/05/25 @ 13:33 by Ysabel Davis MD) Stented coronary artery History of heart artery stent Family History Other Colon cancer Liver cancer Social History (Updated 03/05/25 @ 11:20 by Betty Acosta RN) Smoking Status: Former smoker alcohol intake: never substance use type: denies use current occupational status: employed Travel in the last 8 weeks?: Inside the [place] Have you lived/traveled outside US in past 30 days?: No Contact w/someone who lives/traveled outside US past 30 days?: No Exposure to someone with infectious disease in past 14 days?: No Do you have a fever (greater than 100.4 F or 38 C)?: No Have you tested positive for COVID-19?: No Exposed to someone with COVID-19 in past 14 days?: No Do you have a sore throat?: No Do you have a cough?: No Do you have any weakness?: No Are you experiencing any nausea/vomitting?: No Do you have any diarrhea?: No Are you experiencing any unusual bleeding?: No Do you have any muscle aches/pain?: No Do you have any abdominal pain?: No Are you experiencing loss of taste or smell?: No Other Medical History Have you received the Flu Vaccine for this season: No Have you received the Pneumonia Vaccine: No Review of Systems Review of Systems Review of systems:: pertinent systems reviewed and negative unless documented below Constitutional Constitutional: Reports system reviewed and no additional complaints, except as documented and Reports other (Recent stress related to his father's ill health.) Eyes Eyes: Reports system reviewed and no additional complaints, except as documented ENT Ears, Nose, Mouth, and Throat: Reports system reviewed and no additional complaints, except as documented *Cardiovascular Cardiovascular: Reports as per HPI, Reports chest pain and Denies irregular heart rhythm *Respiratory Respiratory: Denies chest congestion and Denies cough *Gastrointestinal Gastrointestinal: Reports system reviewed and no additional complaints, except as documented *Genitourinary Genitourinary: Reports system reviewed and no additional complaints, except as documented *Musculoskeletal Musculoskeletal: Reports system reviewed and no additional complaints, except as documented Integumentary/Breasts Skin/Breast: Reports system reviewed and no additional complaints, except as documented *Neurologic Neurologic: Reports system reviewed and no additional complaints, except as documented Psychiatric Psychiatric: Reports system reviewed and no additional complaints, except as documented and Reports other (Recent stress and feeling fatigued) Endocrine Endocrine: Reports system reviewed and no additional complaints, except as documented Hematologic/Lymphatic Hematologic/Lymphatic: Reports system reviewed and no additional complaints, except as documented Allergic/Immunologic Allergic/Immunologic: Reports system reviewed and no additional complaints, except as documented Meds Home Medications and Allergies Home Medications ?Medication ?Instructions ?Recorded ?Confirmed ?Type levothyroxine 175 mcg tablet 175 mcg PO DAILYDM 07/15/20 03/05/25 History omeprazole 40 mg capsule,delayed 40 mg PO DAILY 07/15/20 03/05/25 History release potassium chloride 20 mEq 20 meq PO DAILY 05/10/23 03/05/25 History tablet,extended release(part/cryst) fluticasone propionate 50 1 spray intranasal DAILY 05/13/23 03/05/25 History mcg/actuation nasal spray,suspension furosemide 40 mg tablet 40 mg PO DAILY PRN Fluid 05/13/23 03/05/25 History lisinopril 40 mg tablet 40 mg PO DAILY 05/13/23 03/05/25 History triamterene 37.5 1 tab PO DAILY 05/13/23 03/05/25 History mg-hydrochlorothiazide 25 mg tablet aspirin 81 mg chewable tablet 81 mg PO DAILY #100 tabs 05/15/23 03/05/25 Rx cetirizine 10 mg tablet 10 mg PO DAILY 10/04/23 03/05/25 History evolocumab 140 mg/mL subcutaneous 140 mg SQ Q2W #3 mL 01/01/25 03/05/25 Rx syringe (Repatha Syringe) tadalafil 5 mg tablet 2.5 mg PO DAILY 01/01/25 03/05/25 History atorvastatin 40 mg tablet 40 mg PO QODHS 03/05/25 03/05/25 History metoprolol succinate 25 mg 25 mg PO DAILY 03/05/25 03/05/25 History tablet,extended release 24 hr prasugrel HCl 10 mg tablet 10 mg PO DAILY #30 tabs 03/05/25 Rx (Effient) New Prescriptions to Start Prescriptions: prasugrel HCl [Effient] Uzair Hinojosa Allergies Allergy/AdvReac Type Severity Reaction Status Date / Time No Known Allergies Allergy Verified 01/29/25 08:27 Exam Data for Last 24 hours Vital signs and Labs for Last 24 Hours: Temp Pulse Resp BP Pulse Ox O2 Del Method 98.2 F 71 18 101/58 L 94 L Room Air 03/05/25 11:05 03/05/25 11:20 03/05/25 11:20 03/05/25 11:20 03/05/25 11:20 03/05/25 13:00 Laboratory Results - last 24 hr 03/05/25 10:11: WBC 13.1 H, RBC 4.11 L, Hgb 12.7 L, Hct 37.6 L, MCV 91.5, MCH 30.9, MCHC 33.8, RDW 13.2, Plt Count 356, MPV 8.7, Neut % (Auto) 79.1, Lymph % (Auto) 13.0, [place] % (Auto) 5.9, Eos % (Auto) 1.1, Baso % (Auto) 0.6, Neut # (Auto) 10.4 H, Lymph # (Auto) 1.7, [place] # (Auto) 0.8, Eos # (Auto) 0.1, Baso # (Auto) 0.1, PT 11.4, INR 1.03, APTT 23.8, D-Dimer 0.71 H, Sodium 139, Potassium 4.4, Chloride 104, Carbon Dioxide 27, Anion Gap 12.4, BUN 34 H, Creatinine 2.00 H, Estimated Creat Clear 84, Estimated GFR 35 L, Est GFR ( Amer) 43 L, Glucose 122 H, Calcium 10.0, Total Bilirubin 0.7, AST 37, ALT 40, Alkaline Phosphatase 75, Troponin I < 0.01, Total Protein 9.0 H, Albumin 5.0, Globulin 4.0 H, Albumin/Globulin Ratio 1.3 I & O for Last 24 hours: Intake & Output 03/03/25 03/04/25 03/05/25 03/06/25 11:59 11:59 11:59 11:59 Weight 300 lb Constitutional Constitutional: no acute distress (At this time resting in bed at the hospital postcardiac cath. No distress no pain) *Routine HEENT Exam Head: Present normocephalic Eye: Present EOMI and PERRL ENT: Present other (Edentulous with prostheses) *Routine Neck Exam Neck: Present supple and full ROM; Absent JVD Routine Chest/Breast/Axilla Exam Chest wall: Absent tenderness *Routine Respiratory Exam Respiratory: Present CTA bilaterally (Just a few faint rales at the bases.) *Routine Cardiovascular Exam Cardiovascular: Present RRR and S4 *Routine Abdominal Exam Abdominal: Present soft; Absent tenderness, organomegaly or mass *Routine Rectal Exam Rectal:: deferred *Routine Genitalia Exam Genitalia:: deferred *Routine Extremities Exam Extremities: Present edema (Minimal) Routine Back/Spine/Pelvis Exam Back/Spine: Present full ROM; Absent CVA tenderness *Routine Skin Exam Skin: Present intact and dry; Absent cyanosis, pallor or mottling *Routine Neurological Exam Neurological: Present alert, oriented X3, CN II-XII intact, moving all extremities and normal tone Routine Psychiatric Exam Psychiatric: Present normal affect and normal thought process Assessment and Plan *Assessment and plan (1) ST elevation myocardial infarction (STEMI) of inferior wall: Status: Acute Category: Medical Code(s): I21.19 - ST elevation (STEMI) myocardial infarction involving other coronary artery of inferior wall (2) Stented coronary artery: Status: Acute Category: Surgical Code(s): Z95.5 - Presence of coronary angioplasty implant and graft (3) Diabetes: Status: Acute Qualifiers: Diabetes mellitus type: type 2 Diabetes mellitus intermediate insulin use: without intermediate use Diabetes mellitus complication status: with circulatory complication Diabetes mellitus complication detail: with other circulatory complications Qualified Code(s): E11.59 - Type 2 diabetes mellitus with other circulatory complications Category: Medical Code(s): E11.9 - Type 2 diabetes mellitus without complications (4) Stopped smoking with greater than 30 pack year history: Status: Acute Category: Social Hx Code(s): Z87.891 - Personal history of nicotine dependence (5) Hypothyroidism: Status: Acute Qualifiers: Hypothyroidism type: unspecified Qualified Code(s): E03.9 - Hypothyroidism, unspecified Category: Medical Code(s): E03.9 - Hypothyroidism, unspecified (6) HLD (hyperlipidemia): Status: Chronic Qualifiers: Hyperlipidemia type: mixed hyperlipidemia Qualified Code(s): E78.2 - Mixed hyperlipidemia Category: Medical Code(s): E78.5 - Hyperlipidemia, unspecified (7) HTN (hypertension): Status: Chronic Qualifiers: Hypertension type: essential hypertension Qualified Code(s): I10 - Essential (primary) hypertension Category: Medical Code(s): I10 - Essential (primary) hypertension (8) CAD (coronary artery disease): Status: Chronic Qualifiers: Coronary Disease-Associated Artery/Lesion type: [place] artery [place] vs. transplanted heart: [place] heart Associated angina: with stable angina Qualified Code(s): I25.118 - Atherosclerotic heart disease of [place] coronary artery with other forms of angina pectoris Category: Medical Code(s): I25.10 - Atherosclerotic heart disease of [place] coronary artery without angina pectoris Plan See cardiology reports. He will be observed overnight.
[2025-03-05 13:59] LABS: Troponin I 0.04 ng/ml (0.00-0.034)
[2025-03-05] MEDS: DEFINITY US ECHO CONTRAST 2ML INJ 2 MG IV (14:09)
--- NOTE | 2025-03-05 14:42 | HMH.PHAINT1 ---
Pharmacy Intervention Comments: HOME MEDICATION LIST VERIFIED USING LIST FROM OUTPATIENT PHARMACY AND CARDIOLOGY OFFICE
[2025-03-05] MEDS: IOPAMIDOL-370 (76%);100ML BOTTLE 50 ML IV (15:47)
[2025-03-05 15:48] LABS: CATHL Activated Clotting Time 192 SEC (74-125)
--- NOTE | 2025-03-05 16:05 | PC.NURSE ---
Pt arrived to floor from laboratory sample carrier @[id number]
--- NOTE | 2025-03-05 17:04 | PC.NURSE ---
pt admitted from lab manager this shift. was STEMI alert in the ER. thrombectomy and 1 stent placed in the RCA. pt has no complaints of pain at this time. vss. cath site to the R radial is c/d/i. radial band removed at 1430 with no bleeding. no needs at this time. call light within reach.
[2025-03-05] MEDS: PANTOPRAZOLE 40MG TABLET 40 MG PO (20:04)
[2025-03-06] VITALS (8 sets, daily range): BP systolic 94–126; BP diastolic 46–72; PULSE 56–70; RESP 14–16; TEMP 36.4–36.7; O2SAT 96–98; BMI 38.5
--- NOTE | 2025-03-06 02:46 | PC.NURSE ---
Pt AOx4, independent. Has continually denied pain or additional needs throughout the shift. Currently resting in bed with eyes closed. Respirations even and unlabored. Bed is low, locked, and call light is in reach.
--- NOTE | 2025-03-06 05:38 | PC.NURSE ---
ice water was passed, bedside table were cleaned off and trash and linen in patient was removed.
[2025-03-06 06:13] LABS: Basophils # 0.1 K/mm3 (0-0.2); Basophils % 0.9 % (0.1-2.0); Eosinophils # 0.2 Kmm3 (0.0-0.4); Eosinophils % 2.1 % (0.1-12.0); Hematocrit 33.8 % (42.0-52.0); Immature Granulocytes # 0.03 10^3uL; Immature Granulocytes % 0.4 %; Lymphocytes # 1.7 K/mm3 (0.7-4.5); Lymphocytes % 23.1 % (10-50); Mean Corpuscular HGB Conc 33.4 g/dL (31.8-35.4); Mean Corpuscular Hemoglobin 30.7 pg (27.0-31.2); Mean Corpuscular Volume 91.8 fl (80-94); Mean Platelet Volume 8.7 fl (7.4-10.4); Monocytes # 0.4 K/mm3 (0.1-1.0); Monocytes % 5.9 % (1.7-9.3); Neutrophils # 5.1 K/mm3 (1.8-7.8); Neutrophils % 67.6 % (37.0-80.0); Nucleated Red Blood Cells # 0 10^3/uL; Nucleated Red Blood Cells % 0 %; Platelet Count 284 K/mm3 (142-424); Red Blood Count 3.68 M/mm3 (4.60-6.20); Red Cell Distribution Width-SD 43.7 fL; White Blood Count 7.5 K/mm3 (4.8-10.8)
[2025-03-06 06:21] LABS: Hemoglobin 11.4 g/dL (14.1-18.0)
[2025-03-06 06:29] LABS: Albumin Level 4.2 g/dl (3.5-5.0)
[2025-03-06 06:31] LABS: Alanine Aminotransferase 32 U/L (12-78); Alkaline Phosphatase 70 U/L (38-126); Aspartate Amino Transferase 37 U/L (17-59); Bilirubin,Direct 0.1 mg/dl (0.0-0.4); Bilirubin,Indirect 0.4 mg/dL (0.0-0.9); Bilirubin,Total 0.5 mg/dl (0.2-1.3); Bilirubin,Unconjugated 0.3 mg/dL (0.0-1.1); Total Protein,Serum 7.2 g/dl (6.3-8.2)
[2025-03-06 06:32] LABS: Chol/HDL Ratio 4.1 (1-3.5); Cholesterol 130 mg/dl (140-200); HDL Cholesterol 32 mg/dl (40-60); Triglycerides 259 mg/dl (30-150); VLDL Cholesterol 52 mg/dL (0-40)
[2025-03-06 06:34] LABS: Chloride 106 mmol/L (98-107)
[2025-03-06 06:35] LABS: Potassium 4.4 mmoL/L (3.5-5.1); Sodium 137 mmol/L (136-145)
[2025-03-06 06:38] LABS: Anion Gap 8.4 mEq/L (5-15); Blood Urea Nitrogen 26 mg/dl (9-20); Calcium 9.1 mg/dl (8.4-10.2); Carbon Dioxide 27 mmol/L (22.0-30.0); Creatinine Clearance Estimated 120 mL/min (50-200); Estimated Glomerular Filt Rate 53 ml/min (>60); GFR (African American) 65 ML/MIN (>60); Glucose 125 mg/dl (74-100)
[2025-03-06 06:43] LABS: Direct LDL Cholesterol 50.81 mg/dL (100-129)
[2025-03-06] MEDS: LISINOPRIL 20MG TABLET 40 MG PO (08:24)
[2025-03-06] MEDS: ASPIRIN EC 81MG TABLET 81 MG PO (08:24)
[2025-03-06] MEDS: PRASUGREL 10MG TAB 10 MG PO (08:24)
[2025-03-06] MEDS: METOPROLOL SUCCINATE XL 25MG TABLET 25 MG PO (08:24)
--- NOTE | 2025-03-06 08:36 | P.PN_ITS ---
Subjective *Date: 03/06/25 *Time: 09:29 Interval history: Patient is feeling better this am. He denies any CP or SOA. He was not able to sleep well. Medical Exam Vital signs and Labs for Last 24 Hours: Vital Signs Temp Pulse Pulse Resp BP BP Pulse Ox 03/06/25 08:25 68 03/06/25 08:00 97.9 F 56 L 15 126/57 L 98 03/06/25 06:30 03/06/25 05:00 03/06/25 04:00 60 03/06/25 04:00 97.7 F 61 16 101/59 L 97 03/06/25 03:00 03/06/25 01:00 03/06/25 00:00 60 03/06/25 00:00 97.6 F 63 16 94/46 L 97 03/05/25 23:00 03/05/25 21:00 03/05/25 20:00 65 03/05/25 20:00 97.8 F 67 16 115/59 L 97 03/05/25 20:00 03/05/25 18:51 03/05/25 18:20 67 18 123/76 97 03/05/25 17:20 72 18 134/70 99 03/05/25 16:54 03/05/25 16:20 64 18 107/60 L 96 03/05/25 16:00 60 03/05/25 15:20 62 18 101/63 L 96 03/05/25 15:00 03/05/25 14:20 62 16 104/58 L 97 03/05/25 13:50 61 18 99/55 L 96 03/05/25 13:20 65 16 99/61 L 97 03/05/25 13:00 03/05/25 12:50 72 18 115/74 97 03/05/25 12:20 67 16 118/71 96 03/05/25 12:05 66 18 98/60 L 97 03/05/25 12:00 55 L 03/05/25 11:50 63 18 106/68 L 96 03/05/25 11:35 98.0 F 66 16 89/59 L 96 03/05/25 11:20 71 18 101/58 L 94 L 03/05/25 11:15 73 18 100/60 L 94 L 03/05/25 11:10 71 17 103/57 L 94 L 03/05/25 11:08 03/05/25 11:05 98.2 F 71 77 16 102/75 L 98 03/05/25 10:35 98.3 F 79 16 108/70 L 03/05/25 10:15 72 18 100/60 L 94 L 03/05/25 10:15 79 03/05/25 10:13 78 16 108/70 L 98 03/05/25 10:08 98.3 F 79 20 99/58 L 97 O2 Del Method 03/06/25 08:25 03/06/25 08:00 Room Air 03/06/25 06:30 Room Air 03/06/25 05:00 Room Air 03/06/25 04:00 03/06/25 04:00 Room Air 03/06/25 03:00 Room Air 03/06/25 01:00 Room Air 03/06/25 00:00 03/06/25 00:00 Room Air 03/05/25 23:00 Room Air 03/05/25 21:00 Room Air 03/05/25 20:00 03/05/25 20:00 Room Air 03/05/25 20:00 Room Air 03/05/25 18:51 Room Air 03/05/25 18:20 Room Air 03/05/25 17:20 Room Air 03/05/25 16:54 Room Air 03/05/25 16:20 Room Air 03/05/25 16:00 03/05/25 15:20 Room Air 03/05/25 15:00 Room Air 03/05/25 14:20 Room Air 03/05/25 13:50 Room Air 03/05/25 13:20 Room Air 03/05/25 13:00 Room Air 03/05/25 12:50 Room Air 03/05/25 12:20 Room Air 03/05/25 12:05 Room Air 03/05/25 12:00 03/05/25 11:50 Room Air 03/05/25 11:35 Room Air 03/05/25 11:20 Room Air 03/05/25 11:15 Room Air 03/05/25 11:10 Room Air 03/05/25 11:08 Room Air 03/05/25 11:05 Room Air 03/05/25 10:35 Room Air 03/05/25 10:15 Room Air 03/05/25 10:15 03/05/25 10:13 Room Air 03/05/25 10:08 Room Air Intake and Output 03/05/25 03/06/25 03/06/25 19:59 03:59 11:59 Intake Total 840 / 1670 470 / 1670 360 / 1670 Output Total 0 / 0 0 / 0 Balance 840 / 1670 470 / 1670 360 / 1670 Intake: Intake, Oral Amount 840 / 1670 470 / 1670 360 / 1670 Output: Output, Urine Amount 0 / 0 0 / 0 Other: Number of Unmeasured Voids 1 1 Number of Bowel Movements 1 Weight 300 lb Patient Weight 03/06/25 11:59 Weight 300 lb Laboratory Results - last 24 hr 03/05/25 10:11: WBC 13.1 H, RBC 4.11 L, Hgb 12.7 L, Hct 37.6 L, MCV 91.5, MCH 30.9, MCHC 33.8, RDW 13.2, Plt Count 356, MPV 8.7, Neut % (Auto) 79.1, Lymph % (Auto) 13.0, [place] % (Auto) 5.9, Eos % (Auto) 1.1, Baso % (Auto) 0.6, Neut # (Auto) 10.4 H, Lymph # (Auto) 1.7, Iron # (Auto) 0.8, Eos # (Auto) 0.1, Baso # (Auto) 0.1, PT 11.4, INR 1.03, APTT 23.8, D-Dimer 0.71 H, Sodium 139, Potassium 4.4, Chloride 104, Carbon Dioxide 27, Anion Gap 12.4, BUN 34 H, Creatinine 2.00 H, Estimated Creat Clear 84, Estimated GFR 35 L, Est GFR ( Amer) 43 L, Glucose 122 H, Calcium 10.0, Total Bilirubin 0.7, AST 37, ALT 40, Alkaline Phosphatase 75, Troponin I < 0.01, Total Protein 9.0 H, Albumin 5.0, Globulin 4.0 H, Albumin/Globulin Ratio 1.3 03/05/25 10:53: Activated Clotting Time 192 H* 03/05/25 13:26: Troponin I 0.04 H 03/06/25 05:28: WBC 7.5 D, RBC 3.68 L, Hgb 11.4 L D, Hct 33.8 L, MCV 91.8, MCH 30.7, MCHC 33.4, RDW 13.0, Plt Count 284, MPV 8.7, Neut % (Auto) 67.6, Lymph % (Auto) 23.1, Iron % (Auto) 5.9, Eos % (Auto) 2.1, Baso % (Auto) 0.9, Neut # (Auto) 5.1, Lymph # (Auto) 1.7, Iron # (Auto) 0.4, Eos # (Auto) 0.2, Baso # (Auto) 0.1, Sodium 137, Potassium 4.4, Chloride 106, Carbon Dioxide 27, Anion Gap 8.4, BUN 26 H, Creatinine 1.40 H D, Estimated Creat Clear 120, Estimated GFR 53 L, Est GFR ( Amer) 65 D, Glucose 125 H, Calcium 9.1, Total Bilirubin 0.5, Direct Bilirubin 0.1, Conjugated Bilirubin 0.0, Indirect Bilirubin 0.4, Unconjugated Bilirubin 0.3, AST 37, ALT 32, Alkaline Phosphatase 70, Total Protein 7.2, Albumin 4.2 D, Triglycerides 259 H, Cholesterol 130 L, LDL Cholesterol Direct 50.81 L, VLDL Cholesterol 52 H, HDL Cholesterol 32 L, Cholesterol/HDL Ratio 4.1 H I & O for Labs for Last 24 Hours: Intake & Output 03/03/25 03/04/25 03/05/25 03/06/25 11:59 11:59 11:59 11:59 Intake Total 1670 / 1670 Output Total 0 / 0 Balance 1670 / 1670 Weight 300 lb 300 lb Constitutional: Present no acute distress Respiratory: Present CTA bilaterally Cardiac: Present Reg Rate and Rhythm GI: Present soft and normal bowel sounds; Absent distention or tenderness Extremities: Absent edema, clubbing or cyanosis Skin: Present intact Neuro: Present alert and awake Assessment and Plan *Assessment and plan (1) ST elevation myocardial infarction (STEMI) of inferior wall: Status: Acute Category: Medical Code(s): I21.19 - ST elevation (STEMI) myocardial infarction involving other coronary artery of inferior wall (2) Stented coronary artery: Status: Acute Category: Surgical Code(s): Z95.5 - Presence of coronary angioplasty implant and graft (3) Diabetes: Status: Acute Qualifiers: Diabetes mellitus complication detail: with other circulatory complications Diabetes mellitus complication status: with circulatory complication Diabetes mellitus manager terminal insulin use: without manager terminal use Diabetes mellitus type: type 2 Qualified Code(s): E11.59 - Type 2 diabetes mellitus with other circulatory complications Category: Medical Code(s): E11.9 - Type 2 diabetes mellitus without complications (4) Stopped smoking with greater than 30 pack year history: Status: Acute Category: Social Hx Code(s): Z87.891 - Personal history of nicotine dependence (5) Hypothyroidism: Status: Acute Qualifiers: Hypothyroidism type: unspecified Qualified Code(s): E03.9 - Hypothyroidism, unspecified Category: Medical Code(s): E03.9 - Hypothyroidism, unspecified (6) HLD (hyperlipidemia): Status: Chronic Qualifiers: Hyperlipidemia type: mixed hyperlipidemia Qualified Code(s): E78.2 - Mixed hyperlipidemia Category: Medical Code(s): E78.5 - Hyperlipidemia, unspecified (7) HTN (hypertension): Status: Chronic Qualifiers: Hypertension type: essential hypertension Qualified Code(s): I10 - Essential (primary) hypertension Category: Medical Code(s): I10 - Essential (primary) hypertension (8) CAD (coronary artery disease): Status: Chronic Qualifiers: Associated angina: with stable angina Coronary Disease-Associated Artery/Lesion type: [place] artery [place] vs. transplanted heart: [place] heart Qualified Code(s): I25.118 - Atherosclerotic heart disease of [place] coronary artery with other forms of angina pectoris Category: Medical Code(s): I25.10 - Atherosclerotic heart disease of [place] coronary artery without angina pectoris Plan Cardiology wants to keep patient for 48 hours. Cardiology to follow. He is doing well.
--- NOTE | 2025-03-06 10:42 | P.PN_ITS ---
Subjective Subjective Date: 03/06/25 Time: 09:30 Principal diagnosis: STEMI Interval history: This is a 49-year-old gentleman who came into the hospital yesterday with complaints of chest pain. He was found to have a STEMI. He was taken to the [facility] and had thrombectomy and stent placed to the circumflex artery. He will remain on aspirin and Effient for dual antiplatelet therapy. This morning he denies any chest pain or pressure. He denies any shortness of breath or edema. He denies any fever, chills, nausea, vomiting, diarrhea, PND orthopnea. Exam Data for Last 24 hours Vital signs and Labs for Last 24 Hours: Temp Pulse Resp BP Pulse Ox O2 Del Method 97.9 F 68 15 126/57 L 98 Room Air 03/06/25 08:00 03/06/25 08:25 03/06/25 08:00 03/06/25 08:00 03/06/25 08:00 03/06/25 08:00 Laboratory Results - last 24 hr 03/05/25 10:11: D-Dimer 0.71 H, Troponin I < 0.01 03/05/25 10:53: Activated Clotting Time 192 H* 03/05/25 13:26: Troponin I 0.04 H 03/06/25 05:28: WBC 7.5 D, RBC 3.68 L, Hgb 11.4 L D, Hct 33.8 L, MCV 91.8, MCH 30.7, MCHC 33.4, RDW 13.0, Plt Count 284, MPV 8.7, Neut % (Auto) 67.6, Lymph % (Auto) 23.1, [place] % (Auto) 5.9, Eos % (Auto) 2.1, Baso % (Auto) 0.9, Neut # (Auto) 5.1, Lymph # (Auto) 1.7, [place] # (Auto) 0.4, Eos # (Auto) 0.2, Baso # (Auto) 0.1, Sodium 137, Potassium 4.4, Chloride 106, Carbon Dioxide 27, Anion Gap 8.4, BUN 26 H, Creatinine 1.40 H D, Estimated Creat Clear 120, Estimated GFR 53 L, Est GFR ( Amer) 65 D, Glucose 125 H, Calcium 9.1, Total Bilirubin 0.5, Direct Bilirubin 0.1, Conjugated Bilirubin 0.0, Indirect Bilirubin 0.4, Unconjugated Bilirubin 0.3, AST 37, ALT 32, Alkaline Phosphatase 70, Total Protein 7.2, Albumin 4.2 D, Triglycerides 259 H, Cholesterol 130 L, LDL Cholesterol Direct 50.81 L, VLDL Cholesterol 52 H, HDL Cholesterol 32 L, Cholesterol/HDL Ratio 4.1 H I & O for Last 24 hours: Intake & Output 03/03/25 03/04/25 03/05/25 03/06/25 23:59 23:59 23:59 23:59 Intake Total 840 / 1310 830 / 830 Output Total 0 / 0 0 / 0 Balance 840 / 1310 830 / 830 Weight 300 lb 300 lb Constitutional Constitutional: no acute distress and obese *Routine HEENT Exam Head: Present normocephalic and atraumatic ENT: Present mucous membranes moist *Routine Neck Exam Neck: Present supple, full ROM and normal carotid upstroke; Absent JVD, carotid bruit or lymphadenopathy *Routine Respiratory Exam Respiratory: Present CTA bilaterally, normal respiratory effort, able to speak in complete sentences and symmetric chest movement *Routine Cardiovascular Exam Cardiovascular: Present RRR, Normal S1 and Normal S2; Absent murmur or gallop *Routine Abdominal Exam Abdominal: Present soft and normoactive bowel sounds; Absent tenderness, distended or organomegaly *Routine Extremities Exam Extremities: Present full ROM, pulses intact and normal capillary refill; Absent cyanosis, clubbing or edema *Routine Skin Exam Skin: Present intact and warm; Absent erythema Comments: Clammy *Routine Neurological Exam Neurological: Present alert, oriented X3 and CN II-XII intact; Absent sensory deficit or motor deficit Routine Psychiatric Exam Psychiatric: Present normal affect Progress Note: A&P Assessment and plan (1) ST elevation myocardial infarction (STEMI) of inferior wall: Status: Acute (2) CAD (coronary artery disease): Status: Chronic (3) Stented coronary artery: Status: Acute (4) Diabetes: Status: Acute (5) Stopped smoking with greater than 30 pack year history: Status: Acute (6) Hypothyroidism: Status: Acute (7) HLD (hyperlipidemia): Status: Chronic (8) HTN (hypertension): Status: Chronic Assessment and Plan Assessment and Plan for All Diagnoses:: Plan: 1. The patient was having chest pain at work came to the emergency department found to have an inferior STEMI. The patient was taken directly to the cardiac catheterization laboratory and had thrombectomy and stenting to his circumflex artery. He tolerated the procedure well. 2. The patient reports that he has had 3 MIs within the last 9 years. He states that he does not have any symptoms until he is having his event. This is probably a patient who will need to have yearly or every 2-year ischemic evaluations to make sure he has no ischemia to prevent him from having recurrent MIs. 3. Continue aspirin and Effient for total antiplatelet therapy. 4. Echocardiogram shows an ejection fraction of 50% with no significant valve disease. 5. His blood pressure is well-controlled. Continue metoprolol and lisinopril. 6. His LDL goal is less than 55. He is on Repatha and a statin. His LDL is 50. 7. The patient's renal function is down to 1.4 today which appears to be his baseline. We have stopped his Maxide and Lasix. His LVEDP is normal so we will continue to hold at this time and he should not be on the Maxide and Lasix together. 8. The patient will need to stay in the hospital 48 hours post STEMI to make sure he does not have any arrhythmias post [place]. 9. Once he is stable for discharge at 48 hours post STEMI he will need to be discharged on the following cardiac medications: Aspirin 81 mg daily, atorvastatin 40 mg p.o. every 48 hours, Repatha injection every 2 weeks, lisinopril 40 mg daily, metoprolol succinate 25 mg daily, omeprazole 40 mg daily, Effient 10 mg daily. 10. The patient will need to follow-up in cardiology clinic in 1 week on an outpatient basis. Thank you for the opportunity to help participate in the care of this patient. All recommendations and orders are per Dr. Glasgow.
[2025-03-06] MEDS: HEMORRHOIDAL OINT 30GM TP (13:52)
--- NOTE | 2025-03-06 17:15 | PC.NURSE ---
pt is A&Ox4. Vital signs stable tolerating room air. NSR on tele. No complaints of chest pain this shift. Right radial site with gauze and tegaderm c/d/i. PRN cream given to pt per request for complaints of hemorrhoids. Pt resting comfortably with no further needs voiced at this time. call light within reach
[2025-03-06] MEDS: PANTOPRAZOLE 40MG TABLET 40 MG PO (20:22)
[2025-03-06] MEDS: TRIAMCINOLONE ACETONIDE CREAM 30GM TUBE TP (20:22)
[2025-03-07] VITALS: BP 108/56; PULSE 65; PULSE 70; RESP 16; TEMP 36.6; O2SAT 92
--- NOTE | 2025-03-07 02:46 | PC.NURSE ---
Pt AOx4, pleasant. Continually denies pain or any needs. Right radial cath site c/d/i/. Pt currently resting in bed with eyes closed. Respirations even and unlabored. Bed is low, locked, and call light is in reach.
[2025-03-07 04:00] VITALS: BP 118/69; PULSE 60; PULSE 61; RESP 16; TEMP 36.4; O2SAT 93; BMI 38.7
[2025-03-07 08:00] VITALS: BP 90/58; PULSE 60; PULSE 70; RESP 18; TEMP 36.3; O2SAT 98
[2025-03-07] MEDS: ASPIRIN EC 81MG TABLET 81 MG PO (08:03)
[2025-03-07] MEDS: PRASUGREL 10MG TAB 10 MG PO (08:03)
[2025-03-07] MEDS: METOPROLOL SUCCINATE XL 25MG TABLET 25 MG PO (08:03)
[2025-03-07] MEDS: LISINOPRIL 20MG TABLET 40 MG PO (08:04)
[2025-03-07] MEDS: TRIAMCINOLONE ACETONIDE CREAM 30GM TUBE TP (08:04)
--- NOTE | 2025-03-07 09:25 | P.PN_ITS ---
Subjective *Date: 03/07/25 *Time: 09:25 Interval history: He has remained stable post angiography and stenting. He is ready for discharge this morning. Blood pressure has run low. I will include in this note the discharge plan delineated by cardiology. Medical Exam Vital signs and Labs for Last 24 Hours: Vital Signs Temp Pulse Pulse Resp BP Pulse Ox O2 Del Method 03/07/25 09:00 Room Air 03/07/25 08:00 60 03/07/25 08:00 97.4 F L 70 18 90/58 L 98 Room Air 03/07/25 08:00 Room Air 03/07/25 06:43 Room Air 03/07/25 05:00 Room Air 03/07/25 04:00 97.6 F 61 16 118/69 93 L Room Air 03/07/25 04:00 60 03/07/25 03:00 Room Air 03/07/25 01:00 Room Air 03/07/25 00:00 65 03/07/25 00:00 97.9 F 70 16 108/56 L 92 L Room Air 03/06/25 23:00 Room Air 03/06/25 21:00 Room Air 03/06/25 20:00 65 03/06/25 20:00 98.0 F 70 16 108/67 L 97 Room Air 03/06/25 20:00 Room Air 03/06/25 18:30 Room Air 03/06/25 17:00 Room Air 03/06/25 16:00 97.6 F 67 14 121/64 96 Room Air 03/06/25 15:00 Room Air 03/06/25 13:00 Room Air 03/06/25 12:00 67 03/06/25 11:44 98.0 F 67 15 121/72 98 Room Air 03/06/25 11:00 Room Air Intake and Output 03/06/25 03/07/25 03/07/25 19:59 03:59 11:59 Intake Total 600 / 1320 240 / 1320 480 / 1320 Output Total 550 / 550 0 / 550 Balance 50 / 770 240 / 770 480 / 770 Intake: Intake, Oral Amount 600 / 1320 240 / 1320 480 / 1320 Output: Output, Urine Amount 550 / 550 0 / 550 Other: Number of Unmeasured Voids 1 Weight 299 lb 13.259 oz 302 lb Patient Weight 03/07/25 11:59 Weight 302 lb I & O for Labs for Last 24 Hours: Intake & Output 03/04/25 03/05/25 03/06/25 03/07/25 11:59 11:59 11:59 11:59 Intake Total 1670 / 1670 1320 / 1320 Output Total 300 / 300 550 / 550 Balance 1370 / 1370 770 / 770 Weight 300 lb 300 lb 302 lb Head: Present normocephalic Neck: Present normal inspection and full ROM Respiratory: Present CTA bilaterally; Absent respiratory distress Cardiac: Present Reg Rate and Rhythm (No ectopy) and No Murmur GI: Present soft; Absent distention, tenderness, guarding or mass Rectal (male): Present deferred (male): Present deferred Extremities: Absent edema Skin: Present intact Neuro: Present alert and oriented x 3 Assessment and Plan *Assessment and plan (1) ST elevation myocardial infarction (STEMI) of inferior wall: Status: Acute Category: Medical Code(s): I21.19 - ST elevation (STEMI) myocardial infarction involving other coronary artery of inferior wall (2) Stented coronary artery: Status: Acute Category: Surgical Code(s): Z95.5 - Presence of coronary angioplasty implant and graft (3) Morbid obesity with BMI of 40.0-44.9, adult: Status: Acute Category: Medical Code(s): E66.01 - Morbid (severe) obesity due to excess calories; Z68.41 - Body mass index [BMI] 40.0-44.9, adult (4) Obesity (BMI 30-39.9): Status: Chronic Category: Medical Code(s): E66.9 - Obesity, unspecified (5) Stopped smoking with greater than 30 pack year history: Status: Acute Category: Social Hx Code(s): Z87.891 - Personal history of nicotine dependence (6) HLD (hyperlipidemia): Status: Chronic Qualifiers: Hyperlipidemia type: mixed hyperlipidemia Qualified Code(s): E78.2 - Mixed hyperlipidemia Category: Medical Code(s): E78.5 - Hyperlipidemia, unspecified (7) Hypothyroidism: Status: Acute Qualifiers: Hypothyroidism type: unspecified Qualified Code(s): E03.9 - Hypothyroidism, unspecified Category: Medical Code(s): E03.9 - Hypothyroidism, unspecified (8) HTN (hypertension): Status: Chronic Qualifiers: Hypertension type: essential hypertension Qualified Code(s): I10 - Essential (primary) hypertension Category: Medical Code(s): I10 - Essential (primary) hypertension (9) CAD (coronary artery disease): Status: Chronic Qualifiers: Coronary Disease-Associated Artery/Lesion type: [place] artery [place] vs. transplanted heart: [place] heart Associated angina: with stable angina Qualified Code(s): I25.118 - Atherosclerotic heart disease of [place] coronary artery with other forms of angina pectoris Category: Medical Code(s): I25.10 - Atherosclerotic heart disease of [place] coronary artery without angina pectoris Plan 1. The patient was having chest pain at work came to the emergency department found to have an inferior STEMI. The patient was taken directly to the cardiac catheterization laboratory and had thrombectomy and stenting to his circumflex artery. He tolerated the procedure well. 2. The patient reports that he has had 3 MIs within the last 9 years. He states that he does not have any symptoms until he is having his event. This is probably a patient who will need to have yearly or every 2-year ischemic evaluations to make sure he has no ischemia to prevent him from having recurrent MIs. 3. Continue aspirin and Effient for total antiplatelet therapy. 4. Echocardiogram shows an ejection fraction of 50% with no significant valve disease. 5. His blood pressure is well-controlled. Continue metoprolol and lisinopril. 6. His LDL goal is less than 55. He is on Repatha and a statin. His LDL is 50. 7. The patient's renal function is down to 1.4 today which appears to be his baseline. We have stopped his Maxide and Lasix. His LVEDP is normal so we will continue to hold at this time and he should not be on the Maxide and Lasix together. 8. The patient will need to stay in the hospital 48 hours post STEMI to make sure he does not have any arrhythmias post [place]. 9. Once he is stable for discharge at 48 hours post STEMI he will need to be discharged on the following cardiac medications: Aspirin 81 mg daily, atorvastatin 40 mg p.o. every 48 hours, Repatha injection every 2 weeks, lisinopril 40 mg daily, metoprolol succinate 25 mg daily, omeprazole 40 mg daily, Effient 10 mg daily. 10. The patient will need to follow-up in cardiology clinic in 1 week on an outpatient basis. He will be seen in [facility] this week.
--- NOTE | 2025-03-07 10:08 | PC.NURSE ---
PT NEWLY PRESCRIBED BLOOD THINNER PICKED UP BY FROM CLINIC PHARMACY (HER DECISION) AND BROUGHT TO THE ROOM FOR NURSE TO PROOF PRIOR TO DC
--- NOTE | 2025-03-09 10:47 | SW/DCPLANNER ---
Spoke with patient on the phone. Patient stated that he is doing much better. Patient stated that he is aware of his upcoming appointments. Patient stated that he was able to get his new medicine picked up from clinic pharmacy. Patient stated that he has no concerns or questions at this time. Walter Nino
--- NOTE | 2025-03-10 01:38 | EXP.DC.SUM ---
General Admission date:: 03/05/25 Discharge date: 03/07/25 HPI HPI HPI: 49-year-old white male with known coronary artery disease and hypertension patient of [facility] and of [facility]. He previously has had 4 stents. He was a smoker in the past but not recently. He was at work when his symptoms started. He presented in the emergency room this morning after experiencing pain across the shoulders and then subsequently into the center of the chest. He felt this was similar to previous symptoms during a heart attack. He experienced nausea and vomited in the ambulance on the way to the emergency room. In the emergency room he had EKG changes consistent with a STEMI. He was taken directly to the cardiac catheterization lab. Cardiac catheterization revealed: Acute ST elevation myocardial infarction evolving a large circumflex artery with nearly occlusive thrombus Successful mechanical thrombectomy followed by drug-eluting stent deployment to the proximal circumflex artery Moderate disease in the proximal LAD and right coronary artery with diffuse moderate vascular ectasia throughout the right coronary Hyperdynamic ventricle Normal LVEDP Hospital Course Hospital Course Hospital Course: The patient did well post heart cath procedure. His GFR improved from 35 to 53. He had no further chest pain or shortness of breath. Cardiology wanted to keep him 48 hours for monitoring. By 03/07/25, he was ready for discharge and will follow-up with cardiology. Exam Data for Last 24 hours Vital signs and Labs for Last 24 Hours: Temp Pulse Resp BP Pulse Ox O2 Del Method 97.4 F L 70 18 90/58 L 98 Room Air 03/07/25 08:00 03/07/25 08:00 03/07/25 08:00 03/07/25 08:00 03/07/25 08:00 03/07/25 09:00 I & O for Last 24 hours: Intake & Output 03/07/25 03/08/25 03/09/25 03/10/25 11:59 11:59 11:59 11:59 Intake Total 1320 / 1320 Output Total 550 / 550 Balance 770 / 770 Weight 302 lb Narrative: Constitutional Constitutional: no acute distress (At this time resting in bed at the hospital postcardiac cath. No distress no pain) *Routine HEENT Exam Head: Present normocephalic Eye: Present EOMI and PERRL ENT: Present other (Edentulous with prostheses) *Routine Neck Exam Neck: Present supple and full ROM; Absent JVD Routine Chest/Breast/Axilla Exam Chest wall: Absent tenderness *Routine Respiratory Exam Respiratory: Present CTA bilaterally (Just a few faint rales at the bases.) *Routine Cardiovascular Exam Cardiovascular: Present RRR and S4 *Routine Abdominal Exam Abdominal: Present soft; Absent tenderness, organomegaly or mass *Routine Rectal Exam Rectal:: deferred *Routine Genitalia Exam Genitalia:: deferred *Routine Extremities Exam Extremities: Present edema (Minimal) Routine Back/Spine/Pelvis Exam Back/Spine: Present full ROM; Absent CVA tenderness *Routine Skin Exam Skin: Present intact and dry; Absent cyanosis, pallor or mottling *Routine Neurological Exam Neurological: Present alert, oriented X3, CN II-XII intact, moving all extremities and normal tone Routine Psychiatric Exam Psychiatric: Present normal affect and normal thought process DS: Diagnosis Discharge Diagnosis (1) ST elevation myocardial infarction (STEMI) of inferior wall: Status: Acute Code(s): I21.19 - ST elevation (STEMI) myocardial infarction involving other coronary artery of inferior wall (2) Stented coronary artery: Status: Acute Code(s): Z95.5 - Presence of coronary angioplasty implant and graft (3) Morbid obesity with BMI of 40.0-44.9, adult: Status: Acute Code(s): E66.01 - Morbid (severe) obesity due to excess calories; Z68.41 - Body mass index [BMI] 40.0-44.9, adult (4) Obesity (BMI 30-39.9): Status: Chronic Code(s): E66.9 - Obesity, unspecified (5) Stopped smoking with greater than 30 pack year history: Status: Acute Code(s): Z87.891 - Personal history of nicotine dependence (6) HLD (hyperlipidemia): Status: Chronic Code(s): E78.5 - Hyperlipidemia, unspecified Qualifiers: Hyperlipidemia type: mixed hyperlipidemia Qualified Code(s): E78.2 - Mixed hyperlipidemia (7) Hypothyroidism: Status: Acute Code(s): E03.9 - Hypothyroidism, unspecified Qualifiers: Hypothyroidism type: unspecified Qualified Code(s): E03.9 - Hypothyroidism, unspecified (8) HTN (hypertension): Status: Chronic Code(s): I10 - Essential (primary) hypertension Qualifiers: Hypertension type: essential hypertension Qualified Code(s): I10 - Essential (primary) hypertension (9) CAD (coronary artery disease): Status: Chronic Code(s): I25.10 - Atherosclerotic heart disease of [place] coronary artery without angina pectoris Qualifiers: Coronary Disease-Associated Artery/Lesion type: [place] artery [place] vs. transplanted heart: [place] heart Associated angina: with stable angina Qualified Code(s): I25.118 - Atherosclerotic heart disease of [place] coronary artery with other forms of angina pectoris Meds Home Medications and Allergies Home Medications ?Medication ?Instructions ?Recorded ?Confirmed ?Type levothyroxine 175 mcg tablet 175 mcg PO DAILYDM 07/15/20 03/05/25 History omeprazole 40 mg capsule,delayed 40 mg PO DAILY 07/15/20 03/05/25 History release potassium chloride 20 mEq 20 meq PO DAILY 05/10/23 03/05/25 History tablet,extended release(part/cryst) fluticasone propionate 50 1 spray intranasal DAILY 05/13/23 03/05/25 History mcg/actuation nasal spray,suspension lisinopril 40 mg tablet 40 mg PO DAILY 05/13/23 03/05/25 History aspirin 81 mg chewable tablet 81 mg PO DAILY #100 tabs 05/15/23 03/05/25 Rx cetirizine 10 mg tablet 10 mg PO DAILY 10/04/23 03/05/25 History evolocumab 140 mg/mL subcutaneous 140 mg SQ Q2W #3 mL 01/01/25 03/05/25 Rx syringe (Repatha Syringe) atorvastatin 40 mg tablet 40 mg PO Q48H 03/05/25 03/05/25 History metoprolol succinate 25 mg 25 mg PO DAILY 03/05/25 03/05/25 History tablet,extended release 24 hr prasugrel HCl 10 mg tablet 10 mg PO DAILY #30 tabs 03/07/25 Rx New Prescriptions to Start Prescriptions: prasugrel HCl Ysabel Davis Allergies Allergy/AdvReac Type Severity Reaction Status Date / Time No Known Allergies Allergy Verified 01/29/25 08:27 Discharge Plan Disposition Patient Disposition: Home, Self-Care Condition: Good Discharge Order Discharge Orders: Discharge Order (Routine); Ordered 03/07/25 Ordered By: Ysabel Davis Follow up Plan Follow up with: Ysabel Davis MD [Primary Care Provider, Medical] - 03/13/25 Referral Note: please call for appointment Dhruv Glasgow MD [Staff Physician, Cardiology] - 03/16/25 Referral Note: please call for appointment Prescriptions/Medication Reconciliation: New prasugrel HCl 10 mg Tablet 10 mg PO DAILY Qty: 30 3RF Continued levothyroxine 175 mcg tablet 175 mcg PO DAILYDM omeprazole 40 mg capsule,delayed release(DR/EC) 40 mg PO DAILY potassium chloride 20 mEq tablet,ER particles/crystals 20 meq PO DAILY Patient Comments: TAKE ONE TABLET BY MOUTH EVERY DAY Repatha Syringe 140 mg/mL syringe 140 mg SQ Q2W Qty: 3 2RF cetirizine 10 mg tablet 10 mg PO DAILY Patient Comments: TAKE ONE TABLET BY MOUTH EVERY DAY lisinopril 40 mg tablet 40 mg PO DAILY Patient Comments: TAKE ONE TABLET BY MOUTH EVERY DAY fluticasone propionate 50 mcg/actuation spray,suspension 1 spray INTRANASAL DAILY Patient Comments: INSTILL 1 SPRAY IN EACH NOSTRIL ONCE DAILY aspirin 81 mg Tablet,Chewable 81 mg PO DAILY Qty: 100 0RF atorvastatin 40 mg tablet 40 mg PO Q48H Patient Comments: TAKE ONE TABLET BY MOUTH EVERY OTHER DAY metoprolol succinate 25 mg tablet extended release 24 hr 25 mg PO DAILY Patient Comments: TAKE ONE TABLET BY MOUTH EVERY DAY Discontinued furosemide 40 mg tablet 40 mg PO DAILYP PRN (Reason: Fluid) Patient Comments: TAKE ONE TABLET BY MOUTH ONCE DAILY triamterene-hydrochlorothiazid 37.5-25 mg tablet 1 tab PO DAILY Patient Comments: TAKE ONE TABLET BY MOUTH EVERY DAY tadalafil 5 mg tablet 2.5 mg PO DAILY Patient Comments: TAKE 1/2 TABLET BY MOUTH DAILY Other Ambulatory Orders: Basic Metabolic Panel (Routine) Timeframe: 1 Week Facility: [facility] - Location: Laboratory Ordered By: Uzair Hinojosa Complete Blood Count Auto Diff (Routine) Timeframe: 1 Week Facility: [facility] - Location: Laboratory Ordered By: Uzair Hinojosa Problem Reconciliation Problems Reviewed?: Yes Patient Discharge Instructions ACTIVITY: Limited activity DIET: diabetic diet Patient Instructions: DI for Heart Attack, DI for Cardiac Catheterization, DI for Surgical Site Infection, Stop Light Heart Failure, Stop Light Infection Print Language: [place] Providers Primary Care Provider: Ysabel Davis Admit Provider: Uzair Hinojosa Attending Provider: Ysabel Davis
== END 2025-03-07 10:09 | disposition home or self-care (01) | DRG 322 ==
LOC: ER 10:23 → CATHLAB 10:29 → 2ND 11:05
PROVIDERS: Nurse Practitioner Family; Admitting Provider Internal Medicine; Emergency Provider Student in an Organized Health Care Education/Training Program; PCP Family Medicine; Visit Provider Family Medicine
PROC: 4A023N7 Measurement of Cardiac Sampling and Pressure, Left Heart, Percutaneous Approach (ICD-10-PCS; CPT 93452; principal; 2025-03-05 10:20)
DX: I21.19 ST elevation (STEMI) myocardial infarction involving other coronary artery of inferior wall (principal); N17.9 Acute kidney failure, unspecified; E66.01 Morbid (severe) obesity due to excess calories; E78.5 Hyperlipidemia, unspecified; E03.9 Hypothyroidism, unspecified; I10 Essential (primary) hypertension; I25.10 Atherosclerotic heart disease of native coronary artery without angina pectoris; Z95.5 Presence of coronary angioplasty implant and graft; Z68.38 Body mass index [BMI] 38.0-38.9, adult; Z87.891 Personal history of nicotine dependence; Z79.890 Hormone replacement therapy; Z79.899 Other long term (current) drug therapy; Z79.82 Long term (current) use of aspirin; Z79.02 Long term (current) use of antithrombotics/antiplatelets
CPT/HCPCS: 36415; 71045; 80048; 80053; 80061; 80076; 84484; 85025; 85347; 85378; 85610; 85730; 93005; 93306; 99152; C1725; C1760; C1769; C1874; J1200; J1644; J2003; J2250; J3010; J7030; J7040; Q9957; Q9967

== ENCOUNTER 2025-03-10 07:24 | Outpatient (CLI) | payer BC, SELFPAY ==
--- OUTSIDE RECORDS SUMMARY | 2025-01-23 06:15 | XMS_ITS ---
[facility] Address 1210 [facility] [address] [place] [id number] Care Team Providers Care Product Safety Coordinator Name Role Phone Aaron Davis Primary Care Provider [phone] Carol Tabor Unavailable [phone] Allergies No Known Allergies Results Component Value Reference Range Notes P-Culture, Anaerobic and Aer obic w/Gram Stain Reviewed date:01/28/2025 02:41:01 PM Interpretation: Performing Lab: Notes/Report: Test performed by [facility], [address] , [address], [place] [address] Timothy Grady MD, Registered Appraiser CLIA: [id number] Specimen Source - left first toe Culture, Anaerobic and Aerobic w/Gram Stain See Below Final Report : No Anaerobes isolated Sensitivity Panel See Below Organism Antibiotic Ceftaroline Clindamycin Daptomycin Erythromycin Gentamicin Levofloxacin Linezolid Moxifloxacin Oxacillin Penicillin Rifampin Tetracycline Trimeth/Sulfa Vancomycin S=SUSCEPTIBLE I=INTERMEDIATE R=RESISTANT P-Culture, Miscellaneous Aer obic w/Gram Stain Reviewed date:01/28/2025 02:41:01 PM Interpretation: Performing Lab: Notes/Report: Test performed by [facility], [address] , [address], [place] [address] Timothy Grady MD, Registered Appraiser CLIA: [id number] Specimen Source - left first toe Gram [...] tablet wi th food Orally Once a day for 90 days Active Furosemide 40 MG 1 tablet Orally Once a day prn for 90 days Active Tamiflu 75 MG 1 capsule Orally Twi ce a day for 5 day(s) 11/06/2024 Active Tadalafil 5 mg TAKE 1/2 TABLET BY M OUTH DAILY for 30 Active Fluticasone Propionate 50 MCG/ACT 1 spray in each nostril once a day for 90 days Active Clindamycin HCl 300 MG 1 capsule Orally Three times a day for 10 days 01/23/2025 Active Aspirin 81 MG CHEW AND SWALLOW 1 TABLET DAILY for 90 Active Omeprazole 40 MG 1 cap(s) orally once a day for 90 days Active Atorvastatin Calcium 40 MG 1 tablet Oral ly Once a day for 90 days Active Cetirizine HCl 10 MG 1 tab(s) orally onc e a day for 90 days Active Lisinopril 40 MG 1 tab(s) orally once a day for 90 days Active Levothyroxine Sodium 175 MCG 1 tab(s) or ally once a day for 90 days Active Triamterene-HCTZ 37.5-25 MG 1 tablet in the morning Orally Once a day for 90 days Active Social History Tobacco Use: [...] 01/23/2025 Encounters Encounter Location Date Provider Diagnosis [facility] [address] [place] [address] [place] [phone] 01/23/2025 Carol Tabor Toe infection L08.9 Assessments Encounter Date Diagnosis (ICD Code) Assessment Notes Treatment Notes Treatment Clinical Notes Section Notes 01/23/2025 Toe infection (ICD-10 - L08.9) Plan Of Treatment Medication Medication Name Sig Start Date Stop Date Notes Clindamycin HCl 300 MG 1 capsule Orally Three times a day for 10 days 01/23/2025 Next Appt Details Follow Up: via phone to repo rt test results, Reason: Provider Name:Aaron Rivers er, 03/12/2025 01:30:00 PM, [address], [address], [place], [phone], Progress Notes * Tommy RODRIGUEZ RDOB:[birth year] (49 yo M)Acc No.[id number]:01/23/2025 Progress Notes Patient: Tommy EUCEDA Provider: SHAYY Agrawal :1975 A ge:49 Y S ex:Male Date:01/23/2025 Address:[address] [id number] Pcp:Aaron Davis Subjective: * Chief Complaints: * [...] frequency: coffee, tea. Marital Status: Single. Occupation: [employer]. Past smoking status: yes, Smoking status: Patient [...] G eneral Examination: General Appearance: N AD. Chest: n ormal shape and expansion. Heart: R SR. Lungs: c lear to auscultation. Skin: l eft great toe with erythema and [...] - left first toe - * G anastacai Stain See Below - * S ensitivity Panel See Below - * S taphylococcus aureus Heavy Growth Staphylococcus aureus - * [facility], IT support 01/27/2025 08:25:04 : This order was created by the Interface. * Follow Up: v ia phone to report test results * Billing Information: * Visit Code: 43287 Office Visit, Est Pt., Level 3. * Procedure Codes: * Electronic signature of SHAYY Kelsey on 03/10/2025 at 07:29 AM EDT Sign off status: Pending * Provider: SHAYY Agrawal Date: 0 01/23/2025 Generated for Roni beckford/Carey/eTransmitting on: 0 03/10/2025 07:29 AM EDT History and Physical Notes * [...]
--- OUTSIDE RECORDS SUMMARY | 2025-01-28 05:45 | XMS_ITS ---
Author Organization [facility] Address [address] [place] [id number] Care Team Providers Care Mixer Driver Name Role Phone Aaron Davis Primary Care Provider [phone] Carol Tabor Unavailable [phone] Allergies No Known Allergies REASON FOR VISIT 1 week f/u Medications Medication SIG (Take, Route, Frequency, Duration) Notes Start Date End Date Status Cetirizine HCl 10 MG 1 tab(s) orally onc e a day for 90 days Active Mupirocin 2 % 1 application Code Machine Operator ally Twice a day 01/28/2025 Active Omeprazole 40 MG 1 cap(s) orally once a day for 90 days Active Bactrim DS 800-160 MG 1 tablet Orally Tw o times a day for 10 days 01/28/2025 Active Clindamycin HCl 300 MG 1 capsule Orally Three times a day for 10 days Active Levothyroxine Sodium 175 MCG 1 tab(s) orally once a day for 90 days Active Lisinopril 40 MG 1 tab(s) orally once a day for 90 days Active Triamterene-HCTZ 37.5-25 MG 1 tablet in the morning Orally Once a day for 90 days Active Fluticasone Propionate 50 MCG/ACT 1 spray in each nostril once a day for 90 days Active Furosemide 40 MG 1 tablet Orally Once a day prn for 90 days Active Aspirin 81 MG CHEW AND SWALLOW 1 T ABLET DAILY for 90 Active Atorvastatin Calcium 40 MG 1 tablet Oral ly Once a day for 90 days Active Potassium Chloride ER 20 MEQ 1 tablet with food Orally Once a day for 90 days Active Tadalafil 5 mg TAKE 1/2 TABLET BY M OUTH DAILY for 30 Active Social History Tobacco Use: Social [...] 01/28/2025 Encounters Encounter Location Date Provider Diagnosis [facility] [facility] [address] [facility] [address] [place] [phone] 01/28/2025 Carol Tabor Toe infection L08.9 Assessments [...] Date Notes Mupirocin 2 % 1 application Code Machine Operator ally Twice a day 01/28/2025 Bactrim DS 800-160 MG 1 tablet Orally Tw o times a day for 10 days 01/28/2025 Clindamycin HCl 300 MG 1 capsule Orally Three times a day for 10 days Treatment Notes Assessment Notes Toe infection Clindamycin has been upsetting his stomach. He only has a few days left and will finish them. His culture was positive for staph. Will start on Bactrim after finishing the clindamycin and f/u in 2 weeks. Next Appt Details Follow Up: 2 Weeks, Reason: Provider Name:Aaron Rivers er, 03/12/2025 01:30:00 PM, [facility], [address], [place], [phone], Progress Notes * Tommy RODRIGUEZ RDOB:[birth year] (49 yo M)Acc No.[id number]:01/28/2025 Patient: Tommy EUCEDA Provider: SHAYY Agrawal :1975 A ge:49 Y S ex:Male Date:01/28/2025 Address:[address] [place], [id number] Pcp:Aaron Davis Subjective: * Chief Complaints: * [...] frequency: coffee, tea. Marital Status: Single. Occupation: [employer]. Past smoking status: yes, Smoking status: Patient [...] auscultation. Skin: l eft great toe with less erythema and edema, there is still some purulent drainage as well. Assessment: * Assessment: 1. T oe infection - L08.9 (Primary) S pecify :left great toe Plan: * Treatment: * Follow Up: 2 Weeks * Billing Information: * Visit Code: 29232 Office Visit, Est Pt., Level 3. * Procedure Codes: * Electronic signature of SHAYY Kelsey on 03/10/2025 at 07:29 AM EDT Sign off status: Pending * Provider: SHAYY Agrawal Date: 01/28/2025 Generated for Roni beckford/Carey/Sebastianitting on: 03/10/2025 07:29 AM EDT History and Physical Notes * Examination Category Sub-Category Detail Notes Category Not es General Examination Heart: RSR Lungs: clear to auscultatio n General Appearance: NAD Skin: left great toe with less erythema and edema, there is still some purulent drainage as well Chest: normal shape and exp ansion
--- OUTSIDE RECORDS SUMMARY | 2025-02-11 06:00 | XMS_ITS ---
Author [facility] Address [address] [facility] [address] [phone] Care Team Providers Care Development Mgr Name Role Phone Aaron Davis Primary Care Provider [phone] Carol Tabor Unavailable [phone] Allergies No Known Allergies Reason For Referral Diagnosis 1 Toe infection (L08.9 ) [facility] Referring Provider First Name Carol Referring Provider Last Name Sharona Referring Provider Speciality Physician Sql Server Bi Developer Referred Provider Specialty Physical The rapist General Notes Carol Tabor 10:01:57 AM >Pt needs a referral to wound care., Elvi Keith 02/11/2025 10:32:40 AM > faxed to [facility] PT Referral Priority Routine REASON FOR [...] days Active Mupirocin 2 % 1 application Plant Chief ally Twice a day Active Cetirizine HCl [...] 02/11/2025 Encounters Encounter Location Date Provider Diagnosis [facility] [address] [facility] [address] [facility] [address] [place] [phone] 02/11/2025 Carol Tabor Toe infection L08.9 and [...] Name:Aaron Rivers er, 03/12/2025 01:30:00 PM, [address] [facility] [address] [facility], [address], [place], [phone], Progress Notes * Tommy RODRIGUEZ RDOB:[birth year] (49 yo M)Acc No.[id number]:02/11/2025 Patient: Tommy EUCEDA Provider: SHAYY Agrawal :1975 A ge:49 Y S ex:Male Date:02/11/2025 Address:[address] [place], [id number] Pcp:Aaron Davis Subjective: * Chief Complaints: * [...] Temp: 97.9, BP: 120/72, HR: 58, Nurse: [facility], Ht: 75, BMI:38.02. * Examination: G [...] Plan: * Treatment: * Follow Up: w [facility] wound care * Billing Information: * Visit Code: 66648 Office Visit, Est Pt., Level 3. * Procedure Codes: * Electronic signature of SHAYY Kelsey on 03/10/2025 at 07:29 AM EDT Sign off status: Pending * Provider: SHAYY Agrawal Date: 0 02/11/2025 Generated for Roni beckford/Carey/eTransmitting on: 0 03/10/2025 [...]
--- OUTSIDE RECORDS SUMMARY | 2025-03-10 07:29 | XMS_ITS | Patient Health Record ---
Author Organization [facility] Address [address] [facility] [address] [place] [id number] Care Team Providers Care Roving Or Yarn Color Checker Name Role Phone Aaron Davis Primary Care Provider [phone] Portillo Mcleod Unavailable [phone] Carol Tabor Unavailable [phone] Allergies No Known Allergies Results Component Value Reference Range Notes P-Culture, Anaerobic and Aer obic w/Gram Stain Reviewed date:01/28/2025 02:41:01 PM Interpretation: Performing Lab: Notes/Report: Test performed by [facility] [address] , [place] [address] Timothy Grady MD, Video Surveillance Technician CLIA: [id number] Specimen Source - left first toe Culture, Anaerobic and Aerobic w/Gram Stain See Below Final Report : No Anaerobes isolated Sensitivity Panel See Below _ Organism Antibiotic _ Ceftaroline Clindamycin Daptomycin Erythromycin Gentamicin Levofloxacin Linezolid Moxifloxacin Oxacillin Penicillin Rifampin Tetracycline Trimeth/Sulfa Vancomycin S=SUSCEPTIBLE I=INTERMEDIATE R=RESISTANT x ray : 1st digit, left foot Reviewed date:01/28/2025 02:41:01 PM Interpretation:mild degenerative change Performing Lab: Notes/Report: mild degenerative change H-BUN/CREAT Reviewed date:12/12/2024 05:41:57 PM Interpretation: Performing Lab: Notes/Report: BUN 30 9-20 mg/dl CREATT 1.40 0.66-1.25 mg/dl GFRAA 65 >60 ML/MIN EGFR 53 >60 ml/min P-Culture, Miscellaneous Aer obic w/Gram Stain Reviewed date:01/28/2025 02:41:01 PM Interpretation: Performing Lab: Notes/Report: Test performed by [facility] [address] [place] [address] , [address], [place] [address] Timothy Grady MD, Video Surveillance Technician CLIA: [id number] Specimen Source - left first toe Gram [...] Trimeth/Sulfa S Vancomycin S S=SUSCEPTIBLE I=INTERMEDIATE R=RESISTANT Rapid Strep- Inhouse Reviewed date:07/08/2024 11:01:42 AM Interpretation: Performing Lab: Notes/Report: strep test Pos Glycohemoglobin A1c (in hous e) Reviewed date:06/17/2024 10:21:48 AM Interpretation: Performing Lab: Notes/Report: glycohemoglobin 6.1% 5 - 6.5 % P-Microalbumin/Creatinine, R andom Urine Sample Reviewed date:06/18/2024 10:49:02 AM Interpretation:Normal Performing Lab: Notes/Report: Test performed by [facility] [address] [place] [address] [address], [place] [address] Timothy Grady MD, Video Surveillance Technician CLIA: [id number] Albumin/Creatinine Ratio, Urine 2 0-30 ug/mg Microalbumin, Urine, Random 0.3 Creatinine, Urine 125.3 P-Basic Metabolic Panel (BMP ) Reviewed date:06/18/2024 10:49:02 AM Interpretation:gluc 109, bun 23 Performing Lab: Notes/Report: Test performed by [facility] [address] [place] [address] [address], [place] [address] Timothy Grady MD, Video Surveillance Technician CLIA: [id number] Sodium 138 135-145 mmol/L Potassium 4.8 3.5-5.3 mmol/L Chloride 99 97-108 mmol/L CO2 28 22-32 mmol/L Glucose 109 65-99 mg/dL BUN 23 6-20 mg/dL Creatinine 1.29 0.70-1.30 mg/dL Calcium 9.4 8.6-10.4 mg/dL eGFR by Creatinine 67 >59 mL/min/1.73m2 CBC Fingerstick (in house) Reviewed date:11/06/2024 11:09:14 [...] employed in healthcare? No Is patient an [employer] employee? N Is patient currently hospitalized? No [...] AM Interpretation: Performing Lab: Notes/Report: Result: Neg Influenza Screen (in house) Reviewed date:11/06/2024 11:09:22 AM Interpretation: Performing Lab: Notes/Report: results Neg Glycohemoglobin A1c (in hous e) Reviewed date:10/17/2024 10:08:40 AM Interpretation:6.3 Performing Lab: Notes/Report: 6.3 glycohemoglobin 6.3% 5 - 6.5 % P-Comprehensive Metabolic Pa vishnu (CMP) Reviewed date:10/17/2024 10:08:40 AM Interpretation:bun 24, creat 1.44, gfr 59 Performing Lab: Notes/Report: Test performed by [facility] [address] [place], [place] [address] [place] , [address], [place] [address] Timothy Grady MD, Video Surveillance Technician CLIA: [id number] Sodium 138 135-145 mmol/L Potassium 4.6 3.5-5.3 [...] Interpretation:Normal Performing Lab: Notes/Report: Test performed by [facility] [address] [place] [address] , [address], [place] [address] Timothy Grady MD, Video Surveillance Technician CLIA: [id number] PSA 0.51 <4.00 ng/mL Please note this is an ultrasensitive PSA assay with a lower limit of detection of 0.014 ng/mL. This test is performed by the Reyna ECLIA methodology. Values obtained with different assay methods or kits cannot be directly compared. P-Microalbumin/Creatinine, R andom Urine Sample Reviewed date:10/17/2024 10:08:40 AM Interpretation:Normal Performing Lab: Notes/Report: Test performed by [facility] [address] [place] [address] , [address], [place] [address] Timothy Grady MD, Video Surveillance Technician CLIA: [id number] Albumin/Creatinine Ratio, Urine 8 0-30 ug/mg Microalbumin, Urine, Random 2.0 Creatinine, Urine 241.6 CT Scan : Chest, low dose Reviewed date:11/07/2024 10:30:01 AM Interpretation:no suspicious pulm mass, splenic lesion, recomment CT abdomen and pelvis with contrast Performing Lab: Notes/Report: no suspicious pulm mass, splenic lesion, recomment CT abdomen and pelvis with contrast CT scan : Abdomen and pelvis with contrast (Not yet reviewed by provider) Interpretation:nothing acute, benign cyst Performing Lab: Notes/Report: nothing acute, benign cyst Medications Medication SIG (Take, Route, Frequency, Duration) Notes Start Date End Date Status Mupirocin 2 % 1 application Wood 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 ally Twice a day Active Cetirizine HCl [...] Problem Status W/U Status Risk Notes Problem 39034131 Essential (prima ry) hypertension (I10) Active confirmed Problem 968953529 Tobacco abuse (Z72.0) Active confirmed Problem 50017129 Essential hypertension (I10) Active confirmed Problem 652182935 Angina pectoris (I20.9) Active confirmed Problem 555399163 Mixed hyperlipid emia (E78.2) Active confirmed Problem 02353265 Restless legs syndrome (G25.81) Active confirmed Problem 147697004 Acquired hypothyroidism (E03.9) Active confirmed Problem 76157593 Sleep disturbanc e (G47.9) Active confirmed Problem 10293718 Chronic fatigue (R53.82) Active confirmed Problem 162419523 Status post christo nary artery stent placement (Z95.5) Active confirmed Problem 450118588 Erectile dysfunction, unspecified erectile dysfunction type (N52.9) Active confirmed Problem 970339287 BMI 40.0-44.9, a dult (Z68.41) Active confirmed Problem 27938706 Hyperlipidemia, unspecified hyperlipidemia type (E78.5) Active confirmed Problem 731902589 Coronary artery disease involving [place] coronary artery of [place] heart, angina presence unspecified (I25.10) Active confirmed Problem 510409761 BMI 39.0-39.9,ad ult (Z68.39) Active confirmed Problem 588799889 Status post angioplasty with stent (Z95.9) Active confirmed Problem 405535521 Atherosclerosis of [place] coronary artery without angina pectoris, unspecified whether [place] or transplanted heart (I25.10) Active confirmed Problem 898726515 Benign prostatic hyperplasia without lower urinary tract symptoms (N40.0) Active confirmed Problem 340131148 Seasonal allergi c rhinitis, unspecified trigger (J30.2) Active confirmed Problem 204644291 Type 2 diabetes mellitus without complication, unspecified whether prison insulin use (E11.9) Active confirmed Problem 710054734 Gastroesophageal reflux disease, unspecified whether esophagitis present (K21.9) Active confirmed Problem 704585407 Partial tear of left Achilles tendon, subsequent encounter (S86.012D) Active confirmed Vital Signs Heart Rate 58 /min 02/11/2025 Blood pressure diastolic 72 mm Hg 02/11/2025 Height 75 in 02/11/2025 Blood pressure systolic 120 mm Hg 02/11/2025 Weight 304.2 lbs 02/11/2025 BMI 38.02 kg/m2 02/11/2025 Encounters Encounter Location Date Provider Diagnosis [facility] [address] [place] [id number] 06/03/2024 Portillo Norfolk Strain of left Achil les tendon, initial encounter S86.012A Leigh [address] [place] [id number] 06/16/2024 Aaron Davis Type 2 diabetes mellitus without complication, unspecified whether prison insulin use E11.9 ; BMI 39.0-39.9,adult Z68.39 and Partial tear of left Achilles tendon, subsequent encounter S86.012D Leigh [address] [place] [id number] 07/07/2024 Portillo [place] Strep sore throat J0 2.0 Leigh [address] [place] [id number] 10/16/2024 Aaron Davis Type 2 diabetes mellitus without complication, unspecified whether meterman insulin use E11.9 ; BMI 39.0-39.9,adult Z68.39 ; Essential (primary) hypertension I10 ; Status post angioplasty with stent Z95.9 ; Benign prostatic hyperplasia without lower urinary tract symptoms N40.0 and History of tobacco use Z87.891 Leigh 1210 Replaced By [facility] [address] [place] [id number] 11/06/2024 Carol Crowdy Acute URI J06.9 ; Chapin dy aches R52 ; Fever, unspecified R50.9 and Influenza A J10.1 eLigh [address] [facility] [address] [place], [place] [id number] 01/23/2025 Carol Crowdy Toe infection L08.9 [facility] [facility] [address] [place], [place] [id number] 01/28/2025 Carol Crowdy Toe infection L08.9 [facility] [facility] [facility] [address] [place], [place] [id number] 02/11/2025 Carol Crowdy Toe infection L08.9 and Open wound of toe, subsequent encounter S91.109D [facility] [address] [place], [place] [id number] 06/18/2024 Aaron Davis [facility] [address] [place], [place] [id number] 06/20/2024 J Doyle Davis [facility] [address] [place], [place] [id number] 07/31/2024 J Doyle Davis [facility] [address] [place] [id number] 08/05/2024 J Doyle Davis [facility] [address] [place], [place] [id number] 08/07/2024 J Doyle Davis [facility] [address] [place] [id number] 08/08/2024 J Doyle Davis [facility] [address] [place], [place] [id number] 10/17/2024 Aaron Davis [facility] [address] [place], [place] [id number] 11/07/[address] lung screening R91.8 [facility] [address] [place], [place] [id number] 11/10/2024 Carol Tabor Assessments Encounter Date Diagnosis (ICD Code) Assessment Notes Treatment Notes Treatment Clinical Notes Section Notes 06/16/2024 BMI 39.0-39.9,adult (ICD-10 - Z68.39) 06/16/2024 Type 2 diabetes mellitus without complication, unspecified whether meterman insulin use (ICD-10 - E11.9) 07/07/2024 Strep sore throat (ICD-10 - J02.0) 10/16/2024 BMI 39.0-39.9,adult (ICD-10 - Z68.39) 10/16/2024 Type 2 diabetes mellitus without complication, unspecified whether prison insulin use (ICD-10 - E11.9) continue current therapy 11/07/[address] lung screening (ICD-10 - [...] toe, subsequent encounter (ICD-10 - S91.109D) 11/06/2024 Body aches (ICD-10 - R52) 11/06/2024 Acute URI (ICD-10 - J06.9) 06/03/2024 Strain of left Achilles tendon, initial encounter (ICD-10 - S86.012A) Rest, ice, compression and elevation 11/06/2024 Fever, unspecified (ICD-10 - R50.9) 10/16/2024 [...] [address], [place], [place], [id number], Insurance Providers Payer Name Payer Address Payer Phone Subscriber Number Group Number Insured Name Patient Relationship to Insured Coverage Start Date Coverage End Date [employer] [address] [place] [address] [id number] Tommy Barrera Self - patient is [...]
--- OUTSIDE RECORDS SUMMARY | 2025-03-10 07:29 | XMS_ITS | Data Portability ---
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 He is highly recommended to stop [...] 136 mg/dL 125-20 0 normal Not Available [facility] [address] [facility], [place], [address], 08/30/2016 07:50:50 08/29/20 16 08/30/2016 lipid panel , serum HDL cholesterol 35 mg/dL > or = 40 low Not Available [facility] [address] [facility] [place], [address], 08/30/2016 07:50:50 08/29/20 16 08/30/2016 lipid panel , serum triglyceride s 139 mg/dL <150 normal Not Available [facility] [address] [place], [address], 08/30/2016 07:50:50 08/29/20 16 08/30/2016 lipid panel , serum LDL-choleste rol 73 mg/dL _(amanda c) <130 normal Roland able range <100 mg/dL for patie nts with CHD or diabe alvarado and <70 mg/dL for diabe tic patie nts with known heart disea se. Not Available [facility] [address] [place], [address], 08/30/2016 07:50:50 08/29/20 16 08/30/2016 lipid panel , serum chol/HDLC ratio 3.9 (calc ) < or = 5.0 normal Not Available [facility] [address] [facility] [place], [address], 08/30/2016 07:50:50 08/29/20 16 08/30/2016 lipid panel , serum non HDL cholesterol 101 mg/dL _(amanda c) normal Targe t for non-H DL marisela stero l is 30 mg/dL highe r than LDL marisela stero l targe t. Not Available [facility] [address] [facility] [place], [address], 08/30/2016 07:50:50 08/29/20 16 08/30/2016 CMP, serum or plasm a glucose 92 mg/dL 65-99 normal Fasti ng refer ence inter evelyn Not Available [facility] [address] [place], [address], 08/30/2016 07:50:50 08/29/20 16 08/30/2016 CMP, serum or plasm a urea nitrogen (BUN) 13 mg/dL 7-25 normal Not Available [facility] [place], [address], 08/30/2016 07:50:50 08/29/20 16 08/30/2016 CMP, serum or plasm a creatinine 1.04 mg/dL 0.60-1 .35 normal Not Available [facility] [facility] [place], [address], 08/30/2016 07:50:50 08/29/20 16 08/30/2016 CMP, serum or plasm a eGFR non-afr. greek 88 mL/mi n/1.7 3m2 > or = 60 normal Not Available [facility] [place], [address], 08/30/2016 07:50:50 08/29/20 16 08/30/2016 CMP, serum or plasm a eGFR 101 mL/mi n/1.7 3m2 > or = 60 normal Not Available [facility] [address] [place], [address], 08/30/2016 07:50:50 08/29/20 16 08/30/2016 CMP, serum or plasm a BUN/creatini ne ratio NOT APPLIC ABLE (calc ) 6-22 Not Available [facility] [place], [address], 08/30/2016 07:50:50 08/29/20 16 08/30/2016 CMP, serum or plasm a sodium 137 mmol/ L 135-14 6 normal Not Available [facility] [address] [place], [place] [address], [address], 08/30/2016 07:50:50 08/29/20 16 08/30/2016 CMP, serum or plasm a potassium 4.5 mmol/ L 3.5-5. 3 normal Not Available [facility] [address] [place], [place] [address], [address], 08/30/2016 07:50:50 08/29/20 16 08/30/2016 CMP, serum or plasm a chloride 102 mmol/ L 98-110 normal Not Available [facility] [address] [place], [place] [address], [address], 08/30/2016 07:50:50 08/29/20 16 08/30/2016 CMP, serum or plasm a carbon dioxide 30 mmol/ L 20-31 normal Not Available [facility] [address] [place], [place] [address], [address], 08/30/2016 07:50:50 08/29/20 16 08/30/2016 CMP, serum or plasm a calcium 9.7 mg/dL 8.6-10 .3 normal Not Available [facility] [address] [place] [address], [address], 08/30/2016 07:50:50 08/29/20 16 08/30/2016 CMP, serum or plasm a protein, total 7.8 g/dL 6.1-8. 1 normal Not Available [facility] [address] [place] [address], [address], 08/30/2016 07:50:50 08/29/20 16 08/30/2016 CMP, serum or plasm a albumin 4.6 g/dL 3.6-5. 1 normal Not Available [facility] [address] [place], [address], 08/30/2016 07:50:50 08/29/20 16 08/30/2016 CMP, serum or plasm a globulin 3.2 g/dL_ (calc ) 1.9-3. 7 normal Not Available [facility] [address] [facility] [place], [address], 08/30/2016 07:50:50 08/29/20 16 08/30/2016 CMP, serum or plasm a albumin/glob ulin ratio 1.4 (calc ) 1.0-2. 5 normal Not Available [facility] [address] [facility] [place], [address], 08/30/2016 07:50:50 08/29/20 16 08/30/2016 CMP, serum or plasm a bilirubin, total 0.5 mg/dL 0.2-1. 2 normal Not Available [facility] [address] [place], [address], 08/30/2016 07:50:50 08/29/20 16 08/30/2016 CMP, serum or plasm a alkaline phosphatase 85 U/L 40-115 normal Not Available [facility] [address] [facility] [place], [address], 08/30/2016 07:50:50 08/29/20 16 08/30/2016 CMP, serum or plasm a AST 24 U/L 10-40 normal Not Available [facility] [address] [facility] [place], [address], 08/30/2016 07:50:50 08/29/20 16 08/30/2016 CMP, serum or plasm a ALT 39 U/L 9-46 normal Not Available [facility] [address] [facility] [place], [address], 08/30/2016 07:50:50 08/29/20 16 08/30/2016 CBC w/ auto diff white blood cell count 8.0 thous and/u L 3.8-10 .8 normal Not Available [facility] [address] [facility] [place], [address], 08/30/2016 07:50:51 08/29/20 16 08/30/2016 CBC w/ auto diff red blood cell count 4.51 ivory on/uL 4.20-5 .80 normal Not Available [facility] [address], [address], 08/30/2016 07:50:51 08/29/20 16 08/30/2016 CBC w/ auto diff hemoglobin 14.3 g/dL 13.2-1 7.1 normal Not Available [facility] [address] [place] [address], [address], 08/30/2016 07:50:51 08/29/20 16 08/30/2016 CBC w/ auto diff hematocrit 42.3 % 38.5-5 0.0 normal Not Available [facility] [address] [place] [address], [address], 08/30/2016 07:50:51 08/29/20 16 08/30/2016 CBC w/ auto diff MCV 93.9 fL 80.0-1 00.0 normal Not Available [facility] [address] [place] [address], [address], 08/30/2016 07:50:51 08/29/20 16 08/30/2016 CBC w/ auto diff MCH 31.6 pg 27.0-3 3.0 normal Not Available [facility] [address] [place] [address], [address], 08/30/2016 07:50:51 08/29/20 16 08/30/2016 CBC w/ auto diff MCHC 33.7 g/dL 32.0-3 6.0 normal Not Available [facility] [address] [place] [address] [place], [address], 08/30/2016 07:50:51 08/29/20 16 08/30/2016 CBC w/ auto diff RDW 13.9 % 11.0-1 5.0 normal Not Available [facility] [address] [place], [address], 08/30/2016 07:50:51 08/29/20 16 08/30/2016 CBC w/ auto diff platelet count 324 thous and/u L 140-40 0 normal Not Available [facility] [address] [place], [address], 08/30/2016 07:50:51 08/29/20 16 08/30/2016 CBC w/ auto diff MPV 7.3 fL 7.5-11 .5 low Not Available [facility] [address] [facility], [address], 08/30/2016 07:50:51 08/29/20 16 08/30/2016 CBC w/ auto diff absolute neutrophils 4600 cells /uL 1500-7 800 normal Not Available [facility] [address] [place], [address], 08/30/2016 07:50:51 08/29/20 16 08/30/2016 CBC w/ auto diff absolute lymphocytes 2728 cells /uL 850-39 00 normal Not Available [facility] [address] [facility] [place], [address], 08/30/2016 07:50:51 08/29/20 16 08/30/2016 CBC w/ auto diff absolute monocytes 384 cells /uL 200-95 0 normal Not Available [facility] [address], [place], [address], 08/30/2016 07:50:51 08/29/20 16 08/30/2016 CBC w/ auto diff absolute eosinophils 264 cells /uL 15-500 normal Not Available [facility] [address] [place], [address], 08/30/2016 07:50:51 08/29/20 16 08/30/2016 CBC w/ auto diff absolute basophils 24 cells /uL 0-200 normal Not Available [facility] [address] [place], [address], 08/30/2016 07:50:51 08/29/20 16 08/30/2016 CBC w/ auto diff neutrophils 57.5 % normal Not Available [facility] [address] [place], [address], 08/30/2016 07:50:51 08/29/20 16 08/30/2016 CBC w/ auto diff lymphocytes 34.1 % normal Not Available [facility] [address] [place], [address], 08/30/2016 07:50:51 08/29/20 16 08/30/2016 CBC w/ auto diff monocytes 4.8 % normal Not Available [facility] [address] [place], [address], 08/30/2016 07:50:51 08/29/20 16 08/30/2016 CBC w/ auto diff eosinophils 3.3 % normal Not Available [facility] [address] [place], [address], 08/30/2016 07:50:51 08/29/20 16 08/30/2016 CBC w/ auto diff basophils 0.3 % normal Not Available [facility] [address] [place], [address], 08/30/2016 07:50:51 08/29/20 16 08/30/2016 urina lysis , compl ete color YELLOW yellow normal Not Available [facility] [address], [place], [address], 08/30/2016 07:50:51 08/29/20 16 08/30/2016 urina lysis , compl ete appearance CLEAR clear normal Not Available [facility] [address] [place], [address], 08/30/2016 07:50:51 08/29/20 16 08/30/2016 urina lysis , compl ete specific gravity 1.018 1.001- 1.035 normal Not Available [facility] [address], [place], [address], 08/30/2016 07:50:51 08/29/20 16 08/30/2016 urina lysis , compl ete pH 5.5 5.0-8. 0 normal Not Available [facility] [address] [facility] [place], [address], 08/30/2016 07:50:51 08/29/20 16 08/30/2016 urina lysis , compl ete glucose NEGATI VE negati ve normal Not Available [facility] [address] [facility], [address], 08/30/2016 07:50:51 08/29/20 16 08/30/2016 urina lysis , compl ete bilirubin NEGATI VE negati ve normal Not Available [facility] [address] [place], [address], 08/30/2016 07:50:51 08/29/20 16 08/30/2016 urina lysis , compl ete ketones NEGATI VE negati ve normal Not Available [facility] [address] [place] [place], [address], 08/30/2016 07:50:51 08/29/20 16 08/30/2016 urina lysis , compl ete occult blood NEGATI VE negati ve normal Not Available [facility] [address] [place], [address], 08/30/2016 07:50:51 08/29/20 16 08/30/2016 urina lysis , compl ete protein NEGATI VE negati ve normal Not Available [facility] [address], [place], [address], 08/30/2016 07:50:51 08/29/20 16 08/30/2016 urina lysis , compl ete nitrite NEGATI VE negati ve normal Not Available [facility] [address], [place], [address], 08/30/2016 07:50:51 08/29/20 16 08/30/2016 urina lysis , compl ete leukocyte esterase NEGATI VE negati ve normal Not Available [facility] [address], [place], [address], 08/30/2016 07:50:51 08/29/20 16 08/30/2016 urina lysis , compl ete WBC NONE SEEN /hpf < or = 5 normal Not Available [facility] [address], [place], [address], 08/30/2016 07:50:51 08/29/20 16 08/30/2016 urina lysis , compl ete RBC NONE SEEN /hpf < or = 2 normal Not Available [facility] [address], [place], [address], 08/30/2016 07:50:51 08/29/20 16 08/30/2016 urina lysis , compl ete squamous epithelial cells NONE SEEN /hpf < or = 5 normal Not Available [facility] [address], [place], [address], 08/30/2016 07:50:51 08/29/20 16 08/30/2016 urina lysis , compl ete bacteria NONE SEEN /hpf none seen normal Not Available [facility] [address], [place], [address], 08/30/2016 07:50:51 08/29/20 16 08/30/2016 urina lysis , compl ete hyaline cast NONE SEEN /lpf none seen normal Not Available [facility] [address] [facility], [place], [address], 08/30/2016 07:50:51 Result Notes None recorded. Medical [...] Status Current Every Day Smoker Not Available [facility] 07/13/2020 03:11:15 What Is Your Level Of Caffeine Consumption? Moderate [id number] Information not available 07/13/2020 Diabetes No Information no t available 08/29/2016 What Type Of Diet Are You Following? REGULAR [id number] Information not available 07/13/2020 Education 12 Information no t available 08/29/2016 High Blood Pressure Yes Information not available 08/29/2016 High Cholesterol Yes Informat ion not available 08/29/2016 Marital Status Single Informatio n not available 08/29/2016 How Much Tobacco Do You Smoke? 0.5 PPD [id number] Information not available 07/13/2020 How Many Years Have You Smoked Tobacco? 30 [id number] Information not available 07/13/2020 Sex: Unknown Functional Status Question Answer Note LastModified by Organizat ion Details LastModified Time What is your level of alcohol consumption? 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 None [id number] Information not available 07/13/2020 Mental Status None recorded. Family History Nothing Reported. Medical History Condition Response Coronary Artery Disease Y Hypothyroidism Y High Cholesterol Y Ear or Hearing Problems GERD/Reflux Y Heart Disease Y Hypertension Y Past Encounters Encounter ID Performer Location Encounter Start Date Encounter Closed Date Diagnosis/Indication Diagnosis SNOMED-CT Code Diagnosis ICD10 Code Diagnosis Note [id number] Sunni Robert MD [facility] [address] [place] [address], [address] [place] [address] 08/29/2016 09:17:32 09/01/2016 09:11:32 History and physical examination, pre-employment 695074633 Z02.1 Chronic ob structive pulmonary disease 36082917 J44.9 History of placement of stent for coronary artery disease 207146226 Z95.5 Essential hypertension 90216204 I10 Hyperlipidemia 03263700 E78.5 Hypothyroidism 14923279 E03.9 Gastroesop hageal reflux disease 580737027 K21.9 Health Concerns Section Related Observation LastModified by Organization Detai ls LastModified Time None Recorded Concern Status LastModified by Organization Details LastModified Time None Recorded Advance Directives Directive None Recorded Payers Insurance Date Sequence Insurance Name Policy Number Policy Ramírez Covered Member ID Ramírez Member ID Guarantor Name 08/29/2016 1 *SELF PAY* Ting Barrera
--- OUTSIDE RECORDS SUMMARY | 2025-03-10 07:29 | XMS_ITS | Data Portability ---
Author Organization [facility] [place] Address [address] [place] [address] Care Team Providers Care Heel Coverer Machine Operator Name Role Phone ADAN JESSICA Primary Care Provider Assessment No assessment recorded. [...] Address Organization Details Recorded Time Myocardial infarction 92385306 Active 2021 Juarez hirsch [facility] [place] 2 09:18:39 Hypertensive disorder 99741090 Active 2021 Juarez hirsch [facility] & [place] 2 09:18:49 Thyroiditis 00838458 Active 2021 Juarez hirsch [facility] & [place] 2 09:19:00 Problem Notes None recorded. Medical [...] Updated DateTime 07/13/2022 190.5 cm 38.7 kg/m2 558402.63 g 98.1 [degF] Juarez Seaman [facility] [place] 07/13/2022 09:15:32 Social History Question Answer Notes LastModified by [employer] Details LastModified Time Tobacco Smoking Status Former Smoker Juarez Seaman [facility], [facility] & [place] 07/13/2022 09:11:40 Do You Have An Advance Directive? No [email or web address] Information not available 07/13/2022 Are You Blind Or Do You Have Difficulty Seeing? No [email or web address] Information not available 07/13/2022 What Was The Date Of Your Most Recent Tobacco Screening? 07/10/2022 [email or web address] Information not available 07/13/2022 Are You Passively Exposed To Smoke? No [email or web address] Information not available 07/13/2022 How Much Tobacco Do You Smoke? 1 PPD Information not available 07/13/2022 How Many Years Have You Smoked Tobacco? 30 [email or web address] Information not available 07/13/2022 Sex: Male Functional Status Question Answer Note LastModified by [employer] Details LastModified Time Do you use any illicit or recreational drugs? No [email or web address] Information not available 07/13/2022 What is your level of alcohol consumption? None [email or web address] Information not available 07/13/2022 Do you or have you ever used smokeless tobacco? Never used smokeless tobacco [email or web address] Information not available 07/13/2022 What is your exercise level? None [email or web address] Information not available 07/13/2022 Mental Status Question Answer Note LastModified by Organization D etails LastModified Time Do you feel stressed (tense, restless, nervous, or anxious, or unable to sleep at night)? [id number] [email or web address] Information not available 07/13/2022 Family History Relationship Description Onset Age of this Age Resolved Age Notes LastModified by Organization Details LastModified Time Mother Malignant neoplastic disease [email or web address] Not available 2021 09:19:14 Father Family history unknown [email or web address] Not available 2021 09:19:26 Brother Family history unknown [email or web address] Not available 2021 09:19:26 Sister Family history unknown [email or web address] Not available 2021 09:19:26 Medical History Condition Response Heart Attack (MD) Y Past Encounters Encounter ID Performer Location Encounter Start Date Encounter Closed Date Diagnosis/Indication Diagnosis SNOMED-CT Code Diagnosis ICD10 Code Diagnosis Note [id number] Garett Crump Jr, MD [facility] [address] [place] [phone] 07/13/2022 08:54:36 07/13/2022 09:59:42 Vasectomy requested 061982312 Z30.2 patient and his present for vasectomie [...] Member ID Guarantor Name 07/13/2022 1 [employer] (POS) [id number] Tommy Barrera [id number] Tommy Barrera Notes Date Note Type Note [...] or testicular abnormalities. Garett Crump Jr, MD [address] [place] [address], [address], [place], [address], [facility] [place] & [place] 07/14/2022 12:47:49
[2025-03-10 07:55] LABS: Basophils # 0.1 K/mm3 (0-0.2); Eosinophils # 0.3 Kmm3 (0.0-0.4); Eosinophils % 2.8 % (0.1-12.0); Hematocrit 39.1 % (42.0-52.0); Hemoglobin 12.9 g/dL (14.1-18.0); Immature Granulocytes # 0.03 10^3uL; Immature Granulocytes % 0.3 %; Lymphocytes # 2.3 K/mm3 (0.7-4.5); Lymphocytes % 25.7 % (10-50); Mean Corpuscular Hemoglobin 30.7 pg (27.0-31.2); Mean Corpuscular Volume 93.1 fl (80-94); Mean Platelet Volume 8.7 fl (7.4-10.4); Monocytes # 0.5 K/mm3 (0.1-1.0); Monocytes % 5.8 % (1.7-9.3); Neutrophils # 5.7 K/mm3 (1.8-7.8); Neutrophils % 64.4 % (37.0-80.0); Nucleated Red Blood Cells # 0 10^3/uL; Nucleated Red Blood Cells % 0 %; Platelet Count 323 K/mm3 (142-424); Red Cell Distribution Width 13.1 % (11.5-17.5); Red Cell Distribution Width-SD 44.2 fL; White Blood Count 8.9 K/mm3 (4.8-10.8)
[2025-03-10 08:28] LABS: Chloride 101 mmol/L (98-107); Potassium 5.2 mmoL/L (3.5-5.1); Sodium 138 mmol/L (136-145)
[2025-03-10 08:31] LABS: Anion Gap 14.2 mEq/L (5-15); Blood Urea Nitrogen 24 mg/dl (9-20); Calcium 9.4 mg/dl (8.4-10.2); Carbon Dioxide 28 mmol/L (22.0-30.0); Estimated Glomerular Filt Rate 64 ml/min (>60); GFR (African American) 77 ML/MIN (>60); Glucose 120 mg/dl (74-100)
== END 2025-03-10 23:59 | disposition home or self-care (01) ==
PROVIDERS: PCP Family Medicine; Visit Provider Internal Medicine
DX: Z95.5 Presence of coronary angioplasty implant and graft (principal)
CPT/HCPCS: 36415; 80048; 85025

== ENCOUNTER 2025-03-17 09:40 | Outpatient (RCR) | payer BC, SELFPAY | END 2025-06-15 08:00 | disposition home or self-care (01) | LOC: CR 09:40 | PROVIDERS: Visit Provider Internal Medicine | DX: I25.10 Atherosclerotic heart disease of native coronary artery without angina pectoris (principal); I10 Essential (primary) hypertension; I21.3 ST elevation (STEMI) myocardial infarction of unspecified site; Z95.5 Presence of coronary angioplasty implant and graft | CPT/HCPCS: 93798 ==

== ENCOUNTER 2025-07-07 07:42 | Outpatient (CLI) | payer BC, SELFPAY ==
--- OUTSIDE RECORDS SUMMARY | 2025-01-23 06:15 | XMS_ITS ---
Author Organization [facility] Address 1210 [facility] [address] [place] [phone] Care Team Providers Care Escrow Secretary Name Role Phone Aaron Davis Primary Care Provider [phone] Carol Tabor Unavailable [phone] Allergies No Known Allergies Results Component Value Reference Range Notes P-Culture, Anaerobic and Aer obic w/Gram Stain Reviewed date:01/28/2025 02:41:01 PM Interpretation: Performing Lab: Notes/Report: Test performed by [email or web address], [address] , [address], [place] [address] Timothy Grady MD, Rip Machine Operator CLIA: [id number] Specimen Source - left first toe Culture, Anaerobic and Aerobic w/Gram Stain See Below Final Report : No Anaerobes isolated Sensitivity Panel See Below Organism Antibiotic Ceftaroline Clindamycin Daptomycin Erythromycin Gentamicin Levofloxacin Linezolid Moxifloxacin Oxacillin Penicillin Rifampin Tetracycline Trimeth/Sulfa Vancomycin S=SUSCEPTIBLE I=INTERMEDIATE R=RESISTANT P-Culture, Miscellaneous Aer obic w/Gram Stain Reviewed date:01/28/2025 02:41:01 PM Interpretation: Performing Lab: Notes/Report: Test performed by [email or web address], [address] , [address], [place] [address] Timothy Grady MD, Rip Machine Operator CLIA: [id number] Specimen Source - left first toe Gram [...] you a: STOPPED SMOKING 2018 Vital Signs Weight 305.6 lbs 01/23/2025 Blood pressure systolic 120 mm Hg 01/24/20 25 Blood pressure diastolic 72 mm Hg 025 Heart Rate 77 /min 01/23/2025 Height 75 in 01/23/2025 BMI 38.19 kg/m2 01/23/2025 Encounters Encounter Location Date Provider Diagnosis [facility] 36 [facility] [address] [place] [phone] 01/23/2025 Carol Tabor Toe infection L08.9 Assessments [...] Blayne Isaac y, 07/10/2025 09:15:00 AM, 1210 [facility] 36 [facility], [address], [place], [phone], Provider Name:Aaron Rivers er, 07/20/2025 02:00:00 PM, 1210 [facility] 36 [facility], [address], [place], [phone], Progress Notes * Tommy RODRIGUEZ RDOB:[birth year] (49 yo M)Acc No.[id number]:01/23/2025 Progress Notes Patient: Lara BROWNKAYDENISABELLATommy Provider: SHAYY Agrawal :1975 A ge:49 Y S ex:Male Date:01/23/2025 Address:[address] [facility] [id number] Pcp:Aaron Davis Subjective: * [...] frequency: coffee, tea. Marital Status: Single. Occupation: [employer]. Past smoking status: yes, Smoking status: Patient [...] aureus Heavy Growth Staphylococcus aureus - * [facility], IT support 01/27/2025 08:25:04 : This order was created by the Interface. * Follow Up: v ia phone to report test results * Images: Billing Information: * Visit Code: 34064 Office Visit, Est Pt., Level 3. * Procedure Codes: * Electronic signature of SHAYY Kelsey on 07/07/2025 at 07:46 AM EDT Sign off status: Pending * Provider: SHAYY Agrawal Date: 0 01/23/2025 Generated for Ortegai shakeel/Carey/eTransmitting on: 1 07:46 AM EDT History and Physical Notes * [...]
--- OUTSIDE RECORDS SUMMARY | 2025-01-28 05:45 | XMS_ITS ---
Author Organization [facility] Address [address] [place] [phone] Care Team Providers Care Contract Modeler Name Role Phone Aaron Davis Primary Care Provider [phone] Carol Tabor Unavailable [phone] Allergies No Known Allergies REASON FOR VISIT 1 week f/u Medications Medication SIG (Take, Route, Frequency, Duration) Notes Start Date End Date Status Cetirizine HCl 10 MG 1 tab(s) orally onc e a day; Duration: 90 days Active Mupirocin 2 % 1 application Curator ally Twice a day 01/28/2025 Active Omeprazole [...] a: STOPPED SMOKING 2018 Vital Signs Weight 304.6 lbs 01/28/2025 Blood pressure systolic 118 mm Hg 01/29/20 25 Blood pressure diastolic 76 mm Hg 025 Heart Rate 82 /min 01/28/2025 Height 75 in 01/28/2025 BMI 38.07 kg/m2 01/28/2025 Encounters Encounter Location Date Provider Diagnosis [facility] [address] [place] [phone] 01/28/2025 Carol Tabor Toe infection L08.9 Assessments [...] Date Notes Mupirocin 2 % 1 application Curator ally Twice a day 01/28/2025 Bactrim DS [...] Details Follow Up: 2 Weeks, Reason: Provider Name:Carol Isaac y, 07/10/2025 09:15:00 AM, [address] [facility], [address], [place], [phone], Provider Name:Aaron Rivers er, 07/20/2025 02:00:00 PM, [address] [facility], [address], [place], [phone], Progress Notes * Tommy RODRIGUEZ RDOB:[birth year] (49 yo M)Acc No.[id number]:01/28/2025 Patient: Tommy EUCEDA Provider: SHAYY Agrawal :1975 A ge:49 Y S ex:Male Date:01/28/2025 Address:[address] [id number] Pcp:Aaron Davis Subjective: * Chief Complaints: * [...] * Images: Billing Information: * Visit Code: 04045 Office Visit, Est Pt., Level 3. * Procedure Codes: * Electronic signature of SHAYY Kelsey on 07/07/2025 at 07:45 AM EDT Sign off status: Pending * Provider: SHAYY Agrawal Date: 0 01/28/2025 Generated for Roni beckford/Carey/Jonysmitting on: 1 07:45 AM EDT History and Physical Notes * Examination Category Sub-Category Detail Notes Category Not es General Examination Heart: RSR Lungs: clear to auscultatio n General Appearance: NAD Skin: left great toe with less erythema and edema, there is still some purulent drainage as well Chest: normal shape and exp ansion
--- OUTSIDE RECORDS SUMMARY | 2025-02-11 06:00 | XMS_ITS ---
[facility] Organization [facility] Address [address] [facility] [address] [phone] Care Team Providers Care Separator Operator Shellfish Meats Name Role Phone Aaron Davis Primary Care Provider [phone] Carol Tabor Unavailable [phone] Allergies No Known Allergies Reason For Referral Diagnosis 1 Toe infection (L08.9 ) [facility] Referring Provider First Name Carol Referring Provider Last Name Sharona Referring Provider Speciality Physician Paint Tinter Referred Provider Specialty Physical The rapist General Notes Carol Tabor 10:01:57 AM >Pt needs a referral to wound care., Elvi Keith 02/11/2025 10:32:40 AM > faxed to [facility] PT Referral Priority Routine REASON FOR VISIT [...] days Active Mupirocin 2 % 1 application Multi Purpose Machine Operator ally Twice a day Active Cetirizine HCl [...] a: STOPPED SMOKING 2018 Vital Signs Weight 304.2 lbs 02/11/2025 Blood pressure systolic 120 mm Hg 02/12/20 25 Blood pressure diastolic 72 mm Hg 025 Heart Rate 58 /min 02/11/2025 Height 75 in 02/11/2025 BMI 38.02 kg/m2 02/11/2025 Encounters Encounter Location Date Provider Diagnosis [facility] [address] [facility] 36 [facility] [address] [place] [phone] 02/11/2025 Carol Tabor Toe infection L08.9 and [...] Provider Name:Carol sanders, 07/10/2025 09:15:00 AM, [address] [facility] 36 [facility], [address], [place], [place], [phone], Provider Name:Aaron castillo, 07/20/2025 02:00:00 PM, [address] [facility] [address] [facility], [address], [place], [place], [phone], Progress Notes * Tommy RODRIGUEZ RDOB:[birth year] (49 yo M)Acc No.[id number]:02/11/2025 Patient: Tommy EUCEDA Provider: SHAYY Agrawal :1975 A ge:49 Y S ex:Male Date:02/11/2025 Address:[address] [id number] Pcp:Aaron Davis Subjective: * Chief Complaints: * [...] Plan: * Treatment: * Follow Up: w [facility] wound care * Images: Billing Information: * Visit Code: 95813 Office Visit, Est Pt., Level 3. * Procedure Codes: * Electronic signature of SHAYY Kelsey on 07/07/2025 at 07:45 AM EDT Sign off status: Pending * Provider: SHAYY Agrawal Date: 0 02/11/2025 Generated for Roni beckford/Carey/eTransmitting on: 1 07:45 AM EDT History and [...]
--- OUTSIDE RECORDS SUMMARY | 2025-03-12 09:30 | XMS_ITS ---
Author Organization [facility] Address [address] [place] [phone] Care Team Providers Care Nanny Babysitter Name Role Phone Aaron Davis Primary Care [...] infarction due to right coronary artery occlusion ([id number] 105) ST elevation myocardial infarction involving right coronary artery (I21.11) Active confirmed Vital Signs Weight 306.0 lbs 03/12/2025 Blood pressure systolic 102 mm Hg 03/12/20 25 Blood pressure diastolic 70 mm Hg 06/26/2 025 Heart Rate 63 /min 03/12/2025 Height 75 in 03/12/2025 BMI 38.24 kg/m2 03/12/2025 s, m Encounters Encounter Location Date Provider Diagnosis Poppy [address] [place] [address] [address] [place] [phone] 03/12/[address] elevation myocard ial [...] Provider Name:Carol Isaac y, 07/10/2025 09:15:00 AM, [address] [place] [address] 36 [facility], [address], [place], [phone], Provider Name:Aaron Rivers er, 07/20/2025 02:00:00 PM, [address] [place] [address], [address], [place], [phone], Progress Notes * Tommy RODRIGUEZ RDOB:[birth year] (49 yo M)Acc No.[id number]:03/12/2025 Progress Notes Patient: Lara Tommy ALCARAZ Provider: Aaron Davis M.D. :1975 A ge:49 Y S ex:Male Date:03/12/2025 Address:[address] [id number] Subjective: * Chief Complaints: * 1 . 4 month F/U. 2. Needs labs & diabetic eye exam. * HPI: C [facility] and heart cath. [...] * Images: Billing Information: * Visit Code: 90516 Office Visit, Est Pt., Level 3. * Procedure Codes: * Electronic signature of Aaron Davis MD on 07/07/2025 at 07:45 AM EDT Sign off status: Pending * Provider: Aaron Davis M.D. Date: 0 03/12/2025 Generated for Printi ng/Carey/eTransmitting on: 1 07:45 AM EDT History and [...]
--- OUTSIDE RECORDS SUMMARY | 2025-03-13 05:35 | XMS_ITS ---
Author Organization [facility] Address [facility] [facility] 36 [facility] [address] [place] [phone] Care Team Providers Care Tankerman Name Role Phone Aaron Davis Primary Care Provider Carol Tabor [phone] REASON FOR VISIT [facility] F/U Encounters Encounter Location Date Provider Diagnosis [facility] [address] [place], [place] [phone] 03/13/2025 Carol Tabor Plan Of Treatment Next Appt Details Provider Name:Caorl Isaac y, 07/10/2025 09:15:00 AM, [address], [address], [place], [place], [phone], Provider Name:Aaron Rivers er, 07/20/2025 02:00:00 PM, [address], [address], [place], [place], [phone], Progress Notes * Tommy RODRIGUEZ RDOB:[birth year] (49 yo M)Acc No.[id number]:03/13/2025 Progress Notes Patient: Lara ALCARAZ Tommy Barber Provider: SHAYY Agrawal :1975 A ge:49 Y S ex:Male Date:03/13/2025 Address:[address] [facility] [id number] Pcp:Aaron Davis Subjective: * Chief Complaints: * [address] [facility] F/U. * Medical History: Objective: * Vitals: Assessment: Plan: * Treatment: * Images: Billing Information: * Visit Code: * Procedure Codes: * Electronic signature of SHAYY Kelsey on 07/07/2025 at 07:46 AM EDT Sign off status: Pending * Provider: SHAYY Agrawal Date: 0 03/13/2025 Generated for Roni beckford/Carey/Ronny on: 1 07:46 AM EDT
--- OUTSIDE RECORDS SUMMARY | 2025-03-26 10:30 | XMS_ITS ---
Author Organization Poppy Address 1210 [facility] [address] [place] [phone] Care Team Providers Care Sport Intern Name Role Phone Aaron Davis Primary Care Provider [phone] Allergies No Known Allergies REASON FOR VISIT 2 weeks Medications Medication SIG (Take, Route, Frequency, Duration) Notes Start Date End Date Status Repatha 140 MG/ML 1 mL Subcutaneous Active Atorvastatin Calcium 40 MG 1 tablet Orally Once a day; Duration: 90 days Not-Takin g Mupirocin 2 % 1 application Externally Twice a day Active Cetirizine HCl 10 MG 1 tab(s) orally onc e a day; Duration: 90 days Active Omeprazole 40 MG 1 cap(s) orally once a day; Duration: 90 days Active Levothyroxine Sodium 175 MCG 1 tab(s) orally once a day; Duration: 90 days Active Lisinopril 40 MG 1 tab(s) orally once a day; Duration: 90 days Active Fluticasone Propionate 50 MCG/ACT 1 spray in each nostril once a day; Duration: 90 days Active Aspirin 81 MG CHEW AND SWALLOW 1 TABLET DAILY; Duration: 90 Active Prasugrel HCl 10 MG as directed Orally Active Social History Tobacco Use: Social History Observation Description Date Smoking Status WARNING: Information temporarily unavailable CURRENT TOBACCO USE: Question Answer Notes Are you a: STOPPED SMOKING 2018 Vital Signs Weight 297.0 lbs 03/26/2025 Blood pressure systolic 120 mm Hg 03/26/20 25 Blood pressure diastolic 72 mm Hg 025 Heart Rate 62 /min 03/26/2025 Height 75 in 03/26/2025 BMI 37.12 kg/m2 03/26/2025 Encounters Encounter Location Date Provider Diagnosis [facility] [address] [place] [id number] 03/26/2025 Aaron Davis Status post angiopla sty with stent Z95.9 ; Atherosclerosis of [place] coronary artery without angina pectoris, unspecified whether [place] or transplanted heart I25.10 ; Essential (primary) hypertension I10 and Type 2 diabetes mellitus without complication, unspecified whether long term acute care registered nurse insulin use E11.9 Assessments Encounter Date Diagnosis (ICD Code) Assessment Notes Treatment Notes Treatment Clinical Notes Section Notes 03/26/2025 Status post angioplasty with stent (ICD-10 - Z95.9) Cont present treatment 03/26/2025 Atherosclerosis of [place] coronary artery without angina pectoris, unspecified whether [place] or transplanted heart (ICD-10 - I25.10) 03/26/2025 Essential (primary) hypertension (ICD-10 - I10) 03/26/2025 Type 2 diabetes mellitus without complication, unspecified whether senior living insulin use (ICD-10 - E11.9) Plan Of Treatment Treatment Notes Assessment Notes Status post angioplasty with stent Cont present treatment Next Appt Details Follow Up: 3 Months, Reason: Provider Name:Carol sanders, 07/10/2025 09:15:00 AM, 12[address] [facility] 36 [facility], [address], [place], [phone], Provider Name:Aaron Rivers er, 07/20/2025 02:00:00 PM, 1210 [facility] 36 [facility], [address], [place], [place], [id number], Progress Notes * Tommy RODRIGUEZ RDOB:[birth year] (49 yo M)Acc No.[id number]:03/26/2025 Progress Notes Patient: Jose EUCEDAn Elisabeth Provider: Aaron Davis M.D. :1975 A ge:49 Y S ex:Male Date:03/26/2025 Address:[address] [facility] [id number] Subjective: * Chief Complaints: * 1 . 2 weeks. * HPI: C ardiology: The pt is here for a 2-week follow up. Pt states he has started to have some swelling in his legs, so he started back o Furosemide 40 mg every other day. Pt denies any chest pain or shortness of breath. Denies : Chest Pain. D enies : [...] Myocardial Infarction, stent x1, 2015, Eye exam 09/2024, Neg Cologuard 05/2022. * Surgical History: n ear amputation of [...] frequency: coffee, tea. Marital Status: Single. Occupation: [employer]. Past smoking status: yes, Smoking status: Patient [...] AND SWALLOW 1 TABLET DAILY , Taking Fluticasone Propionate 50 MCG/ACT Suspension [...] Tablet 1 tablet Orally Once a day * Allergies: N .K.D.A. Objective: * Vitals: W t: 297.0, Temp: 98.0, BP: 120/72, HR: 62, O2 Sat: 98% on RA, Nurse: JAVIER, Ht: 75, BMI:37.12. * Examination: G eneral Examination: General Appearance: [...] eripheral pulses: n ormal . E xtremities: M inimal leg edema. Assessment: * Assessment: 1. S tatus post angioplasty with stent - Z95.9 (Primary) 2 . A therosclerosis of [place] coronary artery without angina pectoris, unspecified whether [place] or transplanted heart - I25.10 3 . E ssential (primary) hypertension - I10 4 . T ype 2 diabetes mellitus without complication, unspecified whether long term acute care registered nurse insulin use - E11.9? Plan: * Treatment: * Procedure Codes: 1 036F TOBACCO NON-USER, 3044F HG A1C LEVEL LT 7.0%, G8950 PREHTN/HTN BP DOC INDCD F/U DOC, 3074F SYST BP LT 130 MM HG, 3078F DIAST BP < 80 MM HG * Follow Up: 3 Months * Images: Billing Information: * Visit Code: 14774 Office Visit, Est Pt., Level 3. * Procedure Codes: 1036F TOBACCO NON-USER. 3044F HG A1C LEVEL LT 7.0%. G8950 PREHTN/HTN BP DOC INDCD F/U DOC. 3074F SYST BP LT 130 MM HG. 3078F DIAST BP < 80 MM HG. * Electronic signature of Aaron Davis MD on 07/07/2025 at 07:44 AM EDT Sign off status: Pending * Provider: Aaron Davis M.D. Date: 0 03/26/2025 Generated for Roni ng/Famukeshg/eTransmitting on: 1 07:44 AM EDT History and Physical Notes * HPI (History of Present Illness) Category Sub-Category Detail Notes Category Not es Cardiology Short of Breath Chest Pain Palpitations Dizziness Examination Category Sub-Category Detail Notes Category Not es General Examination HEENT: unremarkable Heart: RSR, S4 Lungs: clear to auscultatio n Abdomen: soft and nontender, no organomegaly or masses Extremities: Minimal leg edema General Appearance: NAD Skin: normal, no rash Neurologic Exam: Intact, gait normal Neck: supple, no lymphaden opathy Oral cavity: no lesions, mucosa m oist and WNL, no erythema Peripheral pulses: normal Chest: normal shape and exp ansion
--- OUTSIDE RECORDS SUMMARY | 2025-04-28 05:45 | XMS_ITS ---
Author Organization Leigh Address [facility] 36 [facility] [address] [place] [phone] Care Team Providers Care Feather Maker Name Role Phone Aaron Davis Primary Care Provider [phone] Portillo Mcleod Unavailable [phone] Allergies No Known Allergies REASON FOR VISIT [...] a: STOPPED SMOKING 2018 Vital Signs Weight 293 lbs 04/28/2025 Blood pressure systolic 124 mm Hg 04/28/20 25 Blood pressure diastolic 90 mm Hg 025 Heart Rate 77 /min 04/28/2025 Height 75 in 04/28/2025 BMI 36.62 kg/m2 04/28/2025 Encounters Encounter Location Date Provider Diagnosis [place] [address] [facility] [address] [place] [phone] 04/28/2025 Portillo Mcleod Hemorrhoids, unspecified hemorrhoid type [...] [address], [place], [phone], Provider Name:Aaron Rivers er, 07/20/2025 02:00:00 PM, [address], [address], [place], [place], [phone], Progress Notes * Tommy RODRIGUEZ RDOB:[birth year] (49 yo M)Acc No.[id number]:04/28/2025 Progress Notes Patient: Tommy EUCEDA Provider: Victor Manuel Mcleod M.D. :1975 A ge:49 Y S ex:Male Date:04/28/2025 Address:[address] [facility] [place], [id number] Pcp:Aaron Davis Subjective: * Chief Complaints: * [...] frequency: coffee, tea. Marital Status: Single. Occupation: [employer]. Past smoking status: yes, Smoking status: Patient [...] * Images: Billing Information: * Visit Code: 15072 Office Visit, Est Pt., Level 3. * Procedure Codes: * Electronic signature of Shakira Mcleod MD on 07/07/2025 at 07:46 AM EDT Sign off status: Pending * Provider: Victor Manuel Mcleod M.D. Date: 0 04/28/2025 Generated for Roni beckford/Carey/Ronny on: 1 07:46 AM EDT History and Physical Notes * HPI (History of Present Illness) Category Sub-Category Detail Notes Category Not es Gastroenterology hemorrhoid Pt complains of pain when walking, sitting and at times doing anything due to hemorrhoids Examination Category Sub-Category Detail Notes Category Not es General Examination General Appearance: NAD
--- OUTSIDE RECORDS SUMMARY | 2025-07-01 11:15 | XMS_ITS ---
[facility] Address 12[address] [facility] [address] [place] [phone] Care Team Providers Care Web Offset Press Feeder Name Role Phone Aaron Davis Primary Care Provider Carol Tabor Unavailable [phone] Allergies No Known Allergies Results Component Value Reference Range Notes P-Culture, Anaerobic and Aer obic w/Gram Stain (Not yet reviewed by provider) Interpretation:Abnormal Performing Lab: Notes/Report: Test performed by [facility], [address] , [address], [place] [address] Timothy Grady MD, Tap Out Operator CLIA: [id number] Specimen Source Abscess - left great toe Culture, Anaerobic and Aerobic w/Gram Stain See Below Final Report: No Anaerobes isolated Sensitivity Panel See Below Organism Antibiotic S=SUSCEPTIBLE I=INTERMEDIATE R=RESISTANT P-Culture, Miscellaneous Aer obic w/Gram Stain (Not yet reviewed by provider) Interpretation:Abnormal Performing Lab: Notes/Report: Test performed by [facility] [address] [place] [address] , [address], [place] [address] Timothy Grady MD, Tap Out Operator CLIA: [id number] Specimen Source Abscess - left great toe [...] Trimeth/Sulfa S Vancomycin S S=SUSCEPTIBLE I=INTERMEDIATE R=RESISTANT Reason For Referral Diagnosis 1 Toe infection (L08.9 ) [facility] Referring Provider First Name Carol Referring Provider Last Name Sharona Referring Provider Speciality Physician Quality Assurance Coach Referred Provider Specialty Podiatry General Notes Carol Tabor 03:06:58 PM > Pt needs an appt with Dr. Markham for a nonhealing foot wound, Elvi Keith 07/01/2025 03:08:54 PM > faxed to [facility] Podiatry, Elvi Keith 07/06/2025 09:39:18 AM > referral received; they will schedule once DANAE is scheduled through [facility] Referral Priority Routine REASON FOR VISIT infected [...] a: STOPPED SMOKING 2018 Vital Signs Weight 293.4 lbs 07/01/2025 Blood pressure systolic 140 mm Hg 07/01/20 25 Blood pressure diastolic 68 mm Hg 025 Heart Rate 70 /min 07/01/2025 Height 75 in 07/01/2025 BMI 36.67 kg/m2 07/01/2025 Encounters Encounter Location Date Provider Diagnosis [facility] [address] [place] [phone] 07/01/2025 Carol Tabor Toe infection L08.9 Assessments Encounter Date Diagnosis (ICD Code) Assessment Notes Treatment Notes Treatment Clinical Notes Section Notes 07/01/2025 Toe infection (ICD-10 - L08.9) Plan Of Treatment Pending Test Test Name Order Date Ankle-brachial index 07/01/2025 P-Culture, Anaerobic and Aerobic w/Gram Stain 07/01/2025 P-Culture, Miscellaneous Aerobic w/Gram Stain 07/01/2025 Referrals Referral Date Details 07/01/2025 07/01/2025 Next Appt Details Follow Up: via phone to repo rt test results, Reason: Provider Name:Carol sanders, 07/10/2025 09:15:00 AM, [address], [address], [place], [phone], Provider Name:Aaron Rivers er, 07/20/2025 02:00:00 PM, [facility] 36 [facility], [address], [place], [phone], Progress Notes * Tommy RODRIGUEZ RDOB:[birth year] (49 yo M)Acc No.[id number]:07/01/2025 Progress Notes Patient: Jose EUCEDAn Elisabeth Provider: SHAYY Agrawal :1975 A ge:49 Y S ex:Male Date:07/01/2025 Address:[address] [facility] [id number] Pcp:Aaron Davis Subjective: * Chief Complaints: * 1 . Infected toe. * HPI: H PI: 49 year old [...] F requent urination. ? * Medical History: H ypothyroidism, Hyperlipidemia, Hypertension, [...] tab(s) orally once a day , Taking Hydrocortisone Acetate 25 MG Suppository 1 suppository Rectal twice a day , Medication List reviewed and reconciled with the patient * Allergies: N .K.D.A. Objective: * Vitals: W t: 293.4, Temp: [...] 59:11 AM EDT > See phone encounter ?Imaging: Ankle-brachial index* Elvi Keith 07/01/2025 03: 47:53 PM EDT > faxed to [facility] Scheduling ? Referral To:Podiatry ?Reason: * Labs: * [...] S ensitivity Panel See Below - * [facility], IT support 07/05/2025 10:25:06 : This order was created by the Interface.Elisabeth Pearl 07/06/2025 09:58:56 AM EDT > See phone encounter * Follow Up: v ia phone to report test results * Images: Billing Information: * Visit Code: 70864 Office Visit, Est Pt., Level 3. * Procedure Codes: * Electronic signature of SHAYY Kelsey on 07/07/2025 at 07:46 AM EDT Sign off status: Pending * Provider: SHAYY Agrawal Date: Generated for Printi ng/Famukeshg/eTransmitting on: 07:46 AM EDT History and Physical Notes [...]
--- NOTE | 2025-07-07 07:45 | XR_ITS ---
FINAL REPORT CLINICAL HISTORY: Evaluation of Left Great Toe Infection COMPARISON: 01/23/2025 FINDINGS: Three views of the left foot show no evidence of acute displaced fracture or dislocation of the visualized bony architecture. There are degenerative changes of the ankle joint and first MTP joint. Multiple small loose bodies are noted along the anterior ankle joint, similar to the prior study. There is calcaneal spurring. IMPRESSION: Degenerative/chronic changes without acute bony abnormality. Reviewed, Interpreted and Dictated by Ysabel Cole MD Transcribed by Nati Varner Authenticated and [facility]
--- OUTSIDE RECORDS SUMMARY | 2025-07-07 07:45 | XMS_ITS | Clinical Summary ---
Author Organization [facility] Address [address] [place] [address] Phone [email or web address] Care Team Providers Care Core Shaper Sides Name Role Phone Unavailable Primary Care Provider Unavailabl e Allergies No known active allergies Medications metoprolol succinate XL (TOPROL-XL) 25 MG 24 hr tablet Take 25 mg by mouth 1 (one) time each day. 03/30/20 25 Active Repatha 140 MG/ML solution prefilled syringe INJECT 140 MG SUBCUTANEOUSLY EVERY 2 WEEKS Active prasugrel (EFFIENT) 10 MG tablet Take 10 mg by mouth 1 (one) time each day. Active cetirizine (ZyrTEC) 10 MG tabletIndicatio ns:Allergic rhinitis, unspecified seasonality, unspecified trigger Take 1 tablet (10 mg total) by mouth 1 (one) time each day. 90 tablet 04/22/20 25 Active fluticasone (FLONASE) 50 MCG/ACT nasal sprayIndication s:Allergic rhinitis, unspecified seasonality, unspecified trigger Administer 2 sprays into each nostril 1 (one) time each day. 48 g 04/22/20 25 Active furosemide (LASIX) 40 MG tabletIndicatio ns:Hypertension , unspecified type Take 1 tablet (40 mg total) by mouth 1 (one) time each day. 90 tablet 04/22/20 25 Active lisinopril (ZESTRIL) 40 MG tabletIndicatio ns:Hypertension , unspecified type Take 1 tablet (40 mg total) by mouth 1 (one) time each day. 90 tablet 04/22/20 25 Active omeprazole (PriLOSEC) [address] capsuleIndicati ons:Gastroesoph ageal reflux disease, unspecified whether esophagitis present Take 2 capsules (40 mg total) by mouth 1 (one) time each day. 180 capsule 04/22/20 25 Active levothyroxine (Synthroid) 75 MCG tabletIndicatio ns:Hypothyroidi sm, unspecified type Take 1 tablet (75 mcg total) by mouth 1 (one) time each day. 90 tablet 04/22/20 25 026 Active triamterene-hyd roCHLOROthiazid e (DYAZIDE) 37.5-25 MG per capsuleIndicati ons:Hypertensio n, unspecified type Take 1 capsule by mouth 1 (one) time each day in the morning. 30 capsule 11 04/22/20 25 026 Active levothyroxine (SYNTHROID) 100 MCG tabletIndicatio ns:Hypothyroidi sm, unspecified type Take 1 tablet (100 mcg total) by mouth 1 (one) time each day. 90 tablet 04/22/20 25 Active Active Problems Problem Noted Date Diagnosed Date STEMI (ST elevation myocardial infarction) 07/19 Acute [place] inferior lateral first episode care Overview (04/22/2025): 1. S/p thrombus extraction and BMS placement to RCA 2. EF 35% with mildly reduced systolic function GERD (gastroesophageal reflux disease) 6 Assessment & Plan (04/22/2025 8:08 AM EDT): Orders: omeprazole (PriLOSEC) [address] capsule; Take 2 capsules (40 mg total) by mouth 1 (one) time each day. HTN (hypertension) 07/17/2016 Assessment & Plan (04/22/2025 8:08 AM EDT): Orders: furosemide (LASIX) 40 MG tablet; Take 1 tablet (40 mg total) by mouth 1 (one) time each day. lisinopril (ZESTRIL) 40 MG tablet; Take 1 tablet (40 mg total) by mouth 1 (one) time each day. triamterene-hydroCHLOROthiazide (DYAZIDE) 37.5-25 MG per capsule; Take 1 capsule by mouth 1 (one) time each day in the morning. Tobacco abuse 07/17/2016 Overview (04/22/2025): 1. Smokes 1ppd x 30 years Encounters Date Type Department Care Team Description 04/22/2025 7:30 AM EDT Office Visit [facility] [address] [place] [address] Deepak Gray MD ASCVD (arteriosclerotic cardiovascular disease) (Primary Dx); Hypertension, unspecified type; Allergic rhinitis, unspecified seasonality, unspecified trigger; Gastroesophageal reflux disease, unspecified whether esophagitis present; Hypothyroidism, unspecified type from Last 3 Months Social History Tobacco Use Types Packs/Day Years Used Date Smoking Tobacco: Former Cigarettes Passive Smoke Exposure: Never Smokeless Tobacco: Never Tobacco Cessation:Counseling Given: No Alcohol Use Standard Drinks/Week Comments Defer 0 (1 standard drink = 0.6 oz pur e alcohol) Alcohol Use Answer Date Recorded Alcohol Use Status Defer 04/22/2025 Depression Answer Date Recorded PHQ Total Score 0 04/22/2025 Sex and Gender Information Value Date Recorded Sex Assigned at Not on file Legal Sex Male 9:07 AM CDT Gender Identity Not on file Sexual Orientation Not on file Last Filed Vital Signs Vital Sign Reading Time Taken Comments Blood Pressure 110/70 04/22/2025 7:20 AM EDT Pulse 68 04/22/2025 7:20 AM EDT Temperature 36.8 C (98.3 F) 04/22/2025 7:20 AM EDT Respiratory Rate - - Oxygen Saturation 96% 04/22/2025 7:20 AM EDT Inhaled Oxygen Concentration - - Weight 134 kg (295 lb) 04/22/2025 7:20 AM EDT Height 188 cm (6' 2 ) 04/22/2025 7:20 AM EDT Body Mass Index 37.88 04/22/2025 7:20 AM EDT Plan of Treatment Upcoming Encounters Date Type Department Care Team (Late st Contact Info) Description 07/15/2025 11:00 AM EDT Office Visit [facility] [address] [place] [address] Deepak Gray MD [address] [place] [address] Health Maintenance Due Date Last Done Comments CT Colonography 1973 Colonoscopy 1973 Colorectal Cancer Screening Combo 1973 DNA Cologuard 1973 Dental Cleaning/Exam 1973 FIT or FOBT Test 1973 HIV Screening 1973 Hepatitis C Screening 1973 Sigmoidoscopy 1973 Annual Preventive Exam 1991 Hep B Infection Screening - Triple Screen 1991 Hepatitis B Immunization (1 of 3 - 19+ 3-dose series) 1992 Tetanus Diphtheria and Pertu ssis Immunization (1 - Tdap) 1992 Pneumococcal: 50+ Years (2 o f 2 - PCV) 2023 07/18/2016 Zoster Immunization (1 of 2) 2023 Covid-19 Immunization (1 - season) 2025 Influenza Immunization (#1) 2025 Pneumococcal Immunization Discontinued 07/18/2016 HIB Immunization Aged Out No longer e ligible based on patient's age to complete this topic HPV Immunization Aged Out No longer e ligible based on patient's age to complete this topic Hepatitis A Immunization Aged Out No longer eligible based on patient's age to complete this topic Polio Immunization Aged Out No longer eligible based on patient's age to complete this topic Insurance ANTHEM NO COPAY NB
--- OUTSIDE RECORDS SUMMARY | 2025-07-07 07:45 | XMS_ITS | Clinical Summary ---
Author Organization [facility] Address [address] [place] [address] Care Team Providers Care Mail Manager Name Role Phone Louie Davis MD Primary Care Provider [phone] Allergies No known active allergies Medications levothyroxine (SYNTHROID, LEVOTHROID) 112 MCG tablet Take 112 mcg by mouth Daily. Active lisinopril (PRINIVIL,ZESTR IL) 5 MG tablet Take 5 mg by mouth Daily. Active triamterene-hyd rochlorothiazid e (MAXZIDE-25) 37.5-25 MG per tablet Take 0.5 tablets by mouth Daily. Active omeprazole (PriLOSEC) 20 MG capsule Take 20 mg by mouth Daily. Active aspirin 81 MG EC tablet Take 1 tablet by mouth Daily. 30 tablet 12 07/19/2016 Active atorvastatin (LIPITOR) 40 MG tablet Take 1 tablet by mouth Every Night. 30 tablet 12 07/19/2016 Active prasugrel (EFFIENT) 10 MG tablet Take 1 tablet by mouth Daily. 30 tablet 12 07/19/2016 Active Active Problems Problem Noted Date Diagnosed Date STEMI (ST elevation myocardial infarction) 07/19 Acute [place] inferior lateral first episode care Overview (07/17/2016): 1. S/p thrombus extraction and BMS placement to RCA 2. EF 35% with mildly reduced systolic function HTN (hypertension) 07/17/2016 Tobacco abuse 07/17/2016 Overview (07/17/2016): 1. Smokes 1ppd x 30 years GERD (gastroesophageal reflux disease) 6 Immunizations Immunization Administration Dates Next Due Pneumococcal Polysaccharide (PPSV23) 07/18/2016 Family History Medical History Relation Name Comments Heart attack Brother Hypertension Father Hypertension Mother Relation Name Status Comments Brother Alive [place] at age 42 Father Alive Mother Alive Social History Tobacco Use Types Packs/Day Years Used Date Smoking Tobacco: Every Day Cigarettes 1 30 Smokeless Tobacco: Never Tobacco Cessation:Ready to Q uit: No; Counseling Given: Yes Abuse Screen Answer Date Recorded Unsafe at Home or Work/School Not on file Feels Threatened by Someone? Not on file 05/2023 Does Anyone Keep You from Co ntacting Others or Doint Things Outside the Home? Not on file 06/25/2023 Physical Sign of Abuse Present Not on file 1 Housing Stability Answer Date Recorded Current Living Arrangements Not on file 05/2023 Potentially Unsafe Housing Conditions Not on norman e 06/25/2023 Family and Community Support Answer Hesham e Recorded Help with Day-to-Day Activities Not on file 06/25/2023 Lonely or Isolated Not on file 06/25/2023 Employment Answer Date Recorded Do you want help finding or keeping work or a gladys b? Not on file 06/25/2023 Disabilities Answer Date Recorded Concentrating, Remembering, or Making Decisions Difficulty Not on file 06/25/2023 Doing Errands Independently Difficulty Not on fi le 06/25/2023 Education Answer Date Recorded Help with school or training? Not on file Preferred Language Not on file 06/25/2023 Sex and Gender Information Value Date Recorded Sex Assigned at Not on file Legal Sex Male 11:06 AM EDT Gender Identity Not on file Sexual Orientation Not on file Last Filed Vital Signs Vital Sign Reading Time Taken Comments Blood Pressure 130/84 07/19/2016 8:57 AM EDT Pulse 62 07/19/2016 8:57 AM EDT Temperature 36.6 C (97.9 F) 07/19/2016 8:57 AM EDT Respiratory Rate 22 07/19/2016 8:57 AM EDT Oxygen Saturation 93% 07/18/2016 10:00 AM EDT Inhaled Oxygen Concentration - - Weight 120 kg (265 lb) 07/17/2016 2:00 PM EDT Height 190.5 cm (6' 3 ) 07/17/2016 2:00 PM EDT Body Mass Index 33.12 07/17/2016 2:00 PM EDT Plan of Treatment Health Maintenance Due Date Last Done Comments ANNUAL PHYSICAL 1975 HEPATITIS C SCREENING 1973 TDAP/TD VACCINES (1 - Tdap) 1992 COLOGUARD 2018 COLON CANCER SCREENING 5 YEAR SIGMOIDOSCOPY 2018 COLONOSCOPY [address] CANCER SCREENING [address] CT COLONOGRAPHY 2018 FECAL OCCULT BLOOD TEST 2018 FIT Testing (1 year) 2018 Pneumococcal Vaccine 50+ (2 of 2 - PCV) 2023 1 09/17/2015 ZOSTER VACCINE (1 of 2) 2023 INFLUENZA VACCINE 04/17/2025 Medical Devices Implanted Type Area Manager Application Device Identifier Shelf Expiration Date Model / Serial / Lot Stent Integrity Bare Mtl Rx 3.5x18mm - [id number] Implanted:Qty: 1 on 07/17/2016 by Garett Morales MD at [facility] Stent [employer] 03/10/2017 [id number] / / [id number] Insurance [facility] Advance Directives * Full Code (Latest Code Status on File) Date Activated Date Inactivated Comments 07/17/2016 3:35 PM 07/19/2016 9:28 AM Question Answer Comments Level Of Support Discussed With: Patient Care Teams Mail Manager Relationship Specialty Start Date End Date Louie Davis MD [address] [place] [address] [place] [place] [id number] PCP - General Family Medicine 07/17/16
--- OUTSIDE RECORDS SUMMARY | 2025-07-07 07:46 | XMS_ITS | Data Portability ---
Author Organization [facility] [place] Address [address] [place] [address] Care Team Providers Care Diesel Engine Specialist Name Role Phone ADAN JESSICA Primary Care [...] Address Organization Details Recorded Time Myocardial infarction 11394373 Active 2021 Juarez hirsch [facility] [place] 2 09:18:39 Hypertensive disorder 60419480 Active 2021 Juarez hirsch [facility] [place] 2 09:18:49 Thyroiditis 67686492 Active 2021 Juarez hirsch [facility] [place] 2 09:19:00 Problem Notes None [...] Updated DateTime 07/13/2022 190.5 cm 38.7 kg/m2 851687.63 g 98.1 [degF] Juarez Seaman [facility] [place] 07/13/2022 09:15:32 Social History Question Answer Notes LastModified by [employer] Details LastModified Time Tobacco Smoking Status Former Smoker Juarez Seaman [facility], [facility] [place] 07/13/2022 09:11:40 Do You Have An Advance Directive? No Information not available 07/13/2022 Are You Blind Or Do You Have Difficulty Seeing? No [email or web address] Information not available 07/13/2022 What Was The Date Of Your Most Recent Tobacco Screening? 07/10/2022 [email or web address] Information not available 07/13/2022 Are You Passively Exposed To Smoke? No [email or web address] Information not available 07/13/2022 How Much Tobacco Do You Smoke? 1 PPD [email or web address] Information not available 07/13/2022 How Many Years Have You Smoked Tobacco? 30 [email or web address] Information not available 07/13/2022 Sex: Male Functional Status Question Answer Note LastModified by [employer] Details LastModified Time Do you use any illicit or recreational drugs? No [email or web address] Information not available 07/13/2022 What is your level of alcohol consumption? None [email or web address] Information not available 07/13/2022 Do you or have you ever used smokeless tobacco? Never used smokeless tobacco Information not available 07/13/2022 What is your exercise level? None [email or web address] Information not available 07/13/2022 Mental Status Question Answer Note LastModified by Organization D etails LastModified Time Do you feel stressed (tense, restless, nervous, or anxious, or unable to sleep at night)? [id number] [email or web address] Information not available 07/13/2022 Family History Relationship Description Onset Age of this Age Resolved Age Notes LastModified by Organization Details LastModified Time Mother Malignant neoplastic disease Not available 2021 09:19:14 Father Family history unknown [email or web address] Not available 2021 09:19:26 Brother Family history unknown [email or web address] Not available 2021 09:19:26 Sister Family history unknown [email or web address] Not available 2021 09:19:26 Medical History Condition Response Heart Attack (MO) Y Past Encounters Encounter ID Performer Location Encounter Start Date Encounter Closed Date Diagnosis/Indication Diagnosis SNOMED-CT Code Diagnosis ICD10 Code Diagnosis IMO Codes Diagnosis Note [id number] Garett Crump Jr, MD [facility] [address] [place] [phone] 07/13/2022 08:54:36 07/13/2022 09:59:42 Vasectomy requested [id number] Z30.2 patient and his present for vasectomie [...] ID Guarantor Name 07/13/2022 1 [employer] (POS) [id number] Tommy Barnesiam [id number] Tommy Barrera Notes Date Note Type Note [...] or testicular abnormalities. Garett Crump Jr, MD [address] [place] [address], [address], [place], [address], [facility] [place] [facility] [place] 07/14/2022 12:47:49
--- OUTSIDE RECORDS SUMMARY | 2025-07-07 07:46 | XMS_ITS | Data Portability ---
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 He suffered a myocardial infarction at work July 17 and had a stent placed emergently at [facility]. 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 He is highly recommended to stop smoking [...] 0 normal Not Available [facility] [address] [facility], [place], [address], 08/30/2016 07:50:50 08/29/20 16 08/30/2016 lipid panel , serum HDL cholesterol 35 mg/dL > or = 40 low Not Available [facility] [address] [facility] [place], [address], 08/30/2016 07:50:50 08/29/20 16 08/30/2016 lipid panel , serum triglyceride s 139 mg/dL <150 normal Not Available [facility] [address] [place], [address], 08/30/2016 07:50:50 08/29/20 16 08/30/2016 lipid panel , serum LDL-choleste rol 73 mg/dL _(amanda c) <130 normal Roland able range <100 mg/dL for patie nts with CHD or diabe alvarado and <70 mg/dL for diabe tic patie nts with known heart disea se. Not Available [facility] [address] [place], [address], 08/30/2016 07:50:50 08/29/20 16 08/30/2016 lipid panel , serum chol/HDLC ratio 3.9 (calc ) < or = 5.0 normal Not Available [facility] [address] [place], [address], 08/30/2016 07:50:50 08/29/20 16 08/30/2016 lipid panel , serum non HDL cholesterol 101 mg/dL _(amanda c) normal Targe t for non-H DL marisela stero l is 30 mg/dL highe r than LDL marisela stero l targe t. Not Available [facility] [address] [place], [address], 08/30/2016 07:50:50 08/29/20 16 08/30/2016 CMP, serum or plasm a glucose 92 mg/dL 65-99 normal Fasti ng refer ence inter evelyn Not Available [facility] [address] [place], [address], 08/30/2016 07:50:50 08/29/20 16 08/30/2016 CMP, serum or plasm a urea nitrogen (BUN) 13 mg/dL 7-25 normal Not Available [facility] [place], [address], 08/30/2016 07:50:50 08/29/20 16 08/30/2016 CMP, serum or plasm a creatinine 1.04 mg/dL 0.60-1 .35 normal Not Available [facility] [place], [address], 08/30/2016 07:50:50 08/29/20 16 08/30/2016 CMP, serum or plasm a eGFR non-afr. canadian 88 mL/mi n/1.7 3m2 > or = 60 normal Not Available [facility] [place], [address], 08/30/2016 07:50:50 08/29/20 16 08/30/2016 CMP, serum or plasm a eGFR 101 mL/mi n/1.7 3m2 > or = 60 normal Not Available [facility] [address] [place], [address], 08/30/2016 07:50:50 08/29/20 16 08/30/2016 CMP, serum or plasm a BUN/creatini ne ratio NOT APPLIC ABLE (calc ) 6-22 Not Available [facility] [place], [address], 08/30/2016 07:50:50 08/29/20 16 08/30/2016 CMP, serum or plasm a sodium 137 mmol/ L 135-14 6 normal Not Available [facility] [address] [place], [place] [address], [place], [address], 08/30/2016 07:50:50 08/29/20 16 08/30/2016 CMP, serum or plasm a potassium 4.5 mmol/ L 3.5-5. 3 normal Not Available [facility] [address] [place], [place] [address], [place], [address], 08/30/2016 07:50:50 08/29/20 16 08/30/2016 CMP, serum or plasm a chloride 102 mmol/ L 98-110 normal Not Available [facility] [address] [place], [place] [address], [place], [address], 08/30/2016 07:50:50 08/29/20 16 08/30/2016 CMP, serum or plasm a carbon dioxide 30 mmol/ L 20-31 normal Not Available [facility] [address] [place], [place] [address], [place], [address], 08/30/2016 07:50:50 08/29/20 16 08/30/2016 CMP, serum or plasm a calcium 9.7 mg/dL 8.6-10 .3 normal Not Available [facility] [address] [place], [place] [address], [place], [address], 08/30/2016 07:50:50 08/29/20 16 08/30/2016 CMP, serum or plasm a protein, total 7.8 g/dL 6.1-8. 1 normal Not Available [facility] [address] [place], [place] [address], [place], [address], 08/30/2016 07:50:50 08/29/20 16 08/30/2016 CMP, serum or plasm a albumin 4.6 g/dL 3.6-5. 1 normal Not Available [employer] [facility] [address] [place], [address], 08/30/2016 07:50:50 08/29/20 16 08/30/2016 CMP, serum or plasm a globulin 3.2 g/dL_ (calc ) 1.9-3. 7 normal Not Available [facility] [address] [place] [place], [address], 08/30/2016 07:50:50 08/29/20 16 08/30/2016 CMP, serum or plasm a albumin/glob ulin ratio 1.4 (calc ) 1.0-2. 5 normal Not Available [facility] [address] [place] [place], [address], 08/30/2016 07:50:50 08/29/20 16 08/30/2016 CMP, serum or plasm a bilirubin, total 0.5 mg/dL 0.2-1. 2 normal Not Available [facility] [address] [place], [address], 08/30/2016 07:50:50 08/29/20 16 08/30/2016 CMP, serum or plasm a alkaline phosphatase 85 U/L 40-115 normal Not Available [facility] [address] [place] [place], [address], 08/30/2016 07:50:50 08/29/20 16 08/30/2016 CMP, serum or plasm a AST 24 U/L 10-40 normal Not Available [facility] [address] [place], [address], 08/30/2016 07:50:50 08/29/20 16 08/30/2016 CMP, serum or plasm a ALT 39 U/L 9-46 normal Not Available [facility] [address] [place], [address], 08/30/2016 07:50:50 08/29/20 16 08/30/2016 CBC w/ auto diff white blood cell count 8.0 thous and/u L 3.8-10 .8 normal Not Available [facility] [address] [place], [address], 08/30/2016 07:50:51 08/29/20 16 08/30/2016 CBC w/ auto diff red blood cell count 4.51 ivory on/uL 4.20-5 .80 normal Not Available [facility] [address], [address], 08/30/2016 07:50:51 08/29/20 16 08/30/2016 CBC w/ auto diff hemoglobin 14.3 g/dL 13.2-1 7.1 normal Not Available [facility] [address] [place] [address], [address], 08/30/2016 07:50:51 08/29/20 16 08/30/2016 CBC w/ auto diff hematocrit 42.3 % 38.5-5 0.0 normal Not Available [facility] [address] [place] [address], [address], 08/30/2016 07:50:51 08/29/20 16 08/30/2016 CBC w/ auto diff MCV 93.9 fL 80.0-1 00.0 normal Not Available [facility] [address] [place] [address], [address], 08/30/2016 07:50:51 08/29/20 16 08/30/2016 CBC w/ auto diff MCH 31.6 pg 27.0-3 3.0 normal Not Available [facility] [address] [place] [address], [address], 08/30/2016 07:50:51 08/29/20 16 08/30/2016 CBC w/ auto diff MCHC 33.7 g/dL 32.0-3 6.0 normal Not Available [facility] [address] [place] [address] [place], [address], 08/30/2016 07:50:51 08/29/20 16 08/30/2016 CBC w/ auto diff RDW 13.9 % 11.0-1 5.0 normal Not Available [facility] [address] [place], [address], 08/30/2016 07:50:51 08/29/20 16 08/30/2016 CBC w/ auto diff platelet count 324 thous and/u L 140-40 0 normal Not Available [facility] [address] [place], [address], 08/30/2016 07:50:51 08/29/20 16 08/30/2016 CBC w/ auto diff MPV 7.3 fL 7.5-11 .5 low Not Available [facility] [address] [facility] [place], [address], 08/30/2016 07:50:51 08/29/20 16 08/30/2016 CBC w/ auto diff absolute neutrophils 4600 cells /uL 1500-7 800 normal Not Available [facility] [address] [place], [address], 08/30/2016 07:50:51 08/29/20 16 08/30/2016 CBC w/ auto diff absolute lymphocytes 2728 cells /uL 850-39 00 normal Not Available [facility] [address] [facility] [place], [address], 08/30/2016 07:50:51 08/29/20 16 08/30/2016 CBC w/ auto diff absolute monocytes 384 cells /uL 200-95 0 normal Not Available [facility] [address], [place], [address], 08/30/2016 07:50:51 08/29/20 16 08/30/2016 CBC w/ auto diff absolute eosinophils 264 cells /uL 15-500 normal Not Available [facility] [address] [place], [address], 08/30/2016 07:50:51 08/29/20 16 08/30/2016 CBC w/ auto diff absolute basophils 24 cells /uL 0-200 normal Not Available [facility] [address] [place], [address], 08/30/2016 07:50:51 08/29/20 16 08/30/2016 CBC w/ auto diff neutrophils 57.5 % normal Not Available [facility] [address] [place], [address], 08/30/2016 07:50:51 08/29/20 16 08/30/2016 CBC w/ auto diff lymphocytes 34.1 % normal Not Available [facility] [address] [place], [address], 08/30/2016 07:50:51 08/29/20 16 08/30/2016 CBC w/ auto diff monocytes 4.8 % normal Not Available [facility] [address] [place], [address], 08/30/2016 07:50:51 08/29/20 16 08/30/2016 CBC w/ auto diff eosinophils 3.3 % normal Not Available [facility] [address] [place], [address], 08/30/2016 07:50:51 08/29/20 16 08/30/2016 CBC w/ auto diff basophils 0.3 % normal Not Available [facility] [address] [place], [address], 08/30/2016 07:50:51 08/29/20 16 08/30/2016 urina lysis , compl ete color YELLOW yellow normal Not Available [facility] [address], [place], [address], 08/30/2016 07:50:51 08/29/20 16 08/30/2016 urina lysis , compl ete appearance CLEAR clear normal Not Available [facility] [address] [place], [address], 08/30/2016 07:50:51 08/29/20 16 08/30/2016 urina lysis , compl ete specific gravity 1.018 1.001- 1.035 normal Not Available [facility] [address], [place], [address], 08/30/2016 07:50:51 08/29/20 16 08/30/2016 urina lysis , compl ete pH 5.5 5.0-8. 0 normal Not Available [facility] [address] [place], [address], 08/30/2016 07:50:51 08/29/20 16 08/30/2016 urina lysis , compl ete glucose NEGATI VE negati ve normal Not Available [facility] [address] [facility] [place] [place], [address], 08/30/2016 07:50:51 08/29/20 16 08/30/2016 urina lysis , compl ete bilirubin NEGATI VE negati ve normal Not Available [facility] [address] [place], [address], 08/30/2016 07:50:51 08/29/20 16 08/30/2016 urina lysis , compl ete ketones NEGATI VE negati ve normal Not Available [facility] [address] [place], [address], 08/30/2016 07:50:51 08/29/20 16 08/30/2016 urina lysis , compl ete occult blood NEGATI VE negati ve normal Not Available [facility] [address] [place], [address], 08/30/2016 07:50:51 08/29/20 16 08/30/2016 urina lysis , compl ete protein NEGATI VE negati ve normal Not Available [facility] [address], [place], [address], 08/30/2016 07:50:51 08/29/20 16 08/30/2016 urina lysis , compl ete nitrite NEGATI VE negati ve normal Not Available [facility] [address], [place], [address], 08/30/2016 07:50:51 08/29/20 16 08/30/2016 urina lysis , compl ete leukocyte esterase NEGATI VE negati ve normal Not Available [facility] [address] [place], [address], 08/30/2016 07:50:51 08/29/20 16 08/30/2016 urina lysis , compl ete WBC NONE SEEN /hpf < or = 5 normal Not Available [facility] [address], [place], [address], 08/30/2016 07:50:51 08/29/20 16 08/30/2016 urina lysis , compl ete RBC NONE SEEN /hpf < or = 2 normal Not Available [facility] [address], [place], [address], 08/30/2016 07:50:51 08/29/20 16 08/30/2016 urina lysis , compl ete squamous epithelial cells NONE SEEN /hpf < or = 5 normal Not Available [facility] [address], [place], [address], 08/30/2016 07:50:51 08/29/20 16 08/30/2016 urina lysis , compl ete bacteria NONE SEEN /hpf none seen normal Not Available [facility] [address], [place], [address], 08/30/2016 07:50:51 08/29/20 16 08/30/2016 urina lysis , compl ete hyaline cast NONE SEEN /lpf none seen normal Not Available [facility] [address] [facility], [place], [address], 08/30/2016 07:50:51 Result Notes None recorded. Medical [...] Status Current Every Day Smoker Not Available [facility] 07/13/2020 03:11:15 What Is Your Level Of Caffeine Consumption? Moderate [id number] Information not available 07/13/2020 Diabetes No Information no t available 08/29/2016 What Type Of Diet Are You Following? REGULAR [id number] Information not available 07/13/2020 Education 12 Information no t available 08/29/2016 High Blood Pressure Yes Information not available 08/29/2016 High Cholesterol Yes Informat ion not available 08/29/2016 Marital Status Single Informatio n not available 08/29/2016 How Much Tobacco Do You Smoke? 0.5 PPD [id number] Information not available 07/13/2020 How Many Years Have You Smoked Tobacco? 30 [id number] Information not available 07/13/2020 Sex: Unknown Functional Status Question Answer Note LastModified by Organizat ion Details LastModified Time What is your level of alcohol consumption? 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 None [id number] Information not available 07/13/2020 Mental Status None recorded. Family History Nothing Reported. Medical History Condition Response Coronary Artery Disease Y Ear or Hearing Problems High Cholesterol Y GERD/Reflux Y Heart Disease Y Hypertension Y Hypothyroidism Y Past Encounters Encounter ID Performer Location Encounter Start Date Encounter Closed Date Diagnosis/Indication Diagnosis SNOMED-CT Code Diagnosis ICD10 Code Diagnosis IMO Codes Diagnosis Note [id number] Sunni Robert MD [facility] [address] [phone] 08/29/2016 09:17:32 09/01/2016 09:11:32 History and physical examination, pre-employment 848823318 Z02.1 Chronic ob structive pulmonary disease 79475969 J44.9 History of placement of stent for coronary artery disease 959932435 Z95.5 Essential hypertension 11170104 I10 Hyperlipidemia 24830713 E78.5 Hypothyroidism 29608007 E03.9 Gastroesop hageal reflux disease 676041322 K21.9 Health Concerns Section Related Observation LastModified by Organization Detai ls LastModified Time None Recorded Concern Status LastModified by Organization Details LastModified Time None Recorded Advance Directives Directive None Recorded Payers Insurance Date Sequence Insurance Name Policy Number Policy Ramírez Covered Member ID Ramírez Member ID Guarantor Name 08/29/2016 1 *SELF PAY* Sh awn Bruce Notes Date Note Type Note Provider Name and Address Organization Details Recorded Time 08/29/2016 text/html ROS as noted in the HPI Sunni Robert MD [address] [facility] [address], [place], [address], [facility] 08/30/2016 23:42:07
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
== END 2025-07-07 23:59 | disposition home or self-care (01) ==
LOC: RAD 07:43
PROVIDERS: PCP Family Medicine; Visit Provider Nurse Practitioner
DX: M19.072 Primary osteoarthritis, left ankle and foot (principal); S90.412A Abrasion, left great toe, initial encounter; L08.9 Local infection of the skin and subcutaneous tissue, unspecified
CPT/HCPCS: 73630

== ENCOUNTER 2025-07-10 07:44 | Outpatient (CLI) | payer BC, SELFPAY ==
--- OUTSIDE RECORDS SUMMARY | 2025-01-23 06:15 | XMS_ITS ---
[facility] Address 1210 [facility] [address] [place] [id number] Care Team Providers Care Belt Dresser Name Role Phone Aaron Davis Primary Care Provider Carol Tabor Unavailable [phone] Allergies No Known Allergies Results Component Value Reference Range Notes P-Culture, Anaerobic and Aer obic w/Gram Stain Reviewed date:01/28/2025 02:41:01 PM Interpretation: Performing Lab: Notes/Report: Test performed by [facility], [address] , [address], [place] [address] Timothy Grady MD, Protective Signal Superintendent CLIA: [id number] Specimen Source - left first toe Culture, Anaerobic and Aerobic w/Gram Stain See Below Final Report : No Anaerobes isolated Sensitivity Panel See Below Organism Antibiotic Ceftaroline Clindamycin Daptomycin Erythromycin Gentamicin Levofloxacin Linezolid Moxifloxacin Oxacillin Penicillin Rifampin Tetracycline Trimeth/Sulfa Vancomycin S=SUSCEPTIBLE I=INTERMEDIATE R=RESISTANT P-Culture, Miscellaneous Aer obic w/Gram Stain Reviewed date:01/28/2025 02:41:01 PM Interpretation: Performing Lab: Notes/Report: Test performed by [facility], [address] , [address], [place] [address] Timothy Grady MD, Protective Signal Superintendent CLIA: [id number] Specimen Source - left first toe Gram Stain See Below Rare Polymorphonuclear leukocytes Many Gram Positive Cocci In pairs, chains, and clusters Culture, Miscellaneous Aerobic w/Gram Stain See Below Preliminary Report : Pending, reincubate Staphylococcus aureus Heavy Growth Staphylococcus aureus Only sensitive results for Bactrim (Trimethoprim/Sulfamethox azole) are reported Only sensitive results for Bactrim (Trimethoprim/Sulfamethox azole) are reported for Staphylococcus aureus. Resistance to Bactrim is not reported due to the upper breakpoint encompassing the sensitive/resistant range, which could lead to increased reporting of false resistance. Consider alternate antimicrobial treatment if clinically indicated. Sensitivity Panel See Below Organism S.aureu Antibiotic INTERP Ceftaroline S Clindamycin S Daptomycin S Erythromycin S Gentamicin S Levofloxacin S Linezolid S Moxifloxacin S Oxacillin S Penicillin R Rifampin S Tetracycline S Trimeth/Sulfa S Vancomycin S S=SUSCEPTIBLE I=INTERMEDIATE R=RESISTANT x ray : 1st digit, left foot Reviewed date:01/28/2025 02:41:01 PM Interpretation:mild degenerative change Performing Lab: Notes/Report: mild degenerative change REASON FOR VISIT left big toe swollen Medications Medication SIG (Take, Route, Frequency, Duration) Notes Start Date End Date Status Potassium Chloride ER 20 MEQ 1 tablet wi th food Orally Once a day; Duration: 90 days Active Furosemide 40 MG 1 tablet Orally Once a day prn; Duration: 90 days Active Tamiflu 75 MG 1 capsule Orally Twi ce a day; Duration: 5 day(s) 11/06/2024 Active Tadalafil 5 mg TAKE 1/2 TABLET BY M OUTH DAILY; Duration: 30 Active Fluticasone Propionate 50 MCG/ACT 1 spray in each nostril once a day; Duration: 90 days Active Clindamycin HCl 300 MG 1 capsule Orally Three times a day; Duration: 10 days 01/23/2025 Active Aspirin 81 MG CHEW AND SWALLOW 1 TABLET DAILY; Duration: 90 Active Omeprazole 40 MG 1 cap(s) orally once a day; Duration: 90 days Active Atorvastatin Calcium 40 MG 1 tablet Oral ly Once a day; Duration: 90 days Active Cetirizine HCl 10 MG 1 tab(s) orally onc e a day; Duration: 90 days Active Lisinopril 40 MG 1 tab(s) orally once a day; Duration: 90 days Active Levothyroxine Sodium 175 MCG 1 tab(s) or ally once a day; Duration: 90 days Active Triamterene-HCTZ 37.5-25 MG 1 tablet in the morning Orally Once a day; Duration: 90 days Active Social History Tobacco Use: Social History Observation Description Date Smoking Status WARNING: Information temporarily unavailable CURRENT TOBACCO USE: Question Answer Notes Are you a: STOPPED SMOKING 2018 Vital Signs Blood pressure systolic 120 mm Hg 01/24/20 25 Blood pressure diastolic 72 mm Hg 025 Heart Rate 77 /min 01/23/2025 Height 75 in 01/23/2025 Weight 305.6 lbs 01/23/2025 BMI 38.19 kg/m2 01/23/2025 Encounters Encounter Location Date Provider Diagnosis [facility] 36 [facility] [address] [place] [id number] 01/23/2025 Carol Tabor Toe infection L08.9 Assessments Encounter Date Diagnosis (ICD Code) Assessment Notes Treatment Notes Treatment Clinical Notes Section Notes 01/23/2025 Toe infection (ICD-10 - L08.9) Plan Of Treatment Medication Medication Name Sig Start Date Stop Date Notes Clindamycin HCl 300 MG 1 capsule Orally Three times a day; Duration: 10 days 01/23/2025 Next Appt Details Follow Up: via phone to repo rt test results, Reason: Provider Name:Carol Blayne Isaac y, 07/10/2025 09:15:00 AM, 1210 [facility] 36 [facility], [address], [place], [phone], Provider Name:Aaron Rivers er, 07/20/2025 02:00:00 PM, 1210 [facility] 36 [facility], [address], [place], [phone], Progress Notes * Tommy RODRIGUEZ RDOB:[birth year] (49 yo M)Acc No.[id number]:01/23/2025 Progress Notes Patient: Lara BROWNKAYDENISABELLATommy Provider: SHAYY Agrawal :1975 A ge:49 Y S ex:Male Date:01/23/2025 Address:[address] [facility] [id number] Pcp:Aaron Davis Subjective: * Chief Complaints: * 1 . Left big toe swollen. * HPI: A nkle/Foot: 49 year old male presents with c/o Radiation of Pain P t sts he keeps getting shooting pains up his leg as well. c/o Swelling l eft big toe. Pt sts last Sunday he noticed it was swollen and sts he soaked it in warm water and then sts the skin came up on it and sts it does hurt worse when he is at work and standing . * ROS: D ERMATOLOGY: no R fani. n o H bret. G ASTROENTEROLOGY: no N ausea. n o V omiting. U ROLOGY: no D ifficulty urinating. n o B lood in urine. * Medical History: H ypothyroidism, Hyperlipidemia, Hypertension, Coronary Artery Disease, Myocardial Infarction, stent x1, 2015, Eye exam 09/2024. * Surgical History: n ear amputation of R foot 1988, Left heart cath with 1 stent in mid RCA 07/17/2016, Stress Test with ECHO 07/2020, stents x3 04/2023. * Hospitalization/Major Diagno stic Procedure: h eart problems-thacker of heart severely inflammed 2009, Heart attack 07/17- 07/19/2016, chest pain 05/13/2023. * Family History: F ather: alive. M other: alive. P aternal Grand Father: . P aternal Grand Mother: alive. M aternal Grand Father: , Cancer. M aternal Grand Mother: . Children: . 5 brother(s) , 1 sister(s) - healthy. 2 son(s) , 3 daughter(s) - healthy. . * Social History: C URRENT TOBACCO USE A re you a: STOPPED SMOKING 2018. C affeine: yes, frequency: coffee, tea. Marital Status: Single. Occupation: [employer]. Past smoking status: yes, Smoking status: Patient does NOT smoke, FORMER Packs per day: 1, Since age of: 10. STOPPED 2018. Recreational drug use: no. Alcohol: Yes, rare. Sexually active: yes. * Medications: T aking Atorvastatin Calcium 40 MG Tablet 1 tablet Orally Once a day , Taking Aspirin 81 MG Tablet Chewable CHEW AND SWALLOW 1 TABLET DAILY , Taking Tamiflu 75 MG Capsule 1 capsule Orally Twice a day , Taking Tadalafil 5 mg Tablet TAKE 1/2 TABLET BY MOUTH DAILY , Taking Potassium Chloride ER 20 MEQ Tablet Extended Release 1 tablet with food Orally Once a day , Taking Furosemide 40 MG Tablet 1 tablet Orally Once a day prn , Taking Fluticasone Propionate 50 MCG/ACT Suspension 1 spray in each nostril once a day , Taking Triamterene-HCTZ 37.5-25 MG Tablet 1 tablet in the morning Orally Once a day , Taking Lisinopril 40 MG Tablet 1 tab(s) orally once a day , Taking Levothyroxine Sodium 175 MCG Tablet 1 tab(s) orally once a day , Taking Omeprazole 40 MG Capsule Delayed Release 1 cap(s) orally once a day , Taking Cetirizine HCl 10 MG Tablet 1 tab(s) orally once a day , Medication List reviewed and reconciled with the patient * Allergies: N .K.D.A. Objective: * Vitals: W t: 305.6, Temp: 97.7, BP: 120/72, HR: 77, Nurse: mm, Ht: 75, BMI:38.19. * Examination: G eneral Examination: General Appearance: N AD. C hest: n ormal shape and expansion. H eart: R SR. L ungs: c lear to auscultation. S kin: l eft great toe with erythema and edema, there is some purulent drainage as well. Assessment: * Assessment: 1. T oe infection - L08.9 (Primary) S pecify :left great toe Plan: * Treatment: Value Reference Range C ulture, Anaerobic and Aerobic w/Gram Stain See Below - * S pecimen Source - left first toe - * S ensitivity Panel See Below - ?Imaging: x ray : 1st digit, left foot (Performed Date - 01/23/2025)?mild degenerative change * Labs: * L ab: P-Culture, Miscellaneous Aerobic w/Gram Stain (Collection Date & Time - 01/23/2025 09:29 AM) Value Reference Range C ulture, Miscellaneous Aerobic w/Gram Stain See Below - * S pecimen Source - left first toe - * G anastacia Stain See Below - * S ensitivity Panel See Below - * S taphylococcus aureus Heavy Growth Staphylococcus aureus - * [facility], IT support 01/27/2025 08:25:04 : This order was created by the Interface. * Follow Up: v ia phone to report test results * Images: Billing Information: * Visit Code: 25630 Office Visit, Est Pt., Level 3. * Procedure Codes: * Electronic signature of SHAYY Kelsey on 07/10/2025 at 07:47 AM EDT Sign off status: Pending * Provider: SHAYY Agrawal Date: 0 01/23/2025 Generated for Ortegai shakeel/Carey/eTransmitting on: 07:47 AM EDT History and Physical Notes * HPI (History of Present Illness) Category Sub-Category Detail Notes Category Not es Ankle/Foot Radiation of Pain Pt sts he keep s getting shooting pains up his leg as well Swelling left big toe. Pt sts last Sunday he noticed it was swollen and sts he soaked it in warm water and then sts the skin came up on it and sts it does hurt worse when he is at work and standing Examination Category Sub-Category Detail Notes Category Not es General Examination Heart: RSR Lungs: clear to auscultatio n General Appearance: NAD Skin: left great toe with erythema and edema, there is some purulent drainage as well Chest: normal shape and exp ansion
--- OUTSIDE RECORDS SUMMARY | 2025-01-28 05:45 | XMS_ITS ---
Author Organization [facility] Address [address] [place] [phone] Care Team Providers Care Accounts Receivable Accountant Name Role Phone Aaron Davis Primary Care Provider [phone] Carol Tabor Unavailable [phone] Allergies No Known Allergies REASON FOR VISIT 1 week f/u Medications Medication SIG (Take, Route, Frequency, Duration) Notes Start Date End Date Status Cetirizine HCl 10 MG 1 tab(s) orally onc e a day; Duration: 90 days Active Mupirocin 2 % 1 application Tele Grout Sewer Line Repairer ally Twice a day 01/28/2025 Active Omeprazole [address] [place] [id number] 01/28/2025 Carol Tabor Toe infection L08.9 Assessments [...] Date Notes Mupirocin 2 % 1 application Tele Grout Sewer Line Repairer ally Twice a day 01/28/2025 Bactrim DS [...] 07/10/2025 09:15:00 AM, [address] [facility], [address], [place], [phone], Provider Name:Aaron Rivers er, 07/20/2025 02:00:00 PM, [address], [address], [place], [phone], Progress Notes * Tommy RODRIGUEZ RDOB:[birth year] (49 yo M)Acc No.[id number]:01/28/2025 Patient: Tommy EUCEDA Provider: SHAYY Agrawal :1975 A ge:49 Y S ex:Male Date:01/28/2025 Address:[address] [id number] Pcp:Aaron Davis Subjective: * Chief Complaints: * [...] * Images: Billing Information: * Visit Code: 53783 Office Visit, Est Pt., Level 3. * Procedure Codes: * Electronic signature of SHAYY Kelsey on 07/10/2025 at 07:47 AM EDT Sign off status: Pending * Provider: SHAYY Agrawal Date: 0 01/28/2025 Generated for Roni beckford/Carey/Jonysmitting on: 1 07:47 AM EDT History and Physical Notes * Examination Category Sub-Category Detail Notes Category Not es General Examination Heart: RSR Lungs: clear to auscultatio n General Appearance: NAD Skin: left great toe with less erythema and edema, there is still some purulent drainage as well Chest: normal shape and exp ansion
--- OUTSIDE RECORDS SUMMARY | 2025-02-11 06:00 | XMS_ITS ---
[facility] Address [address] [facility] [address] [place] [id number] Care Team Providers Care Assembly Supervisor Name Role Phone Aaron Davis Primary Care Provider [phone] Carol Tabor Unavailable [phone] Allergies No Known Allergies Reason For Referral Diagnosis 1 Toe infection (L08.9 ) [facility] Referring Provider First Name Carol Referring Provider Last Name Sharona Referring Provider Speciality Physician Refrigeration Tech Referred Provider Specialty Physical The rapist General Notes Carol Tabor 10:01:57 AM >Pt needs a referral to wound care., Elvi Keith 02/11/2025 10:32:40 AM > faxed to [facility] PT Referral Priority Routine REASON FOR [...] days Active Mupirocin 2 % 1 application Fuels Engineer ally Twice a day Active Cetirizine HCl [...] 02/11/2025 Encounters Encounter Location Date Provider Diagnosis [facility] [address] [facility] [address] [facility] [address] [place] [phone] 02/11/2025 Carol Tabor Toe infection L08.9 and Open wound of [...] Follow Up: with wound care, Reason: Provider Name:Carol sanders, 07/10/2025 09:15:00 AM, [address] [facility] [address] [facility], [address], [place], [place], [phone], Provider Name:Aaron castillo, 07/20/2025 02:00:00 PM, [address] [facility] [address] [facility], [address], [place], [place], [id number], Progress Notes * Tommy RODRIGUEZ RDOB:[birth year] (49 yo M)Acc No.[id number]:02/11/2025 Patient: Tommy EUCEDA Provider: SHAYY Agrawal :1975 A ge:49 Y S ex:Male Date:02/11/2025 Address:[address] [id number] Pcp:Aaron Davis Subjective: * Chief Complaints: * 1 . 2 week f/u. * HPI: H PI: 49 year old male presents with c/o Here for follow up on: Lara gusman is here today for a 2 week [...] Plan: * Treatment: * Follow Up: w [facility] wound care * Images: Billing Information: * Visit Code: [id number] Office Visit, Est Pt., Level 3. * Procedure Codes: * Electronic signature of SHAYY Kelsey on 07/10/2025 at 07:47 AM EDT Sign off status: Pending * Provider: SHAYY Agrawal Date: 0 02/11/2025 Generated for Roni beckford/Carey/eTransmitting on: 1 07:47 AM EDT History and [...]
--- OUTSIDE RECORDS SUMMARY | 2025-03-12 09:30 | XMS_ITS ---
[facility] Address [address] [place] [phone] Care Team Providers Care Sawyer Helper Name Role Phone Aaron Davis Primary Care [...] Problem Status W/U Status Risk Notes Problem Information temporarily unavailable ST elevation myocardial infarction involving right coronary artery (I21.11) Active confirmed Vital Signs Blood pressure systolic 102 mm Hg 03/12/20 25 Blood pressure diastolic 70 mm Hg 025 Heart Rate 63 /min 03/12/2025 Height 75 in 03/12/2025 Weight 306.0 lbs 03/12/2025 BMI 38.24 kg/m2 03/12/2025 s, m Encounters Encounter Location Date Provider Diagnosis Poppy [address] [place] [address] [address] [place] [phone] 03/12/[address] elevation myocard ial [...] Follow Up: 2 Weeks, Reason: Provider Name:Carol sanders, 07/10/2025 09:15:00 AM, [address] [place] [address] 36 [facility], [address], [place], [phone], Provider Name:Aaron Rivers er, 07/20/2025 02:00:00 PM, [address] [place] [address], [address], [place], [phone], Progress Notes * Tommy RODRIGUEZ RDOB:[birth year] (49 yo M)Acc No.[id number]:03/12/2025 Progress Notes Patient: Tommy EUCEDA Provider: Aaron Davis M.D. :1975 A ge:49 Y S ex:Male Date:03/12/2025 Address[address] [id number] Subjective: * Chief Complaints: * 1 . 4 month F/U. 2. Needs labs & diabetic eye exam. * HPI: C [facility] due to heart attack and heart [...] frequency: coffee, tea. Marital Status: Single. Occupation: [employer] and [employer]. Past smoking status: yes, Smoking status: Patient [...] * Images: Billing Information: * Visit Code: 53541 Office Visit, Est Pt., Level 3. * Procedure Codes: * Electronic signature of Aaron Davis MD on 07/10/2025 at 07:47 AM EDT Sign off status: Pending * Provider: Aaron Davis M.D. Date: 0 03/12/2025 Generated for Printi ng/Faxing/eTransmitting on: 1 07:47 AM EDT History and [...]
--- OUTSIDE RECORDS SUMMARY | 2025-03-13 05:35 | XMS_ITS ---
Author Organization [facility] Address [address] [facility] [address] [place] [phone] Care Team Providers Care Creasing And Cutting Press Feeder Name Role Phone Aaron Davis Primary Care Provider Carol Tabor [phone] REASON FOR VISIT [facility] F/U Encounters Encounter Location Date Provider Diagnosis Po[facility] [address] [place], [place] [phone] 03/13/2025 Carol Tabor Plan Of Treatment Next Appt Details Provider Name:Carol Isaac y, 07/10/2025 09:15:00 AM, [address], [address], [place], [place], [phone], Provider Name:Aaron Rivers er, 07/20/2025 02:00:00 PM, [address], [address], [place], [place], [phone], Progress Notes * Tommy RODRIGUEZ RDOB:[birth year] (49 yo M)Acc No.[id number]:03/13/2025 Progress Notes Patient: Lara ALCARAZ Tommy Barber Provider: SHAYY Agrawal :1975 A ge:49 Y S ex:Male Date:03/13/2025 Address:[address] [facility] [id number] Pcp:Aaron Davis Subjective: * Chief Complaints: * 1 . [facility] F/U. * Medical History: Objective: * Vitals: Assessment: Plan: * Treatment: * Images: Billing Information: * Visit Code: * Procedure Codes: * Electronic signature of SHAYY Kelsey on 07/10/2025 at 07:46 AM EDT Sign off status: Pending * Provider: SHAYY Agrawal Date: 0 03/13/2025 Generated for Roni beckford/Carey/Ronny on: 1 07:46 AM EDT
--- OUTSIDE RECORDS SUMMARY | 2025-03-26 10:30 | XMS_ITS ---
Author Organization Poppy Address 1210 [facility] [address] [place] [phone] Care Team Providers Care Sculpture Instructor Name Role Phone Aaron Davis Primary Care [...] Signs Blood pressure systolic 120 mm Hg 03/26/20 25 Blood pressure diastolic 72 mm Hg 025 Heart Rate 62 /min 03/26/2025 Height 75 in 03/26/2025 Weight 297.0 lbs 03/26/2025 BMI 37.12 kg/m2 03/26/2025 Encounters Encounter Location Date Provider Diagnosis [facility] [address] [place] [phone] 03/26/2025 Aaron Davis Status post angiopla sty with stent Z95.9 ; Atherosclerosis of [place] coronary artery without angina pectoris, unspecified whether [place] or transplanted heart I25.10 ; Essential (primary) hypertension I10 and Type 2 diabetes mellitus without complication, unspecified whether exterminator insulin use E11.9 Assessments Encounter Date Diagnosis (ICD Code) Assessment Notes Treatment Notes Treatment Clinical Notes Section Notes 03/26/2025 Status post angioplasty with stent (ICD-10 - Z95.9) Cont present treatment 03/26/2025 Atherosclerosis of [place] coronary artery without angina pectoris, unspecified whether [place] or transplanted heart (ICD-10 - I25.10) 03/26/2025 Essential (primary) hypertension (ICD-10 - I10) 03/26/2025 Type 2 diabetes mellitus without complication, unspecified whether skilled nursing insulin use (ICD-10 - E11.9) Plan Of Treatment Treatment Notes Assessment Notes Status post angioplasty with stent Cont present treatment Next Appt Details Follow Up: 3 Months, Reason: Provider Name:Carol sanders, 07/10/2025 09:15:00 AM, 1210 [facility] 36 [facility], [address], [place], [phone], Provider Name:Aaron Rivers er, 07/20/2025 02:00:00 PM, 1210 [facility] 36 [facility], [address], [place], [place], [phone], Progress Notes * Tommy RODRIGUEZ RDOB:[birth year] (49 yo M)Acc No.[id number]:03/26/2025 Progress Notes Patient: Jose EUCEDAn Elisabeth Provider: Aaron Davis M.D. :1975 A ge:49 Y S ex:Male Date:03/26/2025 Address:[address] [facility] [id number] Subjective: * Chief Complaints: [...] frequency: coffee, tea. Marital Status: Single. Occupation: [employer]. Past smoking status: yes, Smoking status: Patient [...] Z95.9 (Primary) 2 . A therosclerosis of [place] coronary artery without angina pectoris, unspecified whether [place] or transplanted heart - I25.10 3 . E ssential (primary) hypertension - I10 4 . T ype 2 diabetes mellitus without complication, unspecified whether exterminator insulin use - E11.9? Plan: * Treatment: * Procedure Codes: 1 036F TOBACCO NON-USER, 3044F HG A1C LEVEL LT 7.0%, G8950 PREHTN/HTN BP DOC INDCD F/U DOC, 3074F SYST BP LT 130 MM HG, 3078F DIAST BP < 80 MM HG * Follow Up: 3 Months * Images: Billing Information: * Visit Code: 52987 Office Visit, Est Pt., Level 3. * Procedure Codes: 1036F TOBACCO NON-USER. 3044F HG A1C LEVEL LT 7.0%. G8950 PREHTN/HTN BP DOC INDCD F/U DOC. 3074F SYST BP LT 130 MM HG. 3078F DIAST BP < 80 MM HG. * Electronic signature of Aaron Davis MD on 07/10/2025 at 07:46 AM EDT Sign off status: Pending * Provider: Aaron Davis M.D. Date: 0 03/26/2025 Generated for Ortegai ng/Famukeshg/eTransmitting on: 1 07:46 AM EDT History and [...]
--- OUTSIDE RECORDS SUMMARY | 2025-04-28 05:45 | XMS_ITS ---
Author Organization Leigh Address [facility]10 [facility] [address] [place] [phone] Care Team Providers Care Feather Cutting Machine Feeder Name Role Phone Aaron Davis Primary Care Provider Portillo Mcleod Unavailable [phone] Allergies No Known Allergies REASON FOR VISIT [...] Provider Diagnosis [place] [address] [facility] [address] [place] [phone] 04/28/2025 Portillo Mcleod Hemorrhoids, unspecified hemorrhoid type [...] phone to repo rt progress, Reason: Provider Name:Carol Isaac y, 07/10/2025 09:15:00 AM, [address], [address], [place], [phone], Provider Name:Aaron Rivers er, 07/20/2025 02:00:00 PM, [address], [address], [place], [place], [phone], Progress Notes * Tommy RODRIGUEZ RDOB:[birth year] (49 yo M)Acc No.[id number]:04/28/2025 Progress Notes Patient: Tommy EUCEDA Provider: Victor Manuel Mcleod M.D. :1975 A ge:49 Y S ex:Male Date:04/28/2025 Address:[address] [facility] [place], [phone] Pcp:Aaron Davis Subjective: * Chief Complaints: * [...] frequency: coffee, tea. Marital Status: Single. Occupation: [employer]. Past smoking status: yes, Smoking status: Patient [...] Temp: 97.8, BP: 124/90, HR: 77, Nurse: kk, Ht: 75, BMI:36.62. * Examination: G eneral Examination: General Appearance: N AD. Assessment: * Assessment: 1. H emorrhoids, unspecified hemorrhoid type - K64.9 (Primary) Plan: * Treatment: * Follow Up: v ia phone to report progress * Images: Billing Information: * Visit Code: 40824 Office Visit, Est Pt., Level 3. * Procedure Codes: * Electronic signature of Shakira Mcleod MD on 07/10/2025 at 07:47 AM EDT Sign off status: Pending * Provider: Victor Manuel Mcleod M.D. Date: 0 04/28/2025 Generated for Roni beckford/Carey/Ronny on: 1 07:47 AM EDT History and Physical Notes * HPI (History of Present Illness) Category Sub-Category Detail Notes Category Not es Gastroenterology hemorrhoid Pt complains of pain when walking, sitting and at times doing anything due to hemorrhoids Examination Category Sub-Category Detail Notes Category Not es General Examination General Appearance: NAD
--- OUTSIDE RECORDS SUMMARY | 2025-07-01 11:15 | XMS_ITS ---
[facility] Address 12[address] [facility] [address] [place] [phone] Care Team Providers Care Community Relations Rep Name Role Phone Aaron Davis Primary Care Provider Carol Tabor Unavailable [phone] Allergies No Known Allergies Results Component Value Reference Range Notes P-Culture, Anaerobic and Aer obic w/Gram Stain Reviewed date:07/08/2025 09:12:49 AM Interpretation:Abnormal Performing Lab: Notes/Report: Test performed by [facility], [address] , [address], [place] [address] Timothy Grady MD, Twx Operator CLIA: [id number] Specimen Source Abscess - left great toe Culture, Anaerobic and Aerobic w/Gram Stain See Below Final Report: No Anaerobes isolated Sensitivity Panel See Below Organism Antibiotic S=SUSCEPTIBLE I=INTERMEDIATE R=RESISTANT P-Culture, Miscellaneous Aer obic w/Gram Stain Reviewed date:07/08/2025 09:12:49 AM Interpretation:Abnormal Performing Lab: Notes/Report: Test performed by [facility]0 [facility] , [address], [place] [address] Timothy Grady MD, Twx Operator CLIA: [id number] Specimen Source Abscess - left great toe [...] Last Name Sharona Referring Provider Speciality Physician Furnace Process Plant Operator Referred Provider Specialty Podiatry General Notes Carol Tabor 03:06:58 PM > Pt needs an appt with Dr. Markham for a nonhealing foot wound, Elvi Keith 07/01/2025 03:08:54 PM > faxed to [facility] Podiatry, Elvi Keith 07/06/2025 09:39:18 AM > referral received; they will schedule once DANAE is scheduled through [facility] Referral Priority Routine REASON FOR VISIT [...] 07/01/2025 Encounters Encounter Location Date Provider Diagnosis [facility] [address] [facility] 36 [facility] [address] [place] [phone] 07/01/2025 Carol Tabor Toe infection L08.9 Assessments Encounter Date Diagnosis (ICD Code) Assessment Notes Treatment Notes Treatment Clinical Notes Section Notes 07/01/2025 Toe infection (ICD-10 - L08.9) Plan Of Treatment Pending Test Test Name Order Date Ankle-brachial index 07/01/2025 Referrals Referral Date Details 07/01/2025 07/01/2025 Next Appt Details Follow Up: via phone to repo rt test results, Reason: Provider Name:Carol Isaac y, 07/10/2025 09:15:00 AM, [facility], [address], [place], [phone], Provider Name:Aaron Rivers er, 07/20/2025 02:00:00 PM, [address] [facility] 36 [facility], [address], [place], [phone], Progress Notes * Tommy RODRIGUEZ RDOB:[birth year] (49 yo M)Acc No.[id number]:07/01/2025 Progress Notes Patient: Tommy EUCEDA Provider: SHAYY Agrawal :1975 A ge:49 Y S ex:Male Date:07/01/2025 Address:[address] [facility] [id number] Pcp:Aaron Davis Subjective: * Chief Complaints: [...] frequency: coffee, tea. Marital Status: Single. Occupation: [employer]. Past smoking status: yes, Smoking status: Patient [...] Zyvox and has appt 07/10. ?Imaging: Ankle-brachial index* Elvi Keith 07/01/2025 03: 47:53 PM EDT > faxed to [facility] Scheduling ? Referral To:Podiatry ?Reason: * [...] S ensitivity Panel See Below - * [facility], IT support 07/05/2025 10:25:06 : This order was created by the Interface.Elisabeth Pearl 07/06/2025 09:58:56 AM EDT > See phone encounter Courtney Allen 07/08/2025 09:11:36 AM EDT > See phone encounter. pt started on Zyvox and has appt 07/10. * Follow Up: v ia phone to report test results * Images: Billing Information: * Visit Code: 59457 Office Visit, Est Pt., Level 3. * Procedure Codes: * Electronic signature of SHAYY Kelsey on 07/10/2025 at 07:47 AM EDT Sign off status: Pending * Provider: SHAYY Agrawal Date: Generated for Ortegai ng/Famukeshg/eTransmitting on: 07:47 AM EDT History and Physical [...]
--- NOTE | 2025-07-10 07:46 | US_ITS ---
FINAL REPORT CLINICAL HISTORY: .Ex smoker, CAD, Unhealing Wound to left great Toe COMPARISON: None FINDINGS: LOWER EXTREMITY SEGMENTAL PRESSURE MEASUREMENTS FINDINGS: Pressure indices are as follows: RIGHT LOWER EXTREMITY: Upper thigh: 123 Calf: 143 Ankle, posterior tibial artery: 144 Ankle, dorsalis pedis: 126 Toe: 97 Comments: Normal ankle-brachial index of 1.13. LEFT LOWER EXTREMITY: Upper thigh: 135 Calf: 142 Ankle, posterior tibial artery: 129 Ankle, dorsalis pedis: 143 Toe: 97 Comments: Normal ankle-brachial index of 1.13. IMPRESSION: Normal ankle-brachial indices. Reviewed, Interpreted and Dictated by Ysabel Cole MD Transcribed by Usha Gomez Authenticated and [facility]
--- OUTSIDE RECORDS SUMMARY | 2025-07-10 07:46 | XMS_ITS | Patient Health Record ---
[facility] Address [address] [place] [id number] Care Team Providers Care Apple Turner Name Role Phone Aaron Davis Primary Care Provider [phone] Portillo Mcleod Unavailable [phone] Carol Tabor Unavailable [phone] Allergies No Known Allergies Results Component Value Reference Range Notes P-Culture, Anaerobic and Aer obic w/Gram Stain Reviewed date:07/08/2025 09:12:49 AM Interpretation:Abnormal Performing Lab: Notes/Report: Test performed by [facility], [address] , [place] [address] Timothy Grady MD, Account Strategist CLIA: [id number] Specimen Source Abscess - left great toe Culture, Anaerobic and Aerobic w/Gram Stain See Below Final Report: No Anaerobes isolated Sensitivity Panel See Below _ Organism Antibiotic _ _ S=SUSCEPTIBLE I=INTERMEDIATE R=RESISTANT P-Culture, Miscellaneous Aer obic w/Gram Stain Reviewed date:07/08/2025 09:12:49 AM Interpretation:Abnormal Performing Lab: Notes/Report: Test performed by [facility], [address] , [facility], [place] [address] Timothy Grady MD, Account Strategist CLIA: [id number] Specimen Source Abscess - left great toe [...] Trimeth/Sulfa S Vancomycin S S=SUSCEPTIBLE I=INTERMEDIATE R=RESISTANT H-BUN/CREAT Reviewed date:12/12/2024 05:41:57 PM Interpretation: Performing Lab: Notes/Report: BUN 30 9-20 mg/dl CREATT 1.40 0.66-1.25 mg/dl GFRAA 65 >60 ML/MIN EGFR 53 >60 ml/min P-Culture, Anaerobic and Aer obic w/Gram Stain Reviewed date:01/28/2025 02:41:01 PM Interpretation: Performing Lab: Notes/Report: CLIA: [id number] Timothy Grady MD, Account Strategist [address] [place] [address] , [facility], [place] [address] Test performed by [facility], [employer] Specimen Source - left first toe Culture, Anaerobic and Aerobic w/Gram Stain See Below Final Report : No Anaerobes isolated Sensitivity Panel See Below _ Organism Antibiotic _ Ceftaroline Clindamycin Daptomycin Erythromycin Gentamicin Levofloxacin Linezolid Moxifloxacin Oxacillin Penicillin Rifampin Tetracycline Trimeth/Sulfa Vancomycin S=SUSCEPTIBLE I=INTERMEDIATE R=RESISTANT P-Culture, Miscellaneous Aer obic w/Gram Stain Reviewed date:01/28/2025 02:41:01 PM Interpretation: Performing Lab: Notes/Report: Test performed by [facility] [address] [place] [address] , [address], [place] [address] Timothy Grady MD, Account Strategist MEGANIA: [id number] Specimen Source - left first toe Gram [...] change Performing Lab: Notes/Report: mild degenerative change Glycohemoglobin A1c (in hous e) Reviewed date:10/17/2024 10:08:40 AM Interpretation:6.3 Performing Lab: Notes/Report: 6.3 glycohemoglobin 6.3% 5 - 6.5 % P-Comprehensive Metabolic Pa vishnu (CMP) Reviewed date:10/17/2024 10:08:40 AM Interpretation:bun 24, creat 1.44, gfr 59 Performing Lab: Notes/Report: Test performed by [facility] [address] [place] [address] , [address], [place] [address] Timothy Grady MD, Account Strategist CLIA: [id number] Sodium 138 135-145 mmol/L Potassium 4.6 3.5-5.3 [...] 0.3 <0.2-1.2 mg/dL A/G Ratio 1.5 1.1-2.5 P-Microalbumin/Creatinine, R andom Urine Sample Reviewed date:10/17/2024 10:08:40 AM Interpretation:Normal Performing Lab: Notes/Report: Test performed by [facility] [address] [place] [address] , [address], [place] [address] Timothy Grady MD, Account Strategist CLIA: [id number] Albumin/Creatinine Ratio, Urine 8 0-30 ug/mg Microalbumin, Urine, Random 2.0 Creatinine, Urine 241.6 Influenza Screen (in house) Reviewed date:11/06/2024 11:09:22 [...] employed in healthcare? No Is patient an [employer] [facility] employee? N Is patient currently hospitalized? No [...] AM Interpretation: Performing Lab: Notes/Report: Result: Neg CT scan : Abdomen and pelvis with contrast Reviewed date:04/21/2025 02:53:22 PM Interpretation:nothing acute, benign cyst Performing Lab: Notes/Report: nothing acute, benign cyst P-PSA Reviewed date:10/17/2024 10:08:40 AM Interpretation:Normal Performing Lab: Notes/Report: Test performed by [facility] [address] [place] [address] , [address], [place] [address] Timothy Grady MD, Account Strategist CLIA: [id number] PSA 0.51 <4.00 ng/mL Please note this is an ultrasensitive PSA assay with a lower limit of detection of 0.014 ng/mL. This test is performed by the Reyna ECLIA methodology. Values obtained with different assay methods or kits cannot be directly compared. CT Scan : Chest, low dose Reviewed [...] Status Risk Notes Problem Information temporarily unavailable Essential (primary) hypertension (I10) Active confirmed Problem Information temporarily unavailable Tobacco abuse (Z72.0) Active confirmed Problem Information temporarily unavailable Essential hypertension (I10) Active confirmed Problem Information temporarily unavailable Angina pectoris (I20.9) Active confirmed Problem Information temporarily unavailable Mixed hyperlipidemia (E78.2) Active confirmed Problem Information temporarily unavailable Restless legs syndrome (G25.81) Active confirmed Problem Information temporarily unavailable ST elevation (STEMI) myocardial infarction involving other coronary artery of inferior wall (I21.19) Active confirmed Problem Information temporarily unavailable Acquired hypothyroidism (E03.9) Active confirmed Problem Information temporarily unavailable Sleep disturbance (G47.9) Active confirmed Problem Information temporarily unavailable Chronic fatigue (R53.82) Active confirmed Problem Information temporarily unavailable Status post coronary artery stent placement (Z95.5) Active confirmed Problem Information temporarily unavailable Erectile dysfunction, unspecified erectile dysfunction type (N52.9) Active confirmed Problem Information temporarily unavailable BMI 40.0-44.9, adult (Z68.41) Active confirmed Problem Information temporarily unavailable Hyperlipidemia, unspecified hyperlipidemia type (E78.5) Active confirmed Problem Information temporarily unavailable ST elevation myocardial infarction (STEMI), unspecified artery (I21.3) Active confirmed Problem Information temporarily unavailable Coronary artery disease involving [place] coronary artery of [place] river heart, angina presence unspecified (I25.10) Active confirmed Problem Information temporarily unavailable Stented coronary artery (Z95.5) Active confirmed Problem Information temporarily unavailable BMI 39.0-39.9,adult (Z68.39) Active confirmed Problem Information temporarily unavailable Status post angioplasty with stent (Z95.9) Active confirmed Problem Information temporarily unavailable Atherosclerosis of [place] coronary artery without angina pectoris, unspecified whether [place] river or transplanted heart (I25.10) Active confirmed Problem Information temporarily unavailable Benign prostatic hyperplasia without lower urinary tract symptoms (N40.0) Active confirmed Problem Information temporarily unavailable Seasonal allergic rhinitis, unspecified trigger (J30.2) Active confirmed Problem Information temporarily unavailable Type 2 diabetes mellitus without complication, unspecified whether termite inspector insulin use (E11.9) Active confirmed Problem Information temporarily unavailable Gastroesophageal reflux disease, unspecified whether esophagitis present (K21.9) Active confirmed Problem Information temporarily unavailable ST elevation myocardial infarction involving right coronary artery (I21.11) Active confirmed Problem Information temporarily unavailable Partial tear of left Achilles tendon, subsequent encounter (S86.012D) Active confirmed Vital Signs Heart Rate 70 /min 07/01/2025 Blood pressure diastolic 68 mm Hg 07/01/2025 Height 75 in 07/01/2025 Blood pressure systolic 140 mm Hg 07/01/2025 Weight 293.4 lbs 07/01/2025 BMI 36.67 kg/m2 07/01/2025 Encounters Encounter Location Date Provider Diagnosis [facility] [facility] [address] [place] [id number] 10/16/2024 Aaron Davis Type 2 diabetes seema itus without complication, unspecified whether termite inspector insulin use E11.9 ; BMI 39.0-39.9,adult Z68.39 ; Essential (primary) hypertension I10 ; Status post angioplasty with stent Z95.9 ; Benign prostatic hyperplasia without lower urinary tract symptoms N40.0 and History of tobacco use Z87.891 [facility] [address] [place] [id number] 11/06/2024 Carol Crowdy Acute URI J06.9 ; Chapin dy aches R52 ; Fever, unspecified R50.9 and Influenza A J10.1 [facility] [address] [place] [id number] 01/23/2025 Carol Crowdy Toe infection L08.9 [facility] [address] [place] [id number] 01/28/2025 Carol Crowdy Toe infection L08.9 [facility] [address] [address] [place], [place] [id number] 02/11/2025 Carol Crowdy Toe infection L08.9 and Open wound of toe, subsequent encounter S91.109D [facility] [facility] [address] [place] [id number] 03/12/[address] elevation myocard ial infarction involving right coronary artery I21.11 ; Hyperkalemia E87.5 and Status post angioplasty with stent Z95.9 [facility] [address] [place] [id number] 03/26/2025 Aaron Davis Status post angiopla sty with stent Z95.9 ; Atherosclerosis of [place] coronary artery without angina pectoris, unspecified whether [place] or transplanted heart I25.10 ; Essential (primary) hypertension I10 and Type 2 diabetes mellitus without complication, unspecified whether fpc insulin use E11.9 [facility] [address] [place] [id number] 04/28/2025 Portillo Hague Hemorrhoids, unspeci fied hemorrhoid type K64.9 [facility] [address] [place], [place] [id number] 07/01/2025 Carol Tabor Toe infection L08.9 [facility] [address] [place] [id number] 07/31/2024 Aaron Davis [facility] [address] [place] [id number] 08/05/2024 Aaron Davis [facility] [address] [place] [id number] 08/07/2024 Aaron Davis [facility] [address] [place] [id number] 08/08/2024 Aaron Davis [facility] [address] [place] [id number] 10/17/2024 Aaron Davis [facility] [address] [place] [id number] 11/07/[address] lung screening R91.8 [facility] [address] [place] [id number] 11/10/2024 Carol Tabor [facility] [address] [place] [id number] 04/14/2025 Aaron Davis Screening for colon cancer Z12.11 [facility] [address] [place] [id number] 07/03/2025 Aaron Davis [facility] [address] [place] [id number] 07/06/2025 Portillo Mcleod [facility] [address] [facility] [address] [place], [place] [id number] 07/06/2025 Aaron Davis Assessments Encounter Date Diagnosis (ICD Code) Assessment Notes Treatment Notes Treatment Clinical Notes Section Notes 01/23/2025 Toe infection (ICD-10 - L08.9) 02/11/2025 Toe infection (ICD-10 - L08.9) 02/11/2025 Open wound of toe, subsequent encounter (ICD-10 - S91.109D) 03/12/2025 Hyperkalemia (ICD-10 - E87.5) 03/12/2025 ST elevation myocardial infarction involving right coronary artery (ICD-10 - I21.11) 07/01/2025 Toe infection (ICD-10 - L08.9) 04/28/2025 Hemorrhoids, unspecified hemorrhoid type (ICD-10 - K64.9) 04/14/2025 Screening for colon cancer (ICD-10 - Z12.11) 03/26/2025 Status post angioplasty with stent (ICD-10 - Z95.9) Cont present treatment 01/28/2025 Toe infection (ICD-10 - L08.9) Clindamycin has been upsetting his stomach. He only has a few days left and will finish them. His culture was positive for staph. Will start on Bactrim after finishing the clindamycin and f/u in 2 weeks. 11/07/[address] lung screening (ICD-10 - R91.8) 11/06/2024 Body aches (ICD-10 - R52) 11/06/2024 Acute URI (ICD-10 - J06.9) 10/16/2024 Type 2 diabetes mellitus without complication, unspecified whether termite inspector insulin use (ICD-10 - E11.9) continue current therapy 10/16/2024 BMI 39.0-39.9,adult (ICD-10 - Z68.39) 10/16/2024 Essential (primary) hypertension (ICD-10 - I10) 11/06/2024 Fever, unspecified (ICD-10 - R50.9) 03/26/2025 Atherosclerosis of g[place] river coronary artery without angina pectoris, unspecified whether g[place] river or transplanted heart (ICD-10 - I25.10) 03/12/2025 Status post angioplasty with stent (ICD-10 - Z95.9) 03/26/2025 Essential (primary) hypertension (ICD-10 - I10) 11/06/2024 Influenza A (ICD-10 - J10.1) Rest, fluids, tylenol or motrin for fevers. Home until fever free for 24-48 hours without the use of medication. 10/16/2024 Status post angioplasty with stent (ICD-10 - Z95.9) 10/16/2024 Benign prostatic hyperplasia without lower urinary tract symptoms (ICD-10 - N40.0) 03/26/2025 Type 2 diabetes mellitus without complication, unspecified whether termite inspector insulin use (ICD-10 - E11.9) 10/16/2024 History of tobacco use (ICD-10 - Z87.891) Plan Of Treatment Pending Test Test Name Order Date Ankle-brachial index 07/01/2025 Cologuard 04/14/2025 Next Appt Details Provider Name:Carol sanders, 07/10/2025 09:15:00 AM, [facility], [address], [place], [place], [id number], Provider Name:Aarno Rivers , 07/20/2025 02:00:00 PM, [facility], [address], [place], [place], [id number], Insurance Providers Payer Name Payer Address Payer Phone Subscriber Number Group Number Insured Name Patient Relationship to Insured Coverage Start Date Coverage End Date [employer] [address] [place] [address] [id number] Tommy Barrera Self - patient is the insured [employer] [address] [place] [address] [id number] Tommy Barrera Self - patient is the insured Medications Administered Medication Instructions Date of Administration Dosage Notes Dexamethasone 06/22/2015 1 mL Medical (General) History Medical History History ICD Code Hypothyroidism Hyperlipidemia Hypertension Coronary Artery Disease Myocardial Infarction, stent x1, 16 eye exam 09/2024 Neg Cologuard 05/2022 Surgical [...]
--- OUTSIDE RECORDS SUMMARY | 2025-07-10 07:47 | XMS_ITS | Clinical Summary ---
Author Organization [facility] Address [address] [place] [id number] Phone [email or web address] Care Team Providers Care Optical Effects Line Up Person Name Role Phone Unavailable Primary Care Provider [...] STEMI (ST elevation myocardial infarction) 07/19 Acute [place] inferior lateral first episode care Overview (04/22/2025): [...] Description 04/22/2025 7:30 AM EDT Office Visit [facility] [address] [place] [address] Deepak Gray MD ASCVD (arteriosclerotic cardiovascular [...] Date Recorded Alcohol Use Status Defer 04/22/2025 Financial Resource Strain Answer Date R ecorded In the past 12 months has th e electric, gas, oil, or water company threatened to shut off services in your home? No 07/09/2025 Do problems getting child ca re make it difficult for you to work or study? No 07/09/2025 Do you have a high school degree? Yes 07/09/2025 Do you have a job? Yes 07/09/2025 How often does this describe you? I don't have enough money to pay my bills. Rarely 07/09/2025 Depression Answer Date Recorded PHQ Total Score 0 04/22/2025 Stress Answer Date Recorded Stress in your Life Moderate 07/09/2025 Dealing with Stress Moderately effective 025 Physical Activity Answer Date Recorded How often do you engage in m oderate physical activity for 30 minutes or more? 1 to 3 days a week 07/09/2025 Vigorous Physical Activity Never 07/09 Time Spent Sitting Less than 4 hours 07/09/2025 Food Insecurity Answer Date Recorded Within the past 12 months, y ou worried that your food would run out before you got money to buy more. Never true 07/09/2025 Within the past 12 months, t he food you bought just didn t last and you didn t have money to get more. Never true 07/09/2025 Transportation Needs Answer Date Record ed In the past 12 months, has l ack of transportation kept you from medical appointments, meetings, work, or from getting things needed for daily living? (check all that apply) No 2024 Housing Stability Answer Date Recorded Worried about housing in next 2 months Not on fi le 07/09/[address] you li ve. Do you have problems with any of the following? (check all that apply) None of the above 06/18 Sex and Gender Information Value Date Recorded [...] Description 07/15/2025 11:00 AM EDT Office Visit [facility] [address] [facility] [address] [place] [address] Deepak Gray MD [address] [facility] [address] [place] [address] Health Maintenance Due Date Last [...] patient's age to complete this topic Insurance BELINDA VILLANUEVA COPAY [place]
--- OUTSIDE RECORDS SUMMARY | 2025-07-10 07:48 | XMS_ITS | Clinical Summary ---
Author Organization [facility] Address [address] [place] [address] Care Team Providers Care Nail Technician Teacher Name Role Phone Louie Davis MD Primary Care Provider [phone] Allergies No known active allergies Medications levothyroxine [...] STEMI (ST elevation myocardial infarction) 07/19 Acute [place] inferior lateral first episode care Overview (07/17/2016): [...] Mother Relation Name Status Comments Brother Alive [place] at age 42 Father Alive Mother Alive [...] VACCINE 04/17/2025 Medical Devices Implanted Type Area Flexographic Printing Machinist Device Identifier Shelf Expiration Date Model / Serial / Lot Stent Integrity Bare Mtl Rx 3.5x18mm - [id number] Implanted:Qty: 1 on 07/17/2016 by Garett Morales MD at [facility] Stent [employer] 03/10/2017 [id number] / / [id number] Insurance [facility] Advance Directives * Full Code (Latest Code Status on File) Date Activated Date Inactivated Comments 07/17/2016 3:35 PM 07/19/2016 9:28 AM Question Answer Comments Level Of Support Discussed With: Patient Care Teams Nail Technician Teacher Relationship Specialty Start Date End Date Louie Davis MD [address] [place] [address] PCP - General Family Medicine 07/17/16
== END 2025-07-10 23:59 | disposition home or self-care (01) ==
LOC: RT 07:44
PROVIDERS: PCP Family Medicine; Visit Provider Physician Assistant
DX: L08.9 Local infection of the skin and subcutaneous tissue, unspecified (principal); Z87.891 Personal history of nicotine dependence; I25.10 Atherosclerotic heart disease of native coronary artery without angina pectoris
CPT/HCPCS: 93923

== ENCOUNTER 2025-07-15 14:02 | Outpatient (CLI) | payer BC, SELFPAY ==
--- OUTSIDE RECORDS SUMMARY | 2025-07-15 11:00 | XMS_ITS | Encounter Summary ---
Author Organization [facility] Address [address] [place] [address] Phone [email or web address] Care Team Providers Care Newspaper Peddler Name Role Phone Louie Davis Primary Care Provider Reason for Visit * Reason Comments Medication Therapy Management Medication refill and labs Encounter Details Date Type Department Care Team (Late st Contact Info) Description 07/15/2025 11:00 AM EDT Office Visit [facility] [address] [facility] [address] [place] [address] Deepak Gray MD [address] [facility] [address] [place] [address] Acute [place] inferior lateral first episode care ([facility]) (Primary Dx); Hypertension, unspecified type; Gastroesophageal reflux [...] ecorded In the past 12 months has [employer] e electric, gas, oil, or water company [...] in this encounter Progress Notes * Anu Nielsen MA - 07/15/2025 11:00 AM EDT Tommy Barrera is a 49 y.o. male presents to the [facility] 07/15/2025 for Non-Fasting lab work ordered by Health Center provider . Labs drawn via right antecubital using butterfly 21 gauge needle on the first attempt without difficulty. Manual pressure applied to site upon completion of venipuncture with a small amount of bleeding, Coban applied over site. Member tolerated lab procedure well and was ambulatory out of the [facility] without difficulty:Yes. Lab specimen tubes collected: SST, 5 LAV, 2 Anu Nielsen TILLER WORKER * Deepak Gray MD - 07/15/2025 11:00 AM EDT Allergies Chart Review Health Maintenance History Immunizations Screenings Search Synopsis This Visit Vital Signs Assessment & Plan Acute [place] inferior lateral first episode care ([facility]) Orders: CMP12+LP+6AC (357348) - [facility] Hgb A1C Hemoglobin Glycosylated (80400) TSH Thyroid Stimulating Hormone (33028) T4, Free (01166) Magnesium Serum (69793) PSA Prostate Specific Antigen Total Reflex to Free (46926) UA Urinalysis Complete (Macroscopic and Microscopic) (08629) CBC Complete blood count with diff (43449) Hypertension, unspecified type Orders: CMP12+LP+6AC (407891) - [facility] furosemide (LASIX) 40 MG tablet; [...] he will forward the results to his Cosmetician. Follow-up: No follow up orders placed. Subjective [...] and he restarted. He has seen his preparatory technician recently and no changes have been made to his regimen. He feels well. His preparatory technician is asking for some labs and he [...] - 07/15/2025 11:00 AM EDTAssociated Problem(s): Acute [place] [facility] first episode care ([facility]) Orders: CMP12+LP+6AC (797506) - [facility] Hgb A1C Hemoglobin Glycosylated (01669) TSH Thyroid Stimulating Hormone (82232) T4, Free (53936) Magnesium Serum (66020) PSA Prostate Specific Antigen Total Reflex to Free (03554) UA Urinalysis Complete (Macroscopic and Microscopic) (02117) CBC Complete blood count with diff (48328) * Assessment & Plan Note - Deepak Gray MD - 07/15/2025 11:00 AM EDTAssociated Problem(s): HTN (hypertension) Orders: CMP12+LP+6AC (532338) - [facility] furosemide (LASIX) 40 MG tablet; [...] documented in this encounter Plan of Treatment Scheduled Orders Name Type Priority Associated Diagnoses Orde r Schedule CMP12+LP+6AC (075342) - [facility] Lab Routine Acute [place] inferior lateral first episode care ([facility]) Hypertension, unspecified type Ordered: 07/15/2025 Hgb A1C Hemoglobin Glycosylated (38976) Lab Routine Acute [place] inferior lateral first episode care ([facility]) Ordered: 07/15/2025 TSH Thyroid Stimulating Hormone (12972) Lab Routine Acute [place] inferior lateral first episode care ([facility]) Ordered: 07/15/2025 T4, Free (87712) Lab Routine Acute [place] inferior lateral first episode care ([facility]) Ordered: 07/15/2025 Magnesium Serum (91283) Lab Routine Acute [place] inferior lateral first episode care ([facility]) Ordered: 07/15/2025 PSA Prostate Specific Antigen Total Reflex to Free (23933) Lab Routine Acute [place] inferior lateral first episode care ([facility]) Ordered: 07/15/2025 UA Urinalysis Complete (Macroscopic and Microscopic) (65779) Lab Routine Acute [place] inferior lateral first episode care ([facility]) Ordered: 07/15/2025 CBC Complete blood count with diff (62027) Lab Routine Acute [place] inferior lateral first episode care ([facility]) Ordered: 07/15/2025 documented as of this encounter Visit Diagnoses Diagnosis Acute [place] inferior lateral first episode care ([facility])- Primary Acute myocardial infarction of inferolateral wall, initial episode of care Hypertension, unspecified type Gastroesophageal reflux disease, unspecified whether esophagitis present Allergic rhinitis, unspecified seasonality, unspecified trigger Hypothyroidism, unspecified type Hypokalemia Hypopotassemia documented in this encounter Care Teams Newspaper Peddler Relationship Specialty Start Date End Date Louie Davis [address] [place] [address] PCP - General General Surgery 07/15/25 documented as of this encounter
--- OUTSIDE RECORDS SUMMARY | 2025-07-15 14:04 | XMS_ITS | Clinical Summary ---
Author Organization [facility] Address [address] [place] [address] Phone [email or web address] Care Team Providers Care Lace Tearing Supervisor Name Role Phone Louie Davis Primary Care Provider [phone] Allergies No known active allergies Medications metoprolol [...] 1 (one) time each day. 90 tablet 07/15/20 25 Active fluticasone (FLONASE) 50 MCG/ACT nasal sprayIndication s:Allergic rhinitis, unspecified seasonality, unspecified trigger Administer 2 sprays into each nostril 1 (one) time each day. 48 g 07/15/20 25 Active furosemide (LASIX) 40 MG tabletIndicatio ns:Hypertension , unspecified type Take 1 tablet (40 mg total) by mouth 1 (one) time each day. 90 tablet 07/15/20 25 Active levothyroxine (SYNTHROID) 100 MCG tabletIndicatio ns:Hypothyroidi sm, unspecified type Take 1 tablet (100 mcg total) by mouth 1 (one) time each day. 90 tablet 07/15/20 25 Active levothyroxine (Synthroid) 75 MCG tabletIndicatio ns:Hypothyroidi sm, unspecified type Take 1 tablet (75 mcg total) by mouth 1 (one) time each day. 90 tablet 07/15/20 25 026 Active lisinopril (ZESTRIL) 40 MG tabletIndicatio ns:Hypertension , unspecified type Take 1 tablet (40 mg total) by mouth 1 (one) time each day. 90 tablet 07/15/20 25 Active omeprazole (PriLOSEC) [address] capsuleIndicati ons:Gastroesoph ageal reflux disease, unspecified whether esophagitis present Take 2 capsules (40 mg total) by mouth 1 (one) time each day. 180 capsule 07/15/20 25 Active triamterene-hyd roCHLOROthiazid e (DYAZIDE) 37.5-25 MG per capsuleIndicati ons:Hypertensio n, unspecified type Take 1 capsule by mouth 1 (one) time each day in the morning. 30 capsule 11 07/15/20 25 026 Active potassium chloride (KLOR-CON M10) 10 MEQ CR tabletIndicatio ns:Hypokalemia Take 2 tablets (20 mEq total) by mouth 1 (one) time each day. 200 tablet 07/15/20 25 Active potassium chloride (KLOR-CON) 10 MEQ CR tabletIndicatio ns:Hypokalemia Take 2 tablets (20 mEq total) by mouth 1 (one) time each day. Do not crush, chew, or split. 200 tablet 07/15/20 25 026 Active cetirizine (ZyrTEC) 10 MG tabletIndicatio ns:Allergic rhinitis, unspecified seasonality, unspecified trigger Take 1 tablet (10 mg total) by mouth 1 (one) time each day. 90 tablet 04/22/20 25 025 Discontin ued(Reord er) fluticasone (FLONASE) 50 MCG/ACT nasal sprayIndication s:Allergic rhinitis, unspecified seasonality, unspecified trigger Administer 2 sprays into each nostril 1 (one) time each day. 48 g 04/22/20 25 025 Discontin ued(Reord er) furosemide (LASIX) 40 MG tabletIndicatio ns:Hypertension , unspecified type Take 1 tablet (40 mg total) by mouth 1 (one) time each day. 90 tablet 04/22/20 25 025 Discontin ued(Reord er) lisinopril (ZESTRIL) 40 MG tabletIndicatio ns:Hypertension , unspecified type Take 1 tablet (40 mg total) by mouth 1 (one) time each day. 90 tablet 04/22/20 25 025 Discontin ued(Reord er) omeprazole (PriLOSEC) [address] capsuleIndicati ons:Gastroesoph ageal reflux disease, unspecified whether esophagitis present Take 2 capsules (40 mg total) by mouth 1 (one) time each day. 180 capsule 04/22/20 25 025 Discontin ued(Reord er) levothyroxine (Synthroid) 75 MCG tabletIndicatio ns:Hypothyroidi sm, unspecified type Take 1 tablet (75 mcg total) by mouth 1 (one) time each day. 90 tablet 04/22/20 25 025 Discontin ued(Reord er) triamterene-hyd roCHLOROthiazid e (DYAZIDE) 37.5-25 MG per capsuleIndicati ons:Hypertensio n, unspecified type Take 1 capsule by mouth 1 (one) time each day in the morning. 30 capsule 11 04/22/20 025 Discontin ued(Reord er) levothyroxine (SYNTHROID) 100 MCG tabletIndicatio ns:Hypothyroidi sm, unspecified type Take 1 tablet (100 mcg total) by mouth 1 (one) time each day. 90 tablet 04/22/20 25 025 Discontin ued(Reord er) potassium chloride (KLOR-CON M20) 20 MEQ CR tablet Take 20 mEq by mouth 1 (one) time each day. 07/11/20 25 025 Discontin ued(Reord er) Active Problems Problem Noted Date Diagnosed Date Abnormal EKG 07/15/2025 Abnormal nuclear stress test 07/15/2025 CHASE (acute kidney injury) 07/15/2025 Atrial fibrillation 07/15/2025 Angina pectoris, unstable 07/15/2025 Bilateral edema of lower extremity 07/15/2025 CAD (coronary artery disease) 07/15/2025 Callus of foot 07/15/2025 Diabetes 07/15/2025 Edema 07/15/2025 Elevated LFTs 07/15/2025 HLD (hyperlipidemia) 07/15/2025 Hypothyroidism 07/15/2025 Assessment & Plan (07/15/2025 11:41 AM EDT): Orders: levothyroxine (SYNTHROID) 100 MCG tablet; Take 1 tablet (100 mcg total) by mouth 1 (one) time each day. levothyroxine (Synthroid) 75 MCG tablet; Take 1 tablet (75 mcg total) by mouth 1 (one) time each day. Morbid obesity 07/15/2025 Neuropathy 07/15/2025 Obesity (BMI 30-39.9) 07/15/2025 Stented coronary artery 07/15/2025 Stopped smoking with greater than 30 pack year h istory 07/15/2025 STEMI (ST elevation myocardial infarction) 07/19 Acute [place] inferior lateral first episode care Overview (04/22/2025): 1. S/p thrombus extraction and BMS placement to RCA 2. EF 35% with mildly reduced systolic function Assessment & Plan (07/15/2025 11:41 AM EDT): Orders: CMP12+LP+6AC (783677) - [facility] Hgb A1C Hemoglobin Glycosylated (46757) TSH Thyroid Stimulating Hormone (46511) T4, Free (33110) Magnesium Serum (09240) PSA Prostate Specific Antigen Total Reflex to Free (54711) UA Urinalysis Complete (Macroscopic and Microscopic) (90245) CBC Complete blood count with diff (48967) GERD (gastroesophageal reflux disease) 6 Assessment & Plan (07/15/2025 11:41 AM EDT): Orders: omeprazole (PriLOSEC) [address] capsule; Take 2 capsules (40 mg total) by mouth 1 (one) time each day. Assessment & Plan (04/22/2025 8:08 AM EDT): Orders: omeprazole (PriLOSEC) [address] capsule; Take 2 capsules (40 mg total) by mouth 1 (one) time each day. HTN (hypertension) 07/17/2016 Assessment & Plan (07/15/2025 11:41 AM EDT): Orders: CMP12+LP+6AC (514037) - [facility] furosemide (LASIX) 40 MG tablet; Take 1 tablet (40 mg total) by mouth 1 (one) time each day. lisinopril (ZESTRIL) 40 MG tablet; Take 1 tablet (40 mg total) by mouth 1 (one) time each day. triamterene-hydroCHLOROthiazide (DYAZIDE) 37.5-25 MG per capsule; Take 1 capsule by mouth 1 (one) time each day in the morning. Assessment & Plan (04/22/2025 8:08 AM EDT): [...] Encounters Date Type Department Care Team Description 07/15/2025 11:00 AM EDT Office Visit [facility] [address] [facility] [address] [place] [address] Deepak Gray MD Acute [place] inferior lateral first episode care ([facility]) (Primary Dx); Hypertension, unspecified type; Gastroesophageal reflux disease, unspecified whether esophagitis present; Allergic rhinitis, unspecified seasonality, unspecified trigger; Hypothyroidism, unspecified type; Hypokalemia 04/22/2025 7:30 AM EDT Office Visit [facility] [address] [facility] [address] [place] [address] Deepak Gray MD ASCVD (arteriosclerotic cardiovascular disease) (Primary Dx); Hypertension, unspecified type; Allergic rhinitis, unspecified seasonality, unspecified trigger; Gastroesophageal reflux disease, unspecified whether esophagitis present; Hypothyroidism, unspecified type from Last 3 Months Immunizations Immunization Administration Dates Next Due Pneumococcal (Pneumovax 23) Polysaccharide PPV23 (CVX-33) 07/18/2016 Social History Tobacco Use Types Packs/Day Years [...] Mass Index 37.4 07/15/2025 11:00 AM EDT Plan of Treatment Health Maintenance Due Date Last Done Comments CT Colonography 1973 Colonoscopy 1973 Colorectal Cancer Screening Combo 1973 DNA Cologuard 1973 Dental Cleaning/Exam 1973 FIT or FOBT Test 1973 HIV Screening 1973 Hepatitis C Screening 1973 Sigmoidoscopy 1973 Diabetic Comprehensive Foot Exam 1983 Diabetic Kidney Health Eval (eGFR & Alb/CR ratio urine) 1983 Diabetic Retinal Eye Exam 1983 Hemoglobin A1C Testing 1983 Annual Preventive Exam 1991 Hep B Infection Screening - Triple Screen 1991 Hepatitis B Immunization (1 of 3 - 19+ 3-dose series) 1992 Tetanus Diphtheria and Pertu ssis Immunization (1 - Tdap) 1992 Pneumococcal: 50+ Years (2 o f 2 - PCV) 07/18/2017 07/18/2016 Zoster Immunization (1 of 2) 2023 [...] this topic Insurance ANTHEM NO COPAY NB Care Teams Lace Tearing Supervisor Relationship Specialty Start Date End Date Louie Davis [address] [place] [id number] PCP - General General Surgery 07/15/25
--- OUTSIDE RECORDS SUMMARY | 2025-07-15 14:04 | XMS_ITS | Clinical Summary ---
Author Organization [facility] Address [address] [place] [address] Care Team Providers Care Information Technology Security Manager Name Role Phone Louie Davis MD Primary Care Provider [phone] Allergies No known active allergies Medications levothyroxine [...] STEMI (ST elevation myocardial infarction) 07/19 Acute [place] inferior lateral first episode care Overview (07/17/2016): [...] Mother Relation Name Status Comments Brother Alive [place] at age 42 Father Alive Mother Alive [...] VACCINE 04/17/2025 Medical Devices Implanted Type Area Vegetable Cook Device Identifier Shelf Expiration Date Model / Serial / Lot Stent Integrity Bare Mtl Rx 3.5x18mm - [id number] Implanted:Qty: 1 on 07/17/2016 by Garett Morales MD at [facility] Stent [employer] 03/10/2017 [id number] / / [id number] Insurance [facility] Advance Directives * Full Code (Latest Code Status on File) Date Activated Date Inactivated Comments 07/17/2016 3:35 PM 07/19/2016 9:28 AM Question Answer Comments Level Of Support Discussed With: Patient Care Teams Information Technology Security Manager Relationship Specialty Start Date End Date Louie Davis MD [address] [place] [address] PCP - General Family Medicine 07/17/16
[2025-07-15 14:35] LABS: Hematocrit 38.7 % (42.0-52.0); Hemoglobin 12.7 g/dL (14.1-18.0); Immature Granulocytes % 0.2 %; Mean Corpuscular HGB Conc 32.8 g/dL (31.8-35.4); Mean Corpuscular Hemoglobin 29.6 pg (27.0-31.2); Mean Corpuscular Volume 90.2 fl (80-94); Nucleated Red Blood Cells % 0 %; Platelet Count 244 K/mm3 (142-424); Red Blood Count 4.29 M/mm3 (4.60-6.20); Red Cell Distribution Width-SD 43.2 fL; White Blood Count 5.2 K/mm3 (4.8-10.8)
[2025-07-15 15:00] LABS: Alanine Aminotransferase 35 U/L (12-78); Albumin Level 3.6 g/dl (3.5-5.0); Alkaline Phosphatase 73 U/L (38-126); Anion Gap 10.2 mEq/L (5-15); Aspartate Amino Transferase 32 U/L (17-59); Bilirubin,Direct 0.2 mg/dl (0.0-0.4); Bilirubin,Indirect 0.2 mg/dL (0.0-0.9); Bilirubin,Total 0.4 mg/dl (0.2-1.3); Bilirubin,Unconjugated 0.2 mg/dL (0.0-1.1); Blood Urea Nitrogen 23 mg/dl (9-20); Calcium 9.0 mg/dl (8.4-10.2); Carbon Dioxide 27 mmol/L (22.0-30.0); Chloride 103 mmol/L (98-107); Cholesterol 137 mg/dl (140-200); Creatinine,Serum 1.10 mg/dl (0.66-1.25); Estimated Glomerular Filt Rate 71 ml/min (>60); GFR (African American) 85 ML/MIN (>60); Glucose 113 mg/dl (74-100); HDL Cholesterol 36 mg/dl (40-60); Magnesium 2.0 mg/dl (1.6-2.3); Potassium 4.2 mmoL/L (3.5-5.1); Sodium 136 mmol/L (136-145); Total Protein,Serum 7.9 g/dl (6.3-8.2); Triglycerides 335 mg/dl (30-150)
[2025-07-15 15:16] LABS: Free T4 (Free Thyroxine) 1.07 ng/dl (0.78-2.19)
[2025-07-15 15:34] LABS: Thyroid Stimulating Hormone 0.47 uIU/mL (0.465-4.68)
== END 2025-07-15 23:59 | disposition home or self-care (01) ==
LOC: LAB 14:02
PROVIDERS: PCP Family Medicine; Visit Provider Nurse Practitioner
DX: I25.10 Atherosclerotic heart disease of native coronary artery without angina pectoris (principal); E78.5 Hyperlipidemia, unspecified; I10 Essential (primary) hypertension
CPT/HCPCS: 36415; 80048; 80061; 80076; 83735; 84439; 84443; 85025

== ENCOUNTER 2025-07-29 14:45 | Outpatient (CLI) | payer BC, SELFPAY ==
--- OUTSIDE RECORDS SUMMARY | 2025-01-28 04:45 | XMS_ITS ---
Author Organization [facility] Address [address] [place] [id number] Care Team Providers Care Mountain Services Manager Name Role Phone Aaron Davis Primary Care Provider Carol Tabor Unavailable [phone] Allergies No Known Allergies REASON FOR VISIT 1 week f/u Medications Medication SIG (Take, Route, Frequency, Duration) Notes Start Date End Date Status Cetirizine HCl 10 MG 1 tab(s) orally onc e a day; Duration: 90 days Active Mupirocin 2 % 1 application Pattern Data Operator ally Twice a day 01/28/2025 Active Omeprazole 40 MG 1 cap(s) orally once a day; Duration: 90 days Active Bactrim DS 800-160 MG 1 tablet Orally Tw o times a day; Duration: 10 days 01/28/2025 Active Clindamycin HCl 300 MG 1 capsule Orally Three times a day; Duration: 10 days Active Levothyroxine Sodium 175 MCG 1 tab(s) orally once a day; Duration: 90 days Active Lisinopril 40 MG 1 tab(s) orally once a day; Duration: 90 days Active Triamterene-HCTZ 37.5-25 MG 1 tablet in the morning Orally Once a day; Duration: 90 days Active Fluticasone Propionate 50 MCG/ACT 1 spray in each nostril once a day; Duration: 90 days Active Furosemide 40 MG 1 tablet Orally Once a day prn; Duration: 90 days Active Aspirin 81 MG CHEW AND SWALLOW 1 T ABLET DAILY; Duration: 90 Active Atorvastatin Calcium 40 MG 1 tablet Oral ly Once a day; Duration: 90 days Active Potassium Chloride ER 20 MEQ 1 tablet with food Orally Once a day; Duration: 90 days Active Tadalafil 5 mg TAKE 1/2 TABLET BY M OUTH DAILY; Duration: 30 Active Social History Tobacco Use: Social History Observation Description Date Smoking Status WARNING: Information temporarily unavailable CURRENT TOBACCO USE: Question Answer Notes Are you a: STOPPED SMOKING 2018 Vital Signs Blood pressure systolic 118 mm Hg 01/29/20 25 Blood pressure diastolic 76 mm Hg 025 Heart Rate 82 /min 01/28/2025 Height 75 in 01/28/2025 Weight 304.6 lbs 01/28/2025 BMI 38.07 kg/m2 01/28/2025 Encounters Encounter Location Date Provider Diagnosis [facility] [address] [place] [id number] 01/28/2025 Carol Tabor Toe infection L08.9 Assessments Encounter Date Diagnosis (ICD Code) Assessment Notes Treatment Notes Treatment Clinical Notes Section Notes 01/28/2025 Toe infection (ICD-10 - L08.9) Clindamycin has been upsetting his stomach. He only has a few days left and will finish them. His culture was positive for staph. Will start on Bactrim after finishing the clindamycin and f/u in 2 weeks. Plan Of Treatment Medication Medication Name Sig Start Date Stop Date Notes Mupirocin 2 % 1 application Pattern Data Operator ally Twice a day 01/28/2025 Bactrim DS 800-160 MG 1 tablet Orally Tw o times a day; Duration: 10 days 01/28/2025 Clindamycin HCl 300 MG 1 capsule Orally Three times a day; Duration: 10 days Treatment Notes Assessment Notes Toe infection Clindamycin has been upsetting his stomach. He only has a few days left and will finish them. His culture was positive for staph. Will start on Bactrim after finishing the clindamycin and f/u in 2 weeks. Next Appt Details Follow Up: 2 Weeks, Reason: Provider Name:Aaron Rivers er, 10/23/2025 10:15:00 AM, [address], [address], [place], [phone], Progress Notes * Tommy RODRIGUEZ RDOB:[birth year] (49 yo M)Acc No.[id number]:01/28/2025 Patient: Tommy EUCEDA Provider: SHAYY Agrawal :1975 A ge:49 Y S ex:Male Date:01/28/2025 Address:[address] [place], [id number] Pcp:Aaron Davis Subjective: * Chief Complaints: * 1 . 1 week f/u. * HPI: D ermatology: Pt presents today for a 1-week follow up on his great toe on the left foot. Pt sts that it does look better. Pt sts that the pain has improved a lot. * ROS: D ERMATOLOGY: no R fani. [...] frequency: coffee, tea. Marital Status: Single. Occupation: [employer]. Past smoking status: yes, Smoking status: Patient does NOT smoke, FORMER Packs per day: 1, Since age of: 10. STOPPED 2019. Recreational drug use: no. Alcohol: Yes, rare. Sexually active: yes. * Medications: T aking Atorvastatin Calcium 40 MG Tablet 1 tablet Orally Once a day , Taking Aspirin 81 MG Tablet Chewable CHEW AND SWALLOW 1 TABLET DAILY , Taking Tadalafil 5 mg Tablet TAKE [...] tab(s) orally once a day , Taking Clindamycin HCl 300 MG Capsule 1 capsule Orally Three times a day , Discontinued Tamiflu 75 MG Capsule 1 capsule Orally Twice a day , Medication List reviewed and reconciled with the patient * Allergies: N .K.D.A. Objective: * Vitals: W t: 304.6, Temp: 97.8, BP: 118/76, HR: 82, Nurse: RICARDO, Ht: 75, BMI:38.07. * Examination: G eneral Examination: General Appearance: N AD. C hest: n ormal shape and expansion. H eart: R SR. L ungs: c lear to auscultation. S kin: l eft great toe with less erythema and edema, there is still some purulent drainage as well. ? Assessment: * Assessment: 1. T oe infection - L08.9 (Primary) S pecify :left great toe Plan: * Treatment: * Follow Up: 2 Weeks * Images: Billing Information: * Visit Code: 71940 Office Visit, Est Pt., Level 3. * Procedure Codes: * Electronic signature of SHAYY Kelsey on 07/30/2025 at 10:26 AM EST Sign off status: Pending * Provider: SHAYY Agrawal Date: 0 01/28/2025 Generated for Roni beckford/Carey/Ronny on: 09/29/2024 10:26 AM EST History and Physical Notes * Examination Category Sub-Category Detail Notes Category Not es General Examination Heart: RSR Lungs: clear to auscultatio n General Appearance: NAD Skin: left great toe with less erythema and edema, there is still some purulent drainage as well Chest: normal shape and exp ansion
--- OUTSIDE RECORDS SUMMARY | 2025-02-11 05:00 | XMS_ITS ---
Author Organization [facility] Address [address] [facility] [address] [place] [phone] Care Team Providers Care Semiconductor Wafers Etcher Stripper Name Role Phone Aaron Davis Primary Care Provider Carol Tabor Unavailable [phone] Allergies No Known Allergies Reason For Referral Diagnosis 1 Toe infection (L08.9 ) [facility] Referring Provider First Name Carol Referring Provider Last Name Sharona Referring Provider Speciality Physician Counting Machine Operator Referred Provider Specialty Physical The rapist General Notes Carol Tabor 10:01:57 AM >Pt needs a referral to wound care., Elvi Keith 02/11/2025 10:32:40 AM > faxed to [facility] PT Referral Priority Routine REASON FOR VISIT 2 week f/u Medications Medication SIG (Take, Route, Frequency, Duration) Notes Start Date End Date Status Aspirin 81 MG CHEW AND SWALLOW 1 T ABLET DAILY; Duration: 90 Active Tadalafil 5 mg TAKE 1/2 TABLET BY M OUTH DAILY; Duration: 30 Active Potassium Chloride ER 20 MEQ 1 tablet with food Orally Once a day; Duration: 90 days Active Furosemide 40 MG 1 tablet Orally Once a day prn; Duration: 90 days Active Fluticasone Propionate 50 MCG/ACT 1 spray in each nostril once a day; Duration: 90 days Active Mupirocin 2 % 1 application Clean Out Driller Helper ally Twice a day Active Cetirizine HCl 10 MG 1 tab(s) orally onc e a day; Duration: 90 days Active Atorvastatin Calcium 40 MG 1 tablet Oral ly Once a day; Duration: 90 days Active Clindamycin HCl 300 MG 1 capsule Orally Three times a day; Duration: 10 days Active Omeprazole 40 MG 1 cap(s) orally once a day; Duration: 90 days Active Levothyroxine Sodium 175 MCG 1 tab(s) orally once a day; Duration: 90 days Active Bactrim DS 800-160 MG 1 tablet Orally Tw o times a day Active Lisinopril 40 MG 1 tab(s) orally [...] Signs Blood pressure systolic 120 mm Hg 02/12/20 25 Blood pressure diastolic 72 mm Hg 025 Heart Rate 58 /min 02/11/2025 Height 75 in 02/11/2025 Weight 304.2 lbs 02/11/2025 BMI 38.02 kg/m2 02/11/2025 Encounters Encounter Location Date Provider Diagnosis [facility] [address] [place] [id number] 02/11/2025 Carol Duboncaridad Toe infection L08.9 and Open wound of toe, subsequent encounter S91.109D Assessments Encounter Date Diagnosis (ICD Code) Assessment Notes Treatment Notes Treatment Clinical Notes Section Notes 02/11/2025 Toe infection (ICD-10 - L08.9) 02/11/2025 Open wound of toe, subsequent encounter (ICD-10 - S91.109D) Plan Of Treatment Medication Medication Name Sig Start Date Stop Date Notes Mupirocin 2 % 1 application Externally Twice a day Bactrim DS 800-160 MG 1 tablet Orally Two times a day Referrals Referral Date Details 02/11/2025 02/11/2025 Next Appt Details Follow Up: with wound care, Reason: Provider Name:Aaron Rivers er, 10/23/2025 10:15:00 AM, [address], [address], [place], [phone], Progress Notes * Tommy RODRIGUEZ RDOB:[birth year] (49 yo M)Acc No.[id number]:02/11/2025 Patient: Tommy EUCEDA Provider: SHAYY Agrawal :1975 A ge:49 Y S ex:Male Date:02/11/2025 Address:[address] [place], [id number] Pcp:Aaron Davis Subjective: * Chief Complaints: * 1 . 2 week f/u. * HPI: H PI: 49 year old male presents with c/o Here for follow up on: P t is here today for a 2 week f/u on his great left toe. Pt sts it is healing up and better. Pt sts it does not hurt anymore either. * ROS: D ERMATOLOGY: no R fani. [...] capsule Orally Three times a day , Taking Bactrim DS 800-160 MG Tablet 1 tablet Orally Two times a day , Taking Mupirocin 2 % Ointment 1 application Externally Twice a day , Medication List reviewed and reconciled with the patient * Allergies: N .K.D.A. Objective: * Vitals: W t: 304.2, Temp: 97.9, BP: 120/72, HR: 58, Nurse: aurea, Ht: 75, BMI:38.02. * Examination: G eneral Examination: General Appearance: N AD. C hest: n ormal shape and expansion. H eart: R SR. L ungs: c lear to auscultation. S kin: l eft great toe with less erythema and edema, there is no further drainage but there is now an open wound. Assessment: * Assessment: 1. T oe infection - L08.9 (Primary) S pecify :left great toe 2 . O pen wound of toe, subsequent encounter - S91.109D Plan: * Treatment: * Follow Up: w [facility] wound care * Images: Billing Information: * Visit Code: 11464 Office Visit, Est Pt., Level 3. * Procedure Codes: * Electronic signature of SHAYY Kelsey on 07/30/2025 at 10:27 AM EST Sign off status: Pending * Provider: SHAYY Agrawal Date: 0 02/11/2025 Generated for Roni beckford/Carey/Jonysmitting on: 1 09/29/2024 10:27 AM EST History and Physical Notes * HPI (History of Present Illness) Category Sub-Category Detail Notes Category Not es HPI Here for follow up on: Pt is her e today for a 2 week f/u on his great left toe. Pt sts it is healing up and better. Pt sts it does not hurt anymore either Examination Category Sub-Category Detail Notes Category Not es General Examination Heart: RSR Lungs: clear to auscultatio n General Appearance: NAD Skin: left great toe with less erythema and edema, there is no further drainage but there is now an open wound Chest: normal shape and exp ansion Consultation Request Notes Referral Date Referring Provider Referred Provider Not es 02/11/2025 Carol Tabor ,
--- OUTSIDE RECORDS SUMMARY | 2025-03-12 08:30 | XMS_ITS ---
Author Organization 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 (I21.11) Active confirmed Vital Signs Blood pressure systolic 102 mm Hg 03/12/20 25 Blood pressure diastolic 70 mm Hg 025 Heart Rate 63 /min 03/12/2025 Height 75 in 03/12/2025 Weight 306.0 lbs 03/12/2025 BMI 38.24 kg/m2 03/12/2025 s, m Encounters Encounter Location Date Provider Diagnosis Poppy [address] [place] [address] 36 [facility] [address] [place] [phone] 03/12/[address] elevation myocard ial [...] Provider Name:Aaron Rivers er, 10/23/2025 10:15:00 AM, [facility] 36 [facility], [address], [place], [phone], Progress Notes * MICHAEL, Tommy RDOB:[birth year] (49 yo M)Acc No.[id number]:03/12/2025 Progress Notes Patient: Tommy EUCEDA Provider: Aaron Davis M.D. :1975 A ge:49 Y S ex:Male Date:03/12/2025 Address:[address] [id number] Subjective: * Chief Complaints: * 1 . 4 month F/U. 2. Needs labs & diabetic eye exam. * HPI: C ardiology: The pt atient is here for a follow up from [facility] due to heart attack and heart cath. [...] tea. Marital Status: Single. Occupation: [employer] and [employer]. Past smoking status: yes, Smoking status: Patient [...] * Images: Billing Information: * Visit Code: 76874 Office Visit, Est Pt., Level 3. * Procedure Codes: * Electronic signature of Aaron Davis MD on 07/30/2025 at 10:27 AM EST Sign off status: Pending * Provider: Aaron Davis M.D. Date: 0 03/12/2025 Generated for Roni beckford/Carey/Ronny on: 1 09/29/2024 10:27 AM EST History [...]
--- OUTSIDE RECORDS SUMMARY | 2025-03-13 04:35 | XMS_ITS ---
Author Organization [facility] Address [address] [facility] 36 [facility] [address] [place] [phone] Care Team Providers Care Cloth Bin Packer Name Role Phone Aaron Davis Primary Care Provider Carol Tabor [phone] REASON FOR VISIT [facility] F/U Encounters Encounter Location Date Provider Diagnosis Po[facility] [address] [place] [phone] 03/13/2025 Carol Tabor Plan Of Treatment Next Appt Details Provider Name:Aaron Rivers er, 10/23/2025 10:15:00 AM, [address], [address], [place], [place], [phone], Progress Notes * MICHAEL, Tommy RDOB:[birth year] (49 yo M)Acc No.[id number]:03/13/2025 Progress Notes Patient: Tommy EUCEDA Provider: SHAYY Agrawal :1975 A ge:49 Y S ex:Male Date:03/13/2025 Address:[address] [id number] Pcp:Aaron Davis Subjective: * Chief Complaints: * 1 . [facility] F/U. * Medical History: Objective: * Vitals: Assessment: Plan: * Treatment: * Images: Billing Information: * Visit Code: * Procedure Codes: * Electronic signature of SHAYY Kelsey on 07/30/2025 at 10:28 AM EST Sign off status: Pending * Provider: SHAYY Agrawal Date: 0 03/13/2025 Generated for Roni beckford/Carey/Ronny on: 1 09/29/2024 10:28 AM EST
--- OUTSIDE RECORDS SUMMARY | 2025-04-28 04:45 | XMS_ITS ---
Author Organization Leigh Address 1210 [facility] 36 [facility] [address] [place] [phone] Care Team Providers Care Immigration Officer Name Role Phone Aaron Davis Primary Care Provider Portillo Mcleod Unavailable [phone] Allergies No Known Allergies REASON FOR VISIT hemorrhoid Medications Medication SIG (Take, Route, Frequency, Duration) Notes Start Date End Date Status Hydrocortisone Acetate 25 MG 1 suppository Rectal twice a day 04/28/2025 Active Lisinopril 40 MG 1 tab(s) orally once a day; Duration: 90 days Active Fluticasone Propionate 50 MCG/ACT 1 spray in each nostril once a day; Duration: 90 days Active Omeprazole 40 MG 1 cap(s) orally once a day; Duration: 90 days Active Levothyroxine Sodium 175 MCG 1 tab(s) orally once a day; Duration: 90 days Active Repatha 140 MG/ML 1 mL Subcutaneous Active Aspirin 81 MG CHEW AND SWALLOW 1 T ABLET DAILY; Duration: 90 Active Prasugrel HCl 10 MG as directed Orally Active Cetirizine HCl 10 MG 1 tab(s) orally onc e a day; Duration: 90 days Active Social History Tobacco Use: Social History Observation Description Date Smoking Status WARNING: Information temporarily unavailable CURRENT TOBACCO USE: Question Answer Notes Are you a: STOPPED SMOKING 2018 Vital Signs Blood pressure systolic 124 mm Hg 04/28/20 25 Blood pressure diastolic 90 mm Hg 025 Heart Rate 77 /min 04/28/2025 Height 75 in 04/28/2025 Weight 293 lbs 04/28/2025 BMI 36.62 kg/m2 04/28/2025 Encounters Encounter Location Date Provider Diagnosis [place] [address] [place] [address] [facility] [address] [place] [phone] 04/28/2025 Portillo Mcleod Hemorrhoids, unspecified hemorrhoid type K64.9 Assessments Encounter Date Diagnosis (ICD Code) Assessment Notes Treatment Notes Treatment Clinical Notes Section Notes 04/28/2025 Hemorrhoids, unspecified hemorrhoid type (ICD-10 - K64.9) Plan Of Treatment Medication Medication Name Sig Start Date Stop Date Notes Hydrocortisone Acetate 25 MG 1 supposito ry Rectal twice a day 04/28/2025 Next Appt Details Follow Up: via phone to repo rt progress, Reason: Provider Name:Aaron Rivers er, 10/23/2025 10:15:00 AM, [address], [address], [place], [phone], Progress Notes * Tommy RODRIGUEZ RDOB:[birth year] (49 yo M)Acc No.[id number]:04/28/2025 Progress Notes Patient: Tommy EUCEDA Provider: Victor Manuel Mcleod M.D. :1975 A ge:49 Y S ex:Male Date:04/28/2025 Address:[address] [facility] [phone] Pcp:Aaron Davis Subjective: * Chief Complaints: * 1 . Hemorrhoid. * HPI: G astroenterology: 49 year old male presents with c/o hemorrhoid P t complains of pain when walking, sitting and at times doing anything due to hemorrhoids. * ROS: D ERMATOLOGY: no R fani. [...] frequency: coffee, tea. Marital Status: Single. Occupation: [employer]. Past smoking status: yes, Smoking status: Patient [...] 1 tab(s) orally once a day , Discontinued Mupirocin 2 % Ointment 1 application Externally Twice a day , Discontinued Atorvastatin Calcium 40 MG Tablet 1 tablet Orally Once a day , Medication List reviewed and reconciled with the patient * Allergies: N .K.D.A. Objective: * Vitals: W t: 293, Temp: 97.8, BP: 124/90, HR: 77, Nurse: negar, Ht: 75, BMI:36.62. * Examination: G eneral Examination: General Appearance: N AD. Assessment: * Assessment: 1. H emorrhoids, unspecified hemorrhoid type - K64.9 (Primary) Plan: * Treatment: * Follow Up: v ia phone to report progress * Images: Billing Information: * Visit Code: 37989 Office Visit, Est Pt., Level 3. * Procedure Codes: * Electronic signature of Shakira Mcleod MD on 07/30/2025 at 10:28 AM EST Sign off status: Pending * Provider: Victor Manuel Mcleod M.D. Date: 0 04/28/2025 Generated for Roni beckford/Carey/Sebastianitting on: 09/29/2024 10:28 AM EST History and Physical Notes * HPI (History of Present Illness) Category Sub-Category Detail Notes Category Not es Gastroenterology hemorrhoid Pt complains of pain when walking, sitting and at times doing anything due to hemorrhoids Examination Category Sub-Category Detail Notes Category Not es General Examination General Appearance: NAD
--- OUTSIDE RECORDS SUMMARY | 2025-07-01 10:15 | XMS_ITS ---
[facility] Organization [facility] Address [address] [facility] [address] [place] [id number] Care Team Providers Care Measurement Supervisor Name Role Phone Aaron Davis Primary Care Provider [phone] Carol Tabor Unavailable [phone] Allergies No Known Allergies Results Component Value Reference Range Notes P-Culture, Anaerobic and Aer obic w/Gram Stain Reviewed date:07/08/2025 09:12:49 AM Interpretation:Abnormal Performing Lab: Notes/Report: Test performed by [facility], [address] , [address], [place] [address] Timothy Grady MD, Authorizer CLIA: [id number] Specimen Source Abscess - left great toe Culture, Anaerobic and Aerobic w/Gram Stain See Below Final Report: No Anaerobes isolated Sensitivity Panel See Below Organism Antibiotic S=SUSCEPTIBLE I=INTERMEDIATE R=RESISTANT P-Culture, Miscellaneous Aer obic w/Gram Stain Reviewed date:07/08/2025 09:12:49 AM Interpretation:Abnormal Performing Lab: Notes/Report: Test performed by [facility] , [address], [place] [address] Timothy Grady MD, Authorizer CLIA: [id number] Specimen Source Abscess - left great toe Gram Stain See Below Moderate Polymorphonuclear leukocytes Few Gram Positive Cocci In pairs, chains, and clusters Culture, Miscellaneous Aerobic w/Gram Stain See Below Preliminary Report: Pending, culture ongoing Methicillin Resistant Staphylococcus aureus Moderate Growth Methicillin Resistant Staphylococcus aureus Only sensitive results for Bactrim (Trimethoprim/Sulfamethox azole) are reported Only sensitive results for Bactrim (Trimethoprim/Sulfamethox azole) are reported for Staphylococcus aureus. Resistance to Bactrim is not reported due to the upper breakpoint encompassing the sensitive/resistant range, which could lead to increased reporting of false resistance. Consider alternate antimicrobial treatment if clinically indicated. Sensitivity Panel See Below Organism MRSA Antibiotic INTERP Ceftaroline S Clindamycin S Daptomycin S Erythromycin S Gentamicin S Levofloxacin S Linezolid S Moxifloxacin S Oxacillin R Penicillin R Rifampin S Tetracycline S Trimeth/Sulfa S Vancomycin S S=SUSCEPTIBLE I=INTERMEDIATE R=RESISTANT Ankle-brachial index Reviewed date:07/15/2025 05:02:13 PM Interpretation:Normal Performing Lab: Notes/Report: Normal Ankle-brachial index Reviewed date:07/15/2025 05:02:13 PM Interpretation:Normal Performing Lab: Notes/Report: Normal Reason For Referral Diagnosis 1 Toe infection (L08.9 ) Referral Organization [facility] Referring Provider First Name Carol Referring Provider Last Name Sharona Referring Provider Speciality Physician Optics Manufacturing Technician Referred Provider Specialty Podiatry General Notes Carol Tabor 03:06:58 PM > Pt needs an appt with Dr. Markham for a nonhealing foot wound, Elvi Keith 07/01/2025 03:08:54 PM > faxed to [facility] Podiatry, Elvi Keith 07/06/2025 09:39:18 AM > referral received; they will schedule once DANAE is scheduled through [facility] Referral Priority Routine REASON FOR VISIT infected toe Medications Medication SIG (Take, Route, Frequency, Duration) Notes Start Date End Date Status Levothyroxine Sodium 175 MCG 1 tab(s) orally once a day; Duration: 90 days Active Lisinopril 40 MG 1 tab(s) orally once a day; Duration: 90 days Active Cetirizine HCl 10 MG 1 tab(s) orally onc e a day; Duration: 90 days Active Omeprazole 40 MG 1 cap(s) orally once a day; Duration: 90 days Active Hydrocortisone Acetate 25 MG 1 suppository Rectal twice a day 04/28/2025 Active Fluticasone Propionate 50 MCG/ACT 1 spray in each nostril once a day; Duration: 90 days Active Aspirin 81 MG CHEW AND SWALLOW 1 T ABLET DAILY; Duration: 90 Active Prasugrel HCl 10 MG as directed Orally Active Repatha 140 MG/ML 1 mL Subcutaneous Active Social History Tobacco Use: Social History Observation Description Date Smoking Status WARNING: Information temporarily unavailable CURRENT TOBACCO USE: Question Answer Notes Are you a: STOPPED SMOKING 2018 Vital Signs Blood pressure systolic 140 mm Hg 07/01/20 25 Blood pressure diastolic 68 mm Hg 025 Heart Rate 70 /min 07/01/2025 Height 75 in 07/01/2025 Weight 293.4 lbs 07/01/2025 BMI 36.67 kg/m2 07/01/2025 Encounters Encounter Location Date Provider Diagnosis [facility] [address] [facility] 36 [facility] [address] [place] [id number] 07/01/2025 Carol Tabor Toe infection L08.9 Assessments Encounter Date Diagnosis (ICD Code) Assessment Notes Treatment Notes Treatment Clinical Notes Section Notes 07/01/2025 Toe infection (ICD-10 - L08.9) Plan Of Treatment Referrals Referral Date Details 07/01/2025 07/01/2025 Next Appt Details Follow Up: via phone to repo rt test results, Reason: Provider Name:Aaron Rivers er, 10/23/2025 10:15:00 AM, [address] [facility] 36 [facility], [address], [place], [phone], Progress Notes * MICHAEL, Tommy RDOB:[birth year] (49 yo M)Acc No.[id number]:07/01/2025 Progress Notes Patient: Tommy EUCEDA Provider: SHAYY Agrawal :1975 A ge:49 Y S ex:Male Date:07/01/2025 Address:[address] [facility] [id number] Pcp:Aaron Davis Subjective: * Chief Complaints: * I nfected toe * HPI: H PI: 49 year old male presents with c/o Patient is here today for?Pt here for infected toe on left foot. Pt states he was here in December for his toe and took all of the antibiotics and went to the wound care clinic. It has still never completely healed and does drain on occasion.. * ROS: D ERMATOLOGY: no R fani. n o H bret. G ASTROENTEROLOGY: no N ausea. n o V omiting. n o D iarrhea.? U ROLOGY: no B lood in urine. n o F requent urination. ? * Medical History: * Surgical History: n ear amputation of R foot 1989Left heart cath with 1 stent in mid RCA 07/17/2016Stress Test with ECHO 07/2020stents x3 04/2023Heart Cath one stent placed 03/05/2025 * Hospitalization/Major Diagno stic Procedure: h eart problems-thacker of heart severely inflammed 2009Heart attack 07/17-07/19/2016chest pain 05/13/2023 * Family History: F ather: alive. M [...] frequency: coffee, tea. Marital Status: Single. Occupation: [employer]. Past smoking status: yes, Smoking status: Patient does NOT smoke, FORMER Packs per day: 1, Since age of: 10. STOPPED 2018. Recreational drug use: no. Alcohol: Yes, rare. Sexually active: yes. * Medications: T akingRepatha 140 MG/ML Solution Prefilled Syringe 1 mL Subcutaneous Prasugrel HCl 10 MG Tablet as directed Orally Aspirin 81 MG Tablet Chewable CHEW AND SWALLOW 1 TABLET DAILY Fluticasone Propionate 50 MCG/ACT Suspension 1 spray in each nostril once a day Lisinopril 40 MG Tablet 1 tab(s) orally once a day Levothyroxine Sodium 175 MCG Tablet 1 tab(s) orally once a day Omeprazole 40 MG Capsule Delayed Release 1 cap(s) orally once a day Cetirizine HCl 10 MG Tablet 1 tab(s) orally once a day Hydrocortisone Acetate 25 MG Suppository 1 suppository Rectal twice a day Medication List reviewed and reconciled with the patientTaking Repatha 140 MG/ML Solution Prefilled Syringe 1 mL Subcutaneous Taking Prasugrel HCl 10 MG Tablet as directed Orally Taking Aspirin 81 MG Tablet Chewable CHEW AND SWALLOW 1 TABLET DAILY Taking Fluticasone Propionate 50 MCG/ACT Suspension 1 spray in each nostril once a day Taking Lisinopril 40 MG Tablet 1 tab(s) orally once a day Taking Levothyroxine Sodium 175 MCG Tablet 1 tab(s) orally once a day Taking Omeprazole 40 MG Capsule Delayed Release 1 cap(s) orally once a day Taking Cetirizine HCl 10 MG Tablet 1 tab(s) orally once a day Taking Hydrocortisone Acetate 25 MG Suppository 1 suppository Rectal twice a day Medication List reviewed and reconciled with the patient * Allergies: N .K.D.A.no[Allergies Verified] Objective: * Vitals: W t: 293.4, Temp: 98.2, BP: 140/68, HR: 70, Nurse: pe, Ht: 75, BMI:36.67. * Examination: G eneral Examination: General Appearance: N AD. C hest: n ormal shape and expansion. H eart: R SR. L ungs: c lear to auscultation. S kin: l eft great toe still with an open wound draining clear fluid, culture obtained today. Assessment: * Assessment: 1. T oe infection - L08.9 (Primary) S pecify :left great toe Plan: * Treatment: Value Reference Range C ulture, Anaerobic and Aerobic w/Gram Stain See Below - * S pecimen Source Abscess - left great toe - * S ensitivity Panel See Below - * Elisabeth Pearl 07/06/2025 09: 59:11 AM EDT > See phone encounter Courtney Allen 07/08/2025 09:11:36 AM EDT > See phone encounter. pt started on Zyvox and has appt 07/10. ?Imaging: Ankle-brachial index (Performed Date - 07/10/2025)?Normal* Elvi Keith 07/01/2025 03: 47:53 PM EDT > faxed to [facility] Courtney Cruz 07/15/2025 05:02:05 PM EDT > see 07/10 OV ? Referral To:Podiatry ?Reason: * Labs: * L ab: P-Culture, Miscellaneous Aerobic w/Gram Stain (Collection Date & Time - 07/01/2025 02:28 PM) A bnormal Value Reference Range C ulture, Miscellaneous Aerobic w/Gram Stain See Below - * S pecimen Source Abscess - left great toe - * G anastacia Stain See Below - * M ethicillin Resistant Staphylococcus aureus Moderate Growth Methicillin Resistant Staphylococcus aureus - * S ensitivity Panel See Below - * [facility], IT support 07/05/2025 10:25:06 : This order was created by the Interface.Elisabeth Pearl 07/06/2025 09:58:56 AM EDT > See phone encounter Courtney Allen 07/08/2025 09:11:36 AM EDT > See phone encounter. pt started on Zyvox and has appt 07/10. * Procedure Codes: * Follow Up: v ia phone to report test results * Images: Billing Information: * Visit Code: 72951 Office Visit, Est Pt., Level 3. * Procedure Codes: * Sign off status: Completed true * Provider: SHAYY Agrawal Date: 1 Generated for Roni beckford/Carey/eTransmitting on: 09/29/2024 10:28 AM EST History and Physical Notes * HPI (History of Present Illness) Category Sub-Category Detail Notes Category Not es HPI Patient is here today for Pt her e for infected toe on left foot. Pt states he was here in December for his toe and took all of the antibiotics and went to the wound care clinic. It has still never completely healed and does drain on occasion. Examination Category Sub-Category Detail Notes Category Not es General Examination Heart: RSR Lungs: clear to auscultatio n General Appearance: NAD Skin: left great toe still with an open wound draining clear fluid, culture obtained today Chest: normal shape and exp ansion Consultation Request Notes Referral Date Referring Provider Referred Provider Not es 07/01/2025 Carol Tabor ,
--- OUTSIDE RECORDS SUMMARY | 2025-07-10 04:15 | XMS_ITS ---
Author Organization [facility] Address [address] [facility] [address] [place] [id number] Care Team Providers Care Family Life Counselor Name Role Phone Aaron Davis Primary Care Provider [phone] Carol Tabor Unavailable [phone] Allergies No Known Allergies REASON FOR VISIT f/u on toe wound Medications Medication SIG (Take, Route, Frequency, Duration) Notes Start Date End Date Status Levothyroxine Sodium 175 MCG 1 tab(s) orally once a day; Duration: 90 days Active Aspirin 81 MG CHEW AND SWALLOW 1 T ABLET DAILY; Duration: 90 Active Repatha 140 MG/ML 1 mL Subcutaneous Active Lisinopril 40 MG 1 tab(s) orally once a day; Duration: 90 days Active Fluticasone Propionate 50 MCG/ACT 1 spray in each nostril once a day; Duration: 90 days Active Cetirizine HCl 10 MG 1 tab(s) orally onc e a day; Duration: 90 days Active Omeprazole 40 MG 1 cap(s) orally once a day; Duration: 90 days Active Prasugrel HCl 10 MG 1 tablet Orally once a day; Duration: 90 days Active Hydrocortisone Acetate 25 MG 1 suppository Rectal twice a day 04/28/2025 Active Zyvox 600 MG 1 tablet Orally ever y 12 hrs 07/06/2025 Active Social History Tobacco Use: Social History Observation Description Date Smoking Status WARNING: Information temporarily unavailable CURRENT TOBACCO USE: Question Answer Notes Are you a: STOPPED SMOKING 2018 Vital Signs Blood pressure systolic 120 mm Hg 07/10/20 25 Blood pressure diastolic 70 mm Hg 025 Heart Rate 83 /min 07/10/2025 Height 75 in 07/10/2025 Weight 292.8 lbs 07/10/2025 BMI 36.59 kg/m2 07/10/2025 Encounters Encounter Location Date Provider Diagnosis [facility] [address] [place] [id number] 07/10/2025 Carol Tabor Toe infection L08.9 Assessments Encounter Date Diagnosis (ICD Code) Assessment Notes Treatment Notes Treatment Clinical Notes Section Notes 07/10/2025 Toe infection (ICD-10 - L08.9) Will continue abx and keep appt with Dr. Markham. Plan Of Treatment Medication Medication Name Sig Start Date Stop Date Notes Zyvox 600 MG 1 tablet Orally every 12 hrs 07/06/2025 Treatment Notes Assessment Notes Toe infection Will continue abx an d keep appt with Dr. Markham. Next Appt Details Follow Up: with Dr. Markham, Reason: Provider Name:Aaron Rivers er, 10/23/2025 10:15:00 AM, [facility] [address], [address], [place], [id number], Progress Notes * Tommy RODRIGUEZ RDOB:[birth year] (49 yo M)Acc No.[id number]:07/10/2025 Patient: Lara Tommy ALCARAZ Provider: SHAYY Agrawal :1975 A ge:49 Y S ex:Male Date:07/10/2025 Address:[address] [id number] Pcp:Aaron Davis Subjective: * Chief Complaints: * 1 . F/u on toe wound. * HPI: D ermatology: 49 year old male presents with c/o Wound P t is here today to f/u on his toe wound on the lt foot. Pt sts it has still not healed and sts it is about the same as last time. Pt sts he does go next week to see Dr. Markham. * ROS: D ERMATOLOGY: no R fani. n o H bret. G ASTROENTEROLOGY: no N ausea. n o V omiting. n o D iarrhea.? U ROLOGY: no B lood in urine. n o F requent urination. ? * Medical History: H ypothyroidism, Hyperlipidemia, Hypertension, Coronary Artery Disease, Myocardial Infarction, stent x1, Oct. 2016, Eye exam 09/2024, Neg Cologuard 05/2022. * [...] frequency: coffee, tea. Marital Status: Single. Occupation: [employer]. Past smoking status: yes, Smoking status: Patient does NOT smoke, FORMER Packs per day: 1, Since age of: 10. STOPPED 2018. Recreational drug use: no. Alcohol: Yes, rare. Sexually active: yes. * Medications: T aking Repatha 140 MG/ML Solution Prefilled Syringe 1 mL Subcutaneous , Taking Aspirin 81 MG Tablet Chewable [...] 1 suppository Rectal twice a day , Taking Prasugrel HCl 10 MG Tablet 1 tablet Orally once a day , Taking Zyvox 600 MG Tablet 1 tablet Orally every 12 hrs , Medication List reviewed and reconciled with the patient * Allergies: N .K.D.A. Objective: * Vitals: W t: 292.8, Temp: 98.6, BP: 120/70, HR: 83, Nurse: aurea, Ht: 75, BMI:36.59. * Examination: G eneral Examination: General Appearance: N AD. C hest: n ormal shape and expansion. H eart: R SR. L ungs: c lear to auscultation. S kin: l eft great toe still with an open wound draining clear fluid. Assessment: * Assessment: 1. T oe infection - L08.9 (Primary) S pecify :left great toe Plan: * Treatment: * Follow Up: w [facility] Dr. Markham * Images: Billing Information: * Visit Code: 39726 Office Visit, Est Pt., Level 3. * Procedure Codes: * Electronic signature of SHAYY Kesley on 07/30/2025 at 10:26 AM EST Sign off status: Pending * Provider: SHAYY Agrawal Date: Generated for Roni beckford/Carey/eTransmitting on: 09/29/2024 10:26 AM EST History and Physical Notes * HPI (History of Present Illness) Category Sub-Category Detail Notes Category Not es Dermatology Wound Pt is here today to f/u on his toe wound on the lt foot. Pt sts it has still not healed and sts it is about the same as last time. Pt sts he does go next week to see Dr. Markham Examination Category Sub-Category Detail Notes Category Not es General Examination Heart: RSR Lungs: clear to auscultatio n General Appearance: NAD Skin: left great toe still with an open wound draining clear fluid Chest: normal shape and exp ansion
--- OUTSIDE RECORDS SUMMARY | 2025-07-15 10:00 | XMS_ITS | Encounter Summary ---
Author Organization [facility] Address [address] [place] [id number] Phone [email or web address] Care Team Providers Care Parimutuel Cashier Name Role Phone Louie Davis Primary Care Provider [phone] Reason for Visit * Reason Comments Medication Therapy Management Medication refill and labs Encounter Details Date Type Department Care Team (Late st Contact Info) Description 07/15/2025 11:00 AM EDT Office Visit [facility] [address] [place] [address] Deepak Gray MD [address] [place] [address] Acute RI inferior lateral first episode care ([facility]) (Primary Dx); Hypertension, unspecified type; Gastroesophageal reflux disease, unspecified whether esophagitis present; Allergic rhinitis, unspecified seasonality, unspecified trigger; Hypothyroidism, unspecified type; Hypokalemia Social History Tobacco Use Types Packs/Day Years Used Date Smoking Tobacco: Former Cigarettes Passive Smoke Exposure: Never Smokeless Tobacco: Never Alcohol Use Standard Drinks/Week Comments Defer 0 (1 standard drink = 0.6 oz pur e alcohol) Alcohol Use Answer Date Recorded Alcohol Use Status Defer 04/22/2025 Financial Resource Strain Answer Date R ecorded In the past 12 months has e electric, gas, oil, or water company threatened to shut off services in your home? No 07/09/2025 Do problems getting child ca re make it difficult for you to work or study? No 07/09/2025 Do you have a high school diploma, GED, or equiv alent? Yes 07/09/2025 Do you have a job? [...] on file Sexual Orientation Not on file documented as of this encounter Last Filed Vital Signs Vital Sign Reading Time Taken Comments Blood Pressure 114/76 07/15/2025 11:00 AM EDT Pulse 64 07/15/2025 11:00 AM EDT Temperature 36.8 C (98.3 F) 07/15/2025 11:00 AM EDT Respiratory Rate - - Oxygen Saturation 95% 07/15/2025 11:00 AM EDT Inhaled Oxygen Concentration - - Weight 136 kg (299 lb 3.2 oz) 07/15/2025 11:00 A M EDT Height 190.5 cm (6' 3 ) 07/15/2025 11:00 AM EDT Body Mass Index 37.4 07/15/2025 11:00 AM EDT documented in this encounter Progress Notes * Anu Nielsen, MA - 07/15/2025 11:00 AM EDT Tommy Barrera is a 49 y.o. male presents to the [facility] 07/15/2025 for Non-Fasting lab work ordered by [facility] provider . Labs drawn via right antecubital using butterfly 21 gauge needle on the first attempt without difficulty. Manual pressure applied to site upon completion of venipuncture with a small amount of bleeding, Coban applied over site. Member tolerated lab procedure well and was ambulatory out of the [facility] without difficulty:Yes. Lab specimen tubes collected: SST, 5 LAV, 2 Anu Nielsen TAX STAFF ACCOUNTANT * Deepak Gray MD - 07/15/2025 11:00 AM EDT Allergies Chart Review Health Maintenance History Immunizations Screenings Search Synopsis This Visit Vital Signs Assessment & Plan Acute RI inferior lateral first episode care ([facility]) Orders: CMP12+LP+6AC (050471) - [facility] Hgb A1C Hemoglobin Glycosylated (42019) TSH Thyroid Stimulating Hormone (98759) T4, Free (62256) Magnesium Serum (91312) PSA Prostate Specific Antigen Total Reflex to Free (32163) UA Urinalysis Complete (Macroscopic and Microscopic) (79102) CBC Complete blood count with diff (66868) Hypertension, unspecified type Orders: CMP12+LP+6AC (492663) - [facility] furosemide (LASIX) 40 MG tablet; Take 1 tablet (40 mg total) by mouth 1 (one) time each day. lisinopril (ZESTRIL) 40 MG tablet; Take 1 tablet (40 mg total) by mouth 1 (one) time each day. triamterene-hydroCHLOROthiazide (DYAZIDE) 37.5-25 MG per capsule; Take 1 capsule by mouth 1 (one) time each day in the morning. Gastroesophageal reflux disease, unspecified whether esophagitis present Orders: omeprazole (PriLOSEC) [address] capsule; Take 2 capsules (40 mg total) by mouth 1 (one) time each day. Allergic rhinitis, unspecified seasonality, unspecified trigger Orders: cetirizine (ZyrTEC) 10 MG tablet; Take 1 tablet (10 mg total) by mouth 1 (one) time each day. fluticasone (FLONASE) 50 MCG/ACT nasal spray; Administer 2 sprays into each nostril 1 (one) time each day. Hypothyroidism, unspecified type Orders: levothyroxine (SYNTHROID) 100 MCG tablet; Take 1 tablet (100 mcg total) by mouth 1 (one) time each day. levothyroxine (Synthroid) 75 MCG tablet; Take 1 tablet (75 mcg total) by mouth 1 (one) time each day. Hypokalemia Orders: potassium chloride (KLOR-CON M10) 10 MEQ CR tablet; Take 2 tablets (20 mEq total) by mouth 1 (one) time each day. potassium chloride (KLOR-CON) 10 MEQ CR tablet; Take 2 tablets (20 mEq total) by mouth 1 (one) timeeach day. Do not crush, chew, or split. Labs. Will contact with results. 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 Follow-up: No follow up orders placed. Subjective Tommy Barrera is a 49 y.o. Reason(s) for visit on 07/15/2025: Medication Therapy Management Comments (if any): Medication refill and labs HPI: Tommy Barrera is a 49 y.o. male who presents for refills. Currently feels well and denies any new issues or concerns. Taking meds as directed without side effects or problems. He had stopped his potassium for awhile, but his leg cramps came back and he restarted. He has seen his furniture upholsterer apprentice recently and no changes have been made to his regimen. He feels well. His furniture upholsterer apprentice is asking for some labs and he is also due for some labs here. His last LDL per patient was 50. He denies any cardiopulmonary symptoms. Review of Systems Constitutional: Negative for chills, fatigue, fever and unexpected weight change. HENT: Negative for congestion, rhinorrhea and trouble swallowing. Respiratory: Negative for cough, shortness of breath and wheezing. Cardiovascular: Negative for chest pain, palpitations and leg swelling. Gastrointestinal: Negative for abdominal pain, blood in stool, heartburn and nausea. Musculoskeletal: Negative for arthralgias and myalgias. Skin: Negative for bleeding and bruising. Neurological: Negative for dizziness, tremors, weakness and headaches. Endo: Negative for polydipsia, polyphagia and polyuria Psychiatric/Behavioral: Negative for confusion and sleep disturbance. The patient is not nervous/anxious. Hematologic: Negative for adenopathy and bruises/bleeds easily. Genitourinary: Negative for difficulty urinating, frequency and nocturia. The following portions of the patient's chart were reviewed by me during this encounter and updatedas appropriate: Objective Visit Vitals BP 114/76 Pulse 64 Temp 98.3 ??F Ht 6' 3 Wt 299 lb 3.2 oz SpO2 95% BMI 37.40 kg/m?? Smoking Status Former BSA 2.68 m?? Physical Exam Vitals and nursing note reviewed. Constitutional: Appearance: Normal appearance. He is obese. HENT: Head: Normocephalic and atraumatic. Nose: Nose normal. Mouth/Throat: Mouth: Mucous membranes are moist. Eyes: General: No scleral icterus. Extraocular Movements: Extraocular movements intact. Conjunctiva/sclera: Conjunctivae normal. Pupils: Pupils are equal, round, and reactive to light. Cardiovascular: Rate and Rhythm: Normal rate and regular rhythm. Heart sounds: Normal heart sounds. Pulmonary: Effort: Pulmonary effort is normal. Breath sounds: Normal breath sounds. Abdominal: General: Abdomen is flat. Musculoskeletal: General: Normal range of motion. Cervical back: Normal range of motion and neck supple. Skin: General: Skin is warm. Neurological: General: No focal deficit present. Mental Status: He is alert and oriented to person, place, and time. Mental status is at baseline. Psychiatric: Mood and Affect: Mood normal. Behavior: Behavior normal. Thought Content: Thought content normal. Judgment: Judgment normal. Deepak Gray MD 07/15/2025 documented in this encounter Miscellaneous Notes * Assessment & Plan Note - Deepak Gray MD - 07/15/2025 11:00 AM EDTAssociated Problem(s): Acute RI inferior [facility] first episode care ([facility]) Orders: CMP12+LP+6AC (485736) - [facility] Hgb A1C Hemoglobin Glycosylated (52019) TSH Thyroid Stimulating Hormone (33599) T4, Free (20186) Magnesium Serum (18749) PSA Prostate Specific Antigen Total Reflex to Free (84507) UA Urinalysis Complete (Macroscopic and Microscopic) (79500) CBC Complete blood count with diff (32726) * Assessment & Plan Note - Deepak Gray MD - 07/15/2025 11:00 AM EDTAssociated Problem(s): HTN (hypertension) Orders: CMP12+LP+6AC (417181) - [facility] furosemide (LASIX) 40 MG tablet; Take 1 tablet (40 mg total) by mouth 1 (one) time each day. lisinopril (ZESTRIL) 40 MG tablet; Take 1 tablet (40 mg total) by mouth 1 (one) time each day. triamterene-hydroCHLOROthiazide (DYAZIDE) 37.5-25 MG per capsule; Take 1 capsule by mouth 1 (one) time each day in the morning. * Assessment & Plan Note - Deepak Gary MD - 07/15/2025 11:00 AM EDTAssociated Problem(s): GERD (gastroesophageal reflux disease) Orders: omeprazole (PriLOSEC) [address] capsule; Take 2 capsules (40 mg total) by mouth 1 (one) time each day. * Assessment & Plan Note - Deepak Gray MD - 07/15/2025 11:00 AM EDTAssociated Problem(s): Hypothyroidism Orders: levothyroxine (SYNTHROID) 100 MCG tablet; Take 1 tablet (100 mcg total) by mouth 1 (one) time each day. levothyroxine (Synthroid) 75 MCG tablet; Take 1 tablet (75 mcg total) by mouth 1 (one) time each day. documented in this encounter Plan of Treatment Not on file documented as of this encounter Procedures Procedure Name Priority Date/Time Associated Diagnosis Comments RFL MICROSCOPIC EXAMINATION - URINALYSIS Routine 07/15/2025 11:39 AM EDT URINALYSIS Routine 07/15/2025 10:39 AM EDT Acute RI inferior lateral first episode care ([facility]) CMP12+LP+6AC - [facility] Routine 07/15/2025 10:38 AM EDT Acute RI inferior lateral first episode care ([facility]) Hypertension, unspecified type CBC WITH DIFFERENTIAL/PLATELE T Routine 07/15/2025 10:38 AM EDT Acute RI inferior lateral first episode care ([facility]) PSA PROSTATE SPECIFIC ANTIGEN TOTAL REFLEX TO FREE Routine 07/15/2025 10:38 AM EDT Acute RI inferior lateral first episode care ([facility]) TSH Routine 07/15/2025 10:38 AM EDT Acute RI inferior lateral first episode care ([facility]) T4, FREE Routine 07/15/2025 10:38 AM EDT Acute RI inferior lateral first episode care ([facility]) MAGNESIUM Routine 07/15/2025 10:38 AM EDT Acute RI inferior lateral first episode care ([facility]) HEMOGLOBIN A1C Routine 07/15/2025 10:38 AM EDT Acute RI inferior lateral first episode care ([facility]) documented in this encounter Results * RFL MICROSCOPIC EXAMINATION - URINALYSIS (07/15/2025 11:39 AM EDT) WBC UA None seen 0 - 5 /hpf 01 RBC, UA None seen 0 - 2 /hpf 01 Epithelial Cells (non renal) None seen 0 - 10 /hpf 01 Casts None seen None seen /lpf 01 Bacteria None seen None seen/Few 01 07/15/2025 11:3 9 AM EDT 07/15/2025 1:00 AM EDT Comment:URINE, CLEAN CATCH Narrative [facility] - 07/16/2025 12:09 PM EDT Performed at: [facility] [id number] [employer] Worker: Urbano Troy PhD, Phone: [phone] us Deepak Gray MD LAB URINE ORDERABLES Final Resul t Performing Organization Address [facility] Co de Phone Number [facility] - [address] [place] [address] * UA Urinalysis Complete (Macroscopic and Microscopic) (46991) (07/15/2025 10:39 AM EDT) Pathologist [facility] Specific [place], Urine 1.024 1.005 - 1.030 01 pH urine 5.5 5.0 - 7.5 01 Color, Urine Yellow Yellow 01 Appearance Urine Clear Clear 01 Leukocytes, Urine Negative Negative 01 Protein UA Negative Negative/Tra ce 01 Glucose, Urine Negative Negative 01 Ketones Negative Negative 01 Occult Blood UA Negative Negative 01 Bilirubin UA Negative Negative 01 Urobilinogen, UA 0.2 0.2 - 1.0 mg/dL 01 Nitrite Urine, Quantitative Negative Negative 01 Microscopic Examination Comment 01 Comment:Microscopic follows if indicated. Microscopic Examination See below: 01 Comment:Microscopic was martha cated and was performed. Urine (Urine, Clean Catch) 07/15/2025 10:39 AM EDT 07/15/2025 1:00 AM EDT Comment:URINE, CLEAN CATCH Narrative [facility] - 07/16/2025 12:09 PM EDT Performed at: [address] [id number] [employer] Worker: Urbano Troy PhD, Phone: [phone] us Deepak Gray MD LAB URINE ORDERABLES Final Resul t Performing Organization Address [facility] Co de Phone Number [facility] - [address] [place] [address] * (ABNORMAL) CBC Complete blood count with diff (87537) (07/15/2025 10:38 AM EDT) Pathologist [facility] Auto WBC 5.3 3.4 - 10.8 x10E3/uL 01 RBC 4.26 4.14 - 5.80 x10E6/uL 01 Hemoglobin 12.5(L) 13.0 - 17.7 g/dL 01 Hematocrit 39.0 37.5 - 51.0 % 01 MCV 92 79 - 97 fL 01 MCH 29.3 26.6 - 33.0 pg 01 MCHC 32.1 31.5 - 35.7 g/dL 01 RDW 14.1 11.6 - 15.4 % 01 Platelets 276 150 - 450 x10E3/uL 01 Neutrophils Relative 56 Not Estab. % 01 Lymphocytes Relative 34 Not Estab. % 01 Monocytes Relative 6 Not Estab. % 01 Eosinophils Relative 3 Not Estab. % 01 Basophils Relative 1 Not Estab. % 01 Neutrophils Absolute 2.9 1.4 - 7.0 x10E3/uL 01 Lymphocytes Absolute 1.8 0.7 - 3.1 x10E3/uL 01 Monocytes Absolute 0.3 0.1 - 0.9 x10E3/uL 01 Eosinophils Absolute 0.2 0.0 - 0.4 x10E3/uL 01 Basophils Absolute 0.1 0.0 - 0.2 x10E3/uL 01 Immature Granulocytes 0 Not Estab. % 01 Immature Grans Absolute 0.0 0.0 - 0.1 x10E3/uL 01 Blood (Blood, Venous) 07/15/2025 10:38 AM EDT 07/15/2025 1:00 AM EDT Comment:BLOOD, VENOUS Narrative [facility] - 07/16/2025 9:09 AM EDT Performed at: - [address] [id number] [employer] Worker: Urbano Troy PhD, Phone: [phone] us Deepak Gray MD LAB BLOOD ORDERABLES Final Resul t [address] [id number] * PSA Prostate Specific Antigen Total Reflex to Free (37282) (07/15/2025 10:38 AM EDT) [facility] PSA 0.6 0.0 - 4.0 ng/mL 01 Comment: Reyna ECLIA methodology. According to the [place] [employer], Serum PSA should decrease and remain at undetectable levels after radical prostatectomy. The AUA defines biochemical recurrence as an initial PSA value 0.2 ng/mL or greater followed by a subsequent confirmatory PSA value 0.2 ng/mL or greater. Values obtained with different assay methods or kits cannot be used interchangeably. Results cannot be interpreted as absolute evidence of the presence or absence of malignant disease. Reflex Criteria Comment 01 Comment: The percent free PSA is performed on a reflex basis only when the total PSA is between 4.0 and 10.0 ng/mL. Blood (Blood, Venous) 07/15/2025 10:38 AM EDT 07/15/2025 1:00 AM EDT Comment:BLOOD, VENOUS Narrative [facility] - 07/16/2025 12:09 PM EDT Performed at: [address] [place] [id number] [employer] Worker: Urbano Troy PhD, Phone: [phone] us Deepak Gray MD LAB BLOOD ORDERABLES Final Resul t Performing Organization Address [facility] de Phone Number [facility] [employer] [address] [place] [address] * Magnesium Serum (93105) (07/15/2025 10:38 AM EDT) Magnesium 2.2 1.6 - 2.3 mg/dL 01 Blood (Blood, Venous) 07/15/2025 10:38 AM EDT 07/15/2025 1:00 AM EDT Comment:BLOOD, VENOUS Narrative [facility] - 07/16/2025 12:09 PM EDT Performed at: [address] [place] [id number] [employer] Worker: Urbano Troy PhD, Phone: [phone] us Deepak Gray MD LAB BLOOD ORDERABLES Final Resul t Performing Organization Address [facility] de Phone Number [facility] [employer] [address] [place] [address] * T4, Free (01684) (07/15/2025 10:38 AM EDT) Pathologist [facility] Free T4 1.32 0.82 - 1.77 ng/dL 01 Blood (Blood, Venous) 07/15/2025 10:38 AM EDT 07/15/2025 1:00 AM EDT Comment:BLOOD, VENOUS Narrative [facility] - 07/16/2025 11:09 AM EDT Performed at: [facility] [id number] [employer] Worker: Urbano Troy PhD, Phone: [phone] us Deepak Gray MD LAB BLOOD ORDERABLES Final Resul t Performing Organization Address [facility] Co de Phone Number [facility] - [address] [place] [address] * TSH Thyroid Stimulating Hormone?? (46508) (07/15/2025 10:38 AM EDT) [facility] TSH, High Sensitivity 0.594 0.450 - 4.500 uIU/mL 01 Blood (Blood, Venous) 07/15/2025 10:38 AM EDT 07/15/2025 1:00 AM EDT Comment:BLOOD, VENOUS Narrative [facility] - 07/16/2025 11:09 AM EDT Performed at: [facility] [id number] [employer] Worker: Urbano Tory PhD, Phone: [phone] us Deepak Gray MD LAB BLOOD ORDERABLES Final Resul t Performing Organization Address City/[facility]/ZIP Co de Phone Number [facility] [address] [place] [address] * (ABNORMAL) Hgb A1C Hemoglobin Glycosylated (00787) (07/15/2025 10:38 AM EDT) [facility] Hemoglobin A1C 6.4(H) 4.8 - 5.6 % Comment: Prediabetes: 5.7 - 6.4 Diabetes: >6.4 Glycemic control for adults with diabetes: <7.0 Blood (Blood, Venous) 07/15/2025 10:38 AM EDT 07/15/2025 1:00 AM EDT Comment:BLOOD, VENOUS Narrative [facility] - 07/16/2025 8:08 AM EDT Performed at: 01 - [facility] [address] [id number] [employer] Worker: Urbano Troy PhD, Phone: [phone] Deepak Gray MD LAB BLOOD ORDERABLES Final Resul t [facility] - [address] [place] [address] * (ABNORMAL) CMP12+LP+6AC (623382) - [facility] (07/15/2025 10:38 AM EDT) Glucose 105(H) 70 - 99 mg/dL 01 Uric Acid 8.3 3.8 - 8.4 mg/dL 01 Comment:Therapeutic target f or gout patients: <6.0 BUN 21 6 - 24 mg/dL 01 Creatinine 1.06 0.76 - 1.27 mg/dL 01 eGFR 85 >59 mL/min/1.7 3 01 BUN/Creatinine Ratio 20 9 - 20 01 Sodium 137 134 - 144 mmol/L 01 Potassium 4.2 3.5 - 5.2 mmol/L 01 Chloride 103 96 - 106 mmol/L 01 Calcium 9.1 8.7 - 10.2 mg/dL 01 Phosphorus 2.1(L) 2.8 - 4.1 mg/dL 01 Total Protein 7.5 6.0 - 8.5 g/dL 01 Albumin 4.4 3.8 - 4.9 g/dL 01 Globulin, Total 3.1 1.5 - 4.5 g/dL 01 Total Bilirubin 0.3 0.0 - 1.2 mg/dL 01 Alkaline Phosphatase 73 47 - 123 IU/L 01 LD 154 121 - 224 IU/L 01 AST 21 0 - 40 IU/L 01 ALT (SGPT) 28 0 - 44 IU/L 01 GGT 42 0 - 65 IU/L 01 Iron 92 38 - 169 ug/dL 01 Cholesterol 142 100 - 199 mg/dL 01 Triglycerides 252(H) 0 - 149 mg/dL 01 HDL 36(L) >39 mg/dL 01 VLDL Cholesterol Javi 41(H) 5 - 40 mg/dL 01 LDL Calculated 65 0 - 99 mg/dL 01 Chol/HDL Ratio 3.9 0.0 - 5.0 ratio 01 Comment: T. Chol/HDL Ratio Men Women 1/2 Avg.Risk 3.4 3.3 Avg.Risk 5.0 4.4 2X Avg.Risk 9.6 7.1 3X Avg.Risk 23.4 11.0 Estimated CHD Risk 0.7 0.0 - 1.0 times avg. 01 Comment: The CHD Risk is based on the T. Chol/HDL ratio. Other factors affect CHD Risk such as hypertension, smoking, diabetes, severe obesity, and family history of premature CHD. Blood (Blood, Venous) 07/15/2025 10:38 AM EDT 07/15/2025 1:00 AM EDT Comment:BLOOD, VENOUS Narrative [facility] - 07/16/2025 12:09 PM EDT Performed at: 01 - [address] [id number] [employer] Worker: Urbano Troy PhD, Phone: [phone] us Deepak Gray MD LAB BLOOD ORDERABLES Final Resul t [facility] - [address] [place] [address] documented in this encounter Visit Diagnoses Diagnosis Acute RI inferior lateral first episode care ([facility])- Primary Acute myocardial infarction of inferolateral wall, initial episode of care Hypertension, unspecified type Gastroesophageal reflux disease, unspecified whether esophagitis present Allergic rhinitis, unspecified seasonality, unspecified trigger Hypothyroidism, unspecified type Hypokalemia Hypopotassemia documented in this encounter Care Teams Parimutuel Cashier Relationship Specialty Start Date End Date Louie Davis [address] [place] [address] PCP - General General Surgery 07/15/25 documented as of this encounter
--- OUTSIDE RECORDS SUMMARY | 2025-07-20 09:00 | XMS_ITS ---
[facility] Address [address] [place] [id number] Care Team Providers Care Finisher Accordion Name Role Phone Aaron Davis Primary Care Provider [phone] Allergies No Known Allergies REASON FOR VISIT 3 months, Needs labs, colon cancer screening, diabetic eye exam, & flu vaccine Medications Medication SIG (Take, Route, Frequency, Duration) Notes Start Date End Date Status Omeprazole 40 MG 1 cap(s) orally once a day; Duration: 90 days Active Hydrocortisone Acetate 25 MG 1 suppository Rectal twice a day 04/28/2025 Active Cetirizine HCl 10 MG 1 tab(s) orally onc e a day; Duration: 90 days Active Prasugrel [...] AND SWALLOW 1 TABLET DAILY; Duration: 90 Not-Taking Repatha 140 MG/ML 1 mL Subcutaneous Active Immunizations Vaccine Route Administration Date Status Comme nts Fluzone Quad (6months&older) IM Intramuscular 07/20/2025 Administered Shingrix IM Intramuscular 07/20/2025 Administered Social History Tobacco Use: Social History Observation Description Date Smoking Status WARNING: Information temporarily unavailable CURRENT TOBACCO USE: Question Answer Notes Are you a: STOPPED SMOKING 2018 Vital Signs Blood pressure systolic 112 mm Hg 07/20/20 25 Blood pressure diastolic 70 mm Hg 025 Heart Rate 81 /min 07/20/2025 Height 75 in 07/20/2025 Weight 295.6 lbs 07/20/2025 BMI 36.94 kg/m2 07/20/2025 Encounters Encounter Location Date Provider Diagnosis [facility] [address] [facility] [address] [place] [id number] 07/20/2025 Aaron Davis Essential hypertensi on I10 ; Acquired hypothyroidism E03.9 ; Mixed hyperlipidemia E78.2 ; Status post coronary artery stent placement Z95.5 ; Encounter for immunization Z23 ; Encounter for vaccination Z23 and Screening for colon cancer Z12.11 Assessments Encounter Date Diagnosis (ICD Code) Assessment Notes Treatment Notes Treatment Clinical Notes Section Notes 07/20/2025 Essential hypertension (ICD-10 - I10) 07/20/2025 Acquired hypothyroidism (ICD-10 - E03.9) 07/20/2025 Mixed hyperlipidemia (ICD-10 - E78.2) 07/20/2025 Status post coronary artery stent placement (ICD-10 - Z95.5) 07/20/2025 Encounter for immunization (ICD-10 - Z23) 07/20/2025 Encounter for vaccination (ICD-10 - Z23) 07/20/2025 Screening for colon cancer (ICD-10 - Z12.11) Plan Of Treatment Next Appt Details Follow Up: 3 Months, Reason: Provider Name:Aaron Rivers er, 10/23/2025 10:15:00 AM, [address] [facility] 36 [facility], [address], [place], [id number], Progress Notes * Tommy RODRIGUEZ RDOB:[birth year] (49 yo M)Acc No.[id number]:07/20/2025 Progress Notes Patient: Lara LISSA Tommy R Provider: Aaron Davis M.D. :1975 A ge:49 Y S ex:Male Date:07/20/2025 Address[address] [id number] Subjective: * Chief Complaints: * 1 . 3 months. 2. Needs labs, colon cancer screening, diabetic eye exam, & flu vaccine. * HPI: C ardiology: The pt is here for a check up on Hypertension. Pt states he had some lab studies done last week (10/29) per Cardiology. See pt docs. Pt is not fasting. Pt states he is doing good and denies any new concerns. Denies : Chest Pain. D enies : Short of Breath. D enies : Dizziness. D enies : Palpitations. A nkle/Foot: He reports that his toe is better. Has seen Salome Hardin. Is off antibiotics. Has follow-up 07/30. C onstitutional: Never got second Shingrix. * ROS: C ONSTITUTIONAL: Positive for A kellie physician seen since last visit? Yes, Change in medication since last visit? No, Are you taking antibiotics? No, Are you taking steroids? No. D ERMATOLOGY: no R fani. n o [...] frequency: coffee, tea. Marital Status: Single. Occupation: [employer]. Past smoking status: yes, Smoking status: Patient does NOT smoke, FORMER Packs per day: 1, Since age of: 10. STOPPED 2019. Recreational drug use: no. Alcohol: Yes, rare. Sexually active: yes. * Medications: T aking Repatha 140 MG/ML Solution Prefilled Syringe 1 mL Subcutaneous , Taking Fluticasone Propionate 50 MCG/ACT Suspension [...] 1 tablet Orally once a day , Not-Taking Aspirin 81 MG Tablet Chewable CHEW AND SWALLOW 1 TABLET DAILY , Discontinued Zyvox 600 MG Tablet 1 tablet Orally every 12 hrs , Medication List reviewed and reconciled with the patient * Allergies: N .K.D.A. Objective: * Vitals: W t: 295.6, Temp: 98.1, BP: 112/70, HR: 81, Nurse: JAVIER, Ht: 75, BMI:36.94. * Examination: G eneral Examination: General Appearance: [...] inimal leg edema. Assessment: * Assessment: 1. E ssential hypertension - I10 (Primary) 2 . A cquired hypothyroidism - E03.9 3 . M ixed hyperlipidemia - E78.2 4 . S tatus post coronary artery stent placement - Z95.5 5 . E ncounter for immunization - Z23 & #160; 6 . E ncounter for vaccination - Z23 7 . S creening for colon cancer - Z12.11 Plan: * Treatment: * Immunizations: Shingrix : 0.5 (Route: Intramuscular) given by Mary Segura on Right Deltoid (Encounter for vaccination) Fluzone Quad (6months&older) : 0.5 mL (Route: Intramuscular) given by Mary Segura on Left Deltoid (Encounter for vaccination) * Follow Up: 3 Months * Images: Billing Information: * Visit Code: 60675 Office Visit, Est Pt., Level 4. * Procedure Codes: * Electronic signature of Aaron Davis MD on 07/30/2025 at 10:27 AM EST Sign off status: Pending * Provider: Aaron Davis M.D. Date: 09/19/2024 Generated for Roni beckford/Carey/eTransmitting on: 09/29/2024 10:27 AM EST History and Physical [...]
--- OUTSIDE RECORDS SUMMARY | 2025-07-30 10:27 | XMS_ITS | Clinical Summary ---
Author Organization [facility] Address [address] [place] [address] Care Team Providers Care Chief Merchandising Officer Name Role Phone Louie Davis MD Primary Care Provider [phone] Allergies No known active allergies Medications levothyroxine [...] STEMI (ST elevation myocardial infarction) 07/19 Acute [place] inferior lateral first episode care Overview (07/17/2016): [...] Mother Relation Name Status Comments Brother Alive [place] at age 42 Father Alive Mother Alive [...] VACCINE 04/17/2025 Medical Devices Implanted Type Area Legal Recovery Specialist Device Identifier Shelf Expiration Date Model / Serial / Lot Stent Integrity Bare Mtl Rx 3.5x18mm - [id number] Implanted:Qty: 1 on 07/17/2016 by Garett Morales MD at [facility] Stent [employer] 03/10/2017 [id number] / / [id number] Insurance [facility] [employer] Advance Directives * Full Code (Latest Code Status on File) Date Activated Date Inactivated Comments 07/17/2016 3:35 PM 07/19/2016 9:28 AM Question Answer Comments Level Of Support Discussed With: Patient Care Teams Chief Merchandising Officer Relationship Specialty Start Date End Date Louie Davis MD [address] [place] [address] PCP - General Family Medicine 07/17/16
--- OUTSIDE RECORDS SUMMARY | 2025-07-30 10:27 | XMS_ITS | Clinical Summary ---
Author Organization [facility] Address [address] [place] [address] Phone [email or web address] Care Team Providers Care Line Decorator Name Role Phone Louie Davis Primary Care Provider [phone] Allergies No known active allergies Medications metoprolol [...] STEMI (ST elevation myocardial infarction) 07/19 Acute [place] inferior lateral first episode care Overview (04/22/2025): 1. S/p thrombus extraction and BMS placement to RCA 2. EF 35% with mildly reduced systolic function Assessment & Plan (07/15/2025 11:41 AM EDT): Orders: CMP12+LP+6AC (687147) - [facility] Hgb A1C Hemoglobin Glycosylated (16618) TSH Thyroid Stimulating Hormone (63596) T4, Free (91047) Magnesium Serum (84288) PSA Prostate Specific Antigen Total Reflex to Free (49550) UA Urinalysis Complete (Macroscopic and Microscopic) (08766) CBC Complete blood count with diff (61858) GERD (gastroesophageal reflux disease) 6 Assessment & [...] Plan (07/15/2025 11:41 AM EDT): Orders: CMP12+LP+6AC (445571) - [facility] furosemide (LASIX) 40 MG tablet; [...] Encounters Date Type Department Care Team Description 07/20/2025 Results Follow-Up [facility] [address] [facility] [address] [place] [address] Deepak Gray MD 07/15/2025 11:00 AM EDT Office Visit [facility] [address] [facility] [address] [place] [address] Deepak Gray MD Acute [facility] first episode care ([facility]) (Primary Dx); Hypertension, unspecified type; Gastroesophageal reflux disease, unspecified whether esophagitis present; Allergic rhinitis, unspecified seasonality, unspecified trigger; Hypothyroidism, unspecified type; Hypokalemia from Last 3 Months Immunizations Immunization Administration [...] urine) 1983 Diabetic Retinal Eye Exam 1983 Annual Preventive Exam 1991 Hep B Infection Screening - Triple Screen 1991 Hepatitis B Immunization (1 of 3 - 19+ 3-dose series) 1992 Tetanus Diphtheria and Pertu ssis Immunization (1 - Tdap) 1992 Pneumococcal: 50+ Years (2 o f 2 - PCV) 07/18/2017 07/18/2016 Zoster Immunization (1 of 2) 2023 Covid-19 Immunization (1 - season) 2025 Influenza Immunization (#1) 2025 Hemoglobin A1C Testing 10/15/2025 07/15/2025 Pneumococcal Immunization Discontinued 07/18/2016 HIB Immunization Aged [...] on patient's age to complete this topic Procedures Procedure Name Priority Date/Time Associated Diagnosis Comments RFL MICROSCOPIC EXAMINATION - URINALYSIS Routine 07/15/2025 11:39 AM EDT URINALYSIS Routine 07/15/2025 10:39 AM EDT Acute [place] inferior lateral first episode care ([facility]) CBC WITH DIFFERENTIAL/PLATELE T Routine 07/15/2025 10:38 AM EDT Acute OR inferior lateral first episode care ([facility]) PSA PROSTATE SPECIFIC ANTIGEN TOTAL REFLEX TO FREE Routine 07/15/2025 10:38 AM EDT Acute OR inferior lateral first episode care ([facility]) MAGNESIUM Routine 07/15/2025 10:38 AM EDT Acute OR inferior lateral first episode care ([facility]) T4, FREE Routine 07/15/2025 10:38 AM EDT Acute OR inferior lateral first episode care ([facility]) TSH Routine 07/15/2025 10:38 AM EDT Acute OR inferior lateral first episode care ([facility]) HEMOGLOBIN A1C Routine 07/15/2025 10:38 AM EDT Acute OR inferior lateral first episode care ([facility]) CMP12+LP+6AC - [facility] Routine 07/15/2025 10:38 AM EDT Acute OR inferior lateral first episode care ([facility]) Hypertension, unspecified type from Last 3 Months Results * RFL MICROSCOPIC EXAMINATION - URINALYSIS [...] - 07/16/2025 12:09 PM EDT Performed at: - [facility] [id number] Medical Office Manager: Urbano Troy PhD, Phone: [phone] us Deepak Gray MD LAB URINE ORDERABLES Final Resul t Performing Organization Address [facility] de Phone Number [facility] - [address] [place] [address] * UA Urinalysis Complete (Macroscopic and Microscopic) (65207) (07/15/2025 10:39 AM EDT) Specific [place], Urine 1.024 1.005 - 1.030 01 pH [...] - 07/16/2025 12:09 PM EDT Performed at: - [facility] [id number] Medical Office Manager: Urbano Troy PhD, Phone: [phone] us Deepak Gray MD LAB URINE ORDERABLES Final Resul t Performing Organization Address [facility] Co de Phone Number [facility] [address] [place] [address] * (ABNORMAL) CMP12+LP+6AC (056587) - [facility] (07/15/2025 10:38 AM EDT) Glucose [...] 12:09 PM EDT Performed at: 01 - [facility] [address] [id number] Medical Office Manager: Urbano Troy PhD, Phone: [phone] Deepak Gray MD LAB BLOOD ORDERABLES Final Resul t [facility] - [address] [place] [address] * (ABNORMAL) CBC Complete blood count with diff (47161) (07/15/2025 10:38 AM EDT) Auto WBC 5.3 3.4 - 10.8 x10E3/uL [...] - 07/16/2025 9:09 AM EDT Performed at: [facility] [id number] Medical Office Manager: Urbano Troy PhD, Phone: [phone] Deepak Gray MD LAB BLOOD ORDERABLES Final Resul t Performing Organization Address [facility] Co de Phone Number [place] [address] [place] [address] * PSA Prostate Specific Antigen Total Reflex to Free (54002) (07/15/2025 10:38 AM EDT) PSA 0.6 0.0 - 4.0 ng/mL 01 Comment: Reyna ECLIA methodology. According to the [place] [employer], Serum PSA should decrease and [...] - 07/16/2025 12:09 PM EDT Performed at: [facility] [id number] Medical Office Manager: Urbano Troy PhD, Phone: [phone] us Deepak Gray MD LAB BLOOD ORDERABLES Final Resul t Performing Organization Address [facility] Co de Phone Number [place] [address] [address] [place] [address] * TSH Thyroid Stimulating Hormone?? (71125) (07/15/2025 10:38 AM EDT) TSH, High Sensitivity 0.594 0.450 - 4.500 uIU/mL 01 Blood (Blood, Venous) 07/15/2025 10:38 AM EDT 07/15/2025 1:00 AM EDT Comment:BLOOD, VENOUS Narrative [facility] - 07/16/2025 11:09 AM EDT Performed at: [address] [place] [id number] Medical Office Manager: Urbano Troy PhD, Phone: [phone] us Deepak Gray MD LAB BLOOD ORDERABLES Final Resul t Performing Organization Address [facility] Co de Phone Number [address] [address] * T4, Free (43656) (07/15/2025 10:38 AM EDT) [facility] Free T4 1.32 0.82 - 1.77 ng/dL 01 Blood (Blood, Venous) 07/15/2025 10:38 AM EDT 07/15/2025 1:00 AM EDT Comment:BLOOD, VENOUS Narrative [facility] - 07/16/2025 11:09 AM EDT Performed at: [address] [place] [id number] Medical Office Manager: Urbano Troy PhD, Phone: [phone] us Deepak Gray MD LAB BLOOD ORDERABLES Final Resul t Performing Organization Address [facility] Co de Phone Number [address] [address] * Magnesium Serum (66608) (07/15/2025 10:38 AM EDT) [facility] Magnesium 2.2 1.6 - 2.3 mg/dL 01 Blood (Blood, Venous) 07/15/2025 10:38 AM EDT 07/15/2025 1:00 AM EDT Comment:BLOOD, VENOUS Narrative [facility] - 07/16/2025 12:09 PM EDT Performed at: 01 - [facility] [address] [id number] Medical Office Manager: Urbano Troy PhD, Phone: [phone] Deepak Gray MD LAB BLOOD ORDERABLES Final Resul t Performing Organization Address [facility] de Phone Number [facility] - [address] [place] [address] * (ABNORMAL) Hgb A1C Hemoglobin Glycosylated (52866) (07/15/2025 10:38 AM EDT) Hemoglobin A1C 6.4(H) 4.8 - 5.6 % Comment: Prediabetes: 5.7 - 6.4 Diabetes: >6.4 Glycemic control for adults with diabetes: <7.0 Blood (Blood, Venous) 07/15/2025 10:38 AM EDT 07/15/2025 1:00 AM EDT Comment:BLOOD, VENOUS Narrative [facility] - 07/16/2025 8:08 AM EDT Performed at: [facility] [address] [id number] Medical Office Manager: Urbano Troy PhD, Phone: [phone] Deepak Gray MD LAB BLOOD ORDERABLES Final Resul t Performing Organization Address [facility] de Phone Number [facility] - [address] [place] [address] from Last 3 Months Insurance ANTHEM NO COPAY NB Care Teams Line Decorator Relationship Specialty Start Date End Date Louie Davis [address] [place] [address] PCP - General General Surgery 07/15/25
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
--- OUTSIDE RECORDS SUMMARY | 2025-07-30 10:28 | XMS_ITS | Encounter Summary ---
Author Organization [facility] Address [address] [place] [id number] Phone [email or web address] Care Team Providers Care Track Production Engineer Name Role Phone Louie Davis Primary Care Provider [phone] Encounter Details Date Type Department Care Team (Late st Contact Info) Description 07/20/2025 Results Follow-Up [facility] [address] [facility] [address] [place] [address] Deepak Gray MD [address] [facility] [address] [place] [address] Social History Tobacco Use Types Packs/Day Years [...] on file documented as of this encounter Plan of Treatment Not on file documented as of this encounter Visit Diagnoses Not on filedocumented in this encounter Care Teams Track Production Engineer Relationship Specialty Start Date End Date Louie Davis [address] [place] [id number] PCP - General General Surgery 07/15/25 documented as of this encounter
== END 2025-07-29 23:59 ==
LOC: LAB.DROPOF 07-30 10:10
PROVIDERS: PCP Family Medicine; Visit Provider Nurse Practitioner
DX: L97.529 Non-pressure chronic ulcer of other part of left foot with unspecified severity (principal)
CPT/HCPCS: 87070; 87205

== ENCOUNTER 2025-08-31 11:30 | Outpatient (CLI) | payer BC, SELFPAY ==
--- OUTSIDE RECORDS SUMMARY | 2025-01-28 04:45 | XMS_ITS ---
[facility] Address [address] [place] [id number] Care Team Providers Care Momd Teacher Name Role Phone Aaron Davis Primary Care Provider Carol Tabor Unavailable [phone] Allergies No Known Allergies REASON FOR VISIT 1 week f/u Medications Medication SIG (Take, Route, Frequency, Duration) Notes Start Date End Date Status Cetirizine HCl 10 MG 1 tab(s) orally onc e a day; Duration: 90 days Active Mupirocin 2 % 1 application Architectural Drafting Instructor ally Twice a day 01/28/2025 Active Omeprazole [...] 01/28/2025 Encounters Encounter Location Date Provider Diagnosis [facility] [address] [facility] [address] [place] [phone] 01/28/2025 Carol Tabor Toe infection L08.9 Assessments [...] Date Notes Mupirocin 2 % 1 application Architectural Drafting Instructor ally Twice a day 01/28/2025 Bactrim DS [...] 2 Weeks, Reason: Provider Name:Aaron Rivers er, 10/26/2025 10:15:00 AM, [address] [facility], [address], [place], [phone], Progress Notes * Tommy RODRIGUEZ RDOB:[birth year] (50 yo M)Acc No.[id number]:01/28/2025 Patient: Tommy EUCEDA Provider: SHAYY Agrawal :1975 A ge:49 Y S ex:Male Date:01/28/2025 Address:[address] [place], [id number] Pcp:Aaron Davis Subjective: * Chief Complaints: * [...] * Images: Billing Information: * Visit Code: 80171 Office Visit, Est Pt., Level 3. * Procedure Codes: * Electronic signature of SHAYY Kelsey on 09/01/2025 at 04:54 PM EST Sign off status: Pending * Provider: SHAYY Agrawal Date: 0 01/28/2025 Generated for Roni beckford/Carey/Ronny on: 1 11/02/2024 04:54 PM EST History and Physical Notes * Examination Category Sub-Category Detail Notes Category Not es General Examination Heart: RSR Lungs: clear to auscultatio n General Appearance: NAD Skin: left great toe with less erythema and edema, there is still some purulent drainage as well Chest: normal shape and exp ansion
--- OUTSIDE RECORDS SUMMARY | 2025-02-11 05:00 | XMS_ITS ---
[facility] Address [address] [facility] [address] [place] [id number] Care Team Providers Care Industrial Rehabilitation Consultant Name Role Phone Aaron Davis Primary Care Provider Carol Tabor Unavailable [phone] Allergies No Known Allergies Reason For Referral Diagnosis 1 Toe infection (L08.9 ) [facility] Referring Provider First Name Carol Referring Provider Last Name Sharona Referring Provider Speciality Physician Air And Water Tester Referred Provider Specialty Physical The rapist General Notes Carol Tabor 10:01:57 AM >Pt needs a referral to wound care., Elvi Keith 02/11/2025 10:32:40 AM > faxed to [facility] PT Referral Priority Routine REASON FOR VISIT [...] days Active Mupirocin 2 % 1 application Counterintelligence Analyst ally Twice a day Active Cetirizine HCl [...] 02/11/2025 Encounters Encounter Location Date Provider Diagnosis [facility] [address] [facility] [address] [place] [id number] 02/11/2025 Carol Duboncaridad Toe infection L08.9 and [...] wound care, Reason: Provider Name:Aaron Rivers er, 10/26/2025 10:15:00 AM, [address], [address], [place], [id number], Progress Notes * Tommy RODRIGUEZ RDOB:[birth year] (50 yo M)Acc No.[id number]:02/11/2025 Patient: Tommy EUCEDA Provider: SHAYY Agrawal :1975 A ge:49 Y S ex:Male Date:02/11/2025 Address:[address] [place], [id number] Pcp:Aaron Davis Subjective: * Chief Complaints: * [...] Plan: * Treatment: * Follow Up: w [facility] wound care * Images: Billing Information: * Visit Code: 96413 Office Visit, Est Pt., Level 3. * Procedure Codes: * Electronic signature of SHAYY Kelsey on 09/01/2025 at 04:54 PM EST Sign off status: Pending * Provider: SHAYY Agrawal Date: 0 02/11/2025 Generated for Roni beckford/Carey/Jonysmitting on: 1 11/02/2024 04:54 PM EST History and Physical Notes * HPI [...]
--- OUTSIDE RECORDS SUMMARY | 2025-03-12 08:30 | XMS_ITS ---
[facility] Address [address] [place] [id number] Care Team Providers Care Crab Butcher Name Role Phone Aaron Davis Primary Care Provider Allergies No Known Allergies REASON FOR VISIT 4 month F/U, Needs labs & diabetic eye exam Medications Medication SIG (Take, Route, Frequency, Duration) Notes Start Date End Date Status Omeprazole 40 MG 1 cap(s) orally once a day; Duration: 90 days Active Levothyroxine Sodium 175 MCG 1 tab(s) orally once a day; Duration: 90 days Active Cetirizine HCl 10 MG 1 tab(s) orally onc e a day; Duration: 90 days Active Lisinopril 40 MG 1 tab(s) orally once a day; Duration: 90 days Active Aspirin 81 MG CHEW AND SWALLOW 1 TABLET DAILY; Duration: 90 Active Fluticasone Propionate 50 MCG/ACT 1 spray in each nostril once a day; Duration: 90 days Active Repatha 140 MG/ML 1 mL Subcutaneous Active Atorvastatin Calcium 40 MG 1 tablet Orally Once a day; Duration: 90 days Not-Takin g Prasugrel HCl 10 MG as directed Orally Active Mupirocin 2 % 1 application Externally Twice a day Active Social History Tobacco Use: Social History Observation Description Date Smoking Status WARNING: Information temporarily unavailable CURRENT TOBACCO USE: Question Answer Notes Are you a: STOPPED SMOKING 2019 Problems Problem Type SNOMED Code ICD Code Onset Dates Problem Status W/U Status Risk Notes Problem Acute ST segment elevation myocardial infarction due to right coronary artery occlusion (74523171023923 105) ST elevation myocardial infarction involving right coronary artery (I21.11) Active confirmed Vital Signs Blood pressure systolic 102 mm Hg 03/12/20 25 Blood pressure diastolic 70 mm Hg 025 Heart Rate 63 /min 03/12/2025 Height 75 in 03/12/2025 Weight 306.0 lbs 03/12/2025 BMI 38.24 kg/m2 03/12/2025 s, m Encounters Encounter Location Date Provider Diagnosis Poppy [address] [place] [address] 36 [facility] [address] [place] [id number] 03/12/[address] elevation myocard ial infarction involving right coronary artery I21.11 ; Hyperkalemia E87.5 and Status post angioplasty with stent Z95.9 Assessments Encounter Date Diagnosis (ICD Code) Assessment Notes Treatment Notes Treatment Clinical Notes Section Notes 03/12/2025 ST elevation myocardial infarction involving right coronary artery (ICD-10 - I21.11) 03/12/2025 Hyperkalemia (ICD-10 - E87.5) 03/12/2025 Status post angioplasty with stent (ICD-10 - Z95.9) Plan Of Treatment Medication Medication Name Sig Start Date Stop Date Notes Potassium Chloride ER 20 MEQ 1 tablet wi th food Orally Once a day Next Appt Details Follow Up: 2 Weeks, Reason: Provider Name:Aaron Rivers er, 10/26/2025 10:15:00 AM, [facility] 36 [facility], [address], [place], [id number], Progress Notes * MICHAEL, Tommy RDOB:[birth year] (50 yo M)Acc No.[id number]:03/12/2025 Progress Notes Patient: Tommy EUCEDA Provider: Aaron Davis M.D. :1975 A ge:49 Y S ex:Male Date:03/12/2025 Address:[address] [id number] Subjective: * Chief Complaints: * 1 . 4 month F/U. 2. Needs labs & diabetic eye exam. * HPI: C ardiology: The pt atient is here for a follow up from [facility] due to heart attack and heart cath. See pt docs. Pt states he is doing better except for the fatigue. Pt states cardiology ordered Wegovy but insurance does not cover it. Pt is not fasting. Denies : Chest Pain. D enies : Short of Breath. D enies : Dizziness. D enies : Palpitations. * ROS: D ERMATOLOGY: no R fani. n o H bret. G ASTROENTEROLOGY: no N ausea. n o V omiting. n o D iarrhea.? U ROLOGY: no D ifficulty urinating. n o B lood in urine. * Medical History: H ypothyroidism, Hyperlipidemia, Hypertension, Coronary Artery Disease, Myocardial Infarction, stent x1, 2015, Eye exam 09/2024. * Surgical History: n ear amputation of R foot 1988, Left heart cath with 1 stent in mid RCA 07/17/2016, Stress Test with ECHO 07/2020, stents x3 04/2023, Heart Cath one stent placed 03/05/2025. * Hospitalization/Major Diagno stic Procedure: h eart [...] tea. Marital Status: Single. Occupation: [employer] and [employer]. Past smoking status: yes, Smoking status: Patient does NOT smoke, FORMER Packs per day: 1, Since age of: 10. STOPPED 2018. Recreational drug use: no. Alcohol: Yes, rare. Sexually active: yes. * Medications: T aking Repatha 140 MG/ML Solution Prefilled Syringe 1 mL Subcutaneous , Taking Prasugrel HCl 10 MG Tablet as directed Orally , Taking Aspirin 81 MG Tablet Chewable CHEW AND SWALLOW 1 TABLET DAILY , Taking Potassium Chloride ER 20 MEQ Tablet Extended Release 1 tablet with food Orally Once a day , Taking Fluticasone Propionate 50 MCG/ACT Suspension 1 spray in each nostril once a day , Taking Lisinopril 40 MG Tablet 1 tab(s) orally once a day , Taking Levothyroxine Sodium 175 MCG Tablet 1 tab(s) orally once a day , Taking Omeprazole 40 MG Capsule Delayed Release 1 cap(s) orally once a day , Taking Cetirizine HCl 10 MG Tablet 1 tab(s) orally once a day , Taking Mupirocin 2 % Ointment 1 application Externally Twice a day , Not-Taking Atorvastatin Calcium 40 MG Tablet 1 tablet Orally Once a day , Discontinued Tadalafil 5 mg Tablet TAKE 1/2 TABLET BY MOUTH DAILY , Discontinued Furosemide 40 MG Tablet 1 tablet Orally Once a day prn , Discontinued Triamterene-HCTZ 37.5-25 MG Tablet 1 tablet in the morning Orally Once a day , Discontinued Clindamycin HCl 300 MG Capsule 1 capsule Orally Three times a day , Discontinued Bactrim DS 800-160 MG Tablet 1 tablet Orally Two times a day , Medication List reviewed and reconciled with the patient * Allergies: N .K.D.A. Objective: * Vitals: W t: 306.0, Temp: 98.2, BP: 102/70, HR: 63, Nurse: JAVIER, Ht: 75, BMI:38.24. s, m. * Examination: G eneral Examination: General Appearance: N AD. H EENT: u nremarkable.?Oral cavity: n o lesions, mucosa moist and WNL, no erythema. N bradley: s upple, no lymphadenopathy. C hest: n ormal shape and expansion. H eart: R SR, S4. L ungs: c lear to auscultation. A bdomen: soft and nontender, no organomegaly or masses. N eurologic Exam: I ntact, gait normal. S kin: n ormal, no rash. P eripheral pulses: n ormal . E xtremities: t race l eg edema. Assessment: * Assessment: 1. S T elevation myocardial infarction involving right coronary artery - I21.11 (Primary) ? 2 . H yperkalemia - E87.5 3 . S tatus post angioplasty with stent - Z95.9 Plan: * Treatment: * Follow Up: 2 Weeks * Images: Billing Information: * Visit Code: 99633 Office Visit, Est Pt., Level 3. * Procedure Codes: * Electronic signature of Aaron Davis MD on 09/01/2025 at 04:54 PM EST Sign off status: Pending * Provider: Aaron Davis M.D. Date: 0 03/12/2025 Generated for Roni beckford/Carey/Ronny on: 1 11/02/2024 04:54 PM EST History and Physical Notes * HPI (History of Present Illness) Category Sub-Category Detail Notes Category Not es Cardiology Short of Breath Chest Pain Palpitations Dizziness Examination Category Sub-Category Detail Notes Category Not es General Examination HEENT: unremarkable Heart: RSR, S4 Lungs: clear to auscultatio n Abdomen: soft and nontender, no organomegaly or masses Extremities: trace leg edema General Appearance: NAD Skin: normal, no rash Neurologic Exam: Intact, gait normal Neck: supple, no lymphaden opathy Oral cavity: no lesions, mucosa m oist and WNL, no erythema Peripheral pulses: normal Chest: normal shape and exp ansion
--- OUTSIDE RECORDS SUMMARY | 2025-03-13 04:35 | XMS_ITS ---
Author Organization [facility] Address [address] [facility] [address] [facility] [address] [place] [phone] Care Team Providers Care Regenerator Operator Name Role Phone Aaron Davis Primary Care Provider Carol Tabor [phone] REASON FOR VISIT [facility] F/U Encounters Encounter Location Date Provider Diagnosis Poppy [address] [place] [phone] 03/13/2025 Carol Tabor Plan Of Treatment Next Appt Details Provider Name:Aaron Rivers er, 10/26/2025 10:15:00 AM, [address], [address], [place], [place], [id number], Progress Notes * MICHAELJose ELLISn RDOB:[birth year] (50 yo M)Acc No.[id number]:03/13/2025 Progress Notes Patient: Tommy EUCEDA Provider: SHAYY Agrawal :1975 A ge:49 Y S ex:Male Date:03/13/2025 Address:[address] [id number] Pcp:Aaron Davis Subjective: * Chief Complaints: * 1 . [facility] F/U. * Medical History: Objective: * Vitals: Assessment: Plan: * Treatment: * Images: Billing Information: * Visit Code: * Procedure Codes: * Electronic signature of SHAYY Kelsey on 09/01/2025 at 04:55 PM EST Sign off status: Pending * Provider: SHAYY Agrawal Date: 0 03/13/2025 Generated for Roni beckford/Carey/Ronny on: 1 11/02/2024 04:55 PM EST
--- OUTSIDE RECORDS SUMMARY | 2025-04-28 04:45 | XMS_ITS ---
Author Organization Leigh Address [facility] [place] [phone] Care Team Providers Care Waitress Name Role Phone Aaron Davis Primary Care Provider Portillo Mcleod Unavailable [phone] Allergies No Known Allergies REASON FOR VISIT [...] Provider Diagnosis [place] [address] [place] [address] [facility] [address] [place] [phone] 04/28/2025 Portillo Mcleod Hemorrhoids, unspecified hemorrhoid type [...] rt progress, Reason: Provider Name:Aaron Rivers er, 10/26/2025 10:15:00 AM, [address], [address], [place], [phone], Progress Notes * Tommy RODRIGUEZ RDOB:[birth year] (50 yo M)Acc No.[id number]:04/28/2025 Progress Notes Patient: Tommy EUCEDA Provider: Victor Manuel Mcleod M.D. :1975 A ge:49 Y S ex:Male Date:04/28/2025 Address:[address] [facility] [id number] Pcp:Aaron Davis Subjective: * Chief Complaints: * [...] frequency: coffee, tea. Marital Status: Single. Occupation: [employer]. Past smoking status: yes, Smoking status: Patient [...] * Images: Billing Information: * Visit Code: 27064 Office Visit, Est Pt., Level 3. * Procedure Codes: * Electronic signature of Shakira Mcleod MD on 09/01/2025 at 04:55 PM EST Sign off status: Pending * Provider: Victor Manuel Mcleod M.D. Date: 0 04/28/2025 Generated for Roni beckford/Carey/Ronny on: 1 11/02/2024 04:55 PM EST History and Physical Notes * HPI (History of Present Illness) Category Sub-Category Detail Notes Category Not es Gastroenterology hemorrhoid Pt complains of pain when walking, sitting and at times doing anything due to hemorrhoids Examination Category Sub-Category Detail Notes Category Not es General Examination General Appearance: NAD
--- OUTSIDE RECORDS SUMMARY | 2025-07-10 04:15 | XMS_ITS ---
Author [facility] Address [address] [facility] [address] [place] [id number] Care Team Providers Care Ceramics Instructor Name Role Phone Aaron Davis Primary Care Provider [phone] Carol Tabor Unavailable [phone] Allergies No Known Allergies REASON FOR VISIT [...] Encounter Location Date Provider Diagnosis [facility] [address] [place] [id number] 07/10/2025 Carol Tabor Toe infection L08.9 Assessments [...] Dr. Markham, Reason: Provider Name:Aaron Rivers er, 10/26/2025 10:15:00 AM, [facility], [address], [place], [id number], Progress Notes * Tommy RODRIGUEZ RDOB:[birth year] (50 yo M)Acc No.[id number]:07/10/2025 Patient: Lara Tommy ALCARAZ Provider: SHAYY Agrawal [...] frequency: coffee, tea. Marital Status: Single. Occupation: [employer]. Past smoking status: yes, Smoking status: Patient [...] Plan: * Treatment: * Follow Up: w [facility] Dr. Markham * Images: Billing Information: * Visit Code: 24215 Office Visit, Est Pt., Level 3. * Procedure Codes: * Electronic signature of SHAYY Kelsey on 09/01/2025 at 04:54 PM EST Sign off status: Pending * Provider: SHAYY Agrawal Date: Generated for Roni beckford/Carey/eTransmitting on: 11/02/2024 04:54 PM EST History and Physical [...]
--- OUTSIDE RECORDS SUMMARY | 2025-07-15 10:00 | XMS_ITS | Encounter Summary ---
Author Organization [facility] Address [address] [place] [address] Phone [email or web address] Care Team Providers Care Senior Operations Manager Name Role Phone Louie Davis Primary Care Provider [phone] Reason for Visit * Reason Comments Medication Therapy Management Medication refill and labs Encounter Details Date Type Department Care Team (Late st Contact Info) Description 07/15/2025 11:00 AM EDT Office Visit [facility] [address] [facility] [address] [place] [address] Deepak Gray MD [address] [place] [address] Acute [place] inferior lateral first episode care ([facility]) (Primary Dx); Hypertension, unspecified type; Gastroesophageal reflux [...] a 49 y.o. male presents to the [facility] 07/15/2025 for Non-Fasting lab work ordered by Health Center provider . Labs drawn via right antecubital using butterfly 21 gauge needle on the first attempt without difficulty. Manual pressure applied to site upon completion of venipuncture with a small amount of bleeding, Coban applied over site. Member tolerated lab procedure well and was ambulatory out of the [facility] without difficulty:Yes. Lab specimen tubes collected: SST, 5 LAV, 2 Anu Nielsen CORRECTIONS NURSE * Deepak Gray MD - 07/15/2025 11:00 AM EDT Allergies Chart Review Health Maintenance History Immunizations Screenings Search Synopsis This Visit Vital Signs Assessment & Plan Acute [place] inferior lateral first episode care ([facility]) Orders: CMP12+LP+6AC (096760) - [facility] Hgb A1C Hemoglobin Glycosylated (09048) TSH Thyroid Stimulating Hormone (57134) T4, Free (16376) Magnesium Serum (06148) PSA Prostate Specific Antigen Total Reflex to Free (72677) UA Urinalysis Complete (Macroscopic and Microscopic) (88396) CBC Complete blood count with diff (99707) Hypertension, unspecified type Orders: CMP12+LP+6AC (148817) - [facility] furosemide (LASIX) 40 MG tablet; [...] he will forward the results to his Mud Temperer. Follow-up: No follow up orders placed. Subjective [...] and he restarted. He has seen his data manager recently and no changes have been made to his regimen. He feels well. His data manager is asking for some labs and he [...] - 07/15/2025 11:00 AM EDTAssociated Problem(s): Acute [place] inferior [facility] first episode care ([facility]) Orders: CMP12+LP+6AC ([id number]) - [facility] Hgb A1C Hemoglobin Glycosylated (42114) TSH Thyroid Stimulating Hormone (41808) T4, Free (71500) Magnesium Serum (27321) PSA Prostate Specific Antigen Total Reflex to Free (50132) UA Urinalysis Complete (Macroscopic and Microscopic) (39300) CBC Complete blood count with diff (26645) * Assessment & Plan Note - Deepak Gray MD - 07/15/2025 11:00 AM EDTAssociated Problem(s): HTN (hypertension) Orders: CMP12+LP+6AC (937778) - [facility] furosemide (LASIX) 40 MG tablet; [...] URINALYSIS Routine 07/15/2025 10:39 AM EDT Acute [place] inferior lateral first episode care ([facility]) CMP12+LP+6AC - [facility] Routine 07/15/2025 10:38 AM EDT Acute [place] inferior lateral first episode care ([facility]) Hypertension, unspecified type CBC WITH DIFFERENTIAL/PLATELE T Routine 07/15/2025 10:38 AM EDT Acute [place] inferior lateral first episode care ([facility]) PSA PROSTATE SPECIFIC ANTIGEN TOTAL REFLEX TO FREE Routine 07/15/2025 10:38 AM EDT Acute [place] inferior lateral first episode care ([facility]) TSH Routine 07/15/2025 10:38 AM EDT Acute [place] inferior lateral first episode care ([facility]) T4, FREE Routine 07/15/2025 10:38 AM EDT Acute [place] inferior lateral first episode care ([facility]) MAGNESIUM Routine 07/15/2025 10:38 AM EDT Acute [place] inferior lateral first episode care ([facility]) HEMOGLOBIN A1C Routine 07/15/2025 10:38 AM EDT Acute [place] inferior lateral first episode care ([facility]) documented in this encounter Results * RFL [...] - 07/16/2025 12:09 PM EDT Performed at: [facility] [id number] Watch Dial Maker: Urbano Troy PhD, Phone: [phone] us Deepak Gray MD LAB URINE ORDERABLES Final Resul t Performing Organization Address [facility] Co de Phone Number [facility] - [address] [place] [address] * UA Urinalysis Complete (Macroscopic and Microscopic) (05649) (07/15/2025 10:39 AM EDT) Pathologist [facility] Specific [place], Urine 1.024 1.005 - 1.030 01 pH [...] - 07/16/2025 12:09 PM EDT Performed at: [address] [id number] Watch Dial Maker: Urbano Troy PhD, Phone: [phone] us Deepak Gray MD LAB URINE ORDERABLES Final Resul t Performing Organization Address [facility] Co de Phone Number [facility] - [address] [place] [address] * (ABNORMAL) CBC Complete blood count with diff (79495) (07/15/2025 10:38 AM EDT) Pathologist [facility] Auto WBC 5.3 3.4 - 10.8 x10E3/uL [...] 07/16/2025 9:09 AM EDT Performed at: - [address] [id number] Watch Dial Maker: Urbano Troy PhD, Phone: [phone] us Deepak Gray MD LAB BLOOD ORDERABLES Final Resul t [address] [address] * PSA Prostate Specific Antigen Total Reflex to Free (65299) (07/15/2025 10:38 AM EDT) [facility] PSA 0.6 0.0 - 4.0 ng/mL 01 Comment: Reyna ECLIA methodology. According to the [place] [employer], Serum PSA should decrease and [...] - 07/16/2025 12:09 PM EDT Performed at: [address] [place] [id number] Watch Dial Maker: Urbano Troy PhD, Phone: [phone] us Deepak Gray MD LAB BLOOD ORDERABLES Final Resul t Performing Organization Address [facility] de Phone Number [facility] [employer] [address] [place] [address] * Magnesium Serum (16666) (07/15/2025 10:38 AM EDT) Magnesium 2.2 1.6 - 2.3 mg/dL 01 Blood (Blood, Venous) 07/15/2025 10:38 AM EDT 07/15/2025 1:00 AM EDT Comment:BLOOD, VENOUS Narrative [facility] - 07/16/2025 12:09 PM EDT Performed at: [address] [place] [id number] Watch Dial Maker: Urbano Troy PhD, Phone: [phone] us Deepak Gray MD LAB BLOOD ORDERABLES Final Resul t Performing Organization Address [facility] de Phone Number [facility] [employer] [address] [place] [address] * T4, Free (07653) (07/15/2025 10:38 AM EDT) Pathologist [facility] Free T4 1.32 0.82 - 1.77 ng/dL 01 Blood (Blood, Venous) 07/15/2025 10:38 AM EDT 07/15/2025 1:00 AM EDT Comment:BLOOD, VENOUS Narrative [facility] - 07/16/2025 11:09 AM EDT Performed at: [facility] [address] [id number] Watch Dial Maker: Urbano Troy PhD, Phone: [phone] us Deepak Gray MD LAB BLOOD ORDERABLES Final Resul t Performing Organization Address [facility] Co de Phone Number [facility] - [address] [place] [address] * TSH Thyroid Stimulating Hormone?? (89469) (07/15/2025 10:38 AM EDT) [facility] TSH, High Sensitivity 0.594 0.450 - 4.500 uIU/mL 01 Blood (Blood, Venous) 07/15/2025 10:38 AM EDT 07/15/2025 1:00 AM EDT Comment:BLOOD, VENOUS Narrative [facility] - 07/16/2025 11:09 AM EDT Performed at: [facility] [address] [id number] Watch Dial Maker: Urbano Troy PhD, Phone: [phone] us Deepak Gray MD LAB BLOOD ORDERABLES Final Resul t Performing Organization Address City/[facility]/ZIP Co de Phone Number [facility] - [address] [place] [address] * (ABNORMAL) Hgb A1C Hemoglobin Glycosylated (93028) (07/15/2025 10:38 AM EDT) [facility] Hemoglobin A1C 6.4(H) 4.8 - 5.6 % Comment: Prediabetes: 5.7 - 6.4 Diabetes: >6.4 Glycemic control for adults with diabetes: <7.0 Blood (Blood, Venous) 07/15/2025 10:38 AM EDT 07/15/2025 1:00 AM EDT Comment:BLOOD, VENOUS Narrative [facility] - 07/16/2025 8:08 AM EDT Performed at: 01 - [facility] [address] [id number] Watch Dial Maker: Urbano Troy PhD, Phone: [phone] Deepak Gray MD LAB BLOOD ORDERABLES Final Resul t [facility] - [address] [place] [address] * (ABNORMAL) CMP12+LP+6AC (053669) - [facility] (07/15/2025 10:38 AM EDT) Glucose [...] 12:09 PM EDT Performed at: 01 - [address] [id number] Watch Dial Maker: Urbano Troy PhD, Phone: [phone] us Deepak Gray MD LAB BLOOD ORDERABLES Final Resul t [facility] - [address] [place] [address] documented in this encounter Visit Diagnoses Diagnosis Acute [place] inferior lateral first episode care ([facility])- Primary Acute myocardial infarction of inferolateral wall, initial episode of care Hypertension, unspecified type Gastroesophageal reflux disease, unspecified whether esophagitis present Allergic rhinitis, unspecified seasonality, unspecified trigger Hypothyroidism, unspecified type Hypokalemia Hypopotassemia documented in this encounter Care Teams Senior Operations Manager Relationship Specialty Start Date End Date Louie Davis [address] [place] [address] PCP - General General Surgery 07/15/25 documented as of this encounter
--- OUTSIDE RECORDS SUMMARY | 2025-07-20 09:00 | XMS_ITS ---
[facility] Address [address] [place] [id number] Care Team Providers Care Financial Planning Consultant Name Role Phone Aaron Davis Primary [...] Encounter Location Date Provider Diagnosis [facility] 36 [facility] [address] [place] [id number] 07/20/2025 Aaron Davis Essential hypertensi on I10 [...] 3 Months, Reason: Provider Name:Aaron Rivers er, 10/26/2025 10:15:00 AM, [address] [facility] 36 [facility], [address], [place], [id number], Progress Notes * Tommy RODRIGUEZ RDOB:[birth year] (50 yo M)Acc No.[id number]:07/20/2025 Progress Notes Patient: Lara BROWNJESSICAWyattemigdio Barber Provider: Aaron Davis M.D. :1975 A ge:49 Y S ex:Male Date:07/20/2025 Address[address] [id number] Subjective: * Chief Complaints: [...] frequency: coffee, tea. Marital Status: Single. Occupation: [employer]. Past smoking status: yes, Smoking [...] on Left Deltoid (Encounter for vaccination) * Procedure Codes: 1 036F TOBACCO NON-USER, 3074F SYST BP LT 130 MM HG, 3078F DIAST BP < 80 MM HG * Follow Up: 3 Months * Images: Billing Information: * Visit Code: 36833 Office Visit, Est Pt., Level 3. * Procedure Codes: 1036F TOBACCO NON-USER. 3074F SYST BP LT 130 MM HG. 3078F DIAST BP < 80 MM HG. * Electronic signature of Aaron Davis MD on 09/01/2025 at 04:54 PM EST Sign off status: Pending * Provider: Aaron Davis M.D. Date: 09/19/2024 Generated for Roni beckford/Carey/eTransmitting on: 11/02/2024 04:54 [...]
--- OUTSIDE RECORDS SUMMARY | 2025-09-01 16:54 | XMS_ITS | Clinical Summary ---
Author Organization [facility] Address [address] [place] [address] Phone [email or web address] Care Team Providers Care Application Integrator Name Role Phone Louie Davis Primary Care Provider [phone] Allergies No known active allergies Medications metoprolol [...] each day. 90 tablet 07/15/20 25 Active lisinopril (ZESTRIL) 40 MG tabletIndicatio [...] the morning. 30 capsule 11 07/15/20 25 Active potassium chloride (KLOR-CON M10) 10 MEQ CR tabletIndicatio ns:Hypokalemia Take 2 tablets (20 mEq total) by mouth 1 (one) time each day. 200 tablet 07/15/20 25 Active potassium chloride (KLOR-CON) 10 MEQ CR tabletIndicatio ns:Hypokalemia Take 2 tablets (20 mEq total) by mouth 1 (one) time each day. Do not crush, chew, or split. 200 tablet 07/15/20 25 Active Active Problems Problem Noted Date [...] NV inferior lateral first episode care Overview (04/22/2025): 1. S/p thrombus extraction and BMS placement to RCA 2. EF 35% with mildly reduced systolic function Assessment & Plan (07/15/2025 11:41 AM EDT): Orders: CMP12+LP+6AC ([id number]) - [facility] Hgb A1C Hemoglobin Glycosylated (84961) TSH Thyroid Stimulating Hormone (64183) T4, Free (32084) Magnesium Serum (68193) PSA Prostate Specific Antigen Total Reflex to Free (29898) UA Urinalysis Complete (Macroscopic and Microscopic) (90821) CBC Complete blood count with diff (54263) GERD (gastroesophageal reflux disease) 6 Assessment & [...] Plan (07/15/2025 11:41 AM EDT): Orders: CMP12+LP+6AC ([id number]) - [facility] furosemide (LASIX) 40 MG tablet; [...] Department Care Team Description 07/20/2025 Results Follow-Up [facility] [address] [facility] [address] [place] [address] Deepak Gray MD 07/15/2025 11:00 AM EDT Office Visit [facility] [address] [facility] [place] [address] Deepak Gray MD Acute [place] inferior [facility] first episode care ([facility]) (Primary Dx); Hypertension, unspecified type; [...] URINALYSIS Routine 07/15/2025 10:39 AM EDT Acute NV inferior lateral first episode care ([facility]) CBC WITH DIFFERENTIAL/PLATELE T Routine 07/15/2025 10:38 AM EDT Acute NV inferior lateral first episode care ([facility]) PSA PROSTATE SPECIFIC ANTIGEN TOTAL REFLEX TO FREE Routine 07/15/2025 10:38 AM EDT Acute NV inferior lateral first episode care ([facility]) MAGNESIUM Routine 07/15/2025 10:38 AM EDT Acute NV inferior lateral first episode care ([facility]) T4, FREE Routine 07/15/2025 10:38 AM EDT Acute NV inferior lateral first episode care ([facility]) TSH Routine 07/15/2025 10:38 AM EDT Acute [place] inferior lateral first episode care ([facility]) HEMOGLOBIN A1C Routine 07/15/2025 10:38 AM EDT Acute [place] inferior lateral first episode care ([facility]) CMP12+LP+6AC - [facility] Routine 07/15/2025 10:38 AM EDT Acute NV inferior lateral first episode care ([facility]) Hypertension, unspecified type from Last 3 Months [...] 12:09 PM EDT Performed at: 01 - [address] [id number] Associate Director Of Development: Urbano Troy PhD, Phone: [phone] us Deepak Gray MD LAB URINE ORDERABLES Final Resul t Performing Organization Address [facility] Co de Phone Number [facility] - [address] [place] [address] * UA Urinalysis Complete (Macroscopic and Microscopic) (43709) (07/15/2025 10:39 AM EDT) Specific [place], Urine 1.024 1.005 - 1.030 01 pH [...] 12:09 PM EDT Performed at: 01 - [address] [id number] Associate Director Of Development: Urbano Troy PhD, Phone: [phone] us Deepak Gray MD LAB URINE ORDERABLES Final Resul t Performing Organization Address [facility] Co de Phone Number [facility] - [address] [place] [address] * (ABNORMAL) CMP12+LP+6AC (187896) - [facility] (07/15/2025 10:38 AM EDT) Glucose 105(H) 70 [...] 07/16/2025 12:09 PM EDT Performed at: - [address] [id number] Associate Director Of Development: Urbano Troy PhD, Phone: [phone] Deepak Gray MD LAB BLOOD ORDERABLES Final Resul t [facility] - [address] [place] [address] * (ABNORMAL) CBC Complete blood count with diff (05420) (07/15/2025 10:38 AM EDT) Auto WBC 5.3 [...] - 07/16/2025 9:09 AM EDT Performed at: 01 - [facility] [address] [id number] Associate Director Of Development: Urbano Troy PhD, Phone: [phone] us Deepak Gray MD LAB BLOOD ORDERABLES Final Resul t Performing Organization Address [facility] de Phone Number [facility] - [address] [place] [address] * PSA Prostate Specific Antigen Total Reflex to Free (71451) (07/15/2025 10:38 AM EDT) PSA 0.6 0.0 - 4.0 ng/mL Comment: Reyna ECLIA methodology. According to the [employer], Serum PSA should decrease and [...] - 07/16/2025 12:09 PM EDT Performed at: [address] [id number] Associate Director Of Development: Urbano Troy PhD, Phone: [phone] us Deepak Gray MD LAB BLOOD ORDERABLES Final Resul t Performing Organization Address [facility] de Phone Number [facility] - [address] [place] [address] * TSH Thyroid Stimulating Hormone?? (27440) (07/15/2025 10:38 AM EDT) TSH, High Sensitivity 0.594 0.450 - 4.500 uIU/mL 01 Blood (Blood, Venous) 07/15/2025 10:38 AM EDT 07/15/2025 1:00 AM EDT Comment:BLOOD, VENOUS Narrative [facility] - 07/16/2025 11:09 AM EDT Performed at: [address] [place] [id number] Associate Director Of Development: Urbano Troy PhD, Phone: [phone] us Deepak Gray MD LAB BLOOD ORDERABLES Final Resul t Performing Organization Address [facility] Co de Phone Number [facility] [address] [place] [address] * T4, Free (18690) (07/15/2025 10:38 AM EDT) Free T4 1.32 0.82 - 1.77 ng/dL 01 Blood (Blood, Venous) 07/15/2025 10:38 AM EDT 07/15/2025 1:00 AM EDT Comment:BLOOD, VENOUS Narrative [facility] - 07/16/2025 11:09 AM EDT Performed at: [address] [place] [id number] Associate Director Of Development: Urbano Troy PhD, Phone: [phone] us Deepak Gray MD LAB BLOOD ORDERABLES Final Resul t Performing Organization Address [facility] de Phone Number [facility] - [address] [place] [address] * Magnesium Serum (10155) (07/15/2025 10:38 AM EDT) Pathologist [facility] Magnesium 2.2 1.6 - 2.3 mg/dL 01 Blood (Blood, Venous) 07/15/2025 10:38 AM EDT 07/15/2025 1:00 AM EDT Comment:BLOOD, VENOUS Narrative [facility] - 07/16/2025 12:09 PM EDT Performed at: [address] [place] [id number] Associate Director Of Development: Urbano Troy PhD, Phone: [phone] us Deepak Gray MD LAB BLOOD ORDERABLES Final Resul t Performing Organization Address [facility] Co de Phone Number [facility] - [address] [place] [address] * (ABNORMAL) Hgb A1C Hemoglobin Glycosylated (81470) (07/15/2025 10:38 AM EDT) Hemoglobin A1C 6.4(H) 4.8 - 5.6 % Comment: Prediabetes: 5.7 - 6.4 Diabetes: >6.4 Glycemic control for adults with diabetes: <7.0 Blood (Blood, Venous) 07/15/2025 10:38 AM EDT 07/15/2025 1:00 AM EDT Comment:BLOOD, VENOUS Narrative [facility] - 07/16/2025 8:08 AM EDT Performed at: - [address] [id number] Associate Director Of Development: Urbano Troy PhD, Phone: [phone] us Deepak Gray MD LAB BLOOD ORDERABLES Final Resul t [facility] - [address] [place] [phone] from Last 3 Months Insurance ANTHEM NO COPAY NB Care Teams Application Integrator Relationship Specialty Start Date End Date Louie Davis [address] [place] [address] PCP - General General Surgery 07/15/25
--- OUTSIDE RECORDS SUMMARY | 2025-09-01 16:55 | XMS_ITS | Encounter Summary ---
Author Organization [facility] Address [address] [place] [address] Phone [email or web address] Care Team Providers Care Retail Client Solutions Analyst Name Role Phone Louie Davis Primary Care Provider [phone] Encounter Details Date Type Department Care Team (Late st Contact Info) Description 07/20/2025 Results Follow-Up [facility] [address] [facility] [address] [place] [address] Deepak Gray MD [address] [facility] [address] [place] [address] Social History Tobacco Use Types [...] on filedocumented in this encounter Care Teams Retail Client Solutions Analyst Relationship Specialty Start Date End Date Louie Davis [address] [place] [address] PCP - General General Surgery 07/15/25 documented as of this encounter
--- OUTSIDE RECORDS SUMMARY | 2025-09-01 16:55 | XMS_ITS | Patient Health Record ---
[facility] [address] [facility] [address] [facility] [address] [place] [id number] Care Team Providers Care Landscape Account Manager Name Role Phone Ryan Aaron Kwon Primary Care Provider Shani Portillo Unavailable [phone] JagdishCarol mclean Unavailable [phone] Allergies No Known Allergies Results Component Value Reference Range Notes Influenza Screen (in house) Reviewed date:11/06/2024 11:09:22 [...] date:11/06/2024 02:23:17 PM Interpretation: Performing Lab: Notes/Report: Is patient a resident in a congregate care setting? No Date of Symptom onset 11/06/24 Is patient currently in ICU? No Is patient currently hospitalized? No Is patient an [employer] employee? N Is the patient employed in healthcare? No Does the patient have COVID symptoms? Yes Is this the 1st COVID test for the patient? Yes No COVPCR Not Detected NotDetected Effective 05/10/21, [...] Interpretation: Performing Lab: Notes/Report: Result: Neg P-Culture, Anaerobic and Aer obic w/Gram Stain Reviewed date:01/28/2025 02:41:01 PM Interpretation: Performing Lab: Notes/Report: CLIA: [id number] Timothy Grady MD, [employer] [address] [place] [address] , [facility] [place], [place] [address] Test performed by [employer], [employer] Specimen Source - left first toe Culture, [...] date:07/08/2025 09:12:49 AM Interpretation:Abnormal Performing Lab: Notes/Report: CLIA: [id number] Timothy Grady MD, [employer] [address] [place] [address] [address], [place] [address] Test performed by [employer], [facility] Specimen Source Abscess - left great toe Culture, Anaerobic and Aerobic w/Gram Stain See Below Final Report: No Anaerobes isolated Sensitivity Panel See Below _ Organism Antibiotic _ _ S=SUSCEPTIBLE I=INTERMEDIATE R=RESISTANT P-Culture, Miscellaneous Aer obic w/Gram Stain Reviewed date:07/08/2025 09:12:49 AM Interpretation:Abnormal Performing Lab: Notes/Report: Test performed by [employer], [address] , [address], [place] [address] Timothy Grady MD, [employer] CLIA: [id number] Specimen Source Abscess - left great toe [...] 05:02:13 PM Interpretation:Normal Performing Lab: Notes/Report: Normal H-BUN/CREAT Reviewed date:12/12/2024 05:41:57 PM Interpretation: Performing Lab: Notes/Report: BUN 30 9-20 mg/dl CREATT 1.40 0.66-1.25 mg/dl GFRAA 65 >60 ML/MIN EGFR 53 >60 ml/min P-Culture, Miscellaneous Aer obic w/Gram Stain Reviewed date:01/28/2025 02:41:01 PM Interpretation: Performing Lab: Notes/Report: Test performed by [facility] [address] [place] [address] , [address], [place] [address] Timothy Grady MD, Cl[employer] CLIA: [id number] Specimen Source - left first toe Gram [...] S Vancomycin S S=SUSCEPTIBLE I=INTERMEDIATE R=RESISTANT CT scan : Abdomen and pelvis with contrast Reviewed date:04/21/2025 02:53:22 PM Interpretation:nothing acute, benign cyst Performing Lab: Notes/Report: nothing acute, benign cyst Glycohemoglobin A1c (in hous e) Reviewed date:10/17/2024 10:08:40 AM Interpretation:6.3 Performing Lab: Notes/Report: 6.3 glycohemoglobin 6.3% 5 - 6.5 % P-Comprehensive Metabolic Pa vishnu (CMP) Reviewed date:10/17/2024 10:08:40 AM Interpretation:bun 24, creat 1.44, gfr 59 Performing Lab: Notes/Report: Test performed by [facility] [address] [place], [place] [address] [place] , [address], [place] [address] Timothy Grady MD, Cl[employer]yer CLIA: [id number] Sodium 138 135-145 mmol/L Potassium 4.6 3.5-5.3 [...] Interpretation:Normal Performing Lab: Notes/Report: Test performed by [facility] [address] [place], [place] [address] [place] , [address], [place] [address] Timothy Grady MD, Cl[employer] CLIA: [id number] PSA 0.51 <4.00 ng/mL Please note this is an ultrasensitive PSA assay with a lower limit of detection of 0.014 ng/mL. This test is performed by the Reyna ECLIA methodology. Values obtained with different assay methods or kits cannot be directly compared. P-Microalbumin/Creatinine, R andom Urine Sample Reviewed date:10/17/2024 10:08:40 AM Interpretation:Normal Performing Lab: Notes/Report: Test performed by [facility] [address] , [address], [place] [address] Timothy Grady MD, Cl[employer]yer CLIA: [id number] Albumin/Creatinine Ratio, Urine 8 0-30 ug/mg Microalbumin, [...] Administer ed Shingrix IM Intramuscular 04/03/2022 Administered Shingrix IM Intramuscular 07/20/2025 Administered Fluzone Quad (6months&older) IM Intramuscular 07/20/2025 Administered Tetanus Tdap-Adacel (over 7yrs) IM Intramuscular 04/03/2022 Administered Social History Tobacco Use: Social History Observation Description Date Smoking Status WARNING: Information temporarily unavailable CURRENT TOBACCO USE: Question Answer Notes Are you a: STOPPED SMOKING 2019 Problems Problem Type SNOMED Code ICD Code Onset Dates Problem Status W/U Status Risk Notes Problem Essential hypertension (74404792) Essential (primary) hypertension (I10) Active confirmed Problem Tobacco abuse (6099853989) Tobacco abuse (Z72.0) Active confirmed Problem Essential hypertension (17675245) Essential hypertension (I10) Active confirmed Problem Angina pectoris (941179497) Angina pectoris (I20.9) Active confirmed Problem Mixed hyperlipidemia (505412529) Mixed hyperlipidemia (E78.2) Active confirmed Problem Restless legs syndrome (22381634) Restless legs syndrome (G25.81) Active confirmed Problem Acute ST segment elevation myocardial infarction of inferior wall (226441374) ST elevation (STEMI) myocardial infarction involving other coronary artery of inferior wall (I21.19) Active confirmed Problem Acquired hypothyroidism (927499206) Acquired hypothyroidism (E03.9) Active confirmed Problem Sleep disturbance (40275577) Sleep disturbance (G47.9) Active confirmed Problem Chronic fatigue syndrome (22225482) Chronic fatigue (R53.82) Active confirmed Problem History of placement of stent for coronary artery disease (situation) (479284290) Status post coronary artery stent placement (Z95.5) Active confirmed Problem Erectile dysfunction (disorder) (536189465) Erectile dysfunction, unspecified erectile dysfunction type (N52.9) Active confirmed Problem Body mass index 40+ - morbidly obese (874312624) BMI 40.0-44.9, adult (Z68.41) Active confirmed Problem Hyperlipidaemia (77507431) Hyperlipidemia, unspecified hyperlipidemia type (E78.5) Active confirmed Problem STEMI - ST elevation myocardial infarction (948917148) ST elevation myocardial infarction (STEMI), unspecified artery (I21.3) Active confirmed Problem Atherosclerotic heart disease of enterprise coronary artery without angina pectoris (377403176830396) Coronary artery disease involving enterprise coronary artery of enterprise heart, angina presence unspecified (I25.10) Active confirmed Problem Stented coronary artery (027168708) Stented coronary artery (Z95.5) Active confirmed Problem Obese class II (706118893955769) BMI 39.0-39.9,adult (Z68.39) Active confirmed Problem Cardiac implant in situ (776051679) Status post angioplasty with stent (Z95.9) Active confirmed Problem Atherosclerotic heart disease of enterprise coronary artery without angina pectoris (669980133251406) Atherosclerosis of enterprise coronary artery without angina pectoris, unspecified whether enterprise or transplanted heart (I25.10) Active confirmed Problem Benign prostatic hypertrophy without outflow obstruction (188460643) Benign prostatic hyperplasia without lower urinary tract symptoms (N40.0) Active confirmed Problem Seasonal allergic rhinitis (768241524) Seasonal allergic rhinitis, unspecified trigger (J30.2) Active confirmed Problem Type II diabetes mellitus without complication (328845694) Type 2 diabetes mellitus without complication, unspecified whether [facility] insulin use (E11.9) Active confirmed Problem Gastroesophageal reflux disease (739343831) Gastroesophageal reflux disease, unspecified whether esophagitis present (K21.9) Active confirmed Problem Acute ST segment elevation myocardial infarction due to right coronary artery occlusion (40162661546154266) ST elevation myocardial infarction involving right coronary artery (I21.11) Active confirmed Problem Partial tear of left Achilles tendon, subsequent encounter (S86.012D) Active confirmed Vital Signs Heart Rate 81 /min 07/20/2025 Blood pressure diastolic 70 mm Hg 07/20/2025 Height 75 in 07/20/2025 Blood pressure systolic 112 mm Hg 07/20/2025 Weight 295.6 lbs 07/20/2025 BMI 36.94 kg/m2 07/20/2025 Encounters Encounter Location Date Provider [facility] [address] [place] [id number] 10/16/2024 Aaron Davis Type 2 diabetes seema itus without complication, unspecified whether director long term care insulin use E11.9 ; BMI 39.0-39.9,adult Z68.39 ; Essential (primary) hypertension I10 ; Status post angioplasty with stent Z95.9 ; Benign prostatic hyperplasia without lower urinary tract symptoms N40.0 and History of tobacco use Z87.891 [facility] [address] [place] [id number] 11/06/2024 Carol Crowdy Acute URI J06.9 ; [place] dy aches R52 ; Fever, unspecified R50.9 and Influenza A J10.1 [facility] [address] [facility] [address] [place], [place] [id number] 01/23/2025 Carol Crowdy Toe infection L08.9 [facility] [address] [facility] [address] [place], [place] [id number] 01/28/2025 Carol Crowdy Toe infection L08.9 [facility] [address] [facility] [address] [place], [place] [id number] 02/11/2025 Carol Crowdy Toe infection L08.9 and Open wound of toe, subsequent encounter S91.109D [facility] [address] [facility] [address] [place], [place] [id number] 03/12/[address] elevation myocard ial infarction involving right coronary artery I21.11 ; Hyperkalemia E87.5 and Status post angioplasty with stent Z95.9 [facility] [address] [facility] [address] [place], [place] [id number] 04/28/2025 Portillo Woodbury Hemorrhoids, unspeci fied hemorrhoid type K64.9 [facility] [address] [facility] [address] [place], [place] [id number] 07/10/2025 Carol Crowdy Toe infection L08.9 [facility] [address] [facility] [address] [place], [place] [id number] 07/20/2025 Aaron Davis Essential hypertensi on I10 ; Acquired hypothyroidism E03.9 ; Mixed hyperlipidemia E78.2 ; Status post coronary artery stent placement Z95.5 ; Encounter for immunization Z23 ; Encounter for vaccination Z23 and Screening for colon cancer Z12.11 [facility] [address] [facility] [address] [place], [place] [id number] 03/26/2025 Aaron Davis Status post angiopla sty with stent Z95.9 ; Atherosclerosis of enterprise coronary artery without angina pectoris, unspecified whether enterprise or transplanted heart I25.10 ; Essential (primary) hypertension I10 and Type 2 diabetes mellitus without complication, unspecified whether director long term care insulin use E11.9 [facility] [address] [place], [place] [id number] 07/01/2025 Carol Tabor Toe infection L08.9 [facility] [address] [place], [place] [id number] 08/10/2025 Aaron Davis [facility] [address] [place], [place] [id number] 10/17/2024 Aaron Davis [facility] [address] [place], [place] [id number] 11/07/[address] lung screening R91.8 [facility] [address] [place], [place] [id number] 11/10/2024 Caroljeremias Tabor [facility] [address] [place], [place] [id number] 04/14/2025 Aaron Davis Screening for colon cancer Z12.11 [facility] [address] [place], [place] [id number] 07/03/2025 Aaron Davis [facility] [address] [place], [place] [id number] 07/06/2025 Portillo Mcleod [facility] [address] [place], [place] [id number] 07/06/2025 Aaron Davis Assessments Encounter Date Diagnosis (ICD Code) Assessment Notes Treatment Notes Treatment Clinical Notes Section Notes 10/16/2024 BMI 39.0-39.9,adult (ICD-10 - Z68.39) 10/16/2024 Type 2 diabetes mellitus without complication, unspecified whether director long term care insulin use (ICD-10 - E11.9) continue [...] hypothyroidism (ICD-10 - E03.9) 03/26/2025 Atherosclerosis of enterprise coronary artery without angina pectoris, unspecified whether enterprise or transplanted heart (ICD-10 - I25.10) 07/20/2025 [...] 24-48 hours without the use of medication. 07/20/2025 Status post coronary artery stent placement (ICD-10 - Z95.5) 03/26/2025 Type 2 diabetes mellitus without complication, unspecified whether director long term care insulin use (ICD-10 - E11.9) 07/20/2025 Encounter for immunization (ICD-10 - Z23) 10/16/2024 Benign prostatic hyperplasia without lower urinary tract symptoms (ICD-10 - N40.0) 10/16/2024 History of tobacco use (ICD-10 - Z87.891) 07/20/2025 Encounter for vaccination (ICD-10 - Z23) 07/20/2025 Screening for colon cancer (ICD-10 - Z12.11) Plan Of Treatment Pending Test Test Name Order Date Cologuard 04/14/2025 Next Appt Details Provider Name:Aaron Rivers er, 10/26/2025 10:15:00 AM, [address], [place], [place], [id number], Insurance Providers Payer Name Payer Address Payer Phone Subscriber Number Group Number Insured Name Patient Relationship to Insured Coverage Start Date Coverage End Date [employer] [address] [place] [address] [id number] Tommy Barrera Self - patient is the insured [employer] [address] [place] [address] [phone] [id number] Tommy Barrera Self - patient is [...]
--- OUTSIDE RECORDS SUMMARY | 2025-09-01 16:55 | XMS_ITS | Clinical Summary ---
Author Organization [facility] Address [address] [place] [address] Care Team Providers Care Director Oracle Database Name Role Phone Louie Davis MD Primary Care Provider [phone] Allergies No known active allergies Medications levothyroxine [...] STEMI (ST elevation myocardial infarction) 07/19 Acute [place] inferior lateral first episode care Overview (07/17/2016): [...] Mother Relation Name Status Comments Brother Alive [place] at age 42 Father Alive Mother Alive [...] VACCINE 04/17/2025 Medical Devices Implanted Type Area Parts Salesman Device Identifier Shelf Expiration Date Model / Serial / Lot Stent Integrity Bare Mtl Rx 3.5x18mm - [id number] Implanted:Qty: 1 on 07/17/2016 by Garett Morales MD at [facility] Stent [employer] 03/10/2017 [id number] / / [id number] Insurance [facility] Advance Directives * Full Code (Latest Code Status on File) Date Activated Date Inactivated Comments 07/17/2016 3:35 PM 07/19/2016 9:28 AM Question Answer Comments Level Of Support Discussed With: Patient Care Teams Director Oracle Database Relationship Specialty Start Date End Date Louie Davis MD [address] [place] [id number] PCP - General Family Medicine 07/17/16
== END 2025-08-31 23:59 | disposition home or self-care (01) ==
LOC: LAB.DROPOF 09-01 16:52
PROVIDERS: PCP Family Medicine; Visit Provider Nurse Practitioner
DX: L97.522 Non-pressure chronic ulcer of other part of left foot with fat layer exposed (principal); L03.032 Cellulitis of left toe
CPT/HCPCS: 87070; 87205

== ENCOUNTER 2025-09-14 10:00 | Outpatient (CLI) | payer BC, SELFPAY ==
--- OUTSIDE RECORDS SUMMARY | 2025-09-14 10:07 | XMS_ITS | Encounter Summary ---
Author Organization [facility] Address [address] [place] [address] Phone [email or web address] Care Team Providers Care Window Shade Cloth Sewer Name Role Phone Louie Davis Primary Care Provider [phone] Encounter Details Date Type Department Care Team (Late st Contact Info) Description 07/20/2025 Results Follow-Up [facility] [address] [facility] [address] [place] [address] Deepak Gray MD [address] [facility] [address] [place] [address] Social History Tobacco Use Types [...] on filedocumented in this encounter Care Teams Window Shade Cloth Sewer Relationship Specialty Start Date End Date Louie Davis [address] [place] [id number] PCP - General General Surgery 07/15/25 documented as of this encounter
--- OUTSIDE RECORDS SUMMARY | 2025-09-14 10:07 | XMS_ITS | Clinical Summary ---
Author Organization [facility] Address [address] [place] [address] Phone [email or web address] Care Team Providers Care Life Enrichment Assistant Name Role Phone Louie Davis Primary Care Provider Allergies No known active allergies Medications metoprolol [...] [place] inferior lateral first episode care Overview (04/22/2025): 1. S/p thrombus extraction and BMS placement to RCA 2. EF 35% with mildly reduced systolic function Assessment & Plan (07/15/2025 11:41 AM EDT): Orders: CMP12+LP+6AC (647757) - [facility] Hgb A1C Hemoglobin Glycosylated (93220) TSH Thyroid Stimulating Hormone (38648) T4, Free (11129) Magnesium Serum (85164) PSA Prostate Specific Antigen Total Reflex to Free (38494) UA Urinalysis Complete (Macroscopic and Microscopic) (73685) CBC Complete blood count with diff (90394) GERD (gastroesophageal reflux disease) 6 Assessment & [...] Plan (07/15/2025 11:41 AM EDT): Orders: CMP12+LP+6AC ([id number]) - [facility] furosemide (LASIX) 40 MG tablet; [...] Department Care Team Description 07/20/2025 Results Follow-Up [facility] [address] [facility] [address] [place] [address] Deepak Gray MD 07/15/2025 11:00 AM EDT Office Visit [facility] [address] [facility] [address] [place] [address] Deepak Gray MD Acute [place] inferior [place] health first episode care ([facility]) (Primary Dx); Hypertension, unspecified type; [...] URINALYSIS Routine 07/15/2025 10:39 AM EDT Acute [place] inferior lateral first episode care ([facility]) CBC WITH DIFFERENTIAL/PLATELE T Routine 07/15/2025 10:38 AM EDT Acute [place] inferior lateral first episode care ([facility]) PSA PROSTATE SPECIFIC ANTIGEN TOTAL REFLEX TO FREE Routine 07/15/2025 10:38 AM EDT Acute [place] inferior lateral first episode care ([facility]) MAGNESIUM Routine 07/15/2025 10:38 AM EDT Acute [place] inferior lateral first episode care ([facility]) T4, FREE Routine 07/15/2025 10:38 AM EDT Acute [place] inferior lateral first episode care ([facility]) TSH Routine 07/15/2025 10:38 AM EDT Acute [place] inferior lateral first episode care ([facility]) HEMOGLOBIN A1C Routine 07/15/2025 10:38 AM EDT Acute [place] inferior lateral first episode care ([facility]) CMP12+LP+6AC - [facility] Routine 07/15/2025 10:38 AM EDT Acute [place] inferior lateral first episode care ([facility]) Hypertension, unspecified type from Last [...] 12:09 PM EDT Performed at: 01 - [facility] [id number] [employer] Stock Clerk: Urbano Troy PhD, Phone: [phone] us Deepak Gray MD LAB URINE ORDERABLES Final Resul t Performing Organization Address [facility] Co de Phone Number [facility] - [address] [place] [address] * UA Urinalysis Complete (Macroscopic and Microscopic) (39999) (07/15/2025 10:39 AM EDT) Specific [place], Urine 1.024 1.005 - 1.030 01 pH [...] 12:09 PM EDT Performed at: 01 - [facility] [id number] [employer] Stock Clerk: Urbano Troy PhD, Phone: [phone] us Deepak Gray MD LAB URINE ORDERABLES Final Resul t Performing Organization Address [facility] Co de Phone Number [facility] - [address] [place] [address] * (ABNORMAL) CMP12+LP+6AC ([id number]) - [facility] (07/15/2025 10:38 AM EDT) Glucose [...] 07/16/2025 12:09 PM EDT Performed at: - [facility] [id number] [employer] Stock Clerk: Urbano Troy PhD, Phone: [phone] Deepak Gray MD LAB BLOOD ORDERABLES Final Resul t [facility] - [address] [place] [address] * (ABNORMAL) CBC Complete blood count with diff (97999) (07/15/2025 10:38 AM EDT) Auto WBC 5.3 [...] AM EDT Performed at: 01 - [facility] [address] [id number] [employer] Stock Clerk: Urbano Troy PhD, Phone: [phone] us Deepak Gray MD LAB BLOOD ORDERABLES Final Resul t Performing Organization Address [facility] de Phone Number [facility] - [address] [place] [address] * PSA Prostate Specific Antigen Total Reflex to Free (96363) (07/15/2025 10:38 AM EDT) PSA 0.6 0.0 - 4.0 ng/mL Comment: Reyna ECLIA methodology. According to the [place] [employer], Serum PSA should decrease and [...] - 07/16/2025 12:09 PM EDT Performed at: [facility] [id number] [employer] Stock Clerk: Urbano Troy PhD, Phone: [phone] us Deepak Gray MD LAB BLOOD ORDERABLES Final Resul t Performing Organization Address [facility] de Phone Number [facility] - [address] [place] [address] * TSH Thyroid Stimulating Hormone?? (59547) (07/15/2025 10:38 AM EDT) TSH, High Sensitivity 0.594 0.450 - 4.500 uIU/mL 01 Blood (Blood, Venous) 07/15/2025 10:38 AM EDT 07/15/2025 1:00 AM EDT Comment:BLOOD, VENOUS Narrative [facility] - 07/16/2025 11:09 AM EDT Performed at: [address] [place] [id number] [employer] Stock Clerk: Urbano Troy PhD, Phone: [phone] us Deepak Gray MD LAB BLOOD ORDERABLES Final Resul t Performing Organization Address City/[facility] Co de Phone Number [facility] - [phone] [place] [address] * T4, Free (28305) (07/15/2025 10:38 AM EDT) Free T4 1.32 0.82 - 1.77 ng/dL 01 Blood (Blood, Venous) 07/15/2025 10:38 AM EDT 07/15/2025 1:00 AM EDT Comment:BLOOD, VENOUS Narrative [facility] - 07/16/2025 11:09 AM EDT Performed at: [address] [place] [id number] [employer] Stock Clerk: Urbano Troy PhD, Phone: [phone] us Deepak Gray MD LAB BLOOD ORDERABLES Final Resul t Performing Organization Address [facility] de Phone Number [facility] - [address] [place] [address] * Magnesium Serum (51555) (07/15/2025 10:38 AM EDT) Pathologist [facility] Magnesium 2.2 1.6 - 2.3 mg/dL 01 Blood (Blood, Venous) 07/15/2025 10:38 AM EDT 07/15/2025 1:00 AM EDT Comment:BLOOD, VENOUS Narrative [facility] - 07/16/2025 12:09 PM EDT Performed at: [address] [place] [id number] [employer] Stock Clerk: Urbano Troy PhD, Phone: [phone] us Deepak Gray MD LAB BLOOD ORDERABLES Final Resul t Performing Organization Address City/[facility] Co de Phone Number [facility] - [phone] [place] [address] * (ABNORMAL) Hgb A1C Hemoglobin Glycosylated (00542) (07/15/2025 10:38 AM EDT) Hemoglobin A1C 6.4(H) 4.8 - 5.6 % Comment: Prediabetes: 5.7 - 6.4 Diabetes: >6.4 Glycemic control for adults with diabetes: <7.0 Blood (Blood, Venous) 07/15/2025 10:38 AM EDT 07/15/2025 1:00 AM EDT Comment:BLOOD, VENOUS Narrative [facility] - 07/16/2025 8:08 AM EDT Performed at: - [address] [id number] [employer] Stock Clerk: Urbano Troy PhD, Phone: [phone] us Deepak Gray MD LAB BLOOD ORDERABLES Final Resul t [facility] - [address] [place] [phone] from Last 3 Months Insurance ANTHEM NO COPAY NB Care Teams Life Enrichment Assistant Relationship Specialty Start Date End Date Louie Davis [address] [place] [id number] PCP - General General Surgery 07/15/25
--- OUTSIDE RECORDS SUMMARY | 2025-09-14 10:07 | XMS_ITS | Clinical Summary ---
Author Organization [facility] Address [address] [place] [address] Care Team Providers Care Materials Planner Name Role Phone Louie Davis MD Primary Care Provider [phone] Allergies No known active allergies Medications levothyroxine [...] [place] inferior lateral first episode care Overview (07/17/2016): [...] Mother Relation Name Status Comments Brother Alive [place] at age 42 Father Alive Mother Alive [...] VACCINE 04/17/2025 Medical Devices Implanted Type Area Whipped Topping Mixer Device Identifier Shelf Expiration Date Model / Serial / Lot Stent Integrity Bare Mtl Rx 3.5x18mm - [id number] Implanted:Qty: 1 on 07/17/2016 by Garett Morales MD at [facility] Stent [employer] 03/10/2017 [id number] / / [id number] Insurance [facility] [employer] Advance Directives * Full Code (Latest Code Status on File) Date Activated Date Inactivated Comments 07/17/2016 3:35 PM 07/19/2016 9:28 AM Question Answer Comments Level Of Support Discussed With: Patient Care Teams Materials Planner Relationship Specialty Start Date End Date Louie Davis MD [address] [place] [id number] PCP - General Family Medicine 07/17/16
[2025-09-14 10:30] LABS: Hematocrit 40.7 % (42.0-52.0); Hemoglobin 13.4 g/dL (14.1-18.0); Immature Granulocytes % 0.4 %; Mean Corpuscular HGB Conc 32.9 g/dL (31.8-35.4); Mean Corpuscular Hemoglobin 30.0 pg (27.0-31.2); Mean Corpuscular Volume 91.1 fl (80-94); Nucleated Red Blood Cells % 0 %; Platelet Count 297 K/mm3 (142-424); Red Blood Count 4.47 M/mm3 (4.60-6.20); Red Cell Distribution Width-SD 45.1 fL; White Blood Count 8.0 K/mm3 (4.8-10.8)
[2025-09-14 10:53] LABS: Alanine Aminotransferase 50 U/L (12-78); Albumin Level 4.8 g/dl (3.5-5.0); Albumin/Globulin Ratio 1.3 (1.1-1.8); Alkaline Phosphatase 79 U/L (38-126); Anion Gap 10.4 mEq/L (5-15); Aspartate Amino Transferase 37 U/L (17-59); Bilirubin,Total 0.5 mg/dl (0.2-1.3); Blood Urea Nitrogen 21 mg/dl (9-20); Calcium 9.3 mg/dl (8.4-10.2); Carbon Dioxide 32 mmol/L (22.0-30.0); Chloride 99 mmol/L (98-107); Creatinine,Serum 1.30 mg/dl (0.66-1.25); Estimated Glomerular Filt Rate 58 ml/min (>60); GFR (African American) 70 ML/MIN (>60); Globulin 3.6 g/dL (1.3-3.2); Glucose 102 mg/dl (74-100); Potassium 4.4 mmoL/L (3.5-5.1); Sodium 137 mmol/L (136-145); Total Protein,Serum 8.4 g/dl (6.3-8.2)
[2025-09-14 10:59] LABS: C-Reactive Protein 12.0 mg/L (0-4)
[2025-09-14 11:04] LABS: Hemoglobin A1C 5.8 % (4.0-6.0)
== END 2025-09-14 23:59 | disposition home or self-care (01) ==
LOC: LAB 10:01
PROVIDERS: PCP Family Medicine; Visit Provider Nurse Practitioner
DX: L03.032 Cellulitis of left toe (principal); E11.621 Type 2 diabetes mellitus with foot ulcer; L97.522 Non-pressure chronic ulcer of other part of left foot with fat layer exposed
CPT/HCPCS: 36415; 80053; 83036; 85025; 85651; 86140